=== PATIENT | male | born 1990 | race Caucasian/White ===

== ENCOUNTER 2016-08-15 14:09 | Emergency (ER) | payer OTHER, SELFPAY ==
[~2016-08-15] VITALS: Ht 185.4 cm; Wt 81.6 kg
[~2016-08-15 14:09] MED LIST: /ESCI10TA OR; ABIL10TA PO; ABIL5TAB OR; ACET-654 PO; ACET500C PO; ADVI200T PO; AKWASOL OU; AMBI5TAB OR; ATIV2TAB PO; BUSP10TA2 PO; CITA20TA4 PO; CLINDAMYCIN PO; DEPA250T3 OR; DEPA500T OR; DIPH25CA PO; DIVA50TAEC PO; EFFE75CA75 OR; FOLI1TAB2 PO; IMIT50TA PO; LORA-376 PO; MAALSUS PO; METH4TAB6 PO; MILKSUS PO; MYLASUS2 PO; NICO14DI3 TD; NICODIS TD; No Historical Meds; PAXI10TA2 PO; POLYOPD OU; PRIL20CA PO; PROZ20CA OR; SERO200T PO; THERTAB30 PO; TRAZ50TA OR; TRAZ50TA4 PO; TYLE325T5 PO; VITA100T60 PO; antivert PO; buspar PO; no historical meds
[2016-08-15 14:10] VITALS: BP 117/76
[2016-08-15] MEDS ORDERED: TRAZ100T4 PO (14:24)
[2016-08-15] MEDS ORDERED: PAXI40TA2 PO (14:24)
[2016-08-15] MEDS ORDERED: CLON1TAB PO (14:24)
== END 2016-08-15 16:53 | disposition left against medical advice (07) ==
LOC: M ED 15:40
DX: G47.00 Insomnia, unspecified (principal)

== ENCOUNTER 2017-07-10 20:28 | Emergency (ER) | payer MEDICARE, MEDICAID | END 2017-07-10 21:36 | disposition left against medical advice (07) | LOC: M ED 20:28 | DX: S99.922A Unspecified injury of left foot, initial encounter (principal); X58.XXXA Exposure to other specified factors, initial encounter; Y92.9 Unspecified place or not applicable; Y93.9 Activity, unspecified; Z79.899 Other long term (current) drug therapy; Z88.0 Allergy status to penicillin; Z88.5 Allergy status to narcotic agent; Z53.21 Procedure and treatment not carried out due to patient leaving prior to being seen by health care provider | CPT/HCPCS: 73630 ==

== ENCOUNTER → 2017-08-08 | Outpatient (REF) | payer MEDICARE, MEDICAID ==
[2017-08-08 20:34] LABS: CHLAMYDIA DNA AMPLIFICATION NEGATIVE (NEGATIVE); GC DNA AMPLIFICATION NEGATIVE (NEGATIVE)
== END ==
LOC: M LAB REF 16:44
DX: R30.0 Dysuria (principal); Z11.3 Encounter for screening for infections with a predominantly sexual mode of transmission; Z72.51 High risk heterosexual behavior
CPT/HCPCS: 87086

== ENCOUNTER 2018-11-26 09:04 | Emergency (ER) | payer MEDICARE, MEDICAID ==
[~2018-11-26] VITALS: Ht 185.4 cm; Wt 94.9 kg
[~2018-11-26 09:04] MED LIST changes: -/ESCI10TA OR; -ACET-654 PO; +ACET1TAB55 PO; -CITA20TA4 PO; +CITA20TA6 PO; +CLON1TAB8 PO; +FOLI1TAB11 PO; -FOLI1TAB2 PO; +INDO50CA11 PO; +LEXA1TAB OR; -LORA-376 PO; +LORA0.5T11 PO; +METH4TAB28 PO; -METH4TAB6 PO; +MILK120011 PO; -MILKSUS PO; +MYLASUS16 PO; -MYLASUS2 PO; +NICO21DI34 TD; -NICODIS TD; +PAXI10TA12 PO; -PAXI10TA2 PO; +PAXI40TA10 PO; +PRAZ1CAP PO; +TRAZ-163 PO; +TRAZ-252 PO; -TRAZ50TA4 PO
[2018-11-26] MEDS ORDERED: HYDR-3363 PO (09:15)
[2018-11-26] MEDS ORDERED: LAMO25TA4 PO (09:15)
[2018-11-26] MEDS ORDERED: PARO20TA3 PO (09:15)
[2018-11-26 09:19] VITALS: BP 152/88
[2018-11-26] MEDS ORDERED: HYDR1CAP25 PO (09:55)
[2018-11-26] MEDS ORDERED: PARO20TA4 PO (09:55)
[2018-11-26] MEDS ORDERED: LAMI25TA PO (09:55)
[2018-11-26] MEDS ORDERED: lamoTRIgine 25 MG TAB PO ONE (10:00)
[2018-11-26] MEDS ORDERED: hydrOXYzine 25 MG TAB PO ONE (10:00)
[2018-11-26] MEDS ORDERED: PARoxetine 20 MG TAB PO ONE (10:00)
== END 2018-11-26 10:01 | disposition home or self-care (01) ==
LOC: M ED 09:04
DX: Z76.0 Encounter for issue of repeat prescription (principal); F41.9 Anxiety disorder, unspecified; G43.909 Migraine, unspecified, not intractable, without status migrainosus; F31.9 Bipolar disorder, unspecified; F43.10 Post-traumatic stress disorder, unspecified; Z79.899 Other long term (current) drug therapy; Z88.0 Allergy status to penicillin; Z88.5 Allergy status to narcotic agent

== ENCOUNTER 2018-11-26 13:49 | Emergency (ER) | payer MEDICARE, MEDICAID ==
[~2018-11-26] VITALS: Ht 185.4 cm; Wt 94.7 kg
[~2018-11-26 13:49] MED LIST changes: -DIPH25CA PO; +DIPH25CA32 PO; +HYDR-3363 PO; +HYDR1CAP25 PO; -INDO50CA11 PO; +INDO50CA91 PO; +LAMI25TA PO; +LAMO25TA4 PO; -LORA0.5T11 PO; +LORA0.5T5 PO; -METH4TAB28 PO; +METH4TAB8 PO; +PARO20TA3 PO; +PARO20TA4 PO; -TRAZ-163 PO; +TRAZ-257 PO
[2018-11-26 14:48] LABS: BASO # 0.1 10^3/uL (0.0-0.2); BASO % 0.9 % (0.0-1.0); EOS # 0.1 10^3/uL (0.0-0.50); EOS % 1.8 % (0.0-3.0); HEMATOCRIT 46.4 % (42.0-52.0); LYMPH % 36.6 % (24.0-44.0); MEAN CORPUSCULAR HEMOGLOBIN 30.1 pg (27.0-33.0); MEAN CORPUSCULAR HGB CONC 34.5 g/dl (32.0-36.5); MEAN CORPUSCULAR VOLUME 87.2 fl (80.0-96.0); MONO # 0.5 10^3/uL (0.0-0.8); MONO % 8.3 % (0.0-5.0); NEUTROPHILS # 2.9 10^3/uL (1.8-7.7); PLATELET COUNT, AUTOMATED 195 10^3/uL (150-450); RED BLOOD COUNT 5.32 10^6/uL (4.30-6.10); WHITE BLOOD COUNT 5.5 10^3/uL (4.0-10.0)
[2018-11-26 15:16] LABS: ALBUMIN 3.8 GM/DL (3.2-5.2); ALT/SGPT 31 U/L (12-78); BILIRUBIN,TOTAL 0.4 MG/DL (0.2-1.0); BLOOD UREA NITROGEN 13 MG/DL (7-18); CARBON DIOXIDE LEVEL 28 MEQ/L (21-32); CHLORIDE LEVEL 107 MEQ/L (98-107); CK-MB VALUE MASS < 1.0 NG/ML (<3.6); CPK CREATINE PHOSPHOKINASE 56 U/L (39-308); CREATININE FOR GFR 1.22 MG/DL (0.70-1.30); GLOMERULAR FILTRATION RATE > 60.0 (>60); GLUCOSE, FASTING 91 MG/DL (70-100); MB/CK RELATIVE INDEX 1.79 (< OR =4); POTASSIUM SERUM 4.1 MEQ/L (3.5-5.1); SODIUM LEVEL 141 MEQ/L (136-145); TOTAL PROTEIN 6.6 GM/DL (6.4-8.2)
[2018-11-26 15:17] LABS: TROPONIN I < 0.02 NG/ML (< 0.10)
[2018-11-26] MEDS ORDERED: KETOROLAC 30 MG/ML VIAL (J1885) IV ONE (15:30)
--- NOTE | 2018-11-26 15:52 | REP ---
REASON: Right sided chest pain. COMPARISON: Multiple, latest 04/13/2015. FINDINGS: The superior mediastinal structures are midline. The cardiac silhouette is unremarkable in size, shape, and position. The diaphragmatic surfaces of the lungs are regular, and the costophrenic angles are clear. The pulmonary velez are clear. The imaged osseous structures are intact. IMPRESSION: There is no acute cardiopulmonary disease. No change from the prior exam. Electronically Signed by Tod Cortez DO 11/26/2018 04:22 P
[2018-11-26 18:30] VITALS: BP 111/62
[2018-11-26 19:13] LABS: CK-MB VALUE MASS < 1.0 NG/ML (<3.6); CPK CREATINE PHOSPHOKINASE 52 U/L (39-308); MB/CK RELATIVE INDEX 1.92 (< OR =4); TROPONIN I < 0.02 NG/ML (< 0.10)
--- NOTE | 2018-11-26 22:14 | ECGEPIP ---
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
[2019-04-01] MEDS ORDERED: CLON0.5T2 PO (16:04)
[2019-04-09] MEDS ORDERED: CLON0.5T2 PO ×2 (21:48→21:51)
== END 2018-11-26 19:45 | disposition home or self-care (01) ==
LOC: M ED 13:49
DX: R07.89 Other chest pain (principal); G43.909 Migraine, unspecified, not intractable, without status migrainosus; F33.9 Major depressive disorder, recurrent, unspecified; F41.9 Anxiety disorder, unspecified; F43.10 Post-traumatic stress disorder, unspecified; Z79.899 Other long term (current) drug therapy; Z88.0 Allergy status to penicillin; Z88.5 Allergy status to narcotic agent; F17.210 Nicotine dependence, cigarettes, uncomplicated
CPT/HCPCS: 71046; 80053; 82550; 82553; 84484; 85025; 85379; 93005; 93041; 96374; 99283; 99284; J1885

== ENCOUNTER 2018-12-22 14:02 | Emergency (ER) | payer MEDICARE, MEDICAID ==
[~2018-12-22] VITALS: Ht 185.4 cm; Wt 90.9 kg
[~2018-12-22 14:02] MED LIST changes: +LORA0.5T11 PO; -LORA0.5T5 PO; +METH4TAB28 PO; -METH4TAB8 PO; +TRAZ-163 PO; -TRAZ-257 PO
[2018-12-22] MEDS ORDERED: NS 1,000 ML IV ONE (15:15)
[2018-12-22] MEDS ORDERED: CLINDAMYCIN 600 MG in APPROPRIATE DILUENT 1 EA IV ONE (15:15)
[2018-12-22] MEDS ORDERED: MORPHINE 4 MG/ML 1ML VIAL/SYRINGE (J2270) IV ONE (15:30)
[2018-12-22 16:03] LABS: BASO % 0.3 % (0.0-1.0); EOS % 0.5 % (0.0-3.0); HEMATOCRIT 48.6 % (42.0-52.0); HEMOGLOBIN 16.9 g/dl (13.5-17.5); LYMPH # 0.9 10^3/uL (1.5-6.5); LYMPH % 11.8 % (24.0-44.0); MEAN CORPUSCULAR HEMOGLOBIN 30.1 pg (27.0-33.0); MEAN CORPUSCULAR HGB CONC 34.8 g/dl (32.0-36.5); MEAN CORPUSCULAR VOLUME 86.5 fl (80.0-96.0); MONO # 0.7 10^3/uL (0.0-0.8); MONO % 9.3 % (0.0-5.0); NEUTROPHILS # 5.9 10^3/uL (1.8-7.7); NEUTROPHILS % 77.8 % (36.0-66.0); PLATELET COUNT, AUTOMATED 177 10^3/uL (150-450); RED BLOOD COUNT 5.62 10^6/uL (4.30-6.10); WHITE BLOOD COUNT 7.6 10^3/uL (4.0-10.0)
[2018-12-22 16:18] LABS: BLOOD UREA NITROGEN 9 MG/DL (7-18); C REACTIVE PROTEIN QUANTITATIV 2.02 MG/DL (0.00-0.30); CALCIUM LEVEL 9.2 MG/DL (8.5-10.1); CARBON DIOXIDE LEVEL 28 MEQ/L (21-32); CHLORIDE LEVEL 106 MEQ/L (98-107); CREATININE FOR GFR 1.06 MG/DL (0.70-1.30); GLOMERULAR FILTRATION RATE > 60.0 (>60); GLUCOSE, FASTING 94 MG/DL (70-100); POTASSIUM SERUM 4.1 MEQ/L (3.5-5.1); SODIUM LEVEL 139 MEQ/L (136-145)
[2018-12-22 16:21] LABS: ERYTHROCYTE SEDIMENTATION RATE 5 mm/hr (0-15)
[2018-12-22] MEDS ORDERED: ISOVUE-370 76% 100ML VIAL (Q9967) As Ordered ONE (16:24)
[2018-12-22] MEDS ORDERED: LIDOCAINE W/EPINEPHRINE 1% 20ML VIAL SC ONE (17:15)
[2018-12-22] MEDS ORDERED: BENZOCAINE 20% GEL 9GM TUBE (ANBESOL MAX STRENGTH) TOP ONE (17:30)
[2018-12-22] MEDS ORDERED: CLEO300C2 PO (18:09)
[2018-12-22 18:23] VITALS: BP 118/80
--- NOTE | 2018-12-25 12:24 | REP ---
Maxillofacial CT with IV contrast: There is focal soft tissue edema of the upper lip. There is no focal fluid collection to suggest abscess or hematoma. This could be post-traumatic or cellulitis. No maxilla or mandibular fractures are identified. There is no nasal bone fracture. The ocular lenses and globes are unremarkable. Retrobulbar orbits are unremarkable. There is no orbit fracture. No zygoma fracture. There is a mucosal cyst/polyp anteriorly inferiorly in the right maxillary sinus. The sinuses are otherwise clear. Mastoid air cells are clear. Impression: Focal soft tissue edema of the upper lip without focal fluid collection to suggest abscess or hematoma. This could be post-traumatic or infectious/inflammatory. Right maxillary sinus mucosal cyst /polyp. Electronically Signed by Levi Padilla MD 12/23/2018 07:00 A
== END 2018-12-22 18:18 | disposition home or self-care (01) ==
LOC: M ED 14:02
DX: K04.7 Periapical abscess without sinus (principal); K02.9 Dental caries, unspecified; G43.909 Migraine, unspecified, not intractable, without status migrainosus; H91.92 Unspecified hearing loss, left ear; M32.9 Systemic lupus erythematosus, unspecified; F41.9 Anxiety disorder, unspecified; F31.9 Bipolar disorder, unspecified; F43.10 Post-traumatic stress disorder, unspecified; Z72.0 Tobacco use; Z79.899 Other long term (current) drug therapy; Z88.0 Allergy status to penicillin; Z88.5 Allergy status to narcotic agent
CPT/HCPCS: 70487; 80048; 85025; 85652; 86140; 96374; 96375; 99284; J2270; Q9967

== ENCOUNTER 2019-02-17 10:22 | Emergency (ER) | payer MEDICAID, MEDICARE ==
[~2019-02-17] VITALS: Ht 182.9 cm; Wt 97.4 kg
[~2019-02-17 10:22] MED LIST changes: +CLEO300C2 PO
[2019-02-17 11:08] LABS: HEMATOCRIT 47.2 % (42.0-52.0); HEMOGLOBIN 16.4 g/dl (13.5-17.5); MEAN CORPUSCULAR HEMOGLOBIN 29.9 pg (27.0-33.0); MEAN CORPUSCULAR HGB CONC 34.7 g/dl (32.0-36.5); MEAN CORPUSCULAR VOLUME 86.1 fl (80.0-96.0); PLATELET COUNT, AUTOMATED 205 10^3/uL (150-450); RED BLOOD COUNT 5.48 10^6/uL (4.30-6.10); WHITE BLOOD COUNT 4.5 10^3/uL (4.0-10.0)
[2019-02-17 11:37] LABS: ACETAMINOPHEN LEVEL < 2.0 UG/ML (10.0-30.0); ALBUMIN 4.2 GM/DL (3.2-5.2); ALT/SGPT 38 U/L (12-78); BILIRUBIN,DIRECT 0.1 MG/DL (0.0-0.2); BILIRUBIN,TOTAL 0.5 MG/DL (0.2-1.0); BLOOD UREA NITROGEN 9 MG/DL (7-18); CARBON DIOXIDE LEVEL 28 MEQ/L (21-32); CHLORIDE LEVEL 109 MEQ/L (98-107); CREATININE FOR GFR 1.11 MG/DL (0.70-1.30); ETHYL ALCOHOL (ETHANOL) < 0.003 % (0.000-0.010); GLOMERULAR FILTRATION RATE > 60.0 (>60); GLUCOSE, FASTING 93 MG/DL (70-100); POTASSIUM SERUM 4.2 MEQ/L (3.5-5.1); SODIUM LEVEL 143 MEQ/L (136-145); THYROID STIMULATING HORMONE 0.932 uIU/ML (0.358-3.740); TOTAL PROTEIN 7.1 GM/DL (6.4-8.2)
[2019-02-17 11:43] LABS: AMPHETAMINES LEVEL URINE NEGATIVE (NEGATIVE); BARBITURATES URINE NEGATIVE (NEGATIVE); BENZODIAZEPINES URINE NEGATIVE (NEGATIVE); CANNABINOIDS URINE POSITIVE (NEGATIVE); COCAINE METABOLITE URINE NEGATIVE (NEGATIVE); METHADONE URINE NEGATIVE (NEGATIVE); OPIATES URINE NEGATIVE (NEGATIVE); PHENCYCLIDINE URINE NEGATIVE (NEGATIVE)
[2019-02-17] MEDS: LORazepam 0.5 MG TAB PO ONE (13:35)
[2019-02-17] MEDS: NICOTINE 21MG/24HR 1 EA TRANSDERMAL TD ONE (15:47)
[2019-02-17 18:35] VITALS: BP 141/82
[2019-02-17] MEDS ORDERED: PRAZ1CAP PO (18:59)
[2019-02-17] MEDS ORDERED: LAMI25CH PO (19:00)
== END 2019-02-17 19:13 | disposition home or self-care (01) ==
LOC: M ED 10:22
DX: F31.9 Bipolar disorder, unspecified (principal); F41.9 Anxiety disorder, unspecified; Z88.0 Allergy status to penicillin; Z88.5 Allergy status to narcotic agent; Z79.899 Other long term (current) drug therapy

== ENCOUNTER 2019-03-07 14:15 | Emergency (ER) | payer MEDICARE, OTHER ==
[~2019-03-07] VITALS: Ht 182.9 cm; Wt 81.8 kg
[~2019-03-07 14:15] MED LIST changes: +LAMI25CH PO
[2019-03-07] MEDS ORDERED: LAMI1TAB7 PO (14:27)
[2019-03-07] MEDS ORDERED: PRAZ1CAP PO (14:28)
[2019-03-07] MEDS ORDERED: PAXI40TA10 PO (14:29)
[2019-03-07] MEDS ORDERED: HYDR-3363 PO (14:30)
[2019-03-07 14:39] VITALS: BP 127/79
== END 2019-03-07 14:58 | disposition home or self-care (01) ==
LOC: M ED 14:15
DX: Z76.0 Encounter for issue of repeat prescription (principal); G43.909 Migraine, unspecified, not intractable, without status migrainosus; Z88.0 Allergy status to penicillin; Z88.5 Allergy status to narcotic agent

== ENCOUNTER 2019-04-01 15:10 | Emergency (ER) | payer MEDICARE, MEDICAID ==
[~2019-04-01] VITALS: Ht 182.9 cm; Wt 84.1 kg
[~2019-04-01 15:10] MED LIST changes: +LAMI1TAB7 PO
[2019-04-01 15:59] LABS: BASO # 0.1 10^3/uL (0.0-0.2); BASO % 0.9 % (0.0-1.0); EOS # 0.1 10^3/uL (0.0-0.5); EOS % 1.6 % (0.0-3.0); HEMATOCRIT 46.2 % (42.0-52.0); LYMPH # 1.9 10^3/uL (1.5-5.0); LYMPH % 33.2 % (24.0-44.0); MEAN CORPUSCULAR HEMOGLOBIN 29.6 pg (27.0-33.0); MEAN CORPUSCULAR HGB CONC 34.6 g/dl (32.0-36.5); MEAN CORPUSCULAR VOLUME 85.6 fl (80.0-96.0); MONO # 0.3 10^3/uL (0.0-0.8); MONO % 5.9 % (0.0-5.0); NEUTROPHILS # 3.4 10^3/uL (1.5-8.5); NEUTROPHILS % 58.2 % (36.0-66.0); PLATELET COUNT, AUTOMATED 229 10^3/uL (150-450); WHITE BLOOD COUNT 5.8 10^3/uL (4.0-10.0)
[2019-04-01] MEDS ORDERED: NS 1,000 ML IV ONE (16:00)
[2019-04-01] MEDS ORDERED: CLON0.5T8 (16:04)
[2019-04-01] MEDS ORDERED: PAXI20TA29 PO (16:04)
[2019-04-01] MEDS ORDERED: LAMI25TA PO (16:04)
--- NOTE | 2019-04-01 16:11 | REP ---
CT brain: 04/01/2019. Indication: Syncope. Comparison: 10/04/2014. Technique: Unenhanced axial CT images of the brain were obtained from skull base to vertex. Findings: There is no acute intracranial hemorrhage, acute cortical infarction, mass effect, hydrocephalus or acute calvarial fracture. No significant fluid is present within the visualized paranasal sinuses/mastoid air cells. Impression: No acute intracranial process. Electronically Signed by Seymour Rene DO 04/01/2019 04:03 P
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
[2019-04-01] MEDS ORDERED: LORazepam 2 MG/ML VIAL (J2060) IV STA (16:32)
[2019-04-01] MEDS ORDERED: LORazepam 2 MG/ML VIAL (J2060) As Ordered ONE (16:33)
[2019-04-01 16:38] LABS: ALBUMIN 4.1 GM/DL (3.2-5.2); ALT/SGPT 22 U/L (12-78); BILIRUBIN,DIRECT 0.2 MG/DL (0.0-0.2); BILIRUBIN,TOTAL 0.6 MG/DL (0.2-1.0); BLOOD UREA NITROGEN 10 MG/DL (7-18); CALCIUM LEVEL 8.9 MG/DL (8.5-10.1); CARBON DIOXIDE LEVEL 28 MEQ/L (21-32); CHLORIDE LEVEL 107 MEQ/L (98-107); CREATININE FOR GFR 1.08 MG/DL (0.70-1.30); GLOMERULAR FILTRATION RATE > 60.0 (>60); GLUCOSE, FASTING 100 MG/DL (70-100); SODIUM LEVEL 143 MEQ/L (136-145); TOTAL PROTEIN 6.8 GM/DL (6.4-8.2)
[2019-04-01] MEDS ORDERED: ISOVUE-370 76% 100ML VIAL (Q9967) As Ordered ONE (17:00)
--- NOTE | 2019-04-01 17:56 | REPVR ---
PROCEDURE INFORMATION: Exam: CT Abdomen And Pelvis With Contrast Exam date and time: 04/01/2019 5:07 PM Clinical history: 29 years old, male; Abdominal pain; Additional info: Rlq pain TECHNIQUE: Imaging protocol: Computed tomography of the abdomen and pelvis with intravenous contrast. Radiation optimization: All CT scans at this facility use at least one of these dose optimization techniques: automated exposure control; mA and/or kV adjustment per patient size (includes targeted exams where dose is matched to clinical indication); or iterative reconstruction. Contrast material: ISOVUE 370; Contrast volume: 100 ml; Contrast route: IV; COMPARISON: CT ABD PELVIS WITH CONTRAST 03/23/2016 10:42 PM FINDINGS: Lungs: The visualized lung bases are essentially clear. Liver: The liver is mildly fatty in density. It contains a fairly stable hypodense, indeterminate lesion in the left lobe measuring 1.5 x 1.1 cm. Gallbladder and bile ducts: No gallstones are evident, but ultrasound would be more sensitive. No gross biliary ductal dilatation. Pancreas: Normal. No ductal dilation. Spleen: A splenule is again present. The spleen itself appears unremarkable. Adrenals: Normal. No mass. Kidneys and ureters: The right kidney appears unremarkable. The left kidney contains a similar 1.4 x 1.2 cm cyst in its upper pole. It appears otherwise unremarkable. Stomach and bowel: The unopacified small bowel is not significantly distended to suggest obstruction. The large bowel is grossly unremarkable in appearance. Appendix: The appendix appears normal. Intraperitoneal space: No free air or significant free fluid. Vasculature: Unremarkable. No abdominal aortic aneurysm. Lymph nodes: Unremarkable. No enlarged lymph nodes. Bladder: Grossly unremarkable. Reproductive: The prostate is again large, measuring 4.3 x 4.2 cm. Bones/joints: There is again a butterfly deformity of the L4 vertebral body. Soft tissues: Unremarkable. IMPRESSION: 1. No acute abnormality identified. The appendix appears normal. 2. Mild fatty liver containing a hypodense, indeterminate 1.5 cm lesion which is fairly stable as compared with 03/23/16. May further evaluate with nonemergent MRI if clinically indicated. 3. Persistent prostatomegaly. Electronically signed by: Erick Gipson On 04/01/2019 17:56:43 PM
[2019-04-01 19:12] VITALS: BP 102/61
--- NOTE | 2019-04-02 05:43 | ECGEPIP ---
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
--- NOTE | 2019-04-02 10:34 | ED PDOC ---
Post-Departure Follow-Up radiology report faxed to [facility] Moni Nazario MD Apr 02, 2019 10:34
== END 2019-04-01 19:17 | disposition home or self-care (01) ==
LOC: M ED 15:10
DX: R55 Syncope and collapse (principal); F17.200 Nicotine dependence, unspecified, uncomplicated; N40.1 Benign prostatic hyperplasia with lower urinary tract symptoms; Z79.899 Other long term (current) drug therapy; Z88.0 Allergy status to penicillin; Z88.5 Allergy status to narcotic agent
CPT/HCPCS: 70450; 72125; 74177; 80047; 80048; 80076; 80175; 84443; 85025; 93005; 93041; 94760; 96361; 96374; 99285; J2060; Q9967

== ENCOUNTER 2019-04-09 16:53 | Inpatient (IN) | payer MEDICARE, MEDICAID ==
[~2019-04-09] VITALS: Ht 185.4 cm; Wt 88.7 kg
[~2019-04-09 16:53] MED LIST changes: +CLON0.5T8 PO; +PAXI20TA29 PO
[2019-04-09] MEDS ORDERED: CLON1TAB8 PO (17:16)
[2019-04-09] MEDS ORDERED: DEPA250T32 PO (17:21)
[2019-04-09] MEDS ORDERED: ABIL20TA5 PO (17:24)
[2019-04-09] MEDS ORDERED: PRAZ2CAP PO ×2 (17:24→21:51)
[2019-04-09 18:34] LABS: HEMATOCRIT 49.9 % (42.0-52.0); MEAN CORPUSCULAR HEMOGLOBIN 29.8 pg (27.0-33.0); MEAN CORPUSCULAR HGB CONC 34.1 g/dl (32.0-36.5); MEAN CORPUSCULAR VOLUME 87.5 fl (80.0-96.0); PLATELET COUNT, AUTOMATED 232 10^3/uL (150-450); WHITE BLOOD COUNT 5.5 10^3/uL (4.0-10.0)
[2019-04-09 18:46] LABS: AMPHETAMINES LEVEL URINE NEGATIVE (NEGATIVE); BARBITURATES URINE NEGATIVE (NEGATIVE); BENZODIAZEPINES URINE NEGATIVE (NEGATIVE); CANNABINOIDS URINE POSITIVE (NEGATIVE); COCAINE METABOLITE URINE NEGATIVE (NEGATIVE); METHADONE URINE NEGATIVE (NEGATIVE); OPIATES URINE NEGATIVE (NEGATIVE); PHENCYCLIDINE URINE NEGATIVE (NEGATIVE)
[2019-04-09 19:04] LABS: ACETAMINOPHEN LEVEL < 2.0 UG/ML (10.0-30.0); ALBUMIN 4.3 GM/DL (3.2-5.2); ALT/SGPT 26 U/L (12-78); BILIRUBIN,DIRECT 0.2 MG/DL (0.0-0.2); BILIRUBIN,TOTAL 0.6 MG/DL (0.2-1.0); BLOOD UREA NITROGEN 14 MG/DL (7-18); CALCIUM LEVEL 8.9 MG/DL (8.5-10.1); CARBON DIOXIDE LEVEL 31 MEQ/L (21-32); CHLORIDE LEVEL 105 MEQ/L (98-107); CREATININE FOR GFR 1.18 MG/DL (0.70-1.30); ETHYL ALCOHOL (ETHANOL) < 0.003 % (0.000-0.010); GLOMERULAR FILTRATION RATE > 60.0 (>60); GLUCOSE, FASTING 92 MG/DL (70-100); POTASSIUM SERUM 4.5 MEQ/L (3.5-5.1); SALICYLATE LEVEL 3.1 MG/DL (5.0-30.0); SODIUM LEVEL 140 MEQ/L (136-145); THYROID STIMULATING HORMONE 0.827 uIU/ML (0.358-3.740); TOTAL PROTEIN 6.9 GM/DL (6.4-8.2)
[2019-04-09] MEDS ORDERED: NICOTINE 21MG/24HR 1 EA TRANSDERMAL TD ONE (19:45)
[2019-04-09] MEDS ORDERED: MAALOX 30 ML SUSP *UDC PO PRN (21:30)
[2019-04-09] MEDS ORDERED: MOM 30ML SUSPENSION UDC PO PRN (21:30)
[2019-04-09] MEDS ORDERED: traZODone 50 MG TAB PO PRN (21:30)
[2019-04-09] MEDS ORDERED: ACETAMINOPHEN TAB 650MG DOSE (2X325MG) PO PRN (21:30)
[2019-04-09] MEDS ORDERED: CLON0.5T8 PO ×2 (21:48→21:51)
[2019-04-09] MEDS ORDERED: PARO40TA2 PO (21:51)
[2019-04-09] MEDS ORDERED: VALP1CAP2 PO (21:51)
[2019-04-09] MEDS ORDERED: IBUP-1730 PO (21:51)
[2019-04-09] MEDS ORDERED: ABIL10TA9 PO (21:51)
[2019-04-09 23:40] VITALS: BP 125/71
[2019-04-10 06:19] VITALS: BP 103/64
--- NOTE | 2019-04-10 07:26 | ECGEPIP ---
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
[2019-04-10] MEDS ORDERED: FLUoxetine 20 MG CAP PO ONE (12:00)
[2019-04-10] MEDS ORDERED: LURASIDONE 20 MG TAB (LATUDA) PO ONE (12:00)
--- NOTE | 2019-04-10 14:44 | HPE ---
DATE OF ADMISSION: 04/09/2019 HISTORY OF PRESENT ILLNESS: Please refer to the psychiatric history and evaluation for further details on this admission. This examination and history is intended for medical issues, which may need treatment, followup or consultation on this 30-year-old male. ALLERGIES: PENICILLIN and CODEINE which cause anaphylaxis. PRIMARY CARE PROVIDER: He says he recently started going there and goes to someone he cannot remember the name but they are in [facility]. SOCIAL HISTORY: Resides in [place]. He is single. He smokes at least one-half cigarettes a day. He drinks alcohol about once every 3-4 months. He uses marijuana regularly. FAMILY HISTORY: Mother unknown. Father with multiple sclerosis. PAST MEDICAL HISTORY: 1. Lupus. 2. Depression. 3. Bipolar disorder. 4. Anxiety. 5. 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 PAST SURGICAL HISTORY: 1. Pressure equalizer (PE) tubes. 2. Bilateral myringotomy. 3. Adenoidectomy. LABORATORY STUDIES: CBC was normal. White count 5.5, hemoglobin 17, hematocrit 49.9, platelets 232. Sodium 140, potassium 4.5, chloride 105, CO2 31, BUN 14, creatinine 1.18, TSH 0.827. Urine toxicology was negative. 11-systems review was done, was unremarkable other than the decreased hearing loss. The patient was feeling well, had no medical issues. MEDICATION LIST: - Abilify 20 mg by mouth nightly - clonazepam 0.5 mg by mouth twice a day - clonazepam 1 mg by mouth nightly - ibuprofen 800 mg by mouth three times a day as needed for headache or pain - paroxetine HCl 40 mg by mouth daily - prazosin 2 mg by mouth nightly - valproic acid 250 mg by mouth three times a day PHYSICAL EXAMINATION: 29-year-old male, in no acute distress. Height 73 inches. Weight 88.7 kg. Body mass index (BMI) 25.8. Blood pressure 126/68, pulse 80, respirations 16, oxygen saturation 98% on room air, temperature 97.9. Patient is alert and oriented times three. Pupils equal and reactive to light. Extraocular muscles (EOM) intact. Cornea and sclera clear. Conjunctiva normal. No facial asymmetry. Pharynx, tongue, and gums pink and moist. Tongue is midline. Neck is supple, without lymphadenopathy. No thyromegaly. No goiter. Carotids 2+ without bruit. Chest clear to auscultation, without wheeze or retraction. Heart is regular. Abdomen benign. Bowel sounds positive. Genitourinary ()/rectal not done. Extremities show equal strength. Full range of motion. No cyanosis, clubbing or edema. Peripheral pulses equal and palpable bilaterally. Skin is warm and dry. IMPRESSION AND PLAN: 1. Psychiatric: Plan per psychiatry. 2. Smoking cessation: Nicotine patch offered. 3. Deep venous thrombosis (DVT) prophylaxis: Early ambulation. 4. No acute medical issues.
[2019-04-10 15:34] VITALS: BP 90/54
[2019-04-10] MEDS: PROPRANOLOL 10 MG TAB PO SCH ×2 (15:44→20:32)
[2019-04-10 20:32] VITALS: BP 106/72
[2019-04-10] MEDS ORDERED: MIRTAZAPINE 15 MG TAB PO SCH (21:00)
[2019-04-10] MEDS ORDERED: LURASIDONE 20 MG TAB (LATUDA) PO SCH (21:00)
[2019-04-10] MEDS ORDERED: clonazePAM 1 MG TAB PO ONE (21:30)
[2019-04-10 21:53] VITALS: BP 136/87
[2019-04-11] MEDS ORDERED: FLUoxetine 20 MG CAP PO SCH (09:00)
--- NOTE | 2019-04-11 11:23 | MHDSPDOC ---
[facility] Discharge Summary Discharge Summary DATE OF ADMISSION: Apr 09, 2019 at 21:27 DATE OF DISCHARGE: Apr 10, 2019 at 22:29 DISCHARGE DIAGNOSES: 1. . 2. . REASON FOR ADMISSION: Patient is a 29 -year-old , male, with a history of bipolar d/o, PTSD who self presented to the ED (had to bring sister to ED b/c she was physically sick) and endorsed depression and thoughts of SI for the past week after several medication changes over the past 2mo. Pt stated he took 4mg of Klonopin prior to coming to the ED and would have taken more but he had to bring his sister to the ED. He stated in the ED that over the past 2 wks he been having insomnia and "manic moments." Endorsed current psychosocial stressors of he and his partner having moved in together 1 month ago after location for 5 months, being granted custody of his 14y/o sister with his partner, and several deaths due to drug OD (works at [employer]) and one friend . Per ED, he was tearful when there. Pt seen and states he's been going thru a lot of medications changes with Dr. Hooks at [facility] and was taken off his lamictal 150mg daily b/c it wasn't worker as well as it had been for the pervious years pt had been on it and doing really well and rather increased was weaned off and put on depakote that he doesn't really like as it makes him feel tired and unmotivated. States he doesn't like paxil b/c of the same reason and tells his doctor but he doesn't seem to listen. States due to his current new psychosocial stressors he's been more anxious which is causing him to feel depressed. He has also been requiring increased amounts of Klonopin prescribed most likely due to tolerance for treatment of his anxiety which puts him a risk of addiction. States he's having insomnia but his doctor will not put him on something to help pt sleep even though the past requests help. Spoke to pt about a medication plan as he describes himself as a bipolar depressive pt. It will take a very long time to get pt back on a therapeutic dose of lamictal so instead will start latuda 20mg bid for bipolar depression, d/c depakote, d/c paxil and start prozac pt found beneficial for mood in the past, ween off klonopin and start inderal 10mg tid for anxiety, continue prazosin, and start remeron for insomnia, all med risks and benefits discussed. Pt states he likes that medication plan and hopes it will be beneficial. He denies SI/HI, hallucination, delusions. Feels safe here. CONSULTANTS INVOLVED: medicine transferred pt to ICU for low bp after pt passed out on unit after receiving inderal. TREATMENT AND PROGRESS ON THE UNIT : Pt was admitted to [facility], seen for psychiatric assessment and his outpatient paxil, abilify, depakote where discontinued due to pt not finding them beneficial and he was started on latuda 20mg bid for bipolar depression, prozac 20mg daily for depression, inderal 10mg tid, and remeron 15mg qhs for insomnia. Pt took inderal 10mg in the late even of 04/10/19 and apparently passed out due to low bp after taking and was transferred to the ICU by medical team and d/c from [facility]. I was not able to see pt prior to d/c from [facility]. DISCHARGE ASSESSMENT: Pt transferred to ICU during the late evening 03/10/19 so unable to see prior d/c MENTAL STATUS EXAMINATION ON DISCHARGE: pt transferred to ICU during the late evening 03/10/19 so unable to see prior d/c MEDICATIONS ON DISCHARGE: prozac 20mg daily latuda 20mg bid remeron 15mg qhs klonopin 0.5 bid PLAN/FOLLOWUP ARRANGEMENTS:D/c home with follow-up at [facility]. The amount of time spent in the coordination of care for this patient was approximately 30 minutes. Vital Signs/I&Os Vital Signs Date Time Temp Pulse Resp B/P (MAP) Pulse Ox O2 Delivery O2 Flow Rate FiO2 04/10/19 21:53 88 16 136/87 (103) 04/10/19 15:34 99.5 04/09/19 23:40 98 Room Air Laboratory Data Labs 24H Laboratory Tests 2 04/10/19 22:25: Bedside Glucose ([facility] Panel) 91 Medications Scheduled Aripiprazole (Abilify) 10 Mg Tablet, 20 MG PO QHS, (Reported) Clonazepam (Clonazepam) 0.5 Mg Tablet, 0.5 MG PO BID, (Reported) MORNING AND AFTERNOON Clonazepam (Clonazepam) 0.5 Mg Tablet, 1 MG PO QHS, (Reported) Paroxetine HCl (Paroxetine HCl) 40 Mg Tablet, 20 MG PO DAILY, (Reported) Prazosin Hcl (Prazosin HCl) 2 Mg Capsule, 2 MG PO QHS, (Reported) Valproic Acid (Valproic Acid) 250 Mg Capsule, 250 MG PO TID, (Reported) Scheduled PRN Ibuprofen (Ibuprofen) 200 Mg Tablet, 800 MG PO TID PRN for HEADACHE OR PAIN, (Reported) Allergies Coded Allergies: Penicillins (Verified Allergy, Severe, throat swelling, 11/26/18) codeine (Verified Allergy, Severe, anaphylaxis, 11/26/18) MARY ELLEN CHAMBERLAIN DO Apr 11, 2019 11:23
[2019-04-11] MEDS ORDERED: PROZ20CA11 PO (11:48)
[2019-04-11] MEDS ORDERED: LATU20TA PO (11:48)
[2019-04-11] MEDS ORDERED: VIST50CA PO (11:48)
[2019-04-11] MEDS ORDERED: REME15TA2 PO (11:48)
== END 2019-04-10 22:29 | disposition short-term general hospital (02) | DRG 881 ==
LOC: EEVIPCON 16:53 → M ED 16:53 → M ED INP 21:27 → M PSY 22:57
PROVIDERS: ADMIT Psychiatry & Neurology Addiction Medicine; ATTEND Psychiatry & Neurology Psychiatry
DX: F32.9 Major depressive disorder, single episode, unspecified (principal); F43.10 Post-traumatic stress disorder, unspecified; G47.00 Insomnia, unspecified; Z63.0 Problems in relationship with spouse or partner; F43.21 Adjustment disorder with depressed mood; M32.9 Systemic lupus erythematosus, unspecified; G43.909 Migraine, unspecified, not intractable, without status migrainosus; H91.92 Unspecified hearing loss, left ear; Z81.8 Family history of other mental and behavioral disorders; Z62.810 Personal history of physical and sexual abuse in childhood; F12.20 Cannabis dependence, uncomplicated; F41.1 Generalized anxiety disorder; Z79.899 Other long term (current) drug therapy; Z88.0 Allergy status to penicillin; Z88.6 Allergy status to analgesic agent; F17.210 Nicotine dependence, cigarettes, uncomplicated

== ENCOUNTER 2019-04-10 22:26 | Inpatient (IN) | payer MEDICARE, MEDICAID ==
[~2019-04-10] VITALS: Ht 182.9 cm; Wt 92.0 kg
[~2019-04-10 22:26] MED LIST changes: +ABIL10TA9 PO; +ABIL20TA5 PO; +DEPA250T32 PO; +IBUP-1730 PO; +PARO40TA2 PO; +PRAZ2CAP PO; +VALP1CAP2 PO
[2019-04-10] MEDS ORDERED: ACETAMINOPHEN TAB 650MG DOSE (2X325MG) PO PRN (22:30)
[2019-04-10] MEDS ORDERED: ONDANSETRON 4MG/2ML VIAL (J2405) IV PRN (22:30)
[2019-04-10 22:40] VITALS: BP 120/56
--- NOTE | 2019-04-10 23:11 | REPVR ---
PROCEDURE INFORMATION: Exam: CT Head Without Contrast Exam date and time: 04/10/2019 10:35 PM Clinical history: 29 years old, male; Injury or trauma; Fall; Initial encounter; Blunt trauma (contusions or hematomas); Additional info: Vomiting head trauma TECHNIQUE: Imaging protocol: Computed tomography of the head without contrast. Radiation optimization: All CT scans at this facility use at least one of these dose optimization techniques: automated exposure control; mA and/or kV adjustment per patient size (includes targeted exams where dose is matched to clinical indication); or iterative reconstruction. COMPARISON: CT Head without contrast 04/01/2019 3:23 PM FINDINGS: Brain: No CT evidence of acute intracranial hemorrhage or acute territorial infarction. No significant mass effect or midline shift. Basal cisterns patent. Ventricles: Normal in size and configuration. Bones/joints: No acute osseous abnormality. Sinuses: Grossly unremarkable. Mastoid air cells: Minimal opacification of the left inferior mastoid air cells. Soft tissues: Grossly unremarkable. IMPRESSION: 1. No CT evidence of acute intracranial pathology. 2. Additional findings, as above. Electronically signed by: Erick Ragland On 04/10/2019 23:11:13 PM
[2019-04-10] MEDS ORDERED: SODIUM CHLORIDE 0.9% 1000ML IV ONE (23:30)
[2019-04-10 23:47] LABS: HEMATOCRIT 44.5 % (42.0-52.0); HEMOGLOBIN 15.1 g/dl (13.5-17.5); MEAN CORPUSCULAR HEMOGLOBIN 29.3 pg (27.0-33.0); MEAN CORPUSCULAR HGB CONC 33.9 g/dl (32.0-36.5); MEAN CORPUSCULAR VOLUME 86.2 fl (80.0-96.0); PLATELET COUNT, AUTOMATED 205 10^3/uL (150-450); RED BLOOD COUNT 5.16 10^6/uL (4.30-6.10); WHITE BLOOD COUNT 5.9 10^3/uL (4.0-10.0)
[2019-04-10 23:52] LABS: ALBUMIN 3.7 GM/DL (3.2-5.2); ALT/SGPT 23 U/L (12-78); BILIRUBIN,TOTAL 0.4 MG/DL (0.2-1.0); BLOOD UREA NITROGEN 13 MG/DL (7-18); CALCIUM LEVEL 8.8 MG/DL (8.5-10.1); CARBON DIOXIDE LEVEL 28 MEQ/L (21-32); CHLORIDE LEVEL 109 MEQ/L (98-107); CREATININE FOR GFR 1.02 MG/DL (0.70-1.30); GLOMERULAR FILTRATION RATE > 60.0 (>60); GLUCOSE, FASTING 95 MG/DL (70-100); POTASSIUM SERUM 3.8 MEQ/L (3.5-5.1); SODIUM LEVEL 141 MEQ/L (136-145); TOTAL PROTEIN 6.4 GM/DL (6.4-8.2)
[2019-04-10] MEDS: ACETAMINOPHEN TAB 650MG DOSE (2X325MG) PO PRN (23:55)
[2019-04-11] VITALS: BP_SYST 106; BP_DIAS 59; BP_DIAS 68
--- NOTE | 2019-04-11 00:15 | HPEPDOC ---
[facility] Medical History & Physical Date of Admission Apr 10, 2019 Date of Service: Apr 10, 2019 Attending Physician: ROBERTO TORO MD History and Physical CHIEF COMPLAINT: admitted from [facility] for nausea/fall HISTORY OF PRESENT ILLNESS: Jeffrey Bettencourt is a 29-year-old male with history of bi polar disorder, PTSD who was admitted to [facility] on 04/09/2019 for feelings of suicidal ideation and depression. Per the patient, he has been in and out of the mental health unit. Over the past several years and has been on Lamictal and Klonopin recently. On admission, he endorsed depression and thoughts of SI for the past week. After several medication changes over the past 2 months. He has also been having insomnia and "manic moments." This evening, a rapid response was called as the patient fell in his room, hit his head and was nauseous and vomiting small amounts of blood. The patient reports that he started to feel dizzy, sweaty, hot and tried splashing water on his face, but this did not help. He was on his way to go to the nurse's station to let them know that he was not feeling well when he fell in his room and woke up on the floor. He immediately felt nauseous and vomited, dry heaved small amounts of blood. Of note, he had just received 10 mg Propanolol and 20 mg Lurasidone an hour prior to the fall. During the rapid response, his blood sugar was checked and found to be 91, an EKG was performed, which was within normal limits, and the patient complained of severe frontal headache. REVIEW OF SYSTEMS: CONSTITUTIONAL: No fever or chills HEENT: denies vision changes, no sinus problems, denies any trouble swallowing CARDIOVASCULAR: no palpitations RESPIRATORY: Denies any shortness of breath GENITOURINARY: No dysuria MUSCULOSKELETAL: Denies any joint/muscle pain GASTROINTESTINAL: Denies abdominal pain, no nausea/vomiting/diarrhea SKIN: No new rashes or lesions NEUROLOGICAL: Reports severe frontal headache PSYCHIATRIC: Reports normal mood, no delusions or hallucinations ENDOCRINE: No hot/cold intolerance HEMATOLOGIC/LYMPHATIC: No easy bruising, no lumps/bumps ALLERGIC/IMMUNOLOGIC: No sinus symptoms]. PAST MEDICAL HISTORY: 1. Bipolar depression 2. Chronic migraines 3. History of lupus? 4. OLEG 5. PTSD 6. Cannabis use disorder PAST SURGICAL HISTORY: 1. Adenoidectomy 2. 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 HOME MEDICATIONS: Please see below. PHYSICAL EXAMINATION: VITAL SIGNS: Please see below. GENERAL APPEARANCE: Sitting up in bed, staring into the distance, neck is somewhat rigid (unknown if this was due to pain), conversive, calm HEENT: EOMI, PERRLA, neck is supple with no thyromegaly or lymphadenopathy RESPIRATORY: Lungs are clear to auscultation bilaterally with no adventitious breath sounds appreciated CARDIOVASCULAR: no JVD, RRR, no murmurs/rubs/gallops ABDOMEN: Soft, nontender to palpation in all four quadrants, no masses/organomegaly EXTREMITIES: no clubbing, cyanosis or edema noted NEUROLOGICAL: No obvious focal deficits / has Horizontal nystagmus PSYCHIATRIC: normal mood/affect Skin: No rashes or ulcers. LN: No significant cervical or inguinal lymphadenopathy LABORATORY DATA: See below. IMAGING: CT HEAD " IMPRESSION: 1. No CT evidence of acute intracranial pathology. 2. Additional findings, as above. " ASSESSMENT: This is a 29-year-old male with bipolar depression, recently admitted to [facility] with symptoms of suicidal ideation who this evening fell in his room and was nauseous, vomiting blood. A rapid response was called and the patient was admitted to the PCU for further workup. PLAN: 1. Syncope: -Likely secondary to medication side effect. The patient had just received propanolol 10 mg and Lurasidone 20mg prior to this event. He had also received fluoxetine, trazodone, other dose of Lurasidone earlier in the day. Vitals are stable at this point in time, so less likely neuroleptic malignant syndrome or tardive dyskinesia. -Will start IV fluids normal saline 150 mL/h -Will stop all psychiatric medications at this time and monitor vitals closely -CT head negative for any bleed, intracranial process -CBC, BMP within normal limits -frequent neurochecks -Acetaminophen for headache -Seizure precautions, bedrest, sitter in room -Pending toxicology screen 2. Bipolar depression: -Patient had been on Lamictal for several years and was reportedly stable. Me dications changed on this admission. -As he was admitted to [facility] will place consult for psychiatry for AM. Appreciate recommendations 3.Hematemesis -f/u Hg -Zofran PRN DVT ppx: not needed, as patient is mobile DISPO: likely back to in-patient psych pending clinical improvement Laboratory Data Labs 24H Laboratory Tests 2 04/10/19 23:19: CBC/BMP Home Medications Scheduled Clonazepam (Clonazepam) 0.5 Mg Tablet, 0.5 MG PO BID MORNING AND AFTERNOON Clonazepam (Clonazepam) 0.5 Mg Tablet, 1 MG PO QHS Fluoxetine HCl (Prozac) 20 Mg Capsule, 20 MG PO DAILY for mood Lurasidone Hydrochloride (Latuda) 20 Mg Tablet, 20 MG PO BID for bipolar depression Mirtazapine (Remeron) 15 Mg Tab.rapdis, 15 MG PO QPM Prazosin Hcl (Prazosin HCl) 2 Mg Capsule, 2 MG PO QHS Scheduled PRN Hydroxyzine Pamoate (Vistaril) 50 Mg Capsule, 50 MG PO TID PRN for ANXIETY/AGITATION Allergies Coded Allergies: Penicillins (Verified Allergy, Severe, throat swelling, 11/26/18) codeine (Verified Allergy, Severe, anaphylaxis, 11/26/18) GME ATTESTATION GME ATTESTATION My faculty preceptor for this patient encounter was physically present during the encounter and was fully available. All aspects of the patient interview, examination, medical decision making process, and medical care plan development were reviewed and approved by the faculty preceptor. The faculty preceptor is aware and concurs with the plan as stated in the body of this note and will attest to such by his/her cosignature. EVAN DUNN MD Apr 10, 2019 23:32 ROBERTO TORO MD Apr 11, 2019 04:23
[2019-04-11] MEDS: NS 1,000 ML IV SCH ×2 (00:24→06:33)
[2019-04-11 04:00] VITALS: BP 102/59
[2019-04-11] MEDS: ACETAMINOPHEN TAB 650MG DOSE (2X325MG) PO PRN (05:07)
[2019-04-11 05:19] LABS: HEMATOCRIT 41.7 % (42.0-52.0); HEMOGLOBIN 14.3 g/dl (13.5-17.5); MEAN CORPUSCULAR HEMOGLOBIN 29.7 pg (27.0-33.0); MEAN CORPUSCULAR HGB CONC 34.3 g/dl (32.0-36.5); MEAN CORPUSCULAR VOLUME 86.7 fl (80.0-96.0); PLATELET COUNT, AUTOMATED 180 10^3/uL (150-450); RED BLOOD COUNT 4.81 10^6/uL (4.30-6.10); WHITE BLOOD COUNT 5.4 10^3/uL (4.0-10.0)
[2019-04-11 05:50] LABS: BLOOD UREA NITROGEN 11 MG/DL (7-18); CALCIUM LEVEL 8.3 MG/DL (8.5-10.1); CARBON DIOXIDE LEVEL 29 MEQ/L (21-32); CHLORIDE LEVEL 112 MEQ/L (98-107); CREATININE FOR GFR 1.03 MG/DL (0.70-1.30); GLOMERULAR FILTRATION RATE > 60.0 (>60); GLUCOSE, FASTING 98 MG/DL (70-100); POTASSIUM SERUM 3.6 MEQ/L (3.5-5.1); SODIUM LEVEL 144 MEQ/L (136-145)
[2019-04-11 06:34] VITALS: BP 103/68
[2019-04-11 08:00] VITALS: BP 112/71
[2019-04-11] MEDS ORDERED: POTASSIUM CHLORIDE 10 MEQ SR TABLET PO ONE (08:15)
[2019-04-11] MEDS ORDERED: REME15TA2 PO (11:48)
[2019-04-11] MEDS ORDERED: VIST50CA PO (11:48)
[2019-04-11] MEDS ORDERED: PROZ20CA11 PO (11:48)
[2019-04-11] MEDS ORDERED: LATU20TA PO (11:48)
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
--- NOTE | 2019-04-11 11:52 | DS.PDOC ---
Discharge Summary General Date of Admission Apr 10, 2019 at 22:27 Date of Discharge 04/11/2019 Discharge Summary PROCEDURES PERFORMED DURING STAY: None. ADMITTING DIAGNOSES: 1. Syncope. DISCHARGE DIAGNOSES: 1. Syncope. COMPLICATIONS/CHIEF COMPLAINT: Headache. HISTORY OF PRESENT ILLNESS: 29-year-old male with past mental history of bipolar depression, was admitted to inpatient mental health unit for suicidal ideation. He was transferred to inpatient mental health unit to the medical floor due to having a syncopal episode. He was recently started on propranolol and passed out 45 minutes after taking it, he did injure his head upon falling. CT head was negative for acute pathology, patient monitored in the ICU setting, telemetry monitoring showing mild sinus bradycardia while patient was sleeping, otherwise hemodynamically stable and without complaints. Patient seen this morning. No further episodes of syncope, without any complaints, denies suicidal or homicidal ideation at this time, wishes to go home. Case was discussed with patient's primary psychiatrist, Dr. Kelley, who also evaluated the patient and agrees to. Patient is no longer a danger to himself or others, can be safely discharged home with outpatient follow-up with psychiatry. Dr. Kelley will manage his psychiatric medications at the time of discharge. Patient is medically clear, hemodynamically and clinically stable for discharge from medicine perspective. HOSPITAL COURSE: As above. DISCHARGE MEDICATIONS: Please see below. ALLERGIES: Please see below. PHYSICAL EXAMINATION: VITAL SIGNS: Please see below. GENERAL: No distress HEENT: Normocephalic, atraumatic, moist mucous membranes NECK: Supple CARDIOVASCULAR EXAMINATION: S1, S2, no murmurs RESPIRATORY EXAMINATION: Clear to auscultation, no wheezing ABDOMINAL EXAMINATION: Soft, nontender, nondistended, positive bowel sounds EXTREMITIES: Range of motion intact SKIN: No rash NEUROLOGICAL EXAMINATION: Alert and oriented 3, no focal deficits PSYCHIATRIC EXAMINATION: Calm and cooperative LABORATORY DATA: Please see below. IMAGING: CT head negative for acute pathology PROGNOSIS: Fair ACTIVITY: As tolerated. DIET: Regular DISCHARGE PLAN: Patient will follow up with psychiatry and PCP in 1-2 weeks DISPOSITION: Home. DISCHARGE INSTRUCTIONS: 1. As above. DISCHARGE CONDITION: Stable. TIME SPENT ON DISCHARGE: Greater than 35 minutes. Vital Signs/I&Os Vital Signs Date Time Temp Pulse Resp B/P (MAP) Pulse Ox O2 Delivery O2 Flow Rate FiO2 04/11/19 08:00 97.6 63 16 112/71 (85) 97 Room Air I&O- Last 24 Hours up to 6 AM 04/11/19 05:59 Intake Total 300 ml Output Total 550 ml Balance -250 ml Laboratory Data Labs 24H Laboratory Tests 2 04/10/19 23:19: Nucleated Red Blood Cells % (auto) 0.0, Anion Gap 4L, Glomerular Filtration Rate > 60.0, Calcium Level 8.8, Total Bilirubin 0.4, Aspartate Amino Transf (AST/SGOT) 14, Alanine Aminotransferase (ALT/SGPT) 23, Alkaline Phosphatase 56, Total Protein 6.4, Albumin 3.7, Albumin/Globulin Ratio 1.37 04/10/19 23:57: 04/11/19 04:51: Nucleated Red Blood Cells % (auto) 0.0, Anion Gap 3L, Glomerular Filtration Rate > 60.0, Calcium Level 8.3L, Magnesium Level 2.0 CBC/BMP Laboratory Tests 04/10/19 23:19 04/11/19 04:51 Discharge Medications Scheduled Clonazepam (Clonazepam) 0.5 Mg Tablet, 0.5 MG PO BID, (Reported) MORNING AND AFTERNOON Clonazepam (Clonazepam) 0.5 Mg Tablet, 1 MG PO QHS, (Reported) Fluoxetine HCl (Prozac) 20 Mg Capsule, 20 MG PO DAILY for mood Lurasidone Hydrochloride (Latuda) 20 Mg Tablet, 20 MG PO BID for bipolar depression Mirtazapine (Remeron) 15 Mg Tab.rapdis, 15 MG PO QPM Prazosin Hcl (Prazosin HCl) 2 Mg Capsule, 2 MG PO QHS, (Reported) Scheduled PRN Hydroxyzine Pamoate (Vistaril) 50 Mg Capsule, 50 MG PO TID PRN for ANXIETY/AGITATION Allergies Coded Allergies: Penicillins (Verified Allergy, Severe, throat swelling, 11/26/18) codeine (Verified Allergy, Severe, anaphylaxis, 11/26/18) VIY KWOK MD Apr 11, 2019 11:52
== END 2019-04-11 12:45 | disposition home or self-care (01) | DRG 312 ==
LOC: M ED INP 22:27 → M ICU 22:40
PROVIDERS: ADMIT Internal Medicine; ATTEND Internal Medicine
DX: R55 Syncope and collapse (principal); K92.0 Hematemesis; F31.9 Bipolar disorder, unspecified; G43.909 Migraine, unspecified, not intractable, without status migrainosus; F41.1 Generalized anxiety disorder; F12.90 Cannabis use, unspecified, uncomplicated; Z79.899 Other long term (current) drug therapy; Z88.0 Allergy status to penicillin; Z88.5 Allergy status to narcotic agent

== ENCOUNTER → 2019-08-16 | Outpatient (CLI) | payer MEDICARE, MEDICAID ==
[~2019-08-16] MED LIST changes: +CLON0.5T2 PO; -CLON0.5T8 PO; +LATU20TA PO; -LORA0.5T11 PO; +LORA0.5T5 PO; -METH4TAB28 PO; +METH4TAB8 PO; +PROZ20CA11 PO; +REME15TA2 PO; -TRAZ-163 PO; +TRAZ-257 PO; +VIST50CA PO
== END ==
LOC: M LABSMTC 11:02
PROVIDERS: ATTEND Family Medicine
DX: Z11.59 Encounter for screening for other viral diseases (principal); Z20.828 Contact with and (suspected) exposure to other viral communicable diseases

== ENCOUNTER 2020-04-29 21:40 | Emergency (ER) | payer MEDICARE, MEDICAID ==
[~2020-04-29] VITALS: Ht 182.9 cm; Wt 88.2 kg
[2020-04-29] MEDS ORDERED: PRIS1TAB PO (21:46)
[2020-04-29] MEDS ORDERED: LORazepam 2 MG TAB PO ONE (22:30)
[2020-04-29 22:59] VITALS: BP 125/82
== END 2020-04-29 22:56 | disposition home or self-care (01) ==
LOC: M ED 21:40
DX: F31.2 Bipolar disorder, current episode manic severe with psychotic features (principal); F17.200 Nicotine dependence, unspecified, uncomplicated; F12.10 Cannabis abuse, uncomplicated; Z79.899 Other long term (current) drug therapy; Z88.0 Allergy status to penicillin; Z88.5 Allergy status to narcotic agent

== ENCOUNTER 2020-06-09 08:59 | Emergency (ER) | payer MEDICARE, MEDICAID ==
[~2020-06-09] VITALS: Ht 185.4 cm; Wt 83.9 kg
[~2020-06-09 08:59] MED LIST changes: +PRIS1TAB PO
--- OUTSIDE RECORDS SUMMARY | 2020-06-09 09:05 | CCD ---
Author Author [facility] Address Unknown Phone Unavailable Support Name Relationship Address Phone CON RESTAURANT Next Of Kin [address] [place] [address] Christine Ng Next Of Kin Unknown Unavailable JOEL BIRCH Next Of Kin [address] [place] [address] Shara Vigil Next Of Kin [address] [place] [address] NRNINA Next Of Kin [address] [facility] [address] [place] [address] Christine Schafer Next Of Kin [address] [place] [address] DISABLED Next Of Kin Unknown Unavailable Darleen Mcginnis Next Of Kin [address] [place], [place] [id number] Ada Sánchez Next Of Kin [address] [place] [address] 315 VALDO NG Next Of Kin [address] [place] [address] LIFE S[employer]Y [employer]U Next Of Kin [address] [place] [address] UNK VIPIN Next Of Kin [address] [place] [address] UE Next Of Kin Unknown Unavailable ST Next Of Kin Unknown Unavailable CHRISTINE NG Next Of Kin [address] [place] [address] UNEMPLOYED Next Of Kin TOMASZ [facility] [place] [address] CHRISTINE SOUZA Next Of Kin [address] [place] [address] JP LAWRENCE Next Of Kin [address] [place] [address] HERNANDEZ NIEVES Next Of Kin [address] [place], [place] [id number] Care Team Providers Care Software Developer Manager Name Role Phone Shara Neff TAXICAB DRIVER TAXICAB DRIVER Unavailable Unavailable Neff, F Shara TAXICAB DRIVER-BC Unavailable Unavailable Neff, F Shara TAXICAB DRIVER-BC Unavailable Unavailable Neff, F Shara TAXICAB DRIVER-BC Unavailable Unavailable Neff, F Shara TAXICAB DRIVER-BC Unavailable Unavailable Neff, F Shara TAXICAB DRIVER-BC Unavailable Unavailable Neff, F Shara TAXICAB DRIVER-BC Unavailable Unavailable Neff, F Shara TAXICAB DRIVER-BC Unavailable Unavailable Neff, F Shara TAXICAB DRIVER-BC Unavailable Unavailable Neff, F Shara TAXICAB DRIVER-BC Unavailable Unavailable Neff, F Shara TAXICAB DRIVER-BC Unavailable Unavailable Neff, F Shara TAXICAB DRIVER-BC Unavailable Unavailable Neff, F Shara TAXICAB DRIVER-BC Unavailable Unavailable Neff, F Shara TAXICAB DRIVER-BC Unavailable Unavailable Neff, F Shara TAXICAB DRIVER-BC Unavailable Unavailable Neff, F Shara TAXICAB DRIVER-BC Unavailable Unavailable Neff, F Shara TAXICAB DRIVER-BC Unavailable Unavailable Neff, F Shara TAXICAB DRIVER-BC Unavailable Unavailable Neff, F Shara TAXICAB DRIVER-BC Unavailable Unavailable Neff, F Shara TAXICAB DRIVER-BC Unavailable Unavailable Neff, F Sahra TAXICAB DRIVER-BC Unavailable Unavailable Neff, F Shara TAXICAB DRIVER-BC Unavailable Unavailable Re-disclosure Warning The records that you are about to access may contain information from federally-assisted alcohol or drug abuse programs. If such information is present, then the following federally mandated warning applies: This information has been disclosed to you from records protected by federal confidentiality rules (42 CFR part 2). The federal rules prohibit you from making any further disclosure of this information unless further disclosure is expressly permitted by the written consent of the person to whom it pertains or as otherwise permitted by 42 CFR part 2. A general authorization for the release of medical or other information is NOT sufficient for this purpose. The Federal rules restrict any use of the information to criminally investigate or prosecute any alcohol or drug abuse patient.The records that you are about to access may contain highly sensitive health information, the redisclosure of which is protected by Article 27-F of the [place] Public Health law. If you continue you may have access to information: Regarding HIV / AIDS; Provided by facilities licensed or operated by the [facility] Office of Mental Health; or Provided by the [facility] Office for People With Developmental Disabilities. If such information is present, then the following [facility] mandated warning applies: This information has been disclosed to you from confidential records which are protected by state law. State law prohibits you from making any further disclosure of this information without the specific written consent of the person to whom it pertains, or as otherwise permitted by law. Any unauthorized further disclosure in violation of state law may result in a fine or intermediate sentence or both. A general authorization for the release of medical or other information is NOT sufficient authorization for further disc losure. Family History Family Member Name Family Member Gender Family Member Status Date o f Status Description Data Source(s) Unknown Unknown Problem [facility] ([facility]) Encounters Encounter Providers Location Date Indications Data Source(s ) Outpatient Attender: CHRISTIAN GONZALES 11/06/2019 12:02:18 AM EDT [facility] Outpatient Attender: Shara FAIRBANKS 07/02/2019 09: 07:00 AM [facility] Outpatient Attender: CHRISTIAN DOWNEY 06/13/2019 08:00:01 AM [facility] Outpatient Attender: CHRISTIAN DOWNEY 06/11/2019 08:42:00 AM [facility] Outpatient Attender: CHRISTIAN GONZALES 05/16/2019 08:02:14 PM [facility] Outpatient 04/28/2019 06:13:00 AM [facility] 04/14/2019 02:08:00 PM [facility] 04/14/2019 02:07:00 PM [facility] Outpatient Attender: CHRISTIAN GONZALES 04/14/2019 09:48:01 AM [facility] Insurance Providers Payer name Policy type / Coverage type Policy ID Covered republican ID Covered republican's relationship to gomes Policy Gomes Plan Information EMEDNY [id number] SP [id number] MEDICARE [id number] SP [id number] Medicaid S [id number] S [id number] Medicare P [id number] S [id number] MEDICAID [id number] SP [id number] Medicare P [id number] S [id number] NORIDIAN JE PART B C [id number] S [id number] MEDICARE C [id number] S [id number] MEDICAID M [id number] S [id number] NOVITAS JL PART B C [id number] S [id number] Medicaid S [id number] S [id number] UNHC COMMUNITY PLAN MCDHMO [id number] SP [id number] SELF PAY ONLY [id number] SP [id number] SELF PAY UNAVAILABLE SP UNAVAILA BLE MEDICARE [id number] SP [id number] UNHC COMMUNITY PLAN MCDHMO [id number] SP [id number] Medicaid S [id number] S [id number] [facility] Organization (HMO) [id number] Self [id number] MEDICARE C [id number] S [id number] Managed Care - [facility] P [id number] S [id number] Medicaid S [id number] S [id number] [facility](MCAID) O [id number] S [id number] [facility] (HMO) Self [facility] (HMO) Self MEDICAID W [id number] S [id number] [place] 3 [id number] H SELF PAY 2 UNAVAILABLE 1 UNAVAILA BLE [id number] Results ID Date Data Source [id number] 04/09/2020 02:00:00 PM EST [facility] Name Value Range Interpretation Code Description Data Elissa rce(s) Supporting Document(s) SARS-COV-2 RNA RESP QL CHRISTA+PROBE [facility] This lab was ordered by [facility] and reported by [facility] [place]. Procedure
[2020-06-09] MEDS ORDERED: LATU40TA (09:09)
[2020-06-09] MEDS ORDERED: CLON1TAB8 (09:09)
[2020-06-09 10:02] LABS: HEMATOCRIT 58.3 % (42.0-52.0); HEMOGLOBIN 19.5 g/dl (13.5-17.5); MEAN CORPUSCULAR HEMOGLOBIN 30.2 pg (27.0-33.0); MEAN CORPUSCULAR HGB CONC 33.4 g/dl (32.0-36.5); MEAN CORPUSCULAR VOLUME 90.2 fl (80.0-96.0); PLATELET COUNT, AUTOMATED 230 10^3/uL (150-450); RED BLOOD COUNT 6.46 10^6/uL (4.30-6.10); WHITE BLOOD COUNT 6.4 10^3/uL (4.0-10.0)
--- OUTSIDE RECORDS SUMMARY | 2020-06-09 10:08 | CCD ---
Author Author [facility] Organization [facility] Address Unknown Phone Unavailable Support Name Relationship Address Phone LOCUST RESTAURANT Next Of Kin [address] [place] [address] CON RESTAURANT Next Of Kin [address] [place] [address] Christine Ng Next Of Kin Unknown Unavailable JOEL BIRCH Next Of Kin [address] [place] [address] Shara Vigil Next Of Kin [address] [place] [address] NRCIL Next Of Kin [address] [place] [address] Christine Schafer Next Of Kin [address] [place] [address] DISABLED Next Of Kin Unknown Unavailable Darleen Mcginnis Next Of Kin [address] [place], [place] [id number] Ada Sánchez Next Of Kin [address] [place] [address] VALDO NG Next Of Kin [address] [place] [address] LIFE SAF[employer]Y FI[employer] SOLU Next Of Kin [address] [place] [address] UNK VIPIN Next Of Kin [address] [place] [address] UE Next Of Kin Unknown Unavailable ST Next Of Kin Unknown Unavailable CHRISTINE NG Next Of Kin [address] [place] [address] UNEMPLOYED Next Of Kin [place] [address] CHRISTINE SOUZA Next Of Kin [address] [place] [address] JP LAWRENCE Next Of Kin [address] [place] [address] HERNANDEZ NIEVES Next Of Kin [address] [place], [place] [id number] Care Team Providers Care Wound Treatment Rn Name Role Phone Neff, Shara CAMPAIGN ASSOCIATE CAMPAIGN ASSOCIATE Unavailable Unavailable Neff, F Shara CAMPAIGN ASSOCIATE-BC Unavailable Unavailable Neff, F Shara CAMPAIGN ASSOCIATE-BC Unavailable Unavailable Neff, F Shara CAMPAIGN ASSOCIATE-BC Unavailable Unavailable Neff, F Shara CAMPAIGN ASSOCIATE-BC Unavailable Unavailable Neff, F Shara CAMPAIGN ASSOCIATE-BC Unavailable Unavailable Neff, F Shara CAMPAIGN ASSOCIATE-BC Unavailable Unavailable Neff, F Shara CAMPAIGN ASSOCIATE-BC Unavailable Unavailable Neff, F Shara CAMPAIGN ASSOCIATE-BC Unavailable Unavailable Neff, F Shara CAMPAIGN ASSOCIATE-BC Unavailable Unavailable Neff, F Shara CAMPAIGN ASSOCIATE-BC Unavailable Unavailable Neff, F Shara CAMPAIGN ASSOCIATE-BC Unavailable Unavailable Neff, F Shara CAMPAIGN ASSOCIATE-BC Unavailable Unavailable Neff, F Shara CAMPAIGN ASSOCIATE-BC Unavailable Unavailable Neff, F Shara CAMPAIGN ASSOCIATE-BC Unavailable Unavailable Neff, F Shara CAMPAIGN ASSOCIATE-BC Unavailable Unavailable Neff, F Shara CAMPAIGN ASSOCIATE-BC Unavailable Unavailable Neff, F Shara CAMPAIGN ASSOCIATE-BC Unavailable Unavailable Neff, F Shara CAMPAIGN ASSOCIATE-BC Unavailable Unavailable Neff, F Shara CAMPAIGN ASSOCIATE-BC Unavailable Unavailable Neff, F Shara CAMPAIGN ASSOCIATE-BC Unavailable Unavailable Neff, F Shara CAMPAIGN ASSOCIATE-BC Unavailable Unavailable Re-disclosure Warning The records that [...] is protected by Article 27-F of the [facility] Public Health law. If you continue you may have access to information: Regarding HIV / AIDS; Provided by facilities licensed or operated by the [facility] Office of Mental Health; or Provided by the [facility] Office for People With Developmental Disabilities. If such information is present, then the following [facility] mandated warning applies: This information [...] law may result in a fine or usp sentence or both. A general authorization for [...] Attender: CHRISTIAN GONZALES 11/06/2019 12:02:18 AM EDT [facility] Outpatient Attender: Shara MELGARBC FP 07/02/2019 09: 07:00 AM [facility] Outpatient Attender: CHRISTIAN DOWNEY 06/13/2019 08:00:01 AM [facility] Outpatient Attender: CHRISTIAN DOWNEY 06/11/2019 08:42:00 AM [facility] Outpatient Attender: CHRISTIAN DOWNEY 05/16/2019 08:02:14 PM [facility] Outpatient 04/28/2019 06:13:00 AM [facility] Outpatient 04/14/2019 02:08:00 PM EST [facility] Outpatient 04/14/2019 02:07:00 PM [facility] Outpatient Attender: CHRISTIAN GONZALES 04/14/2019 09:48:01 AM [facility] Insurance Providers Payer name Policy type / Coverage type Policy ID Covered democrat ID Covered democrat's relationship to gomes Policy Gomes Plan Information EMEDNY [id number] SP [id number] MEDICARE [id number] SP [id number] Medicaid S [id number] S [id number] Medicare P [id number] S [id number] MEDICAID [id number] SP [id number] Medicare P [id number] S [id number] NORIDIAN JE PART B C [id number] S [id number] MEDICARE C [id number] S [id number] K65 MEDICAID M [id number] S [id number] NOVITAS JL PART B C [id number] S [id number] Medicaid S [id number] S [id number] UNHC COMMUNITY PLAN MCDHMO [id number] SP [id number] SELF PAY ONLY [id number] SP [id number] SELF PAY UNAVAILABLE SP UNAVAILA BLE MEDICARE [id number] SP [id number] UNHC COMMUNITY PLAN MCDHMO [id number] SP [id number] Medicaid S [id number] S [id number] [facility] (HMO) [id number] Self [id number] MEDICARE C [id number] S [id number] Managed Care - [facility] P [id number] S [id number] Medicaid S [id number] S [id number] [facility](MCAID) O [id number] S [id number] [facility] (HMO) Self [facility] (HMO) Self MEDICAID W [id number] S [id number] [place] 3 [id number] H SELF PAY 2 UNAVAILABLE 1 UNAVAILA BLE [id number] Results ID Date Data Source [id number] 04/09/2020 02:00:00 PM EST [facility] Name Value Range Interpretation Code Description Data Elissa rce(s) Supporting Document(s) SARS-COV-2 RNA RESP QL CHRISTA+PROBE [facility] This lab was ordered by [facility] and reported by [employer] [facility]. Procedure
[2020-06-09 10:27] LABS: AMPHETAMINES LEVEL URINE NEGATIVE (NEGATIVE); BARBITURATES URINE NEGATIVE (NEGATIVE); BENZODIAZEPINES URINE POSITIVE (NEGATIVE); CANNABINOIDS URINE POSITIVE (NEGATIVE); COCAINE METABOLITE URINE NEGATIVE (NEGATIVE); METHADONE URINE NEGATIVE (NEGATIVE); OPIATES URINE NEGATIVE (NEGATIVE); PHENCYCLIDINE URINE NEGATIVE (NEGATIVE)
[2020-06-09 10:35] LABS: BLOOD UREA NITROGEN 10 MG/DL (7-18); CALCIUM LEVEL 9.9 MG/DL (8.5-10.1); CARBON DIOXIDE LEVEL 30 MEQ/L (21-32); CHLORIDE LEVEL 105 MEQ/L (98-107); CREATININE FOR GFR 1.18 MG/DL (0.70-1.30); GLOMERULAR FILTRATION RATE > 60.0 (>60); GLUCOSE, FASTING 97 MG/DL (70-100); POTASSIUM SERUM 4.1 MEQ/L (3.5-5.1); SODIUM LEVEL 140 MEQ/L (136-145)
[2020-06-09 10:36] LABS: ACETAMINOPHEN LEVEL < 2.0 UG/ML (10.0-30.0); ALBUMIN 4.9 GM/DL (3.2-5.2); ALT/SGPT 25 U/L (12-78); BILIRUBIN,DIRECT 0.3 MG/DL (0.0-0.2); BILIRUBIN,TOTAL 1.2 MG/DL (0.2-1.0); ETHYL ALCOHOL (ETHANOL) < 0.003 % (0.000-0.010); SALICYLATE LEVEL 3.5 MG/DL (5.0-30.0); TOTAL PROTEIN 7.8 GM/DL (6.4-8.2)
[2020-06-09 12:11] VITALS: BP 128/75
== END 2020-06-09 12:13 | disposition home or self-care (01) ==
LOC: M ED 08:59
DX: F31.9 Bipolar disorder, unspecified (principal); F17.200 Nicotine dependence, unspecified, uncomplicated; F12.10 Cannabis abuse, uncomplicated; Z79.899 Other long term (current) drug therapy; Z88.0 Allergy status to penicillin; Z88.5 Allergy status to narcotic agent
CPT/HCPCS: 80048; 80076; 80307; 84443; 85027; 99284; G0480

== ENCOUNTER 2020-07-12 09:51 | Observation (INO) | payer MEDICARE, MEDICAID ==
[~2020-07-12] VITALS: Ht 185.4 cm; Wt 83.3 kg
[~2020-07-12 09:51] MED LIST changes: +CLON1TAB8; +LATU40TA
[2020-07-12] MEDS ORDERED: CHARCOAL ACTIVATED LIQUID 25 GM/120 ML BTL PO ONE (10:00)
[2020-07-12] MEDS ORDERED: NS 1,000 ML IV ONE ×2 (10:00→12:00)
[2020-07-12] MEDS ORDERED: RISP-9 PO (10:07)
[2020-07-12] MEDS ORDERED: CHLO100T30 PO (10:07)
[2020-07-12 10:27] LABS: EOS # 0.1 10^3/uL (0.0-0.5); EOS % 1.8 % (0.0-3.0); HEMATOCRIT 49.8 % (42.0-52.0); HEMOGLOBIN 17.2 g/dl (13.5-17.5); LYMPH # 1.6 10^3/uL (1.5-5.0); LYMPH % 41.4 % (24.0-44.0); MEAN CORPUSCULAR HEMOGLOBIN 30.6 pg (27.0-33.0); MEAN CORPUSCULAR HGB CONC 34.5 g/dl (32.0-36.5); MEAN CORPUSCULAR VOLUME 88.6 fl (80.0-96.0); MONO # 0.3 10^3/uL (0.0-0.8); MONO % 7.6 % (2.0-8.0); NEUTROPHILS # 1.9 10^3/uL (1.5-8.5); NEUTROPHILS % 47.9 % (36.0-66.0); PLATELET COUNT, AUTOMATED 192 10^3/uL (150-450); RED BLOOD COUNT 5.62 10^6/uL (4.30-6.10)
--- OUTSIDE RECORDS SUMMARY | 2020-07-12 10:45 | CCD ---
Author Author [facility] Organization [facility] Address Unknown Phone Unavailable Support Name Relationship Address Phone LOCUST RESTAURANT Next Of Kin [address] [place] [address] CON RESTAURANT Next Of Kin [address] [place] [address] Christine Ng Next Of Kin Unknown Unavailable JOEL BIRCH Next Of Kin [address] [place] [address] Shara Vigil Next Of Kin [address] [place] [address] NRCIL Next Of Kin [address] [place] [address] Christine Schafer Next Of Kin [address] [place] [address] DISABLED Next Of Kin Unknown Unavailable Darleen Mcginnis Next Of Kin [address] [place], [place] [id number] Ada Sánchez Next Of Kin [address] [place] [address] 315 VALDO NG Next Of Kin [address] [place] [address] LIFE SAFETY FIRE [employer]ITY SOLU Next Of Kin [address] [place] [address] UNK VIPIN Next Of Kin [address] [place] [address] UE Next Of Kin Unknown Unavailable ST Next Of Kin Unknown Unavailable CHRISTINE NG Next Of Kin [address] [place] [address] UNEMPLOYED Next Of Kin [place] [address] CHRISTINE SOUZA Next Of Kin [address] [place] [address] JP LAWRENCE Next Of Kin [address] [place] [address] HERNANDEZ NIEVES Next Of Kin [address] [place], [place] [id number] Care Team Providers Care Personal Caregiver Name Role Phone Neff, Shara PRESS SECRETARY PRESS SECRETARY Unavailable Unavailable Neff, F Shara PRESS SECRETARY-BC Unavailable Unavailable Neff, F Shara PRESS SECRETARY-BC Unavailable Unavailable Neff, F Shara PRESS SECRETARY-BC Unavailable Unavailable Neff, F Shara PRESS SECRETARY-BC Unavailable Unavailable Neff, F Shara PRESS SECRETARY-BC Unavailable Unavailable Neff, F Shara PRESS SECRETARY-BC Unavailable Unavailable Neff, F Shara PRESS SECRETARY-BC Unavailable Unavailable Neff, F Shara PRESS SECRETARY-BC Unavailable Unavailable Neff, F Shara PRESS SECRETARY-BC Unavailable Unavailable Neff, F Shara PRESS SECRETARY-BC Unavailable Unavailable Neff, F Shara PRESS SECRETARY-BC Unavailable Unavailable Neff, F Shara PRESS SECRETARY-BC Unavailable Unavailable Neff, F Shara PRESS SECRETARY-BC Unavailable Unavailable Neff, F Shara PRESS SECRETARY-BC Unavailable Unavailable Neff, F Shara PRESS SECRETARY-BC Unavailable Unavailable Neff, F Shara PRESS SECRETARY-BC Unavailable Unavailable Neff, F Shara PRESS SECRETARY-BC Unavailable Unavailable Neff, F Shara PRESS SECRETARY-BC Unavailable Unavailable Neff, F Shara PRESS SECRETARY-BC Unavailable Unavailable Neff, F Shara PRESS SECRETARY-BC Unavailable Unavailable Neff, F Shara PRESS SECRETARY-BC Unavailable Unavailable Neff, F Shara PRESS SECRETARY-BC Unavailable Unavailable Re-disclosure Warning The records that [...] is protected by Article 27-F of the [facility] Public Health law. If you continue you may have access to information: Regarding HIV / AIDS; Provided by facilities licensed or operated by the [facility] Office of Mental Health; or Provided by the [facility] Office for People With Developmental Disabilities. If such information is present, then the following [facility] mandated warning applies: This information has been [...] law may result in a fine or fci sentence or both. A general authorization for [...] Attender: CHRISTIAN GONZALES 11/06/2019 12:02:18 AM EDT [facility] Outpatient Attender: Shara FAIRBANKS 07/02/2019 09: 07:00 AM [facility] Outpatient Attender: CHRISTIAN GONZALES 06/13/2019 08:00:01 AM [facility] Outpatient Attender: CHRISTIAN GONZALES 06/11/2019 08:42:00 AM [facility] Outpatient Attender: CHRISTIAN GONZALES 05/16/2019 08:02:14 PM [facility] Medications Medication Brand Name Start Date Product Form Dose Route Admi nistrative Instructions Pharmacy Instructions Status Indications Reaction Description Data Source(s) 100 mg 06/10/2020 12:00:00 AM EST tablet 10 TAKE ONE TABLET BY MOUTH AT BEDTIME TAKE ONE TABLET BY MOUTH AT BEDTIME SOLD: 06/11/2020 [facility] Insurance Providers Payer name Policy type / Coverage type Policy ID Covered alliance party ID Covered alliance party's relationship to gomes Policy Gomes Plan Information EMEDNY [id number] SP [id number] MEDICARE [id number] SP [id number] Medicaid S [id number] S [id number] Medicare P [id number] S [id number] MEDICAID [id number] SP [id number] Medicare P [id number] S [id number] NORIDIAN JE PART B C [id number] S [id number] MEDICARE C [id number] S [id number] MEDICAID M [id number] S [id number] NOVITAS JL PART B C [id number] S [id number] Medicaid S [id number] S [id number] UNHC COMMUNITY PLAN MCDHMO [id number] SP [id number] SELF PAY ONLY [id number] SP [id number] SELF PAY UNAVAILABLE SP UNAVAILA BLE MEDICARE [id number] SP [id number] UNHC COMMUNITY PLAN MCDHMO [id number] SP [id number] Medicaid S [id number] S [id number] [facility] Maintenance Organization (HMO) [id number] Self [id number] MEDICARE C [id number] S [id number] Managed Care - [facility] P [id number] S [id number] Medicaid S [id number] S [id number] [facility](MCAID) O [id number] S [id number] [facility] (HMO) Self [facility] Organization (HMO) Self MEDICAID W [id number] S [id number] [place] 3 [id number] H SELF PAY 2 UNAVAILABLE 1 UNAVAILA BLE [id number] Results ID Date Data Source [id number] 04/09/2020 02:00:00 PM EST [facility] Name Value Range Interpretation Code Description Data Elissa rce(s) Supporting Document(s) SARS-COV-2 RNA RESP QL CHRISTA+PROBE [facility] This lab was ordered by [facility] and reported by [employer] [facility]. Procedure
[2020-07-12 10:59] LABS: ACETAMINOPHEN LEVEL < 2.0 UG/ML (10.0-30.0); ALBUMIN 4.1 GM/DL (3.2-5.2); ALT/SGPT 20 U/L (12-78); BILIRUBIN,DIRECT 0.2 MG/DL (0.0-0.2); BILIRUBIN,TOTAL 0.7 MG/DL (0.2-1.0); BLOOD UREA NITROGEN 9 MG/DL (7-18); CALCIUM LEVEL 8.6 MG/DL (8.5-10.1); CARBON DIOXIDE LEVEL 25 MEQ/L (21-32); CHLORIDE LEVEL 108 MEQ/L (98-107); CPK CREATINE PHOSPHOKINASE 94 U/L (39-308); CREATININE FOR GFR 0.78 MG/DL (0.70-1.30); ETHYL ALCOHOL (ETHANOL) 0.034 % (0.000-0.010); GLOMERULAR FILTRATION RATE > 60.0 (>60); GLUCOSE, FASTING 106 MG/DL (70-100); POTASSIUM SERUM 3.3 MEQ/L (3.5-5.1); SALICYLATE LEVEL 2.9 MG/DL (5.0-30.0); SODIUM LEVEL 143 MEQ/L (136-145); TOTAL PROTEIN 6.6 GM/DL (6.4-8.2)
[2020-07-12] MEDS ORDERED: POTASSIUM CHLORIDE 10 MEQ SR TABLET PO ONE (11:45)
[2020-07-12 13:18] LABS: ACETAMINOPHEN LEVEL < 2.0 UG/ML (10.0-30.0); SALICYLATE LEVEL 2.7 MG/DL (5.0-30.0)
[2020-07-12 16:09] LABS: AMPHETAMINES LEVEL URINE NEGATIVE (NEGATIVE); BARBITURATES URINE NEGATIVE (NEGATIVE); BENZODIAZEPINES URINE NEGATIVE (NEGATIVE); CANNABINOIDS URINE POSITIVE (NEGATIVE); COCAINE METABOLITE URINE NEGATIVE (NEGATIVE); METHADONE URINE NEGATIVE (NEGATIVE); OPIATES URINE NEGATIVE (NEGATIVE); PHENCYCLIDINE URINE NEGATIVE (NEGATIVE)
--- OUTSIDE RECORDS SUMMARY | 2020-07-12 17:02 | CCD ---
Author Author [facility] Organization [facility] Address Unknown Phone Unavailable Support Name Relationship Address Phone LOCUST RESTAURANT Next Of Kin [address] [place] [address] CON RESTAURANT Next Of Kin [address] [place] [address] Christine Ng Next Of Kin Unknown Unavailable JOEL BIRCH Next Of Kin [address] [place] [address] Shara Vigil Next Of Kin [address] [place] [address] NRCIL Next Of Kin [address] [place] [address] Christine Schafer Next Of Kin [address] [place] [address] DISABLED Next Of Kin Unknown Unavailable Darleen Mcginnis Next Of Kin [address] [place], [place] [id number] Ada Sánchez Next Of Kin [address] [place] [address] 315 VALDO NG Next Of Kin [address] [place] [address] [employer] Next Of Kin [address] [place] [address] UNK VIPIN Next Of Kin [address] [place] [address] UE Next Of Kin Unknown Unavailable ST Next Of Kin Unknown Unavailable CHRISTINE NG Next Of Kin [address] [place] [address] UNEMPLOYED Next Of Kin [place] [address] CHRISTINE SOUZA Next Of Kin [address] [place] [address] JP LAWRENCE Next Of Kin [address] [place] [address] HERNANDEZ NIEVES Next Of Kin [address] [place], [place] [id number] Care Team Providers Care Die Maintenance Name Role Phone Neff, Shara RAILWAY PATROL OFFICER RAILWAY PATROL OFFICER Unavailable Unavailable Neff, F Shara RAILWAY PATROL OFFICER-BC Unavailable Unavailable Neff, F Shara RAILWAY PATROL OFFICER-BC Unavailable Unavailable Neff, F Shara RAILWAY PATROL OFFICER-BC Unavailable Unavailable Neff, F Shara RAILWAY PATROL OFFICER-BC Unavailable Unavailable Neff, F Shara RAILWAY PATROL OFFICER-BC Unavailable Unavailable Neff, F Shara RAILWAY PATROL OFFICER-BC Unavailable Unavailable Neff, F Shara RAILWAY PATROL OFFICER-BC Unavailable Unavailable Neff, F Shara RAILWAY PATROL OFFICER-BC Unavailable Unavailable Neff, F Shara RAILWAY PATROL OFFICER-BC Unavailable Unavailable Neff, F Shara RAILWAY PATROL OFFICER-BC Unavailable Unavailable Neff, F Shara RAILWAY PATROL OFFICER-BC Unavailable Unavailable Neff, F Shara RAILWAY PATROL OFFICER-BC Unavailable Unavailable Neff, F Shara RAILWAY PATROL OFFICER-BC Unavailable Unavailable Neff, F Shara RAILWAY PATROL OFFICER-BC Unavailable Unavailable Neff, F Shara RAILWAY PATROL OFFICER-BC Unavailable Unavailable Neff, F Shara RAILWAY PATROL OFFICER-BC Unavailable Unavailable Neff, F Shara RAILWAY PATROL OFFICER-BC Unavailable Unavailable Neff, F Shara RAILWAY PATROL OFFICER-BC Unavailable Unavailable Neff, F Shara RAILWAY PATROL OFFICER-BC Unavailable Unavailable Neff, F Shara RAILWAY PATROL OFFICER-BC Unavailable Unavailable Neff, F Shara RAILWAY PATROL OFFICER-BC Unavailable Unavailable Neff, F Shara RAILWAY PATROL OFFICER-BC Unavailable Unavailable Re-disclosure Warning The records that [...] is protected by Article 27-F of the [facility] Public Health law. If you continue you may have access to information: Regarding HIV / AIDS; Provided by facilities licensed or operated by the [facility] Office of Mental Health; or Provided by the [facility] Office for People With Developmental Disabilities. If such information is present, then the following [facility] mandated warning applies: This information has been [...] law may result in a fine or longterm sentence or both. A general authorization for [...] Attender: CHRISTIAN GONZALES 11/06/2019 12:02:18 AM EDT [facility] Outpatient Attender: Shara FAIRBANKS 07/02/2019 09: 07:00 AM [facility] Outpatient Attender: CHRISTIAN GONZALES 06/13/2019 08:00:01 AM [facility] Outpatient Attender: CHRISTIAN GONZALES 06/11/2019 08:42:00 AM [facility] Outpatient Attender: CHRISTIAN GONZALES 05/16/2019 08:02:14 PM [facility] Medications Medication Brand Name Start Date Product Form Dose Route Admi nistrative Instructions Pharmacy Instructions Status Indications Reaction Description Data Source(s) 100 mg 06/10/2020 12:00:00 AM EST tablet 10 TAKE ONE TABLET BY MOUTH AT BEDTIME TAKE ONE TABLET BY MOUTH AT BEDTIME SOLD: 06/11/2020 [facility] Insurance Providers Payer name Policy type / Coverage type Policy ID Covered libertarian ID Covered libertarian's relationship to gomes Policy Gomes Plan Information EMEDNY [id number] SP [id number] MEDICARE [id number] SP [id number] Medicaid S [id number] S [id number] Medicare P [id number] S [id number] MEDICAID [id number] SP [id number] Medicare P [id number] S [id number] NORIDIAN JE PART B C [id number] S [id number] MEDICARE C [id number] S [id number] MEDICAID M [id number] S [id number] [place] JL PART B C [id number] S [id number] Medicaid S [id number] S [id number] UNHC COMMUNITY PLAN MCDHMO [id number] SP [id number] SELF PAY ONLY [id number] SP [id number] SELF PAY UNAVAILABLE SP UNAVAILA BLE MEDICARE [id number] SP [id number] UNHC COMMUNITY PLAN MCDHMO [id number] SP [id number] Medicaid S [id number] S [id number] [facility] Health Maintenance Organization (HMO) [id number] Self [id number] MEDICARE C [id number] S [id number] Managed Care - [facility] P [id number] S [id number] Medicaid S [id number] S [id number] [facility]) O [id number] S [id number] [facility] Maintenance Organization (HMO) Self [facility] Health Maintenance Organization (HMO) Self MEDICAID W [id number] S [id number] [place] 3 [id number] SELF PAY 2 UNAVAILABLE 1 UNAVAILA BLE [id number] Results ID Date Data Source [id number] 04/09/2020 02:00:00 PM EST [facility] Name Value Range Interpretation Code Description Data Elissa rce(s) Supporting Document(s) SARS-COV-2 RNA RESP QL CHRISTA+PROBE [facility] This lab was ordered by [facility] and reported by [facility] [place]. Procedure
[2020-07-12 17:21] LABS: RSV AMPLIFICATION NEGATIVE (NEGATIVE)
--- NOTE | 2020-07-12 17:30 | HPEPDOC ---
General Date of Admission Jul 12, 2020 at 09:52 Date of Service: Jul 12, 2020 Chief Complaint The patient is a 30-year-old male admitted with a reason for visit of Bipolar Disorder,Overdose. History of Present Illness 30 year old male with PMH of OLEG, Major depressive disorder, bipolar disorder, migraine deaf in left ear, loss of vision from Lupus, Cannabis use presented to the ED after an intentional drug overdose with Chlorpromazine, prazosin, exedrin and also alcohol. On initial presentation he was tachycardic to 160s and hypotensive to 90s to 100s. This improved with IVF. however after 8 hours of ED stay he continues to be very somnolent so could not be cleared for direct psych admission. Poison control was called and they had requested a 4 hour acetaminophen level which came back negative. Poison control has now signed off. Hospitalist was called for admission. On my exam patient was very somnolent and could answer only 1 or 2 questions with one word. He did say hospital when i asked where he was but immediately fell asleep. No further history could be taken. All history from chart review and from ED physician. Home Medications Scheduled Chlorpromazine HCl (Chlorpromazine HCl) 100 Mg Tablet, 100 MG PO QHS, (Reported) Prazosin Hcl (Prazosin HCl) 2 Mg Capsule, 2 MG PO QHS, (Reported) Risperidone (Risperidone) 2 Mg Tablet, 2 MG PO BID, (Reported) Scheduled PRN Clonazepam (Clonazepam) 0.5 Mg Tablet, 0.5 MG PO TID PRN for ANXIETY, (Reported) Miscellaneous Medications [Pt Comment] , (Reported) According to [facility], pt should be out of Chlorpromazine, prazosin, and risperidone. Pt states taking these meds. Allergies Coded Allergies: Penicillins (Verified Allergy, Severe, throat swelling, 11/26/18) codeine (Verified Allergy, Severe, anaphylaxis, 11/26/18) Past Medical History Medical History Major depressive disorder, bipolar disorder, migraines, deaf in left ear, loss of vision from Lupus, PTSD, OLEG, Cannabis use disorder. Surgical History left ear multiple surgeries, hernia repair, adnoidectomy Family History Cannot be taken as lethargic A-FIB/CHADSVASC A-FIB History Current/History of A-Fib/PAF?: No Review of Systems Constitutional: Reports: Lethargy, Other; Denies: Fever Skin: Denies: Rash, Breakdown Pulmonary: Denies: Dyspnea, Cough Gastrointestinal: Denies: Vomiting, Diarrhea Other systems Very somnolent Physical Examination General Exam: Positive: Other (lethargic) Eye Exam: Positive: Conjunctiva & lids normal, EOMI; Negative: Sclera icteric Neck Exam: Positive: Supple; Negative: JVD, thyromegaly Chest Exam: Positive: Clear to auscultation, Normal air movement Heart Exam: Positive: Rate Normal, Regular Rhythm, Normal S1, Normal S2; Negative: Murmurs, Rubs Abdomen Exam: Positive: Normal bowel sounds, Soft; Negative: Hepatospenomegaly Extremity Exam: Negative: Clubbing, Cyanosis, Edema Vital Signs Vital Signs Date Time Temp Pulse Resp B/P (MAP) Pulse Ox O2 Delivery O2 Flow Rate FiO2 07/12/20 16:30 122/62 (82) 07/12/20 16:21 89 18 96 Room Air 07/12/20 10:29 96.1 Laboratory Data Labs 24H Laboratory Tests 2 07/12/20 10:06: Immature Granulocyte % (Auto) 0.3, Neutrophils (%) (Auto) 47.9, Lymphocytes (%) (Auto) 41.4, Monocytes (%) (Auto) 7.6H, Eosinophils (%) (Auto) 1.8, Basophils (%) (Auto) 1.0, Neutrophils # (Auto) 1.9, Lymphocytes # (Auto) 1.6, Monocytes # (Auto) 0.3, Eosinophils # (Auto) 0.1, Basophils # (Auto) 0.0, Nucleated Red Blood Cells % (auto) 0.0, Anion Gap 10, Glomerular Filtration Rate > 60.0, Calcium Level 8.6, Total Bilirubin 0.7, Direct Bilirubin 0.2, Aspartate Amino Transf (AST/SGOT) 14, Alanine Aminotransferase (ALT/SGPT) 20, Alkaline Phosphatase 57, Total Creatine Kinase 94, Total Protein 6.6, Albumin 4.1, Albumin/Globulin Ratio 1.6, Thyroid Stimulating Hormone (TSH) 0.950, Salicylates Level 2.9L, Acetaminophen Level < 2.0L, Ethyl Alcohol Level 0.034H 07/12/20 10:34: Bedside Glucose (Misc Panel) 102 07/12/20 12:46: Salicylates Level 2.7L, Acetaminophen Level < 2.0L 07/12/20 15:25: Urine Opiates Screen NEGATIVE, Urine Methadone Screen NEGATIVE, Urine Barbiturates Screen NEGATIVE, Urine Phencyclidine Screen NEGATIVE, Urine Ampheta mines Screen NEGATIVE, Urine Benzodiazepines Screen NEGATIVE, Urine Cocaine Metabolite Screen NEGATIVE, Urine Cannabinoids Screen POSITIVEH 07/12/20 16:25: CBC/BMP Laboratory Tests 07/12/20 10:06 Assessment/Plan 30 year old male with PMH of Major depressive disorder, bipolar disorder, migraine deaf in left ear, loss of vision from Lupus presented to the ED after an intentional drug overdose with Chlorpromazine, prazosin, exedrin. Acute metabolic encephalopathy due to multiple drug overdose will monitor overnight maintaining airway. Arousable but falls asleep immediately. will continue with IVF. Intentional drug overdose with suicidal intent on prescription meds one on one obs Cleared by poison control. When awake and alert psych will be consulted. Substance abuse utox positive for marihuana, alcohol also positive. Depression/ Bipolar will hold all meds. Plan / VTE VTE Prophylaxis Ordered?: Yes OMI KEBEDE MD Jul 12, 2020 17:26
[2020-07-12] MEDS: NS 1,000 ML IV SCH ×2 (17:54→21:45)
[2020-07-12] MEDS ORDERED: CLON0.5T2 PO (18:04)
[2020-07-12] MEDS ORDERED: PT COMMENT (18:04)
[2020-07-12 20:10] VITALS: BP 124/77
[2020-07-13] MEDS: NS 1,000 ML IV SCH ×3 (05:36→10:36)
[2020-07-13 06:00] VITALS: BP 109/71
--- NOTE | 2020-07-13 07:23 | ECGEPIP ---
[facility] - ED Test Date: 2020-07-12 Pat Name: BRIAN LAWRENCE Department: Room: - Gender: Male Personnel Director: : 1990 Requested By: ROSITA Nunez Order Number: [id number] Reading MD: Slade Nicole Measurements Intervals [place] Rate: 127 P: 68 NM: 167 QRS: 81 QRSD: 94 T: 64 QT: 315 QTc: 458 Interpretive Statements SINUS TACHYCARDIA POSSIBLE INCOMPLETE RIGHT BUNDLE BRANCH BLOCK NONSPECIFIC T-WAVE ABNORMALITY RATE CHANGE COMPARED TO 04/09/19 Electronically Signed on 07-13-2020 7:23:16 EST by Slade Nicole
[2020-07-13 07:52] LABS: BLOOD UREA NITROGEN 8 MG/DL (7-18); CARBON DIOXIDE LEVEL 26 MEQ/L (21-32); CHLORIDE LEVEL 113 MEQ/L (98-107); CREATININE FOR GFR 0.82 MG/DL (0.70-1.30); GLOMERULAR FILTRATION RATE > 60.0 (>60); GLUCOSE, FASTING 86 MG/DL (70-100); POTASSIUM SERUM 3.6 MEQ/L (3.5-5.1); SODIUM LEVEL 144 MEQ/L (136-145)
[2020-07-13 08:09] LABS: HEMOGLOBIN 15.4 g/dl (13.5-17.5); MEAN CORPUSCULAR HEMOGLOBIN 31.2 pg (27.0-33.0); MEAN CORPUSCULAR HGB CONC 34.2 g/dl (32.0-36.5); MEAN CORPUSCULAR VOLUME 91.1 fl (80.0-96.0); PLATELET COUNT, AUTOMATED 166 10^3/uL (150-450); RED BLOOD COUNT 4.94 10^6/uL (4.30-6.10); WHITE BLOOD COUNT 5.7 10^3/uL (4.0-10.0)
[2020-07-13 09:00] VITALS: BP 109/71
[2020-07-13] MEDS ORDERED: zolPIDEM TARTRATE 5 MG TAB PO PRN (13:45)
[2020-07-13 14:00] VITALS: BP 142/97
--- NOTE | 2020-07-13 14:23 | IPNPDOC ---
Date Seen The patient was seen on 07/13/20. Progress Note SUBJECTIVE: Patient seen in the morning, comfortable, without any complaints and at its baseline. Patient reports making a mistake last night by taking extra medications along with alcohol to help him fall asleep. He reports that he had no intentions of harming himself or taking his life, just wanted to get some sleep. He denies any complaints overnight. He appears to be at his baseline in the morning. Denies any shortness of breath, chest pain, nausea, vomiting, diarrhea or constipation. PHYSICAL EXAMINATION: VITAL SIGNS: Please see below. GENERAL: No distress HEENT: Normocephalic, atraumatic, moist mucous membranes NECK: Supple CARDIOVASCULAR EXAMINATION: S1, S2, no murmurs RESPIRATORY EXAMINATION: Clear to auscultation, no wheezing ABDOMINAL EXAMINATION: Soft, nontender, nondistended, positive bowel sounds EXTREMITIES: Range of motion intact SKIN: No rash NEUROLOGICAL EXAMINATION: Alert and oriented 3, no focal deficits PSYCHIATRIC EXAMINATION: Calm and cooperative LABORATORY DATA, IMAGING STUDIES, MICROBIOLOGY: Please see below. ASSESSMENT AND PLAN: 30-year-old male with past medical history of depression and bipolar disorder, was admitted for drug overdose and lethargy. PROBLEMS: 1. Drug overdose: Overdosed on psychiatric medications in addition to alcohol, lethargic on presentation, now resolved. Patient medically at baseline, not showing any signs of drug withdrawal/overdose. Patient is medically stable for transfer to inpatient mental health unit. Patient arrived by psychiatry and will require inpatient mental health unit admission, no beds available at this time. Psychiatric medications being restarted per psychiatry. DVT prophylaxis: Not needed GI prophylaxis: Not needed VS, I&O, 24H, Heather Vital Signs/I&O Vital Signs Date Time Temp Pulse Resp B/P (MAP) Pulse Ox O2 Delivery O2 Flow Rate FiO2 07/13/20 09:00 97.3 70 16 109/71 97 Room Air I&O- Last 24 Hours up to 6 AM 07/13/20 06:00 Intake Total 2760 ml Output Total 700 ml Balance 2060 ml Laboratory Data 24H LABS Laboratory Tests 2 07/12/20 15:25: Urine Opiates Screen NEGATIVE, Urine Methadone Screen NEGATIVE, Urine Bar biturates Screen NEGATIVE, Urine Phencyclidine Screen NEGATIVE, Urine Amphetamines Screen NEGATIVE, Urine Benzodiazepines Screen NEGATIVE, Urine Cocaine Metabolite Screen NEGATIVE, Urine Cannabinoids Screen POSITIVEH 07/12/20 16:25: Coronavirus (COVID-19)(PCR) NEGATIVE, Influenza Type A (RT-PCR) NEGATIVE, Influenza Type B (RT-PCR) NEGATIVE, Respiratory Syncytial Virus (PCR) NEGATIVE 07/13/20 07:17: Nucleated Red Blood Cells % (auto) 0.0, Anion Gap 5L, Glomerular Filtration Rate > 60.0, Calcium Level 8.0L CBC/BMP Laboratory Tests 07/13/20 07:17 IVY KWOK MD Jul 13, 2020 14:15
[2020-07-13] MEDS: DESVENLAFAXINE ER 50 MG TABLET (PRISTIQ) PO SCH (14:43)
[2020-07-13] MEDS: clonazePAM 0.5 MG TAB PO SCH ×2 (16:39→20:09)
[2020-07-13] MEDS: risperiDONE 2 MG TAB PO SCH (20:09)
[2020-07-13 20:10] VITALS: BP 103/63
[2020-07-13] MEDS ORDERED: PRAZOSIN 1 MG CAP PO SCH (21:00)
[2020-07-13 22:00] VITALS: BP 103/63
[2020-07-14 06:00] VITALS: BP 118/75
[2020-07-14 07:09] LABS: BLOOD UREA NITROGEN 7 MG/DL (7-18); CALCIUM LEVEL 9.1 MG/DL (8.5-10.1); CARBON DIOXIDE LEVEL 27 MEQ/L (21-32); CHLORIDE LEVEL 107 MEQ/L (98-107); CREATININE FOR GFR 0.83 MG/DL (0.70-1.30); GLOMERULAR FILTRATION RATE > 60.0 (>60); GLUCOSE, FASTING 79 MG/DL (70-100); POTASSIUM SERUM 3.4 MEQ/L (3.5-5.1); SODIUM LEVEL 141 MEQ/L (136-145)
[2020-07-14] MEDS: DESVENLAFAXINE ER 50 MG TABLET (PRISTIQ) PO SCH (08:08)
[2020-07-14] MEDS: clonazePAM 0.5 MG TAB PO SCH ×2 (08:08→16:08)
[2020-07-14] MEDS: risperiDONE 2 MG TAB PO SCH (08:08)
[2020-07-14] MEDS ORDERED: POTASSIUM CHLORIDE 10 MEQ SR TABLET PO ONE (09:00)
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
[2020-07-14 14:00] VITALS: BP 116/70
--- NOTE | 2020-07-14 14:59 | DS.PDOC ---
Discharge Summary General Date of Admission Jul 12, 2020 at 09:52 Date of Discharge 07/14/20 Attending Physician: IVY KWOK MD Discharge Summary PROCEDURES PERFORMED DURING STAY: None. ADMITTING DIAGNOSES: 1. Suicidal ideation, medication overdose. DISCHARGE DIAGNOSES: 1. Suicidal ideation, medication overdose. COMPLICATIONS/CHIEF COMPLAINT: Bipolar Disorder,Overdose. HISTORY OF PRESENT ILLNESS: 30-year-old male with past medical history of bipolar disorder, was admitted for drug overdose and suicidal ideation. Patient was admitted to the medical service due to significant lethargy and somnolence. Patient was treated conservatively and lethargy resolved once he cleared the medications/alcohol out of his system. He hasn't back to his baseline and doing well over the past 24 hours, was a value by psychiatry yesterday who advised admission to inpatient mental health unit. Patient is agreeable to be admitted to inpatient mental health unit at this time. Patient did not have a bed available yesterday, but there is availability today. Patient will be discharged to inpatient mental health unit for further care and management. Patient is medically stable for discharge at this time. Patient is advised to follow with PCP. Post discharge from inpatient mental health unit. Patient is agreeable with this plan. HOSPITAL COURSE: As above. DISCHARGE MEDICATIONS: Please see below. ALLERGIES: Please see below. PHYSICAL EXAMINATION: VITAL SIGNS: Please see below. GENERAL: No distress HEENT: Normocephalic, atraumatic, moist mucous membranes NECK: Supple CARDIOVASCULAR EXAMINATION: S1, S2, no murmurs RESPIRATORY EXAMINATION: Clear to auscultation, no wheezing ABDOMINAL EXAMINATION: Soft, nontender, nondistended, positive bowel sounds EXTREMITIES: Range of motion intact SKIN: No rash NEUROLOGICAL EXAMINATION: Alert and oriented 3, no focal deficits PSYCHIATRIC EXAMINATION: Calm and cooperative LABORATORY DATA: Please see below. PROGNOSIS: Fair ACTIVITY: As tolerated. DIET: Regular DISCHARGE PLAN: Follow with PCP after discharge from inpatient mental health unit DISPOSITION: Inpatient mental health unit. DISCHARGE INSTRUCTIONS: 1. As above. DISCHARGE CONDITION: Stable. TIME SPENT ON DISCHARGE: Greater than 20 minutes. Vital Signs/I&Os Vital Signs Date Time Temp Pulse Resp B/P (MAP) Pulse Ox O2 Delivery O2 Flow Rate FiO2 07/14/20 09:00 7 07/14/20 06:00 97.6 16 118/75 (89) 98 Room Air I&O- Last 24 Hours up to 6 AM 07/14/20 05:59 Intake Total 3240 ml Output Total 1925 ml Balance 1315 ml Laboratory Data Labs 24H Laboratory Tests 2 07/14/20 05:35: Anion Gap 7L, Glomerular Filtration Rate > 60.0, Calcium Level 9.1 CBC/BMP Laboratory Tests 07/14/20 05:35 Discharge Medications Scheduled Chlorpromazine HCl (Chlorpromazine HCl) 100 Mg Tablet, 100 MG PO QHS, (Reported) Prazosin Hcl (Prazosin HCl) 2 Mg Capsule, 2 MG PO QHS, (Reported) Risperidone (Risperidone) 2 Mg Tablet, 2 MG PO BID, (Reported) Scheduled PRN Clonazepam (Clonazepam) 0.5 Mg Tablet, 0.5 MG PO TID PRN for ANXIETY, (Reported) Allergies Coded Allergies: Penicillins (Verified Allergy, Severe, throat swelling, 11/26/18) codeine (Verified Allergy, Severe, anaphylaxis, 11/26/18) IVY KWOK MD Jul 14, 2020 14:06
== END 2020-07-14 16:15 ==
LOC: M ED 09:51 → EDBD 09:51 → M ED INP 09:52 → M MSPAV 19:58
PROVIDERS: ADMIT Internal Medicine Nephrology; ATTEND Internal Medicine
DX: F31.9 Bipolar disorder, unspecified (principal); T14.91XA Suicide attempt, initial encounter; T43.3X2A Poisoning by phenothiazine antipsychotics and neuroleptics, intentional self-harm, initial encounter; T50.992A Poisoning by other drugs, medicaments and biological substances, intentional self-harm, initial encounter; F10.120 Alcohol abuse with intoxication, uncomplicated; F12.10 Cannabis abuse, uncomplicated; F43.10 Post-traumatic stress disorder, unspecified; F41.1 Generalized anxiety disorder; F17.218 Nicotine dependence, cigarettes, with other nicotine-induced disorders; H91.8X2 Other specified hearing loss, left ear; M32.9 Systemic lupus erythematosus, unspecified; Z88.0 Allergy status to penicillin; Z88.5 Allergy status to narcotic agent; Z79.899 Other long term (current) drug therapy; Y92.89 Other specified places as the place of occurrence of the external cause
CPT/HCPCS: 36415; 51701; 80048; 80076; 80143; 80307; 82077; 82550; 84443; 85025; 85027; 87631; 93005; 93041; 94760; 96361; 96374; 96376; 99285; G0378

== ENCOUNTER 2020-07-14 14:54 | Inpatient (IN) | payer MEDICARE, MEDICAID ==
[~2020-07-14] VITALS: Ht 185.4 cm; Wt 82.1 kg
[~2020-07-14 14:54] MED LIST changes: +CHLO100T30 PO; +PT COMMENT; +RISP-9 PO
[2020-07-14] MEDS ORDERED: ACETAMINOPHEN TAB 650MG DOSE (2X325MG) PO PRN (15:15)
[2020-07-14] MEDS ORDERED: MAALOX 30 ML SUSP *UDC PO PRN (15:15)
[2020-07-14] MEDS ORDERED: MOM 30ML SUSPENSION UDC PO PRN (15:15)
--- OUTSIDE RECORDS SUMMARY | 2020-07-14 16:23 | CCD ---
Author Author [facility] Organization [facility] Address Unknown Phone Unavailable Support Name Relationship Address Phone LOCUST RESTAURANT Next Of Kin [address] [place] [address] CON RESTAURANT Next Of Kin [address] [place] [address] Christine Ng Next Of Kin Unknown Unavailable JOEL BIRCH Next Of Kin [address] [place] [address] Shara Vigil Next Of Kin [address] [place] [address] NRCIL Next Of Kin [address] [place] [id number] Christine Schafer Next Of Kin [address] [place] [address] DISABLED Next Of Kin Unknown Unavailable Darleen Mcginnis Next Of Kin [address] [place], [place] [id number] Ada Sánchez Next Of Kin [address] [place] [address] 315 VALDO NG Next Of Kin [address] [place] [address] [employer] SAF[employer] SEC[employer]ITY SOLU Next Of Kin [address] [place] [address] UNK VIPIN Next Of Kin [address] [place] [address] UE Next Of Kin Unknown Unavailable ST Next Of Kin Unknown Unavailable CHRISTINE NG Next Of Kin [address] [place] [address] UNEMPLOYED Next Of [place] [address] CHRISTINE SOUZA Next Of Kin [address] [place] [address] JP LAWRENCE Next Of Kin [address] [place] [address] HERNANDEZ NIEVES Next Of Kin [address] [place], [place] [id number] Care Team Providers Care Mechanical Process Engineer Name Role Phone Neff, Shara HOSPITAL SCIENTIST HOSPITAL SCIENTIST Unavailable Unavailable Neff, F Shara HOSPITAL SCIENTIST-BC Unavailable Unavailable Neff, F Shara HOSPITAL SCIENTIST-BC Unavailable Unavailable Neff, F Shara HOSPITAL SCIENTIST-BC Unavailable Unavailable Neff, F Shara HOSPITAL SCIENTIST-BC Unavailable Unavailable Neff, F Shara HOSPITAL SCIENTIST-BC Unavailable Unavailable Neff, F Shara HOSPITAL SCIENTIST-BC Unavailable Unavailable Neff, F Shara HOSPITAL SCIENTIST-BC Unavailable Unavailable Neff, F Shara HOSPITAL SCIENTIST-BC Unavailable Unavailable Neff, F Shara HOSPITAL SCIENTIST-BC Unavailable Unavailable Neff, F Shara HOSPITAL SCIENTIST-BC Unavailable Unavailable Neff, F Shara HOSPITAL SCIENTIST-BC Unavailable Unavailable Neff, F Shara HOSPITAL SCIENTIST-BC Unavailable Unavailable Neff, F Shara HOSPITAL SCIENTIST-BC Unavailable Unavailable Neff, F Shara HOSPITAL SCIENTIST-BC Unavailable Unavailable Neff, F Shara HOSPITAL SCIENTIST-BC Unavailable Unavailable Neff, F Shara HOSPITAL SCIENTIST-BC Unavailable Unavailable Neff, F Hsara HOSPITAL SCIENTIST-BC Unavailable Unavailable Neff, F Shara HOSPITAL SCIENTIST-BC Unavailable Unavailable Neff, F Shara HOSPITAL SCIENTIST-BC Unavailable Unavailable Neff, F Shara HOSPITAL SCIENTIST-BC Unavailable Unavailable Neff, F Shara HOSPITAL SCIENTIST-BC Unavailable Unavailable Neff, F Shara HOSPITAL SCIENTIST-BC Unavailable Unavailable Re-disclosure Warning The records that [...] is protected by Article 27-F of the [facility] Public Health law. If you continue you may have access to information: Regarding HIV / AIDS; Provided by facilities licensed or operated by the [facility] Office of Mental Health; or Provided by the [facility] Office for People With Developmental Disabilities. If such information is present, then the following [facility] mandated warning applies: This information has [...] law may result in a fine or residential sentence or both. A general authorization for [...] Attender: CHRISTIAN GONZALES 11/06/2019 12:02:[address] [facility] Outpatient Attender: Shara FAIRBANKS 07/02/2019 09: [...] to gomes Policy Gomes Plan Information EMEDNY [id number] SP [id number] MEDICARE [id number] SP [id number] Medicaid S [id number] S [id number] Medicare P [id number] S [id number] MEDICAID [id number] SP [id number] Medicare P [id number] S [id number] NORIDIAN JE PART B C [id number] S [id number] MEDICARE C [id number] S [id number] MEDICAID M [id number] [place] JL PART B C [id number] S [id number] Medicaid S [id number] S [id number] UNHC COMMUNITY PLAN MCDHMO [id number] SP [id number] SELF PAY ONLY [id number] SP [id number] SELF PAY UNAVAILABLE SP UNAVAILA BLE MEDICARE [id number] SP [id number] UN COMMUNITY PLAN MCDHMO [id number] SP [id number] Medicaid S [id number] S [id number] [facility] (HMO) [id number] Self [id number] MEDICARE C [id number] S [id number] Managed Care - [facility] P [id number] S [id number] Medicaid S [id number] S [id number] [facility](MCAID) O [id number] S [id number] [facility] (HMO) Self [facility] (HMO) Self MEDICAID W [id number] S [id number] [place] 3 [id number] SELF PAY 2 UNAVAILABLE 1 UNAVAILA BLE [id number] Results ID Date Data Source [id number] 07/12/2020 04:25:00 PM EST [facility] Name Value Range Interpretation Code Description Data Elissa rce(s) Supporting Document(s) SARS coronavirus 2 RNA [Presence] in Res piratory specimen by CHRISTA with probe detection NEGATIVE [facility] This lab was ordered by [facility] a nd reported by [facility]. ID Date Data Source [id number] 04/09/2020 02:00:00 PM EST [facility] Name Value Range Interpretation Code Description Data Elissa rce(s) Supporting Document(s) SARS-COV-2 RNA RESP QL [facility]STA[facility] This lab was ordered by [facility] and reported by [facility]. Procedure
[2020-07-14 17:25] VITALS: BP 127/78
[2020-07-14] MEDS ORDERED: PRAZOSIN 1 MG CAP PO SCH (21:00)
[2020-07-14] MEDS ORDERED: zolPIDEM TARTRATE 5 MG TAB PO PRN (21:00)
[2020-07-14 21:11] VITALS: BP 126/90
[2020-07-14] MEDS: clonazePAM 0.5 MG TAB PO SCH (21:11)
[2020-07-14] MEDS: risperiDONE 2 MG TAB PO SCH (21:11)
[2020-07-15 06:39] VITALS: BP 111/67
[2020-07-15] MEDS: clonazePAM 0.5 MG TAB PO SCH (08:05)
[2020-07-15] MEDS: risperiDONE 2 MG TAB PO SCH (08:05)
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
--- NOTE | 2020-07-15 18:45 | HPEPDOC ---
[facility] Medical History & Physical Date of Admission Jul 14, 2020 Date of Service: Jul 15, 2020 History and Physical CHIEF COMPLAINT: Admitted to inpatient mental health unit HISTORY OF PRESENT ILLNESS: 30-year-old male with past medical history of bipolar disorder, depression, was initially admitted to medical service for suicidal ideation and overdosing on prescribed medications while intoxicated with ethanol. Patient was monitored on the medical floor for 24-48 hours, return to baseline without any intervention and he was transferred to inpatient mental health unit when medically cleared. Patient has remained on inpatient mental health unit for the past 24 hours, a rounded by psychiatrist and has been cleared for discharge today. Patient appears comfortable, at his baseline, without any complaints at this time and ready to go home. He denies any shortness of breath, chest pain, nausea, vomiting, diarrhea or constipation. 10 point review of system is negative so for above PAST MEDICAL HISTORY: 1. Bipolar depression. HOME MEDICATIONS: Please see below. PHYSICAL EXAMINATION: VITAL SIGNS: Please see below. GENERAL: No distress HEENT: Normocephalic, atraumatic, moist mucous membranes NECK: Supple CARDIOVASCULAR EXAMINATION: S1, S2, no murmurs RESPIRATORY EXAMINATION: Clear to auscultation, no wheezing ABDOMINAL EXAMINATION: Soft, nontender, nondistended, positive bowel sounds EXTREMITIES: Range of motion intact SKIN: No rash NEUROLOGICAL EXAMINATION: Alert and oriented 3, no focal deficits PSYCHIATRIC EXAMINATION: Calm and cooperative LABORATORY DATA: See below. MICROBIOLOGY: Please see below. ASSESSMENT: [30-year-old male with past medical history of bipolar depression is admitted to inpatient mental health unit after overdosing on prescribed medication while intoxicated with ethanol. . PLAN: 1. Suicidal ideation. Management as per primary team The effects of medication that he overdosed on have elapsed and he is back to his baseline, hemodynamically stable. Patient has no active medical issues at this time, please reconsult as needed Vital Signs Vital Signs Date Time Temp Pulse Resp B/P (MAP) Pulse Ox O2 Delivery O2 Flow Rate FiO2 07/15/20 06:39 97.0 92 16 111/67 (82) 97 Room Air Home Medications Scheduled Prazosin Hcl (Prazosin HCl) 2 Mg Capsule, 2 MG PO QHS Risperidone (Risperidone) 2 Mg Tablet, 2 MG PO BID Scheduled PRN Clonazepam (Clonazepam) 0.5 Mg Tablet, 0.5 MG PO TID PRN for ANXIETY Allergies Coded Allergies: Penicillins (Verified Allergy, Severe, throat swelling, 11/26/18) codeine (Verified Allergy, Severe, anaphylaxis, 11/26/18) A-FIB/CHADSVASC A-FIB History Current/History of A-Fib/PAF?: No IVY KWOK MD Jul 15, 2020 18:45
[2020-07-16] MEDS ORDERED: INFLUENZA QUADRIVALENT PF VACCINE 0.5ML SYRINGE IM ONE (09:00)
--- NOTE | 2020-07-16 13:28 | MHDSPDOC ---
[facility] Discharge Summary Discharge Summary DATE OF ADMISSION: Jul 14, 2020 at 16:20 DATE OF DISCHARGE: Jul 15, 2020 at 15:00 DISCHARGE DIAGNOSES: Major Depressive Disorder, Recurrent, Severe Generalize Anxiety Disorder Per old Chart history of Bipolar Disorder Tobacco Use Disorder Alcohol Use Disorder REASON FOR ADMISSION: "I took an overdose because I needed to get sleep but I was drunk and apparently took too many pills. History of Present Illness HISTORY OF THE PRESENT ILLNESS: Patient is a 30 -year-old Single, Employed. Domiciled , male, who was admitted to psychiatry after being medically stabilized for a reported intentional vs his report of unintentional overdose. According to the patient he was alone on after a recent breakup of 4 months and had been drinking and took an overdose of Thorazine. He stated in the interview today that he was not intentionally trying to overdose but that he was severely inebriated and that he was not aware of how many pills he had taken. Patient reports that he has taken himself to the ED for depression and suicidal ideation and has no suicidal ideation at this time. He also reports that a patient on the unit is his client from [facility] and he wants to be discharged because this is a conflict to him. patient has had multiple admissions to this facility has a diagnosis of OLEG, Major depressive disorder, bipolar disorder. CONSULTANTS INVOLVED: [facility] TREATMENT AND PROGRESS ON THE UNIT: Patient was admitted to the [facility] on a 9.39 legal status he was afforded the following treatment modalities: 1) Individual Therapy 2) Group Therapy 3) Medication Management 4) Milieu Therapy 5) Safe Environment HOSPITAL COURSE: Patient is a 30-year-old single employed domiciled male who reports to psychiatry on a 939. legal status . He was medically utilized on medicine after an overdose of Thorazine and alcohol. His report. Per the hospitalist. Patient had overdosed on Thorazine, Excedrin, prazosin, and alcohol. It appeared to be an intentional overdose but on interview, the patient reports that this was not an intentional overdose that he had been drinking extensively on 's Day as he states he is no longer with this partner. They split up 4 months ago and he was feeling sad and lonely. He reports that his drinking "has gotten away from him." Reports "I drink a lot." Patient vehemently denies that this was a suicide attempt. 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 Because this is a conflict, including that he has been hospitalized a total of four days on both medicine and behavioral health with no reports of continued suicidality, gestures, attempts, planning or intent I feel that patient can be discharged today. He reports that he lives in the same apartment building with his mother and Aunt as well as his cousins are in the next building. He states that he has an extensive network of family and friends and will follow up with Bryson Simpson at [facility] for outpatient mental health and outpatient Rehab. Spoke with Treatment Team who feel that patient is appropriate for discharge today. Patient agreed to call the unit and speak with this provider on Sunday for a follow up consultation. DISCHARGE ASSESSMENT: In today's interview, patient is alert and oriented, pts dress is appropriate. Hygiene and grooming is well-kempt. Smiles on approach and is pleasant and engaged in the interview. Denies depression and anxiety. Denies suicidal and homicidal ideation, planning or intent. Denies and is not observed with opal, psychotic symptoms of delusions, bizarre thinking, obsessions, paranoia, ruminations illogical thoughts, flight of ideas or having poor insight and judgement. Patient has normal mentation, declines further hospitalization on a voluntary status and meets criteria for discharge today. Patient encouraged to return to hospital if his symptoms worsen or change and encouraged to call unit if he/she/they needs to speak to provider for questions regarding medications or care. MENTAL STATUS EXAMINATION ON DISCHARGE: Patient is a 30 -year-old Single, Employed. Domiciled , male, who was admitted to psychiatry after being medically stabilized for a reported unintentional overdose. Speech: Is fluid, conversant, normal rate, tone and volume Language skills are intact Thought processes including: linear and goal oriented Thought content: denies depression and anxiety. Denies suicidal/homicidal id eation, planning or intent. Abstract reasoning, and computation: fair Description of associations: denies, none observed Description of abnormal or psychotic thoughts: denies, none observed. Judgment: fair Insight: fair Orientation: alert and oriented to person, place, time and situation Recent and remote memory: intact Attention span and concentration: good Language: expansive Fund of knowledge: average Mood: Bright Mood Affect: Bright MEDICATIONS ON DISCHARGE: continued on home medications. He was discontinued off Thorazine on medical unit. Ambien was not continued due to its addictive properties PLAN/FOLLOWUP ARRANGEMENTS: Patient will follow up at [facility] The amount of time spent in the coordination of care for this patient was appr oximately 25 minutes. Vital Signs/I&Os Vital Signs Date Time Temp Pulse Resp B/P (MAP) Pulse Ox O2 Delivery O2 Flow Rate FiO2 07/15/20 06:39 97.0 92 16 111/67 (82) 97 Room Air Medications Scheduled Prazosin Hcl (Prazosin HCl) 2 Mg Capsule, 2 MG PO QHS, (Reported) Risperidone (Risperidone) 2 Mg Tablet, 2 MG PO BID, (Reported) Scheduled PRN Clonazepam (Clonazepam) 0.5 Mg Tablet, 0.5 MG PO TID PRN for ANXIETY, (Reported) Allergies Coded Allergies: Penicillins (Verified Allergy, Severe, throat swelling, 11/26/18) codeine (Verified Allergy, Severe, anaphylaxis, 11/26/18) MAURO GARG NP Jul 15, 2020 16:25
== END 2020-07-15 15:00 | disposition home or self-care (01) | DRG 885 ==
LOC: M PSY 16:20
PROVIDERS: ADMIT Psychiatry & Neurology Psychiatry; ATTEND Psychiatry & Neurology Psychiatry
DX: F33.2 Major depressive disorder, recurrent severe without psychotic features (principal); F41.1 Generalized anxiety disorder; F17.200 Nicotine dependence, unspecified, uncomplicated; F10.10 Alcohol abuse, uncomplicated; Z91.5 Personal history of self-harm; Z79.899 Other long term (current) drug therapy; Z88.0 Allergy status to penicillin; Z88.5 Allergy status to narcotic agent

== ENCOUNTER 2020-11-14 04:48 | Emergency (ER) | payer MEDICARE, MEDICAID ==
[~2020-11-14] VITALS: Ht 185.4 cm; Wt 78.2 kg
[2020-11-14 05:19] LABS: BASO # 0.1 10^3/uL (0.0-0.2); BASO % 0.9 % (0.0-1.0); EOS # 0.1 10^3/uL (0.0-0.5); EOS % 2.1 % (0.0-3.0); HEMATOCRIT 50.3 % (42.0-52.0); HEMOGLOBIN 17.4 g/dl (13.5-17.5); LYMPH # 2.1 10^3/uL (1.5-5.0); LYMPH % 31.7 % (24.0-44.0); MEAN CORPUSCULAR HEMOGLOBIN 30.5 pg (27.0-33.0); MEAN CORPUSCULAR HGB CONC 34.6 g/dl (32.0-36.5); MEAN CORPUSCULAR VOLUME 88.2 fl (80.0-96.0); MONO # 0.6 10^3/uL (0.0-0.8); MONO % 9.1 % (2.0-8.0); NEUTROPHILS # 3.7 10^3/uL (1.5-8.5); NEUTROPHILS % 55.9 % (36.0-66.0); PLATELET COUNT, AUTOMATED 232 10^3/uL (150-450); WHITE BLOOD COUNT 6.6 10^3/uL (4.0-10.0)
[2020-11-14 05:40] LABS: AMPHETAMINES LEVEL URINE NEGATIVE (NEGATIVE); BARBITURATES URINE NEGATIVE (NEGATIVE); BENZODIAZEPINES URINE NEGATIVE (NEGATIVE); CANNABINOIDS URINE POSITIVE (NEGATIVE); COCAINE METABOLITE URINE NEGATIVE (NEGATIVE); METHADONE URINE NEGATIVE (NEGATIVE); OPIATES URINE NEGATIVE (NEGATIVE); PHENCYCLIDINE URINE NEGATIVE (NEGATIVE)
[2020-11-14 05:51] LABS: ACETAMINOPHEN LEVEL < 2.0 UG/ML (10.0-30.0); ALBUMIN 4.3 GM/DL (3.2-5.2); ALT/SGPT 19 U/L (12-78); BILIRUBIN,DIRECT 0.1 MG/DL (0.0-0.2); BILIRUBIN,TOTAL 0.4 MG/DL (0.2-1.0); BLOOD UREA NITROGEN 10 MG/DL (7-18); CALCIUM LEVEL 8.6 MG/DL (8.5-10.1); CARBON DIOXIDE LEVEL 28 MEQ/L (21-32); CHLORIDE LEVEL 108 MEQ/L (98-107); CPK CREATINE PHOSPHOKINASE 58 U/L (39-308); CREATININE FOR GFR 0.92 MG/DL (0.70-1.30); ETHYL ALCOHOL (ETHANOL) 0.054 % (0.000-0.010); GLOMERULAR FILTRATION RATE > 60.0 (>60); GLUCOSE, FASTING 87 MG/DL (70-100); POTASSIUM SERUM 3.6 MEQ/L (3.5-5.1); SALICYLATE LEVEL 4.1 MG/DL (5.0-30.0); SODIUM LEVEL 140 MEQ/L (136-145); TOTAL PROTEIN 7.4 GM/DL (6.4-8.2)
[2020-11-14 08:58] VITALS: BP 146/88
--- NOTE | 2020-11-14 14:32 | ECGEPIP ---
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
== END 2020-11-14 09:00 | disposition home or self-care (01) ==
LOC: M ED 04:48
DX: F10.120 Alcohol abuse with intoxication, uncomplicated (principal); F43.10 Post-traumatic stress disorder, unspecified; F41.1 Generalized anxiety disorder; F32.9 Major depressive disorder, single episode, unspecified; Z88.0 Allergy status to penicillin; Z88.6 Allergy status to analgesic agent

== ENCOUNTER 2020-11-24 14:59 | Emergency (ER) | payer MEDICARE, MEDICAID ==
[~2020-11-24] VITALS: Ht 185.4 cm; Wt 76.9 kg
[2020-11-24] MEDS ORDERED: SALINE ENEMA PR (15:24)
[2020-11-24] MEDS ORDERED: KETOROLAC 30 MG/ML 1ML VIAL IV ONE (18:20)
[2020-11-24] MEDS ORDERED: NS 1,000 ML IV ONE ×2 (18:20→19:35)
[2020-11-24 19:00] LABS: BASO % 0.3 % (0.0-1.0); EOS # 0.1 10^3/uL (0.0-0.5); EOS % 0.6 % (0.0-3.0); HEMATOCRIT 48.7 % (42.0-52.0); HEMOGLOBIN 16.8 g/dl (13.5-17.5); LYMPH # 1.4 10^3/uL (1.5-5.0); MEAN CORPUSCULAR HEMOGLOBIN 30.5 pg (27.0-33.0); MEAN CORPUSCULAR HGB CONC 34.5 g/dl (32.0-36.5); MEAN CORPUSCULAR VOLUME 88.4 fl (80.0-96.0); MONO # 0.6 10^3/uL (0.0-0.8); MONO % 6.1 % (2.0-8.0); NEUTROPHILS # 7.7 10^3/uL (1.5-8.5); NEUTROPHILS % 78.5 % (36.0-66.0); PLATELET COUNT, AUTOMATED 298 10^3/uL (150-450); RED BLOOD COUNT 5.51 10^6/uL (4.30-6.10); WHITE BLOOD COUNT 9.8 10^3/uL (4.0-10.0)
[2020-11-24 19:28] LABS: ALBUMIN 3.9 GM/DL (3.2-5.2); BILIRUBIN,DIRECT 0.2 MG/DL (0.0-0.2); BILIRUBIN,TOTAL 0.6 MG/DL (0.2-1.0); TOTAL PROTEIN 7.4 GM/DL (6.4-8.2)
[2020-11-24] MEDS ORDERED: ISOVUE-370 76% 100ML VIAL As Ordered ONE (19:49)
[2020-11-24 20:41] VITALS: BP 106/52
--- NOTE | 2020-11-24 21:32 | REPVR ---
PROCEDURE INFORMATION: Exam: CT Abdomen And Pelvis With Contrast Exam date and time: 11/24/2020 8:20 PM Age: 30 years old Clinical indication: Other: Abdominal pain/not passing gas TECHNIQUE: Imaging protocol: Computed tomography of the abdomen and pelvis with contrast. Radiation optimization: All CT scans at this facility use at least one of these dose optimization techniques: automated exposure control; mA and/or kV adjustment per patient size (includes targeted exams where dose is matched to clinical indication); or iterative reconstruction. Contrast material: ISOVUE 370; Contrast volume: 100 ml; Contrast route: INTRAVENOUS (IV); COMPARISON: 1. CT ABD/PEL W/IV CONTRAST ONLY 2019-04-01 17:[address] ABD PELVIS WITH CONTRAST 2016-03-23 22:42 FINDINGS: Liver: Normal. No mass. Gallbladder and bile ducts: Normal. No calcified stones. No ductal dilation. Pancreas: Normal. No ductal dilation. Spleen: Normal. No splenomegaly. Adrenal glands: Normal. No mass. Kidneys and ureters: Normal. No hydronephrosis. Stomach and bowel: Unremarkable. No obstruction. No mucosal thickening. Appendix: No evidence of appendicitis. Intraperitoneal space: Unremarkable. No free air. No significant fluid collection. Vasculature: Unremarkable. No abdominal aortic aneurysm. Lymph nodes: Unremarkable. No enlarged lymph nodes. Urinary bladder: Unremarkable as visualized. Reproductive: Unremarkable as visualized. Bones/joints: Congenital L4 butterfly vertebrae. Otherwise unremarkable spine. Minimal L3-S1 disc bulge/protrusions. Soft tissues: Unremarkable. IMPRESSION: No acute findings. Electronically signed by: Venancio Clarke On 11/24/2020 21:32:25 PM
[2020-11-24] MEDS ORDERED: MUCI60TA7 PO (21:54)
== END 2020-11-24 22:05 | disposition home or self-care (01) ==
LOC: M ED 14:59
DX: R31.9 Hematuria, unspecified (principal); K59.00 Constipation, unspecified; R10.9 Unspecified abdominal pain; E86.0 Dehydration; F41.9 Anxiety disorder, unspecified; F31.89 Other bipolar disorder; N40.0 Benign prostatic hyperplasia without lower urinary tract symptoms; M32.9 Systemic lupus erythematosus, unspecified; G43.909 Migraine, unspecified, not intractable, without status migrainosus; F17.200 Nicotine dependence, unspecified, uncomplicated
CPT/HCPCS: 74177; 80047; 80076; 81001; 83690; 85025; 96361; 96374; 99284; J1885; Q9967

== ENCOUNTER → 2020-11-30 | Outpatient (CLI) | payer MEDICARE, MEDICAID ==
[~2020-11-30] MED LIST changes: +MUCI60TA7 PO; +SALINE ENEMA PR
== END ==
LOC: M OUTALCOH 07:35
PROVIDERS: ATTEND Psychiatry & Neurology Psychiatry
DX: F12.20 Cannabis dependence, uncomplicated (principal)

== ENCOUNTER 2020-12-27 15:28 | Emergency (ER) | payer MEDICARE, MEDICAID ==
[~2020-12-27] VITALS: Ht 185.4 cm; Wt 79.8 kg
[2020-12-27 15:29] VITALS: BP 122/85
[2020-12-27] MEDS ORDERED: CLON0.5T17 PO (16:22)
[2020-12-27] MEDS ORDERED: ZOLP10TA2 PO (16:22)
[2020-12-27] MEDS ORDERED: BUPR-69 PO (16:22)
[2020-12-27] MEDS ORDERED: RISP-9 PO (16:22)
== END 2020-12-27 19:45 | disposition home or self-care (01) ==
LOC: M ED 15:28
DX: Z76.0 Encounter for issue of repeat prescription (principal); F31.9 Bipolar disorder, unspecified; F41.9 Anxiety disorder, unspecified

== ENCOUNTER 2021-04-10 20:31 | Emergency (ER) | payer MEDICARE, MEDICAID ==
[~2021-04-10] VITALS: Ht 185.4 cm; Wt 80.7 kg
[~2021-04-10 20:31] MED LIST changes: +BUPR-69 PO; +CLON0.5T17 PO; +ZOLP10TA2 PO
[2021-04-10 20:32] VITALS: BP 157/93
--- OUTSIDE RECORDS SUMMARY | 2021-04-10 20:37 | CCD | Summary of Care ---
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 including clonazepam and zol pidem. Plans to wean the patient off clonazepam at this time and then focus on zolpidem . PSYCHIATRIC DIAGNOSIS: Mood Disorder- r/o bipolar vs borderline personality PTSD Anxiety and depression MEDICAL DIAGNOSIS: Lupus Deaf in left ear TREATMENT PLAN: Reasons for admission and treatment goals: Psychiatric admission for safety, stabilization, and medication managemen t Treatment includes individual, group, milieu, family, occupational, recre ational, art, and other therapies utilizing an adaptation of DBT Legal status: 9.37 -extended today- Safety/Level of observation: Patient is appropriate for 15 min checks based on m y clinical assessment, their C-SSRS risk score, and their risk/protective factor s. Scheduled medications: Zolpidem 10 mg nightlynewer medication/most recent change Prazosin 2 mg nightly Risperidone 2 mg nightly - stopped - replaced with lurasidone 20 mg WC Bupropion 100 mg daily- thinks he is taking buspirone - stopped PRN Medications/Agitation medications (for emergency use): In case of emergency when the patient is in imminent danger to self and/or other s the following medication(s) are recommended or should be considered: Clonazepam 0.5 mg 2 times daily as needed for severe anxiety; lowered from TID Chlorpromazine for agitation/moderate off label anxiety Hydroxyzine for mild anxiety Discharge planning: Not attached to outpatient mental health clinic- needs medi cation management- very ill and high risk Other: Metabolic labs documented in this encounter Procedure Notes * Jesus Storey MD - 01/12/2021 9:51 PM EDT Associated Order(s): EEG ROUTINE STUDY EEG REPORT NUMBER [id number] DATE OF PROCEDURE: 01/12/2021 HISTORY: Jeffrey Lawrence is a 30 y.o. male with Patient Active Problem List Diagnosis Mood disorder PTSD (post-traumatic stress disorder) Anxiety Depression Syncope and collapse EEG is to evaluate for seizures and/or epilepsy. No current facility-administered medications on file prior to encounter. Current Outpatient Medications on File Prior to Encounter Medication Sig Dispense Refill buPROPion HCl 100 MG Oral Tablet (WELLBUTRIN) Take 100 mg by mouth daily clonazePAM 0.5 MG Oral Tablet (KLONOPIN) Take 0.5 mg by mouth Three times daily as needed for Anxiety Prazosin HCl 2 MG Oral Capsule (MINIPRESS) Take 2 mg by mouth nightly risperiDONE 0.5 MG Oral Tablet (RisperDAL) Take 2 mg by mouth nightly Zolpidem Tartrate 5 MG Oral Tablet (AMBIEN) Take 10 mg by mouth nightly ibuprofen (ADVIL,MOTRIN) 400 MG tablet Take 400 mg by mouth every 6 (six) hours as needed. Scheduled Meds: benzocaine Mouth/Throat Give Now lurasidone HCl 20 mg Oral Daily with breakfast zolpidem 10 mg Oral Nightly Continuous Infusions: PRN Meds:.[] acetaminophen (TYLENOL) tablet FOLLOWED BY acetaminophen (TYLENOL) tablet, benzocaine AND benzocaine, benztropine, chlorproMAZINE, d iazePAM, hydrOXYzine, magnesium hydroxide, nicotine, perflutren lipid microspher es TECHNICAL DESCRIPTION: This digital EEG was recorded using 2 EKG and 21 scalp a nd/or ear electrodes. It was reviewed in referential and bipolar montages follo wing reformatting in the 10-20 International electrode placement system. In his best awake and alert state, the background consists of a symmetric, waxin g and waning, 40-70 microvolt, 10-11 Hz posterior dominant rhythm that attenuate s with eye opening. During drowsiness, there is drop out of alpha, slow rolling eye movements and in creased theta and delta slowing and as successive stages of sleep develop, vert ex sharp transient, sleep spindles and K-complexes are evident. Hyperventilation is omitted due to COVID 19. Photic stimulation with flash frequencies of 2-21 Hz is associated with photic d riving, maximal at 9 Hz to 15 Hz. EKG review reveals no significant arrhthymia. CLINICAL IMPRESSION: This routine EEG done in the awake and asleep states is wi thin the range of normal variation . documented in this encounter Consult Notes * Mo, Moni Gerardo, EGG PROCESSING SUPERVISOR - 01/12/2021 4:12 PM EDT Associated Order(s): IP CONSULT TO SOCIAL WORK Social Work Psychosocial Assessment - Initial Patient Name: Jeffrey Patrick he/him/his Date of : 1990 County of Residence: [place] Admitting Dx: Mood disorder [F39] Admitting Provider: Evaristo Sarabia MD Referral Type: Inpatient Referral Source: 4B Admission Reason for Referral: Mental Health Issues Discharge Planning Date: January 12, 2021 Emergency Contacts Name: christine Cunningham Relationship: Mother Address: [address] [place] [address] Home: Work: Mobile: Primary Caregiver: self Informant(s): Patient Authorized to Consent: self Patient's Description of the Problem "I did something stupid." Precipitating Events Prior to admission Pt posted a goodbye video on [employer], and contemplated suici de. He was apprehended by police while driving with a knife and medications. H e reports he engaged in a pursuit with the police for a short time. Family Constellation and Support System Jeffrey is Single. He describes his family as stable Jeffrey's support system consists of immediate family Living Situation Living Situation: Apartment Lives With: Alone Can you return after discharge? Yes Socioeconomic History Financial Resource Strain: Medium Risk Difficulty of Paying Living Expenses: Somewhat hard Food Insecurity: No Food Insecurity Worried About Running Out of Food in the Last Year: Never true Ran Out of Food in the Last Year: Never true Transportation Needs: No Transportation Needs Lack of Transportation (Medical): No Lack of Transportation (Non-Medical): No Education Not currently in school/taking classes Educational Assistance Special Services None Unknown Barriers to Learning Learns Best By None, Unknown Unknown Highest Level of Education Completed Communication Master's degree (e.g., MA, MS, [employer], MEd, [employer], SHIVA) Writes, Reads, Talks, Compr ehends information Employment Unemployed States he was offered a job at [employer]. Financial Health Insurance: Payor: MEDICARE / Plan: MEDICARE PARTS A AND B / Product Type: *No Product type* / Information not obtained /Service Experience Patient denies Sexual Orientation and Gender Identity Gender Identity Preferred Pronoun Male he/him/his Sexual Orientation [place] Current and Past Significant Relationships Pertinent Development Events Patient denies Health History Including Hospitalizations and Surgeries Jeffrey has a past medical history of Deafness in left ear and Migraine. He has a past surgical history that includes Adenoidectomy w/ myringotomy and tubes; Her jef repair; and Adenoidectomy. Developmental Disabilities Patient denies Hobbies and Leisure None Spiritual, Cultural, Jewish Patient denies Multidisciplinary Cultural Assessment 1. Where were you born?: [place] 2. What languages are spoken in your home?: [place] 3. What other languages do you speak?: [place] 4. Are you able to read and write in [place]?: Yes 5. Can you tell me your experiences with health care providers?: n/a 6. Who do you rely on when you're ill?: Self 7. Would you like us to contact someone from your place of anabaptist or marito?: N o 8. Describe your usual diet: normal 9. Are there times during the year when you change your diet in celebration of r or other ethnic holidays?: No 10. Are there certain healthcare prodecures or tests which your culture prohibit s?: No 11. Are there other considerations we should know about to serve your health nee ds?: none 12. What barriers exist for you in obtaining your medications, keeping doctor ap pointments, etc.? Explain: none Childhood/Peer Relationships None Abuse and Neglect Childhood? Yes Adulthood? Patient denies adulthood abuse/neglect Perpetrator? Patient denies perpetrating abuse/neglect Trauma History Yes Sex Offenses Patient denies Legal Issues Patient denies Substance Use Disorder or Dependency Yes Substances Substance Amount/Frequency Route Details/Duration/Last Used Alcohol Marijuana Current Mental Health Symptoms (last two weeks) Mental Health History Yes, patient reports mental health history Psych treatment compliant? No Psych Diagnoses Diagnosis Age/Date of Dx Diagnosed By Treatment Setting Treatment History/Comme nts Bipolar PTSD BPD Safety Pt in need of safety planning. Community Services Jeffrey is not currently receiving any community services. Agency/Resource Bridal Gown Fitter Phone Patient/agent was informed of the choice and offered a written list for facility , home care agency, durable medical equipment, provider or hospice for the hospital for special care area in which the patient resides or as requested by the patient/agent; th e patient/agent accepted list. Individual Strengths Individual Opportunities Resilience Resourcefullness Coping strategies Alcohol Use Clinical Impression/Assessment/Summary (addressing DSM-5 and CPT codes) PSYCHIATRIC DIAGNOSIS: Mood Disorder- r/o bipolar vs borderline personality PTSD Anxiety and depression Pt denies current outpatient treatment. He is interested in a referral to the [facility]. Treatment Plan Return depression to baseline. Goals and Objectives Safety planning. Connection to outpatient resources. Interventions Completed psychosocial assessment. Assessed for SW needs. Signature: Moni Hassan Date: January 12, 2021 * Nasrin Clark MD - 01/11/2021 8:52 PM EDT Associated Order(s): IP CONSULT TO NEUROLOGY [facility] [place] [address] PATIENT NAME: Jeffrey Lawrence, DATE OF : 1990 . Primary Care Physician: No primary care provider on file. General Neurology Consult note Chief complaint/Reason for admission: Seizure-like activity HPI: Jeffrey Lawrence is a 30 y.o. male with history of Bipolar, PTSD, OLEG, ?lupus, who is admitted for SI. At 1858, the patient had an unwitnessed fall, was found having shaking on floor, unclear how long the shaking was. Most likely the patient landed on his face, given broken tooth. After the shaking stopped, the patient had 2-3 minutes of g rimacing, not following commands, but gesturing with his hands indicating pain i n his head and neck. When PAPER PRODUCTS PRINTER team arrived, patient was asked about illicit marcial g use including heroin. At this point, the patient started responding to the qu estions. Per the patient, he recalls having prodromal symptoms of dizziness/lightheadedne ss/vertigo, nausea, tachycardia, having a hot body and hot/cold fingers and feet , dark spots in his vision, and photophobia. The last thing he recalls is talki ng to a nurse, and the next thing he recalls is being on the floor and hearing p eople ask him questions about heroin. CT head negative. C-spine negative. CMP shows very mild hyponatremia, CBC within normal limits, EKG stable. The patient recalls at least 5 other times he has had similar passing out episod es, at age 15, age 21, and 3 episodes within the last few months. Occasionally he has loss of consciousness, but sometimes he is able to stop himself from losi ng consciousness if he goes into a dark room and lays down. He has been evaluat ed by cardiology in the past, but does not recall if he has ever had a heart mon itor or ultrasound of the heart. The patient has had multiple concussions due to playing football, when severe co ncussion at age 17 with loss of consciousness. Otherwise no personal or family history of seizures, no personal history of febrile seizures, no history of ence phalitis/meningitis. No waking up with tongue bite, urinary incontinence, stool incontinence. Over the last 3 months, he endorses 45 pound weight loss. Over the last 1 month he endorses nonbloody diarrhea which he is being evaluated by GI. Over the las t month, he also recalls lightheadedness, spotty vision, and feeling like he is going to pass out when he stands up too fast. He endorses marijuana use, but has not used for the last 2 weeks, and endorses E Barbara use 2x/month. REVIEW OF SYSTEMS: Full review of systems completed and negative other than those mentioned in HPI above PAST MEDICAL HISTORY: Past Medical History: Diagnosis Date Deafness in left ear chronic Migraine severe PAST SURGICAL HISTORY: Past Surgical History: Procedure Laterality Date ADENOIDECTOMY Around 10 years old at the time ADENOIDECTOMY W/ MYRINGOTOMY AND TUBES HERNIA REPAIR 4/5 Years old - Groin area SOCIAL HISTORY: Social History Socioeconomic History Marital status: Single Spouse name: Not on file Number of children: Not on file Years of education: Not on file Highest education level: Not on file Occupational History Not on file Tobacco Use Smoking status: Current Every Day Smoker Packs/day: 1.00 Years: 7.00 Pack years: 7.00 Smokeless tobacco: Never Used Substance and Sexual Activity Alcohol use: Yes Alcohol/week: 2.0 standard drinks Types: 2 Cans of beer per week Drug use: Yes Comment: daily marijuana Sexual activity: Not on file Other Topics Concern Not on file Social History Narrative Not on file Social Determinants of Health Financial Resource Strain: Medium Risk Difficulty of Paying Living Expenses: Somewhat hard Food Insecurity: No Food Insecurity Worried About Running Out of Food in the Last Year: Never true Ran Out of Food in the Last Year: Never true Transportation Needs: No Transportation Needs Lack of Transportation (Medical): No Lack of Transportation (Non-Medical): No Physical Activity: Inactive Days of Exercise per Week: 0 days Minutes of Exercise per Session: 0 min Stress: Stress Concern Present Feeling of Stress : To some extent Social Connections: Unknown Frequency of Communication with Friends and Family: More than three times a week Frequency of Social Gatherings with Friends and Family: More than three t imes a week Attends Jewish Services: Never Active Member of Clubs or Organizations: No Attends Club or Organization Meetings: Never Marital Status: Not on file Intimate Partner Violence: Not At Risk Fear of Current or Ex-Partner: No Emotionally Abused: No Physically Abused: No Sexually Abused: No FAMILY HISTORY: Family History Problem Relation Age of Onset Cancer Mother Mult sclerosis Father Cancer Maternal Grandmother Heart disease Maternal Grandfather ALLERGIES: Allergies Allergen Reactions Codeine Anaphylaxis Penicillins Anaphylaxis MEDICATIONS: Current Facility-Administered Medications Medication Dose Route Frequency Provider Last Rate Last Admin benztropine (COGENTIN) tablet 0.5 mg 0.5 mg Oral Q1H PRN Autumn Epperson NP chlorproMAZINE (THORAZINE) tablet 25 mg 25 mg Oral TID PRN Autumn Rubio p, NEUROLOGY NURSE clonazePAM (KLONOPIN) tablet 0.5 mg 0.5 mg Oral BID PRN Autumn Epperson NEUROLOGY NURSE 0.5 mg at 01/11/21 1502 diazePAM (VALIUM) tablet 10 mg 10 mg Oral Q1H PRN Norma Arora DO hydrOXYzine (ATARAX) tablet 50 mg 50 mg Oral 4x Daily PRN Autumn Epperson NP nicotine (NICORETTE) lozenge 2 mg 2 mg Mouth/Throat Q2H PRN Autumn Osei mp, NEUROLOGY NURSE prazosin (MINIPRESS) capsule 2 mg 2 mg Oral Nightly Autumn Epperson NP zolpidem (AMBIEN) tablet 10 mg 10 mg Oral Nightly Autumn Epperson NP PHYSICAL EXAM: Visit Vitals BP 110/71 (BP Location: Right arm, Patient Position: Lying) Pulse 90 Temp 36.5 C (97.7 F) (Oral) Resp 16 SpO2 95% General appearence -young gentleman, laying in bed with c-collar on Skin -normal HEENT-head: Normocephalic, no lesions, without obvious abnormality. Cardiovascular -regular rate on radial palpation Respiratory -breathing comfortably on room air Gastrointestinal -bowel sounds present and Abdomen soft, non-tender Extremities -extremities normal, atraumatic, no cyanosis or edema Neuro Exam: Mental status -alert, oriented to self, place, year, month Attention: Able to focus and sustain attention. Regards examiner. Memory: Intact to conversation and personal medical history Language: Speech output: Fluent and grammatically correct. No paraphasic errors (incorrect words or syllables) or neologisms Auditory comprehension: Intact Cranial nerves - I: smell Not tested II: visual velez YARELIS, no APD, visual velez full to confrontation II: pupils Equal, round, reactive to light III,IV,: extraocular muscles EOMI, no nystagmus V: facial sensation Normal VII: strength Facial movements symmetrical. No facial assymetry VIII: hearing Finger rubs heard equally both sides IX: soft palate elevation Normal XI: Shoulder shrug strength normal bilaterally. XII: tongue movements and strength Tongue protrusion was midline, no fasciculati ons, atrophy with good tongue movements. Motor Examination: Bulk: no atrophy Tone: Normal Fasciculations: no fasciculations Abnormal movement: No tremor noted at rest or with activities. Strength: Upper extremity Deltoid Biceps Triceps WE WF FE FF IO APB Other Right 5 5 5 5 5 5 5 5 5 Left 5 5 5 5 5 5 5 5 5 Strength: Lower extremity Hip flexion Quads TA Gastroc Hamstrings Hip extension Other Right 5 5 5 5 5 5 Left 5 5 5 5 5 5 Reflexes: Right Left Brachioradialis 2 2 Biceps 2 2 Triceps 2 2 Patellar 2 2 Achilles 2 2 Babinski's down down Clonus absent absent Sensation - Intact to light touch in all 4 extremities. Cerebellar - Normal FNF, HKS Gait = deferred Neglect = absent LABORATORY: Lab Results Component Value Date WBC 6.2 01/11/2021 RBC 5.51 01/11/2021 HGB 16.9 01/11/2021 HCT 48.9 01/11/2021 MCV 88.9 01/11/2021 MCH 30.7 01/11/2021 MCHC 34.5 01/11/2021 RDW 14.9 (H) 01/11/2021 PLT 189 01/11/2021 LYMPHOPCT 23 01/11/2021 MONOPCT 7 01/11/2021 EOSPCT 2 01/11/2021 NEUTROABS 4.18 01/11/2021 EOSABS 0.13 01/11/2021 BASOSABS 0.05 01/11/2021 Lab Results Component Value Date NA 134 (L) 01/11/2021 K 3.6 01/11/2021 CL 97 (L) 01/11/2021 BICARBONATE 23 01/11/2021 ANIONGAP 14 01/11/2021 GLUCOSE 114 01/11/2021 BUN 10 01/11/2021 CREATININE 0.91 01/11/2021 CALCIUM 9.7 01/11/2021 TBILI 1.1 01/11/2021 ALKPHOS 54 01/11/2021 ALT 9 01/11/2021 AST 15 01/11/2021 ALBUMIN 4.5 01/11/2021 PROT 6.8 01/11/2021 Imaging: CT Head without Contrast Result Date: 01/11/2021 IMPRESSION: No acute intracranial hemorrhage or calvarial fracture. CT Cervical Spine without Contrast Result Date: 01/11/2021 IMPRESSION: No acute fracture or traumatic listhesis is identified. ASSESSMENT/PLAN Jeffrey Lawrence is a 30 y.o. male with history of Bipolar, PTSD, OLEG, ?lupus, who i s admitted for SI. On 01/11/21, around 1858, the patient had an unwitnessed fall associated with prodromal symptoms, resulting in loss of consciousness and head trauma. CT head and CT C-spine stable. The patient has had passing out episodes in the past, and have become more frequ ent over the last few months in the setting of possible orthostatic hypotension, diarrhea, and 45 pound weight loss. Denies EtOH use and has not stopped taking his clonazepam recently. Given his description of the events, less likely to be a seizure event, and more likely to be in the setting of syncope 2/2 orthostatic hypotension and dehydrat ion. However, the patient does have some risk factors of seizures including pas t concussions. Recommendations: Please obtain orthostatic vitals, if positive please give IV fluids or enc ourage p.o. intake Consider placing patient on telemetry for arrhythmias as cause of syncope Can consider obtaining TTE Recommend routine EEG in the morning Recommend MRI brain with and without contrast with seizure protocol No need for starting AED tonight The care of this patient was discussed with my attending Dr. Ballard and the plan was formulated together. Parts of this document dictated using [employer] software in [employer], a reason able attempt has been made to minimize errors at proofreading. Please call or guillermo schroeder for any additional clarification or questions. Associated attestation - Ban Ballard DO - 01/13/2021 5:46 AM EDT I saw and evaluated the patient. Discussed with the resident and agree with the residents findings and plans as written, along with any supplemental dictated a nd/or attending documentation in the patient record by myself. Will add MRA h/n documented in this encounter Miscellaneous Notes * Plan of Care - Sal Martin RN - 01/14/2021 7:31 AM EDT Problem: Psych Acuity Scoring Goal: Acuity Scoring Description: Acuity Scoring for Psych Outcome: Progressing Problem: Suicide Goal: Reduce or eliminate suicidal ideation Outcome: Progressing Goal: Patient will comply with medication regimen Description: Patient will work with staff to learn medication education for new /unfamiliar medications. Outcome: Progressing Goal: Patient will complete a contract for safety Description: Patient will refrain from self-harm and approach staff if feeling u nsafe Outcome: Progressing * Plan of Care - Aysha Rogers RN - 01/13/2021 7:09 PM EDT Problem: Suicide Goal: Reduce or eliminate suicidal ideation 01/13/20211908 by Aysha Rogers RN Outcome: Progressing 01/13/2021 1317 by Aysha Rogers RN Outcome: Progressing Goal: Patient will comply with medication regimen Description: Patient will work with staff to learn medication education for new /unfamiliar medications. 01/13/20211908 by Aysha Rogers RN Outcome: Progressing 01/13/2021 1317 by Aysha Rogers RN Outcome: Progressing * Plan of Moni Gaudarrama LMSW - 01/13/2021 2:11 PM EDT Problem: Discharge Planing Goal: Inpatient or Outpatient Follow-up Outcome: Adequate for Discharge Goal: Patient will identify current and/or prospective inpatient/outpatient pro viders Outcome: Adequate for Discharge Note: Jeffrey identified [facility] as prospective inpatient/[place] [address] | APPOINTMENT: January 17 at 9:00 AM in person * Plan of Aysha Dodge RN - 01/13/2021 1:18 PM EDT Problem: Suicide Goal: Reduce or eliminate suicidal ideation Outcome: Progressing Goal: Patient will comply with medication regimen Description: Patient will work with staff to learn medication education for new /unfamiliar medications. Outcome: Progressing * Plan of Citlalli Rojas RN - 01/12/2021 6:20 PM EDT Problem: Psych Acuity Scoring Goal: Acuity Scoring Description: Acuity Scoring for Psych 01/12/20210 by Citlalli Licona RN Outcome: Progressing 01/12/2021 1722 by Citlalli Licona RN Outcome: Progressing Problem: Suicide Goal: Reduce or eliminate suicidal ideation 01/12/2021 1820 by Citlalli Licona RN Outcome: Progressing 01/12/2021 1722 by Citlalli Licona RN Outcome: Progressing Problem: Suicide Goal: Reduce or eliminate suicidal ideation 01/12/2021 1722 by Citlalli Licona RN Outcome: Progressing Problem: Suicide Goal: Patient will comply with medication regimen Description: Patient will work with staff to learn medication education for new /unfamiliar medications. 01/12/2021 1820 by Citlalli Licona RN Outcome: Progressing 01/12/2021 1722 by Citlalli Licona RN Outcome: Progressing Problem: Suicide Goal: Patient will verbalize 2 positive coping skills to help deal with negative thoughts and feelings Description: As evidenced by coping strategies, distraction techniques, relaxati on techniques, socialization, and skill acquisition 01/12/20211819 by Citlalli Licona RN Outcome: Progressing 01/12/2021 172 by Citlalli Licona RN Outcome: Progressing Problem: Suicide Goal: Patient will complete a contract for safety Description: Patient will refrain from self-harm and approach staff if feeling u nsafe 01/12/20211819 by Citlalli Licona RN Outcome: Progressing 01/12/20211721 by Citlalli Licona RN Outcome: Progressing * Plan of Care - Citlalli Licona RN - 01/12/2021 5:23 PM EDT Problem: Psych Acuity Scoring Goal: Acuity Scoring Description: Acuity Scoring for Psych Outcome: Progressing Problem: Suicide Goal: Reduce or eliminate suicidal ideation Outcome: Progressing Problem: Suicide Goal: Patient will comply with medication regimen Description: Patient will work with staff to learn medication education for new /unfamiliar medications. Outcome: Progressing Problem: Suicide Goal: Patient will verbalize 2 positive coping skills to help deal with negative thoughts and feelings Description: As evidenced by coping strategies, distraction techniques, relaxati on techniques, socialization, and skill acquisition Outcome: Progressing Problem: Suicide Goal: Patient will verbalize 2 positive coping skills to help deal with negative thoughts and feelings Description: As evidenced by coping strategies, distraction techniques, relaxati on techniques, socialization, and skill acquisition Outcome: Progressing Problem: Suicide Goal: Patient will complete a contract for safety Description: Patient will refrain from self-harm and approach staff if feeling u nsafe Outcome: Progressing * Safety Plan - Moni Hassan LMSW - 01/12/2021 4:20 PM EDT Images from the original note were not included. PATIENT SAFETY PLAN Preferred Name: Jeffrey Lawrence Legal Name: Jeffrey Lawrence ( ) Level of Risk: Step 1. Warning Signs (thoughts, images, mood, situation, behavior) that a crisi s may be developin. Staring into space for a long time. 2. Shaking/sweating. 3. Not smiling/blank face 4. Irritable 5. Not talking Step 2. Internal Coping Strategies - Things that I can do to take my mind off my problems without contacting another person (relaxation technique, physical acti vity): 1. Jogging/excercise 2. Deep breathing 3. Meditation 4. Oh (video games) Step 3. People and social settings that provide distraction: 1. Name: Christine Padilla (mother) Phone #: [phone] 2. Name: Ever Randle (partner) Phone #: [phone] 3. Name: Neha Lawrence (megan) Phone #: [phone] Place: [facility] Place: [facility] Place: [facility] Place Step 4. People whom I can ask for help: 1. Name: Christine Rojas (mom) Phone #: [phone] 2. Name: Ever Jer (partner) Phone #: . Name: Martina Phone #: [phone] 4. Name: Megan Phone #: [phone] 5. Name: Kody Phone #: [phone] Step 5. Professionals or agencies I can contact during a crisis: 1. Clinician Name: Crisis Line- [facility] Phone #: 2. Clinician Name: Dr. Crockett (PCP) 4. Suicide Prevention Lifeline Phone: 5-439-816-TALK (3706) - Available 24 hours everyday 5. Contact Hotline 18/[address] [facility]: - Available 24 hours everyday 6. Crisis Text Line: Provides free, 24/7 support by text. Text Fli1 sc 388211 7. Mobile Crisis Line, [facility], Step 6. Make the environment safe: 1. Keep medicine in a safe place (at moms if needed) 2. Keep music on (mellow music) 3. Aroma Therapy (IE candles) 4. Keep knives/weapons locked 5. Go to parents house The one thing that is most important to me and worth living for is: My family and animals PLANNING FOR SPECIFIC CHANGES OR EVENTS (FORSEEABLE CHANGES) As I take the next steps toward feeling better, what are two events or changes t hat could make me feel overwhelmed, suicidal, or put me into crisis? 1. Loss of income (job) What can you or someone else do if this happens? Stay close, talk calmly, help look for new options. 2. Drama (Rumors) What can you or someone else do if this happens? Talk with family, distract myself with games. Patient/Parent Signature: Print Name: Date: (parent signature only under 18) Safety Plan developed, reviewed, and copy given to the patient. Provider Signature: Print Name/Title: Date/Time: * Plan of Care - Lucero Servin GN - 01/12/2021 2:15 PM EDT Problem: Psych Acuity Scoring Goal: Acuity Scoring Description: Acuity Scoring for Psych Outcome: Progressing Problem: Suicide Goal: Reduce or eliminate suicidal ideation Outcome: Progressing Goal: Patient will comply with medication regimen Description: Patient will work with staff to learn medication education for new /unfamiliar medications. Outcome: Progressing Goal: Patient will verbalize 2 positive coping skills to help deal with negative thoughts and feelings Description: As evidenced by coping strategies, distraction techniques, relaxati on techniques, socialization, and skill acquisition Outcome: Progressing Goal: Patient will complete a contract for safety Description: Patient will refrain from self-harm and approach staff if feeling u nsafe Outcome: Progressing * Rapid Response Documentation - Ana Cristina Paz RN - 01/11/2021 8:30 PM EDT Patient was brought down to CT scan then transported back to maintaining Dianne roberts. Log rolled patient to bed. EKG was completed showed sinus rhythm HR in 70' s. 2208 C-spine cleared discussed with Abel Cowan RN collar can be removed per PGY 3 Bob Barfield MD see order. If any questions or concerns please call SWAT. * Rapid Response Documentation - Reyna Parnell RN - 01/11/2021 7:34 PM EDT SWAT: [employer] called for unwitnessed fall and a period of unresponsiveness. Background: Patient admitted to the inpatient psychiatric unit today for suicid al ideation with a recent suicide attempt. No chief complaint on file. 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 He looked like he was bearing down. His oxyg enation remained over 96% for the entire event. His HR was in the 100s-110s and BP WNL throughout the entire event. Patient responded to some questions with giorgio miranda by pointing to areas of his body, but was otherwise initially non-comm unicative. When a RN had asked him about his belongings and if he had any marcial gs when he came in, he finally opened his eyes and answered his questions. He th en said the last thing that he remembered was feeling hot and cold at the same t mary and having blurry vision. He endorses right sided face, neck and shoulder pa in as well as left knee pain. He states that he thinks he may be missing an extr a tooth (right upper incisor area) and says that it is not in his mouth. There i s no obvious blood or injury in his mouth. His right cheek appears slightly nisha ened and possibly swollen, although the symmetry may have been distorted by the c-collar. His head appears normal with no obvious deformities or injuries presen t. Visit Vitals BP 137/81 (BP Location: Right arm, Patient Position: Lying) Pulse (!) 106 Temp 36.5 C (97.7 F) (Oral) Resp 18 SpO2 98% Plan: Patient assessed by SWAT as well as PGY-3 code blue/[employer] steam pan sponger. Elizabet ent's c-spine was immobilized and patient lifted from the floor to a stretcher w ith a backboard and 6 staff members. Patient brought for CT head, face, and spin e accompanied by security, SWAT and pgy-3. Patient to have vital signs every 30 minutes x 3 per [employer] policy. Discussed with bedside staff. Please call SWAT for a ny further questions or concerns. * Significant Event - Moni Rose RN - 01/11/2021 7:28 PM EDT 1858 Multiple staff members hear loud thud in hallway. Staff enters hallway to s ee this patient lying face down on the floor shaking. Patient is unresponsive to verbal and physical stimuli, [employer] is initiated. Vitals WNL. Patient was rolled o n side. Tooth appears to be missing, no tooth found in surrounding area. Patient 's hands cold and clammy. 190 Patient begins to respond to verbal stimuli. [employer] staff on the unit at this time assessing patient. Patient placed on green head board, and C-collar is plac ed on patient's neck. Patient is able to have conversation with staff at this po int, and is asking to sit up. Hospital protocol is explained to patient, patient is agreeable. Patient escorted to CT with security and staff. Report given to mason bolton nurse. * Significant Event - Gasper Awan MD - 01/11/2021 7:01 PM EDT NPOD notified and aware that pt had unwitnessed fall, with "seizure-like" activi ty. Rapid response was called. Gasper Awan MD PGY-1 Psychiatry * Rapid Response Documentation - Bob Barfield MD - 01/11/2021 7:00 PM EDT Medicine Resident [employer]/Code Blue Note Type: [employer] Code Status: Full Code Patient Name: Jeffrey Lawrence Patient Age: 30 y.o. Reason for Admission: Mood disorder [F39] Arrival Information and Description of Encouter: Code team arrived to find Mr. Jeffrey Lawrence laying on the floor unresponsive. Saundra foley sustained a witnessed fall possible seizure-like activity. On arrival, saundra foley was with his neck and unresponsive. Patient was not following commands but he had a pulse and was visibly grimacing. Unresponsive episode lasted for 2 to 3 minutes. Vitals were significant for tachycardia in the 110s but otherwise s table. Of note patient was admitted for several ideation. He has a history of migraine s, PTSD, anxiety, bipolar depression. He was just started on lurasidone today. During [employer], c-collar was placed to stabilize his C-spine. He was noted to have a missing tooth. Upon further questioning about any drug ingestion by one of the staff, patient responded no and began talking. Reports that he felt hot sensa tion and some palpitations before his fall. States he has had similar episodes in the past. He said passed out once on Lyrica. Denies any history of seizures , there is no bladder or bladder incontinence. Pt states he hasn't slept in 30 h ours and attributed his syncope to that. Patient was taken down for stat CT head C-spine Focused Physical Exam: Vitals: 01/11/21 1140 01/11/21 1800 01/11/21 1912 01/11/211999 BP: 119/74 117/74 137/81 110/71 Pulse: 68 (!) 111 (!) 106 90 Resp: 18 16 Temp: 36.5 C (97.7 F) SpO2: 98% 99% 98% 95% Physical Exam Constitutional: General: He is in acute distress. Appearance: He is ill-appearing. HENT: Head: Normocephalic and atraumatic. Eyes: Extraocular Movements: Extraocular movements intact. Pupils: Pupils are equal, round, and reactive to light. Cardiovascular: Rate and Rhythm: Regular rhythm. Tachycardia present. Heart sounds: No murmur heard. No friction rub. Pulmonary: Effort: No respiratory distress. Breath sounds: No stridor. Abdominal: General: Abdomen is flat. Palpations: Abdomen is soft. Musculoskeletal: Right lower leg: No edema. Left lower leg: No edema. Neurological: Mental Status: He is disoriented. Plan: Medications Administered: See code sheet for details. Lab Orders Placed: CBC and BMP Imaging Ordered: head CT, CT of cervical spine and maxillofacial CT EKG Ordered: yes Disposition and Plan: Syncope, possible differentials include seizures, medication induced syncope. Guillermo wolf had postictal state following a fall concerning for seizures. Neurology c onsulted for further evaluation. Follow-up labs CBC, CMP U tox. Spoke to radiolo gy and C spine negative for fracture. Please have neurology clear patient from C - Collar. Follow up CT max face and call ortho if there is any evidence of fract ure. Case discussed with: Patient, Residents and Primary Team Bob Barfield MD * Plan of Care - Kai De La Cruz RN - 01/11/2021 2:07 PM EDT Problem: Psych Acuity Scoring Goal: Acuity Scoring Description: Acuity Scoring for Psych Flowsheets (Taken 01/11/2021 7375) Medications: 1-5 Educational Needs: New medications New Admission Psychosocial Behavior and Safety Precautions: SI/HI without plan or intent History of aggression, suicidality or self harm SI/HI with plan and intent outside of hospital Frequent (15 min) checks EASILY redirected Complicated Meds and IV's: 1-2 PRN's/shift Problem: Suicide Goal: Reduce or eliminate suicidal ideation Outcome: Progressing Goal: Patient will comply with medication regimen Description: Patient will work with staff to learn medication education for new /unfamiliar medications. Outcome: Progressing Goal: Patient will verbalize 2 positive coping skills to help deal with negative thoughts and feelings Description: As evidenced by coping strategies and distraction techniques Outcome: Progressing Goal: Patient will complete a contract for safety Description: Patient will refrain from self-harm and approach staff if feeling u nsafe Outcome: Progressing documented in this encounter Plan of Treatment Date/Time Name Type Priority Associated Diag noses 01/11/2021 7:17 PM EDT EKG 12 Lead ECG Routine Order Schedule Name Type Priority Associated Diag noses Continuous for 30 Days for 30 Days start ing 01/11/2021 until 01/11/2021 Consult to Assisted PET Rehab Routine Therapy-Rehab/Psych Once for 1 Occurrences starting 01/12/20 21 until 01/11/2021 Community-Acquired Microbiology Routine Diarrhea Panel Once for 1 Occurrences starting 01/12/20 21 until 01/11/2021 Fecal occult blood, Lower Microbiology Routine GI (Hemoccult-ICT), FIT Testing Health Maintenance Due Date Last Done Comments Varicella Vaccines (1 of 03/06/1996 2 - 2-dose childhood series) Pneumococcal Vaccine: 65+ 1997 Years (1 of 2 - PPSV23) Pneumococcal Vaccine: 1997 Pediatrics (0 to 5 Years) and At-Risk Patients (6 to 64 Years) (1 of 2 - PPSV23) DTaP,Tdap,and Td Vaccines 2002 02/07/1996, (6 - Tdap) 06/21/1993, 1991, Additional history exists Influenza Vaccine 02/25/2021 06/26/2018 HIB Vaccines Completed 08/05/1992, 1991, 1991, Additional history exists Hepatitis B Vaccines Completed 02/07/1996, 08/30/1993, 06/21/1993 IPV Vaccines Completed 02/07/1996, 06/21/1993, 1991, Additional history exists MMR Vaccines Completed 02/07/1996, 08/05/1992 HIV Screening Completed 12/06/2012 COVID-19 Vaccine Completed 09/28/2020, 09/03/2020 Hepatitis A Vaccines Aged Out No longer eligibl e based on patient's age to complete this topic documented as of this encounter Procedures Comments Procedure Name Priority Date/Time Associated Diag nosis MR ANGIOGRAPHY NECK Routine 01/13/2021 WITHOUT CONTRAST 78382 4:55 PM EDT MR ANGIOGRAPHY HEAD Routine 01/13/2021 WITHOUT CONTRAST 53266 4:55 PM EDT MR BRAIN WITH AND WITHOUT Routine 01/13/2021 CONTRAST [id number] 4:53 PM EDT EEG ROUTINE STUDY Routine 01/12/2021 9:51 PM EDT ECHOCARDIOGRAM 2D Routine 01/12/2021 COMPLETE 2:33 PM EDT DRUGS OF ABUSE, URINE Routine 01/11/2021 8:07 PM EDT CBC AND DIFFERENTIAL Routine 01/11/2021 8:07 PM EDT HEMOGLOBIN A1C Routine 01/11/2021 8:07 PM EDT LIPID PANEL Routine 01/11/2021 8:07 PM EDT COMPREHENSIVE METABOLIC Routine 01/11/2021 PANEL 8:[address] CERVICAL SPINE WITHOUT CODE 01/11/2021 CONTRAST [id number] 8:[address] HEAD WITHOUT CONTRAST CODE 01/11/2021 62401 8:[address] MAXILLOFACIAL WITHOUT Routine 01/11/2021 CONTRAST [id number] 8:02 PM EDT EKG 12-LEAD - CMAXX 01/11/2021 REPORT 7:17 PM EDT EKG 12-LEAD - CMAXX 01/11/2021 REPORT 7:17 PM EDT EKG 12-LEAD Routine 01/11/2021 7:17 PM EDT Procedure Note - Interface, Received Via [employer] - 01/11/2021 8:28 PM EDT Ventricula r Rate: 72 BPM Atrial Rate: 72 BPM P-R Interval: 188 ms QRS Duration: 98 ms Q-T Interval: 398 ms QTC Calculatio n(Bazett): 435 ms P [place]: 56 degrees R [place]: 72 degrees T [place]: 53 degrees : SINUS RHYTHM : NORMAL ECG : WHEN COMPARED WITH ECG OF 06:13, : NO SIGNIFICAN T CHANGE WAS FOUND : THIS IS A PRELIMINAR Y RESULT. EKG 12-LEAD Routine 01/11/2021 7:17 PM EDT documented in this encounter Results * MR Angiography Neck without Contrast (01/13/2021 4:55 PM EDT) Specimen Impressions Performed At FINDINGS/IMPRESSION: [facility] MRA Neck: Motion artifact degrades imag es at the origins of the carotid and vertebral arteries. Flow signal consist ent with patency is shown within the common carotid, cervical segments of th e internal carotid, external carotid, and vertebral arteries. The left and right vertebral arteries are codominant. No dissection or hemodynamically significa nt flow stenosis is shown. MRA Head: flow signal consistent with p atency is shown within the intracranial segments of the internal carotid arteri es, the anterior, middle and posterior cerebral arteries, the anterior communi cating artery, the intracranial segments of the vertebral arteries, and the basi lar artery. No aneurysm, arteriovenous malformatio n, dissection, nor hemodynamically significant flow stenosis is shown. Fet al origin of left DIVING COACH seen. There is loss of the normal flow void within the supe rior/anterior aspect of the superior sagittal sinus on the axial time of fli ght images, however on comparison with the other sequences and recent prior st udies this is felt to be artifactual. IMPRESSION: Normal MRA of the head and neck. Assessment of stenosis of the internal carotid arteries is based on NASCET criteria Narrative Performed At INDICATION: 30-year-old male with possible syncope. [facility] TECHNIQUE: 3D time of flight MRA of the head and neck was performed without intravenous contrast administration. COMPARISON: CT head dated 01/11/2021 and MR brain dated 12/05/2012 and MRA of the head dated 12/06/2012. Procedure Note Interface, Received Via [employer] - 01/14/2021 9:28 AM EDT INDICATION: 30-year-old male with possible syncope. TECHNIQUE: 3D time of flight MRA of the head and neck was performed without intravenous contrast administration. COMPARISON: CT head dated 01/11/2021 and MR brain dated 12/05/2012 and MRA of the head dated 12/06/2012. FINDINGS/IMPRESSION: MRA Neck: Motion artifact degrades images at the origins of the carotid and vertebral arteries. Flow signal consistent with patency is shown within the common carotid, cervical segments of the internal carotid, external carotid, and vertebral arteries. The left and right vertebral arteries are codominant. No dissection or hemodynamically significant flow stenosis is shown. MRA Head: flow signal consistent with patency is shown within the intracranial segments of the internal carotid arteries, the anterior, middle and posterior cerebral arteries, the anterior communicating artery, the intracranial segments of the vertebral arteries, and the basilar artery. No aneurysm, arteriovenous malformation, dissection, nor hemodynamically significant flow stenosis is shown. origin of left DIVING COACH seen. There is loss of the normal flow void within the superior/anterior aspect of the superior sagittal sinus on the axial time of flight images, however on comparison with the other sequences and recent prior studies this is felt to be artifactual. IMPRESSION: Normal MRA of the head and neck. Assessment of stenosis of the internal carotid arteries is based on NASCET criteria Performing Organization Address City/State/ZIP Code P delio Number [facility] [address] [place] [address] * MR Angiography Head without Contrast (01/13/2021 4:55 PM EDT) Specimen Impressions Performed At FINDINGS/IMPRESSION: [facility] MRA Neck: Motion artifact degrades imag es at the origins of the carotid and vertebral arteries. Flow signal consist ent with patency is shown within the common carotid, cervical segments of th e internal carotid, external carotid, and vertebral arteries. The left and right vertebral arteries are codominant. No dissection or hemodynamically significa nt flow stenosis is shown. MRA Head: flow signal consistent with p atency is shown within the intracranial segments of the internal carotid arteri es, the anterior, middle and posterior cerebral arteries, the anterior communi cating artery, the intracranial segments of the vertebral arteries, and the basi lar artery. No aneurysm, arteriovenous malformatio n, dissection, nor hemodynamically significant flow stenosis is shown. Fet al origin of left DIVING COACH seen. There is loss of the normal flow void within the supe rior/anterior aspect of the superior sagittal sinus on the axial time of fli ght images, however on comparison with the other sequences and recent prior st udies this is felt to be artifactual. IMPRESSION: Normal MRA of the head and neck. Assessment of stenosis of the internal carotid arteries is based on NASCET criteria Narrative Performed At INDICATION: 30-year-old male with possible syncope. [facility] TECHNIQUE: 3D time of flight MRA of the head and neck was performed without intravenous contrast administration. COMPARISON: CT head dated 01/11/2021 and MR brain dated 12/05/2012 and MRA of the head dated 12/06/2012. Procedure Note Interface, Received Via [employer] - 01/14/2021 9:28 AM EDT INDICATION: 30-year-old male with possible syncope. TECHNIQUE: 3D time of flight MRA of the head and neck was performed without intravenous contrast administration. COMPARISON: CT head dated 01/11/2021 and MR brain dated 12/05/2012 and MRA of the head dated 12/06/2012. FINDINGS/IMPRESSION: MRA Neck: Motion artifact degrades images at the origins of the carotid and vertebral arteries. Flow signal consistent with patency is shown within the common carotid, cervical segments of the internal carotid, external carotid, and vertebral arteries. The left and right vertebral arteries are codominant. No dissection or hemodynamically significant flow stenosis is shown. MRA Head: flow signal consistent with patency is shown within the intracranial segments of the internal carotid arteries, the anterior, middle and posterior cerebral arteries, the anterior communicating artery, the intracranial segments of the vertebral arteries, and the basilar artery. No aneurysm, arteriovenous malformation, dissection, nor hemodynamically significant flow stenosis is shown. origin of left DIVING COACH seen. There is loss of the normal flow void within the superior/anterior aspect of the superior sagittal sinus on the axial time of flight images, however on comparison with the other sequences and recent prior studies this is felt to be artifactual. IMPRESSION: Normal MRA of the head and neck. Assessment of stenosis of the internal carotid arteries is based on NASCET criteria Performing Organization Address City/State/ZIP Code P delio Number [facility] [address] [place] [address] * MR Brain with and without Contrast (01/13/2021 4:53 PM EDT) Specimen Impressions Performed At IMPRESSION: [facility] 1. Normal MR brain. No evidence of cortic al dysplasia or almanza-white matter heterotopia. 2. Bilateral maxillary sinus mucus retent ion cysts. 3. Left mastoid effusion. Narrative Performed At [facility] INDICATION: 30-year-old male with seizu re. TECHNIQUE: Multiplanar and multisequenc e MR images of the brain were obtained without intravenous contrast administra tion. Axial, sagittal, and coronal T1-weighted images were then acquired f ollowing intravenous administration of 7.5 mL of Gadavist contrast. COMPARISON: CT head dated 01/11/2021 and MR brain dated 12/05/2012 and MRA of the head dated 12/06/2012. FINDINGS: No abnormal signal is present in the br ain parenchyma. No acute intracranial hemorrhage or joelle dence of acute infarction. No extraaxial collections. Ventricles are normal in size and confi guration. Basal cisterns are patent. No midline shift or mass effect. White matter myelination is normal. The almanza-white matter differentiation is preserved throughout the brain. No natali ical dysplasia or almanza matter heterotopia is shown. The hippocampi are symmetrica l and normal in size and signal intensity. The corpus callosum is diane l. The septum pellucidum is present. The pituitary gland is not enlarged. The T1 posterior pituitary bright spot is identified. Flow voids of the major intracranial ar teries are normal. Mucus retention cysts are present withi n the bilateral maxillary sinuses. Paranasal sinuses are clear elsewhere. Left mastoid effusion. Right mastoid air cells are clear. Orbits are grossly unr emarkable. No abnormal enhancement following contr ast administration. Procedure Note Interface, Received Via [employer] - 01/14/2021 9:09 AM EDT INDICATION: 30-year-old male with seizure. TECHNIQUE: Multiplanar and multisequence MR images of the brain were obtained without intravenous contrast administration. Axial, sagittal, and coronal T1- weighted images were then acquired following intravenous administration of 7.5 mL of Gadavist contrast. COMPARISON: CT head dated 01/11/2021 and MR brain dated 12/05/2012 and MRA of the head dated 12/06/2012. FINDINGS: No abnormal signal is present in the brain parenchyma. No acute intracranial hemorrhage or evidence of acute infarction. No extraaxial collections. Ventricles are normal in size and configuration. Basal cisterns are patent. No midline shift or mass effect. White matter myelination is normal. The almanza-white matter differentiation is preserved throughout the brain. No cortical dysplasia or almanza matter heterotopia is shown. The hippocampi are symmetrical and normal in size and signal intensity. The corpus callosum is normal. The septum pellucidum is present. The pituitary gland is not enlarged. The T1 posterior pituitary bright spot is identified. Flow voids of the major intracranial arteries are normal. Mucus retention cysts are present within the bilateral maxillary sinuses. Paranasal sinuses are clear elsewhere. Left mastoid effusion. Right mastoid air cells are clear. Orbits are grossly unremarkable. No abnormal enhancement following contrast administration. IMPRESSION: 1. Normal MR brain. No evidence of natali ical dysplasia or almanza-white matter heterotopia. 2. Bilateral maxillary sinus mucus rete ntion cysts. 3. Left mastoid effusion. Performing Organization Address City/State/ZIP Code P delio Number [facility] RADI[facility] [address] [place] [address] * EEG Routine Study (01/12/2021 9:51 PM EDT) Narrative Performed At Jesus Storey MD EXTERNAL NON-INTERFACED LAB 01/12/2021 9:54 PM EEG REPORT NUMBER [id number] DATE OF PROCEDURE: 01/12/2021 HISTORY: Jeffrey Lawrence is a 30 y.o. male with Patient Active Problem List Diagnosis Mood disorder PTSD (post-traumatic stress disorder) Anxiety Depression Syncope and collapse EEG is to evaluate for seizures and/or epilepsy. No current facility-administered medica tions on file prior to encounter. Current Outpatient Medications on File Prior to Encounter Medication Sig Dispense Refill buPROPion HCl 100 MG Oral Tablet (WEL LBUTRIN) Take 100 mg by mouth daily clonazePAM 0.5 MG Oral Tablet (KLONOP IN) Take 0.5 mg by mouth Three times daily as needed for Anxiety Prazosin HCl 2 MG Oral Capsule (MINIP RESS) Take 2 mg by mouth nightly risperiDONE 0.5 MG Oral Tablet (Rispe rDAL) Take 2 mg by mouth nightly Zolpidem Tartrate 5 MG Oral Tablet (A MBIEN) Take 10 mg by mouth nightly ibuprofen (ADVIL,MOTRIN) 400 MG table t Take 400 mg by mouth every 6 (six) hours as needed. Scheduled Meds: benzocaine Mouth/Throat Give Now lurasidone HCl 20 mg Oral Daily with breakfast zolpidem 10 mg Oral Nightly Continuous Infusions: PRN Meds:.[] acetaminophen (TYLE NOL) tablet FOLLOWED BY acetaminophen (TYLENOL) tablet, be nzocaine AND benzocaine, benztropine, chlorproMAZINE , diazePAM, hydrOXYzine, magnesium hydroxide, nicotine, perflutr en lipid microspheres TECHNICAL DESCRIPTION: This digital EEG was recorded using 2 EKG and 21 scalp and/or ear electrodes. It was reviewed in referential and bipolar montages follow ing reformatting in the 10-20 International electrode placement system. In his best awake and alert state, the background consists of a symmetric, waxing and waning, 40-70 jessenia rovolt, 10-11 Hz posterior dominant rhythm that attenuates with ey e opening. During drowsiness, there is drop out of alpha, slow rolling eye movements and increased theta and delta slowing and as successive stages of sleep develop, ryan dankia sharp transient, sleep spindles and K-complexes are evident. Hyperventilation is omitted due to COVI D 19. Photic stimulation with flash frequenci es of 2-21 Hz is associated with photic driving, maximal at 9 Hz to 15 Hz. EKG review reveals no significant arrht hymia. CLINICAL IMPRESSION: This routine EEG d one in the awake and asleep states is within the range of normal variation . Performing Organization Address City/State/ZIP Code P delio Number EXTERNAL NON-INTERFACED LAB * Echocardiogram 2D complete (01/12/2021 2:33 PM EDT) Specimen Narrative Performed At . [facility] Echo/Stress Lab [address] [place] [address] Echocardiography Examination Transthoracic Name: JEFFREY LAWRENCE MR#: [id number] Admission Number: [id number] Study Date: 01/12/2021 Study Time: 02:33 PM Date Of : 1990 Age: 30 years Height: 72 in. (182.9 cm) Weight: 167 lbs. (75.75 kg) BSA: 1.97 m2 Gender: Male Blood Pressure: 103 mmHg / 64 mmHg Heart Rate: 54 bpm Rhythm: Sinus bradycardia Procedure Staff Dehydrator Operator: Ki Souza RDCS Reading Physician: SOFIE MORAES Ordering Physician: NORMA ARORA Admitting Physician: EVARISTO BLEVINS Referring Physician: PROVIDER NOT IN SYSTEM Fellow: SOFIE JOE Indications Reason for Order->Dizziness/Presyncope/ Syncope Exam Details Procedure Ordered: ECHOCARDIOGRAM 2D COMPLETE Image Quality: Adequate Conclusions Left Ventricle: Left ventricle is normal in size. Mildly reduced systolic left ventricula r function. There is mild diffuse hypokinesis. Left Ventricular Measurements LVEF, BP: 50 %. Mitral Valve: Mitral valve leaflets are thickened and myxomatous. Aortic Valve: Right coronary cusp has 8.5 x 5 mm sess ile echo bright density which is likely focal calcification. This is only visible in the short axis view.. Patient: JEFFREY LAWRENCE Study Date: 01/12/2021 02:33 PM No aortic regurgitation. There is no aortic stenosis. Previous Study Comparison Overview: No previous studies available for comp arison Findings Left Ventricle: Left ventricle is normal in size. Left ventricular wall thickness is normal. Mildly reduced systolic left ventricula r function. EF evaluated by EF (biplane method of luke rowland). There is mild diffuse hypokinesis. Left ventricular diastolic function parameters are normal. Left Ventricular Measurements LVEF, BP: 50 %. Right Ventricle: Right ventricle is normal in size . Rig ht ventricular systolic function is normal. Left Atrium: The left atrium size by volume measurem ent is normal (16-34 ml/m2) . Left Atrium Measurements LAESV index, BP: 26.9 ml/m. Right Atrium: The right atrium size by volume measure ment is normal. Right Atrium Measurements RA Index: 13.2 ml/m. Mitral Valve: Posterior mitral leaflet is normal.. Mi tral valve leaflets are thickened and myxomatous. There is normal leaflet mob ility. No mitral regurgitation. No mitral valve s tenosis. Aortic Valve: Right coronary cusp has 8.5 x 5 mm sess ile echo bright density which is likely focal calcification. This is only visible in the short axis view.. The aortic valve is trileaflet. The aortic valve leaflets demonstrate normal mobility. No aortic regurgitation. There is no aortic steno sis. Tricuspid Valve: The tricuspid valve appears structurall y normal. Trivial tricuspid regurgitation. Pulmonary artery pressur e normal. Tricuspid Valve Measurements Right Ventricular systolic pressure: 25 mmHg. Pulmonic Valve: The pulmonic valve appears grossly norm al. No pulmonic regurgitation. There is no pulmonic valve stenosis. Aorta: Aortic arch and proximal descending aor ta not well visualized.. The aortic root is normal in size. The aortic root chetna ures 3.6 cm. The aortic root is normal in si ze. Aorta Measurements Ao Sinus Valsalva: 3.6 cm. Great Vessels: IVC: The inferior vena cava is poorly visual ized. The inferior vena cava is normal in size but with reduced inspiratory colla pse. Pericardium: The pericardium is normal in appearance . No pericardial effusion. Measurements Anatomy Label Value Normal Value Aorta Ao Sinus Valsalva 3.6 cm Aortic Valve AV PGmean 1.74 mmHg (0mmHg - 9.99mmHg) Patient: JEFFREY LAWRENCE Study Date: 01/12/2021 02:33 PM Aortic Valve ADILSON D (continuity eq. Vmax ) 4.2 cm Aortic Valve AV Vmax 0.87 m/s (1m/s - 1.7m/s) Interventricular septum IVSd, 2D 1 cm (0.6cm - 1cm) Left Atrium LADs, 2D 3.3 cm (3cm - 4cm) Left Atrium LAESV index, BP 26.9 ml/m (0ml/m - 34ml/m) Left Ventricle LVOTd 2.5 cm (1.9cm - 2.1cm) Left Ventricle LVDd, 2D 4.6 cm (4.2cm - 5.84cm) Left Ventricle LVDs, 2D 3.34 cm (2.5cm - 3.98cm) Left Ventricle LVPWd, 2D 1 cm (0.6cm - 1cm) Left Ventricle LVEF, BP 50 % (52% - 72%) Left Ventricle LV Mass Index, 2D ASE 80.6 g/m (50g/m - 102.4g/m) Left Ventricle LVRWT, 2D 0.41 (0.24 - 0.42) Left Ventricle LVESV, 2D 45 ml Left Ventricle Diastolic MV E/A 1.83 Function Left Ventricle Diastolic MV E/E' lateral 5.94 (0 - 13) Function Left Ventricle Diastolic MV E/E' septal 7.38 (0 - 15) Function Left Ventricle Diastolic MV E' septal 0.09 m/s (0.07m/s - 0m/s) Function Left Ventricle Diastolic MV E' lateral 0.11 m/s Function Left Ventricle Diastolic MV E/E' mean 6.6 (0 - 14) Function Left Ventricle Diastolic MV E' mean 0.1 m/s Function Pulmonic Valve PV PGmax 2 mmHg Pulmonic Valve PV Vmax, Caliper 0.64 m/s (0.6m/s - 0.9m/s) Right Atrium RA Index 13.2 ml/m (1ml/m - 39ml/m) Right Ventricle TAPSE 1.9 cm Right Ventricle RVD Base 2.9 cm (2.5cm - 4.1cm) Tricuspid Valve RVSP 25 mmHg (1mmHg - 35mmHg) Tricuspid Valve TR Vmax 2.09 m/s (0.1m/s - 2.8m/s) _ Patient: JEFFREY LAWRENCE Study Date: 01/12/2021 02:33 PM Procedure Note Interface, Received Via [id number] - 01/12/2021 6:09 PM EDT . [facility] Echo/Stress Lab [address] [place] [address] Echocardiography Examination Transthoracic Name: JEFFREY LAWRENCE MR#: [id number] Admission Number: [id number] Study Date: 01/12/2021 Study Time: 02:33 PM Date Of : 1990 Age: 30 years Height: 72 in. (182.9 cm) Weight: 167 lbs. (75.75 kg) BSA: 1.97 m2 Gender: Male Blood Pressure: 103 mmHg / 64 mmHg Heart Rate: 54 bpm Rhythm: Sinus bradycardia Procedure Staff Dehydrator Operator: Ki Souza RDCS Reading Physician: SOFIE MORAES Ordering Physician: NORMA ARORA Admitting Physician: EVARISTO BLEVINS Referring Physician: PROVIDER NOT IN SYSTEM Fellow: SOFIE JOE Indications Reason for Order->Dizziness/Presyncope/Syncope Exam Details Procedure Ordered: ECHOCARDIOGRAM 2D COMPLETE Image Quality: Adequate Conclusions Left Ventricle: Left ventricle is normal in size. Mildly reduced systolic left ventricular function. There is mild diffuse hypokinesis. Left Ventricular Measurements LVEF, BP: 50 %. Mitral Valve: Mitral valve leaflets are thickened and myxomatous. Aortic Valve: Right coronary cusp has 8.5 x 5 mm sessile echo bright density which is likely focal calcification. This is only visible in the short axis view.. Patient: JEFFREY LAWRENCE Study Date: 01/12/2021 02:33 PM No aortic regurgitation. There is no aortic stenosis. Previous Study Comparison Overview: No previous studies available for comparison Findings Left Ventricle: Left ventricle is normal in size. Left ventricular wall thickness is normal. Mildly reduced systolic left ventricular function. EF evaluated by EF (biplane method of disks). There is mild diffuse hypokinesis. Left ventricular diastolic function parameters are normal. Left Ventricular Measurements LVEF, BP: 50 %. Right Ventricle: Right ventricle is normal in size . Right ventricular systolic function is normal. Left Atrium: The left atrium size by volume measurement is normal (16-34 ml/m2) . Left Atrium Measurements LAESV index, BP: 26.9 ml/m. Right Atrium: The right atrium size by volume measurement is normal. Right Atrium Measurements RA Index: 13.2 ml/m. Mitral Valve: Posterior mitral leaflet is normal.. Mitral valve leaflets are thickened and myxomatous. There is normal leaflet mobility. No mitral regurgitation. No mitral valve stenosis. Aortic Valve: Right coronary cusp has 8.5 x 5 mm sessile echo bright density which is likely focal calcification. This is only visible in the short axis view.. The aortic valve is trileaflet. The aortic valve leaflets demonstrate normal mobility. No aortic regurgitation. There is no aortic stenosis. Tricuspid Valve: The tricuspid valve appears structurally normal. Trivial tricuspid regurgitation. Pulmonary artery pressure normal. Tricuspid Valve Measurements Right Ventricular systolic pressure: 25 mmHg. Pulmonic Valve: The pulmonic valve appears grossly normal. No pulmonic regurgitation. There is no pulmonic valve stenosis. Aorta: Aortic arch and proximal descending aorta not well visualized.. The aortic root is normal in size. The aortic root measures 3.6 cm. The aortic root is normal in siz e. Aorta Measurements Ao Sinus Valsalva: 3.6 cm. Great Vessels: IVC: The inferior vena cava is poorly visualized. The inferior vena cava is normal in size but with reduced inspiratory collapse. Pericardium: The pericardium is normal in appearance. No pericardial effusion. Measurements Anatomy Label Value Normal Value Aorta Ao Sinus Valsalva 3.6 cm Aortic Valve AV PGmean 1.74 mmHg (0mmHg - 9.99mmHg) Patient: JEFFREY LAWRENCE Study Date: 01/12/2021 02:33 PM Aortic Valve ADILSON D (continuity eq. Vmax) 4.2 cm Aortic Valve AV Vmax 0.87 m/s (1m/s - 1.7m/s) Interventricular septum IVSd, 2D 1 cm (0.6cm - 1cm) Left Atrium LADs, 2D 3.3 cm (3cm - 4cm) Left Atrium LAESV index, BP 26.9 ml/m (0ml/m - 34ml/m) Left Ventricle LVOTd 2.5 cm (1.9cm - 2.1cm) Left Ventricle LVDd, 2D 4.6 cm (4.2cm - 5.84cm) Left Ventricle LVDs, 2D 3.34 cm (2.5cm - 3.98cm) Left Ventricle LVPWd, 2D 1 cm (0.6cm - 1cm) Left Ventricle LVEF, BP 50 % (52% - 72%) Left Ventricle LV Mass Index, 2D ASE 80.6 g/m (50g/m - 102.4g/m) Left Ventricle LVRWT, 2D 0.41 (0.24 - 0.42) Left Ventricle LVESV, 2D 45 ml Left Ventricle Diastolic MV E/A 1.83 Function Left Ventricle Diastolic MV E/E' lateral 5.94 (0 - 13) Function Left Ventricle Diastolic MV E/E' septal 7.38 (0 - 15) Function Left Ventricle Diastolic MV E' septal 0.09 m/s (0.07m/s - 0m/s) Function Left Ventricle Diastolic MV E' lateral 0.11 m/s Function Left Ventricle Diastolic MV E/E' mean 6.6 (0 - 14) Function Left Ventricle Diastolic MV E' mean 0.1 m/s Function Pulmonic Valve PV PGmax 2 mmHg Pulmonic Valve PV Vmax, Caliper 0.64 m/s (0.6m/s - 0.9m/s) Right Atrium RA Index 13.2 ml/m (1ml/m - 39ml/m) Right Ventricle TAPSE 1.9 cm Right Ventricle RVD Base 2.9 cm (2.5cm - 4.1cm) Tricuspid Valve RVSP 25 mmHg (1mmHg - 35mmHg) Tricuspid Valve TR Vmax 2.09 m/s (0.1m/s - 2.8m/s) Patient: JEFFREY LAWRENCE Study Date: 01/12/2021 02:33 PM Performing Organization Address City/[facility]/ZIP Code P delio Number [facility] ECHO * Lipid panel (01/11/2021 8:07 PM EDT) Cholesterol 156 <200 mg/dL [facility] Pathology Triglyceride 70 <150 mg/dL [facility] Pathology HDL Cholesterol 59 >40 mg/dL [facility] Pathology LDL Cholesterol 83 <100 mg/dL [facility] Pathology VLDL 14 (L) 16 - 42 mg/dl [facility] Clin Pathology Non HDL 97 <130 mg/dL [facility] Pathology Specimen Plasma Performing Organization Address City/[facility] P delio Number [facility] [address] [place], [place] [address] PATHOLOGY [facility] [address] [place], [place] [address] Clin Pathology * Hemoglobin A1c (01/11/2021 8:07 PM EDT) Hemoglobin A1C 5.1 4.0 - 6.0 % [facility] Comment: Med [facility] Clin (NOTE) Pathology <5.7% Average risk of diabetes(ADA) 5.7-6.4% Increased risk of diabetes(ADA) >/= 6.5% Diagnostic for diabetes(ADA) Estimated Avg 101 <126 mg/dL [facility] Glucose [facility] Pathology Specimen Whole Blood Performing Organization Address City/[facility]/ZIP Code P delio Number [facility] [address] [place], [place] [address] PATHOLOGY [facility] [address] [place], [place] [address] Clin Pathology * CBC and Differential (01/11/2021 8:07 PM EDT) White Blood 6.2 4.00 - 10.00 10*3/uL [facility] Red Blood Cell 5.51 4.60 - 6.10 10*6/uL [facility] Pathology Hemoglobin 16.9 13.5 - 18.0 g/dL [facility] Pathology Hematocrit 48.9 41.0 - 53.0 % [facility] Pathology Mean Cell 88.9 80.0 - 96.0 fL [facility] Volume [facility] Clin Pathology Mean Cell 30.7 27.0 - 33.0 pg [facility] Hemoglobin [facility] Clin Pathology Mean Cell Hgb 34.5 32 - 36 g/dL [facility] Clin Pathology Red Cell Dist 14.9 (H) 11.5 - 14.5 % [facility] Width [facility] Clin Pathology Platelet Count 189 150 - 400 10*3/uL [facility] Pathology Differential Automated Diff [facility] Type [facility] Clin Pathology Neutrophil 67 % [facility] Pathology Lymphocyte 23 % [facility] Pathology Monocyte 7 % [facility] Pathology Eosinophil 2 % [facility] Pathology Basophil 1 % [facility] Pathology Abs Neutrophil 4.18 1.80 - 7.00 10*3/uL [facility] Pathology Abs Lymphocyte 1.41 1.20 - 4.00 10*3/uL [facility] Clin Pathology Abs Monocyte 0.45 0.00 - 0.80 10*3/uL [facility] Clin Pathology Abs Eosinophil 0.13 0.00 - 0.50 10*3/uL [facility] Clin Pathology Abs Basophil 0.05 0.00 - 0.20 10*3/uL [facility] Clin Pathology Nucleated Red 0 0 - 0 /100{WBCs} [facility] Blood Cells [facility] Pathology Specimen EDTA Whole Blood Performing Organization Address City/State/ZIP [facility] P delio Number [facility] [address] [place], [place] [address] PATHOLOGY [facility] [address] [place], [place] [address] Clin Pathology * Comprehensive Metabolic Panel (01/11/2021 8:07 PM EDT) Albumin 4.5 3.5 - 5.2 g/dL [facility] Pathology Bilirubin, 1.1 <1.2 mg/dL [facility] Total [facility] Pathology Calcium 9.7 8.6 - 10.0 mg/dL [facility] Pathology Chloride 97 (L) 98 - 107 mmol/L [facility] Pathology Creatinine 0.91 0.70 - 1.20 mg/dL [facility] Pathology Glucose 114 70 - 140 mg/dL [facility] Pathology Alkaline 54 40 - 129 U/L [facility] Pathology Potassium 3.6 3.4 - 5.1 mmol/L [facility] Pathology Total Protein 6.8 6.4 - 8.3 g/dL [facility] Pathology Sodium 134 (L) 136 - 145 mmol/L [facility] Pathology AST/SGO 15 <40 U/L [facility] Pathology Blood Urea 10 6 - 20 mg/dL [facility] Clin Pathology Osmolality, Win 277 275.0 - 300.0 [facility] mosm/kg [facility] Pathology BUN/Cre Ratio 11 [facility] Pathology Bicarbonate 23 22 - 29 mmol/L [facility] Pathology ALT/SGP 9 <41 U/L [facility] Pathology Anion Gap 14 8 - 15 mmol/L [facility] Pathology GFR Non >90 >60 mL/min/1.73m2 [facility] [employer] [place] 2008 Med [facility] CDK-EPI Pathology GFR >90 >60 mL/min/1.73m2 [facility] [place] 2008 [facility] CKD-EPI Pathology Specimen Plasma Performing Organization Address City/[facility]/ZIP Code P delio Number [facility] [address] [place], [place] [address] PATHOLOGY [facility] [address] [place], [place] [address] Clin Pathology * Drugs Of Abuse, Urine (01/11/2021 8:07 PM EDT) Amphetamine Negative Negative Cutoff [address] [facility] Pathology Benzodiazepine Negative Negative Cutoff [address] [facility] Pathology Cannabinoids Positive (A) Negative Cutoff 50 [facility] Urine Comment: [facility] (NOTE) Pathology Positive results are presumptive and unconfirmed;confirmatory testing can be ordered at the [facility] at [phone] or [facility] at [phone] within 5 days of collection. Cocaine Negative Negative Cutoff [address] Pathology Methadone Negative Negative Cutoff 300 [address] [facility] (Dolophine) [facility] Pathology Opiates Negative Negative Cutoff [address] [facility] Pathology Oxycodone Negative Negative Cutoff 100 [facility] Pathology Fentanyl Negative Negative Cutoff 1 [facility] Pathology Drug (NOTE) [facility] Interpretation Comment: Med [facility] Results below the indicated Pathology cutoff (ng/mL), are reported as "Negative." Note: for medical purposes only; not valid for legal or employment testing. Specimen Urine Performing Organization Address City/State/ZIP Code P delio Number [facility] [address] [place], [place] [address] PATHOLOGY [facility] [address] [place], [place] [address] Clin Pathology * CT Cervical Spine without Contrast (01/11/2021 8:02 PM EDT) Specimen Impressions Performed At IMPRESSION: [facility] RAD[facility] No acute fracture or traumatic listhesi s is identified. Narrative Performed At EXAMINATION: CT CERVICAL SPINE WITHOUT CONTRAST [id number] [facility] CLINICAL INDICATION: Evaluation of fall and neck pain TECHNIQUE: Axial CT images of the cervi win spine were obtained without intravenous contrast administration. Reformatted images in coronal and sagi ttal planes were then acquired using the axial source data. Automated dose lowering techniques and /or adjustment according to patient size were utilized for this exam. COMPARISON: CTA head and neck 12/06/2012 . FINDINGS: No acute fracture or traumati c listhesis is identified. The vertebral body preserve date height and normal in density. Mild degenerative disc disease is seen at C5-C6 level. Otherwise the d isc spaces are within normal limits.. Procedure Note Interface, Received Via [employer] - 01/11/2021 8:36 PM EDT EXAMINATION: CT CERVICAL SPINE WITHOUT CONTRAST [id number] CLINICAL INDICATION: Evaluation of fall and neck pain TECHNIQUE: Axial CT images of the cervical spine were obtained without intravenous contrast administration. Reformatted images in coronal and sagittal planes were then acquired using the axial source data. Automated dose lowering techniques and/or adjustment according to patient size were utilized for this exam. COMPARISON: CTA head and neck 12/06/2012. FINDINGS: No acute fracture or traumatic listhesis is identified. The vertebral body preserve date height and normal in density. Mild degenerative disc disease is seen at C5-C6 level. Otherwise the disc spaces are within normal limits.. IMPRESSION: No acute fracture or traumatic listhesis is identified. Performing Organization Address City/State/ZIP Code P delio Number [facility] [address] [place] [address] * CT Head without Contrast (01/11/2021 8:02 PM EDT) Specimen Impressions Performed At IMPRESSION: [facility] RAD[facility] No acute intracranial hemorrhage or win varial fracture. Narrative Performed At CLINICAL INDICATION: Evaluation of fall. [facility] TECHNIQUE: Contiguous axial CT images o f the head were acquired from the base of the skull to the vertex without intrave nous contrast administration. Images were viewed in brain, subdural and bone wind ows. Automated dose lowering techniques and/or adjustment according to patient size were utilized for this exam. COMPARISON: CTA head and neck 12/06/2012 . FINDINGS: There is no evidence of acute intracran ial hemorrhage or calvarial fracture. The ventricles are normal in size and c onfiguration. The basal cisterns and foramen magnum are patent. There are no abnormal extra-axial fluid collections. There is no evidence of mass effect or midline shift. Mucous retention cysts are identified i n the bilateral maxillary sinus. There is mild mucosal thickening of the right ma xillary sinus. The left mastoid air cells are partially opacified. The scalp is unremarkable. Procedure Note Interface, Received Via [employer] - 01/11/2021 8:33 PM EDT CLINICAL INDICATION: Evaluation of fall. TECHNIQUE: Contiguous axial CT images of the head were acquired from the base of the skull to the vertex without intravenous contrast administration. Images were viewed in brain, subdural and bone windows. Automated dose lowering techniques and/or adjustment according to patient size were utilized for this exam. COMPARISON: CTA head and neck 12/06/2012. FINDINGS: There is no evidence of acute intracranial hemorrhage or calvarial fracture. The ventricles are normal in size and configuration. The basal cisterns and foramen magnum are patent. There are no abnormal extra-axial fluid collections. There is no evidence of mass effect or midline shift. Mucous retention cysts are identified in the bilateral maxillary sinus. There is mild mucosal thickening of the right maxillary sinus. The left mastoid air cells are partially opacified. The scalp is unremarkable. IMPRESSION: No acute intracranial hemorrhage or calvarial fracture. Performing Organization Address City/State/ZIP Code P delio Number [facility] [address] [place] [address] * CT Maxillofacial without Contrast (01/11/2021 8:02 PM EDT) Specimen Impressions Performed At IMPRESSION: [facility] 1. No displaced fracture identified on is study. 2. Mucous retention cysts in the bilatera l maxillary sinuses along with mild mucosal thickening. Hypoplastic right m axillary sinus with mild sclerosis of the sinus art, compatible with a history of chronic sinusitis. 3. Patient is partially edentulous. Multi ple bilateral dental caries. Narrative Performed At 01/11/2021 7:36 PM [facility] CT MAXILLOFACIAL WITHOUT CONTRAST [id number] ORDERING CLINICAL INFORMATION: 30-year-old male presenting for initia l evaluation of trauma following a fall. TECHNIQUE: 2.5mm and 0.625mm Multidetec tor axial slices of the maxillofacial region were obtained without intravenou s contrast. Coronal and sagittal reconstructed images were obtained from the axial data. Automated dose lowering techniques and/or adjustment according to patient's size were utilized for this exam. Comparison: CTA head and neck dated 11/25. FINDINGS: Streak artifact secondary to dental amalgam compromises optimal evaluation of the adjacent structures. The mandible and temporomandibular join ts are intact. The hard palate, pterygoid plates and maxillary art are intact. The patient is partially edentulous with multiple dental caries. Left nasal piec ing. Mucous retention cysts in the bilateral maxillary sinuses along with mild mucosal thickening. There is a slightly hypoplastic right maxillary si nus with mild sclerosis of the osseous margins, compatible with a history of c hronic sinusitis. The remainder of the visualized nasal sinuses and mastoid ai r cells are well aerated. Left riley bullosa. Partial opacification of the left infer ior mastoid cells. The globes are normal and symmetric, wi thout proptosis, obvious disruption or lens dislocation. There is no orbital r adiopaque foreign body. The orbital art are intact. Retrobulbar fat is normal, without hematoma. Extraocular muscles are normal and symmetric. Optic nerve sheat h complexes are normal in course and caliber. Procedure Note Interface, Received Via [employer] - 01/12/2021 9:28 AM EDT 01/11/2021 7:[address] MAXILLOFACIAL WITHOUT CONTRAST [id number] ORDERING CLINICAL INFORMATION: 30-year-old male presenting for initial evaluation of trauma following a fall. TECHNIQUE: 2.5mm and 0.625mm Multidetector axial slices of the maxillofacial region were obtained without intravenous contrast. Coronal and sagittal reconstructed images were obtained from the axial data. Automated dose lowering techniques and/or adjustment according to patient's size were utilized for this exam. Comparison: CTA head and neck dated 12/06/2012. FINDINGS: Streak artifact secondary to dental amalgam compromises optimal evaluation of the adjacent structures. The mandible and temporomandibular joints are intact. The hard palate, pterygoid plates and maxillary art are intact. The patient is partially edentulous with multiple dental caries. Left nasal piecing. Mucous retention cysts in the bilateral maxillary sinuses along with mild mucosal thickening. There is a slightly hypoplastic right maxillary sinus with mild sclerosis of the osseous margins, compatible with a history of chronic sinusitis. The remainder of the visualized nasal sinuses and mastoid air cells are well aerated. Left riley bullosa. Partial opacification of the left inferior mastoid cells. The globes are normal and symmetric, without proptosis, obvious disruption or lens dislocation. There is no orbital radiopaque foreign body. The orbital art are intact. Retrobulbar fat is normal, without hematoma. Extraocular muscles are normal and symmetric. Optic nerve sheath complexes are normal in course and caliber. IMPRESSION: 1. No displaced fracture identified on this study. 2. Mucous retention cysts in the bilate ral maxillary sinuses along with mild mucosal thickening. Hypoplastic right maxillary sinus with mild sclerosis of the sinus art, compatible with a history of chronic sinusitis. 3. Patient is partially edentulous. Mul tiple bilateral dental caries. Performing Organization Address City/State/ZIP Code P delio Number [facility] [address] [place] [address] * EKG 12-LEAD - CMAXX REPORT (01/11/2021 7:17 PM EDT) Narrative Performed At This result has an attachment that is n ot available. * EKG 12-LEAD - CMAXX REPORT (01/11/2021 7:17 PM EDT) Narrative Performed At This result has an attachment that is n ot available. * EKG 12 Lead (01/11/2021 7:17 PM EDT) Specimen Narrative Performed At Ventricular Rate: [facility] EKG 72 BPM Atrial Rate: 72 BPM P-R Interval: 188 ms QRS Duration: 98 ms Q-T Interval: 398 ms QTC Calculation(Bazett): 435 ms P [place]: 56 degrees R [place]: 72 degrees T [place]: 53 degrees : SINUS RHYTHM : NORMAL ECG : WHEN COMPARED WITH ECG OF 16-DEC-2012 06:13, : NO SIGNIFICANT CHANGE WAS FOUND : Confirmed by Levi Desai ([id number]) on 01/12/2021 8:02:55 AM Procedure Note Interface, Received Via [employer] - 01/12/2021 8:03 AM EDT Ventricular Rate: 72 BPM Atrial Rate: 72 BPM P-R Interval: 188 ms QRS Duration: 98 ms Q-T Interval: 398 ms QTC Calculation(Bazett): 435 ms P [place]: 56 degrees R [place]: 72 degrees T [place]: 53 degrees : SINUS RHYTHM : NORMAL ECG : WHEN COMPARED WITH ECG OF 16-DEC-2012 06:13, : NO SIGNIFICANT CHANGE WAS FOUND : Confirmed by Levi Desai ([id number]) on 01/12/2021 8:02:55 AM Performing Organization Address City/State/ZIP Code P delio Number [facility] EKG documented in this encounter Visit Diagnoses Diagnosis Mood disorder - Primary Unspecified episodic mood disorder PTSD (post-traumatic stress disorder) Posttraumatic stress disorder Anxiety Anxiety state, unspecified Depression Depressive disorder, not elsewhere clas sified Syncope and collapse documented in this encounter Administered Medications Action Date Dose Rate Site Medication Order MAR Action 01/14/2021 5:13 AM EDT 650 mg acetaminophen (TYLENOL) tablet 650 mg Given 650 mg, Oral, Every 6 hours PRN, All Levels of Pain (Pain Scale Score 1-10), Starting on Sun01/14/21 at 0504, For 30 days, Maximum daily dose of acetaminophen is 3,000 mg from all sources in 24 hours. benzocaine (ORAJEL) 20 % mucosal gel Mouth/Throat, Give Now, Starting on Sun01/11/21 at 2130, For 1 dose, Apply to area of broken tooth benzocaine (ORAJEL) 20 % mucosal gel Mouth/Throat, Four Times Daily-PRN, Pain, Starting on Sun01/12/21 at 0000, For 7 days, Apply to area of broken tooth chlorproMAZINE (THORAZINE) tablet 25 mg 25 mg, Oral, Three Times Daily-PRN, Nausea, agitation and off label moderat e anxiety, Starting on Sun01/11/21 at 1312, For 719 hours diazePAM (VALIUM) tablet 10 mg 10 mg, Oral, Every 1 hour PRN, Anxiety , CIWA, Starting on Sun01/11/21 at 2009, For 4 days, Maximum of 40 mg in 4 hour period. If patient is sleeping, do not wake them to administer Diazepam or to assess the CIWA score. Assess once patient awakens. CIWA greater than 13. hydrOXYzine (ATARAX) tablet 50 mg 50 mg, Oral, Four Times Daily-PRN, Itching, Anxiety, mild anxiety, Startin g on Sun01/11/21 at 1314, For 719 hours 01/14/2021 7:47 AM EDT 40 mg lurasidone HCl (LATUDA) tablet 40 mg Given 40 mg, Oral, Daily with Breakfast, Firs t dose (after last modification) on Sun01/14/21 at 0800, For 28 doses, Give wit h 350 calories Administer with food magnesium hydroxide (MILK OF MAGNESIA) 400 MG/5ML oral suspension 15 mL 15 mL, Oral, Daily PRN, Constipation, Starting on Sun01/12/21 at 1415, For 30 days, If serum creatinine > 2 notify provider before administering. perflutren lipid microspheres (DEFINITY ) injectable suspension 9.78 mg 9.78 mg (1.5 mL), Intravenous, Once PRN, Other, Echo imaging enhancement, Starting on Sun01/12/21 at 0412, For 72 hours 01/13/2021 9:19 PM EDT 10 mg zolpidem (AMBIEN) tablet 10 mg Given 10 mg, Oral, Nightly, First dose on Sun01/11/21 at 2200, For 5 doses 10 mg Given 01/12/2021 8:58 PM EDT 10 mg Given 01/11/2021 11:34 PM EDT Action Date Dose Rate Site Medication Order MAR Action 01/12/2021 8:03 AM EDT 650 mg acetaminophen (TYLENOL) tablet 650 mg Given 650 mg, Oral, Four Times Daily Standard, First dose on Sun01/11/21 at 2130, For 1 day, Maximum daily dose of acetaminophen is 3,000 mg from all sources in 24 hours. 650 mg Given 01/11/2021 11:38 PM EDT 01/11/2021 3:02 PM EDT 0.5 mg clonazePAM (KLONOPIN) tablet 0.5 mg Given 0.5 mg, Oral, 2 Times Daily PRN, severe anxiety, Starting on Sun01/11/21 at 1314, For 71 hours 01/13/2021 4:50 PM EDT 7.5 mLs Left Arm gadobutrol (GADAVIST) contrast injection Given by IV 7.5 mL push 7.5 mL (rounded from 7.6 mL = 0.1 mL/kg 76 kg), Intravenous, 1 TIME IMAGING, On Sun01/13/21 at 1700, For 1 dose, Do not mix or administer in the same IV line with other medications. 01/13/2021 9:05 AM EDT 20 mg lurasidone HCl (LATUDA) tablet 20 mg Given 20 mg, Oral, Daily with Breakfast, Firs t dose on Sun01/12/21 at 1645, For 30 days, Give with 350 calories Administer with food 20 mg Given 01/12/2021 6:18 PM EDT 01/13/2021 2:04 PM EDT 20 mg lurasidone HCl (LATUDA) tablet 20 mg Given 20 mg, Oral, Daily with Lunch, First dose (after last modification) on Sun01/13/21 at 1300, For 1 dose, Administer with food 01/11/2021 2:05 PM EDT 20 mg lurasidone HCl (LATUDA) tablet 20 mg Given 20 mg, Oral, Daily with Breakfast, Firs t dose on Sun01/11/21 at 1300, For 30 days, Take with 350 calories Administer with food documented in this encounter Active and Recently Administered Medications Times are shown in EDT. 01/13/2021 01/14/2021 Medication Order 01/12/2021 acetaminophen (TYLENOL) tablet 650 mg 0803 (Given - () Provider: Ellie 650 mg, Oral, Four Times Daily Virginie Mccoy, First dose on Sun01/11/21 at RN)1348 (Hold - 2129, For 1 day, Maximum daily dose of Provider: Mario Urias acetaminophen is 3,000 mg from all Servin, GN - Reaso n: sources in 24 hours. Contraindicated)1600 (Not Given - Provider: Elisabeth Florian LPN - Reason: Patient/family refused) benzocaine (ORAJEL) 20 % mucosal gel(Linked Group 1) Mouth/Throat, Give Now, Starting on Sun01/11/21 at 2130, For 1 dose, Apply to area of broken tooth 1650 (Given by IV push - Provider: Hunter Rankin, RT) gadobutrol (GADAVIST) contrast injectio n 7.5 mL (COMPLETED) 7.5 mL (rounded from 7.6 mL = 0.1 mL/kg 76 kg), Intravenous, 1 TIME IMAGING, On Sun01/13/21 at 1700, For 1 dose, Do not mix or administer in the same IV line with other medications. 0905 (Given - Provider: Aysha Rogers, NIRMALA) lurasidone HCl (LATUDA) tablet 20 mg 1818 (Given - (CANCELED) Provider: Citlalli Fierro 20 mg, Oral, Daily with Breakfast, First Monae RN) dose on Sun01/12/21 at 1645, For 30 days, Give with 350 calories Administer with food 1404 (Given - Provider: Aysha Rogers RN) lurasidone HCl (LATUDA) tablet 20 mg (COMPLETED) 20 mg, Oral, Daily with Lunch, First dose (after last modification) on Sun01/13/21 at 1300, For 1 dose, Administer with food 0747 (Given - Provider: Darleen Zacarias LPN) lurasidone HCl (LATUDA) tablet 40 mg 40 mg, Oral, Daily with Breakfast, Firs t dose (after last modification) on Sun01/14/21 at 0800, For 28 doses, Give wit h 350 calories Administer with food 2118 (Given - Provider: Tonny Eden RN) 2199 (Due) zolpidem (AMBIEN) tablet 10 mg 2057 (Given - 10 mg, Oral, Nightly, First dose on Sun Provider: Am y M 01/11/21 at 2200, For 5 doses ARTHUR Florian) 01/13/2021 01/14/2021 Medication Order 01/12/2021 0513 (Given - Provider: Tonny Eden RN - Comment: tooth ache) acetaminophen (TYLENOL) tablet 650 mg 650 mg, Oral, Every 6 hours PRN, All Levels of Pain (Pain Scale Score 1-10), Starting on Sun01/14/21 at 0504, For 30 days, Maximum daily dose of acetaminophen is 3,000 mg from all sources in 24 hours. benzocaine (ORAJEL) 20 % mucosal gel(Linked Group 1) Mouth/Throat, Four Times Daily-PRN, Pain, Starting on Sun01/12/21 at 0000, For 7 days, Apply to area of broken tooth benztropine (COGENTIN) tablet 0.5 mg 0.5 mg, Oral, Every 1 hour PRN, Tremor , Extrapyramidal symptoms, Starting on 01/11/21 at 1248, For 30 days, MDD 3 chlorproMAZINE (THORAZINE) tablet 25 mg 25 mg, Oral, Three Times Daily-PRN, Nausea, agitation and off label moderat e anxiety, Starting on Sun01/11/21 at 1312, For 719 hours diazePAM (VALIUM) tablet 10 mg 10 mg, Oral, Every 1 hour PRN, Anxiety , CIWA, Starting on Sun01/11/21 at 2009, For 4 days, Maximum of 40 mg in 4 hour period. If patient is sleeping, do not wake them to administer Diazepam or to assess the CIWA score. Assess once patient awakens. CIWA greater than 13. hydrOXYzine (ATARAX) tablet 50 mg 50 mg, Oral, Four Times Daily-PRN, Itching, Anxiety, mild anxiety, Startin g on Sun01/11/21 at 1314, For 719 hours magnesium hydroxide (MILK OF MAGNESIA) 400 MG/5ML oral suspension 15 mL 15 mL, Oral, Daily PRN, Constipation, Starting on Sun01/12/21 at 1415, For 30 days, If serum creatinine > 2 notify provider before administering. nicotine (NICORETTE) lozenge 2 mg 2 mg, Mouth/Throat, Every 2 hours PRN , Smoking cessation, Starting on Sun01/11/21 at 1248, For 30 days, Should no t be chewed or swallowed; allow to dissolve slowly (~20-30 minutes) perflutren lipid microspheres (DEFINITY ) injectable suspension 9.78 mg 9.78 mg (1.5 mL), Intravenous, Once PRN, Other, Echo imaging enhancement, Starting on Sun01/12/21 at 0412, For 72 hours Order Group 1: benzocaine (ORAJEL) 20 % mucosal gelJum p to med Mouth/Throat, Give Now, Starting on Sun01/11/21 at 2130, For 1 dose
Apply to area of broken tooth
And benzocaine (ORAJEL) 20 % mucosal gelJum p to med Mouth/Throat, Four Times Daily-PRN, Pa in, Starting on Sun01/12/21 at 0000, For 7 days
Apply to area of broken tooth
documented in this encounter
--- OUTSIDE RECORDS SUMMARY | 2021-04-10 20:38 | CCD ---
Author Author [facility] Organization [facility] Address Unknown Phone Unavailable Support Name Relationship Address Phone UE Next Of Kin Unknown Unavailable [place] [address] S Next Of Kin Unknown Unavailable LUPE LAWRENCE Next Of Kin [address] [place] [address] LOCUST RESTAURANT Next Of Kin [address] [place] [address] CON RESTAURANT Next Of Kin [address] [place] [address] Christine Ng Next Of Kin Unknown Unavailable Beckie BIRCH Next Of Kin [address] [place] [address] Shara Vigil Next Of Kin [address] [place] [address] NRNINA Next Of Kin [address] [place] [id number] Christine Schafer Next Of Kin [address] [place] [address] DISABLED Next Of Kin Unknown Unavailable Darleen Mcginnis Next Of Kin [address] [place], [place] [id number] Ada Sánchez Next Of Kin [address] [place] [address] 315 VALDO NG Next Of Kin [address] [place] [address] [employer] Next Of Kin [address] [place] [address] Unavailable VIPIN Next Of Kin [address] [place] [address] ST Next Of Kin Unknown Unavailable CHRISTINE NG Next Of Kin [address] [place] [address] [facility] Next Of Kin [place] [address] JP LAWRENCE Next Of Kin [address] [place] [address] HERNANDEZ NIEVES Next Of Kin [address] [place], [place] [id number] CH[place] [address] Unavailable Care Team Providers Care Bobcat Operator Name Role Phone NO, PCP Unavailable Unavailable Cecilia TAFOYA MD Unavailable Unavailable Cecilia TAFOYA MD Unavailable Unavailable Cecilia TAFOYA MD Unavailable Unavailable Cecilia TAFOYA MD Unavailable Unavailable Cecilia TAFOYA MD Unavailable Unavailable Cecilia TAFOYA MD Unavailable Unavailable Cecilia TAFOYA MD Unavailable Unavailable Cecilia TAFOYA MD Unavailable Unavailable Cecilia TAFOYA MD Unavailable Unavailable Ceiclia TAFOYA MD Unavailable Unavailable Cecilia TAFOYA MD Unavailable Unavailable Cecilia TAFOYA MD Unavailable Unavailable Cecilia TAFOYA MD Unavailable Unavailable Cecilia TAFOYA MD Unavailable Unavailable Cecilia TAFOYA MD Unavailable Unavailable Cecilia TAFOYA MD Unavailable Unavailable Cecilia TAFOYA MD Unavailable Unavailable Cecilia TAFOYA MD Unavailable Unavailable Cecilia TAFOYA MD Unavailable Unavailable Cecilia TAFOYA MD Unavailable Unavailable Cecilia TAFOYA MD Unavailable Unavailable Cecilia TAFOYA MD Unavailable Unavailable Cecilia TAFOYA MD Unavailable Unavailable Cecilia TAFOYA MD Unavailable Unavailable Thabet, Nagib RPA-C Unavailable Unavailable Thabet, Nagib RPA-C Unavailable Unavailable Thabet, Nagib RPA-C Unavailable Unavailable Thabet, Nagib RPA-C Unavailable Unavailable Thabet, Nagib RPA-C Unavailable Unavailable Thabet, Nagib RPA-C Unavailable Unavailable Thabet, Nagib RPA-C Unavailable Unavailable Thabet, Nagib RPA-C Unavailable Unavailable Thabet, Nagib RPA-C Unavailable Unavailable Thabet, Nagib RPA-C Unavailable Unavailable Thabet, Nagib RPA-C Unavailable Unavailable Thabet, Nagib RPA-C Unavailable Unavailable Thabet, Nagib RPA-C Unavailable Unavailable Thabet, Nagib RPA-C Unavailable Unavailable Thabet, Nagib RPA-C Unavailable Unavailable Thabet, Nagib RPA-C Unavailable Unavailable Thabet, Nagib RPA-C Unavailable Unavailable Thabet, Nagib RPA-C Unavailable Unavailable Thabet, Nagib RPA-C Unavailable Unavailable Thabet, Nagib RPA-C Unavailable Unavailable Thabet, Nagib RPA-C Unavailable Unavailable Thabet, Nagib RPA-C Unavailable Unavailable Thabet, Nagib RPA-C Unavailable Unavailable Thabet, Nagib RPA-C Unavailable Unavailable Thabet, Nagib RPA-C Unavailable Unavailable Thabet, Nagib RPA-C Unavailable Unavailable Thabet, Nagib RPA-C Unavailable Unavailable Ling Blevins MD Unavailable Unavailable Ling Blevins MD Unavailable Unavailable Ling Blevins MD Unavailable Unavailable Leontieremberto, Ling CARLSON Unavailable Unavailable LeontieLing sr MD Unavailable Unavailable LeontievaLing MD Unavailable Unavailable Chudasama-Bon, A Patricia MANAGER BRIDGE Unavailable Unavailab le Chudasama-Bon, A Patricia MANAGER BRIDGE Unavailable Unavailab le Chudasama-Bon, A Patricia MANAGER BRIDGE Unavailable Unavailab le Chudasama-Bon, A Patricia MANAGER BRIDGE Unavailable Unavailab le Chudasama-Bon, A Patricia MANAGER BRIDGE Unavailable Unavailab le Chudasama-Bon, A Patricia MANAGER BRIDGE Unavailable Unavailab le Chudasama-Bon, A Patricia MANAGER BRIDGE Unavailable Unavailab le Chudasama-Bon, A Patricia MANAGER BRIDGE Unavailable Unavailab le Chudasama-Bon, A Patricia MANAGER BRIDGE Unavailable Unavailab le Chudasama-Bon, A Patricia MANAGER BRIDGE Unavailable Unavailab le Chudasama-Bon, A Patricia MANAGER BRIDGE Unavailable Unavailab le Chudasama-Bon, A Patricia MANAGER BRIDGE Unavailable Unavailab le Chudasama-Bon, A Patricia MANAGER BRIDGE Unavailable Unavailab le Chudasama-Bon, A Patricia MANAGER BRIDGE Unavailable Unavailab le Chudasama-Bon, A Patricia MANAGER BRIDGE Unavailable Unavailab le Chudasama-Bon, A Patricia MANAGER BRIDGE Unavailable Unavailab le Chudasama-Bon, A Patricia MANAGER BRIDGE Unavailable Unavailab le Chudasama-Bon, A Patricia MANAGER BRIDGE Unavailable Unavailab le Chudasama-Bon, A Patricia MANAGER BRIDGE Unavailable Unavailab le Chudasama-Bon, A Patricia MANAGER BRIDGE Unavailable Unavailab le Chudasama-Bon, A Patricia MANAGER BRIDGE Unavailable Unavailab le Chudasama-Bon, A Patricia MANAGER BRIDGE Unavailable Unavailab le Chudasama-Bon, A Patricia MANAGER BRIDGE Unavailable Unavailab le Chudasama-Bon, A Patricia MANAGER BRIDGE Unavailable Unavailab le Chudasama-Bon, A Patricia MANAGER BRIDGE Unavailable Unavailab le Chudasama-Bon, A Patricia MANAGER BRIDGE Unavailable Unavailab le Chudasama-Bon, A Patricia MANAGER BRIDGE Unavailable Unavailab le Chudasama-Bon, A Patricia MANAGER BRIDGE Unavailable Unavailab le Chudasama-Bon, A Patricia MANAGER BRIDGE Unavailable Unavailab le TURRIN, ADALBERTO Unavailable Unavailable TURRIN, ADALBERTO Unavailable Unavailable TURRIN, ADALBERTO Unavailable Unavailable TURRIN, ADALBERTO Unavailable Unavailable NOT, SPECIFIED Unavailable Unavailable Grant, M Christopher PA-C Unavailable Unavailable Grant, M Christopher PA-C Unavailable Unavailable Grant, M Christopher PA-C Unavailable Unavailable Grant, M Christopher PA-C Unavailable Unavailable Grant, M Christopher PA-C Unavailable Unavailable Grant, M Christopher PA-C Unavailable Unavailable Grant, M Christopher PA-C Unavailable Unavailable Grant, M Christopher PA-C Unavailable Unavailable Grant, M Christopher PA-C Unavailable Unavailable Grant, M Christopher PA-C Unavailable Unavailable Grant, M Christopher PA-C Unavailable Unavailable Grant, M Christopher PA-C Unavailable Unavailable Grant, M Christopher PA-C Unavailable Unavailable Grant, M Christopher PA-C Unavailable Unavailable Grant, M Christopher PA-C Unavailable Unavailable Grant, M Christopher PA-C Unavailable Unavailable Gratn, M Christopher PA-C Unavailable Unavailable Grant, M Christopher PA-C Unavailable Unavailable Grant, M Christopher PA-C Unavailable Unavailable Grant, M Christopher PA-C Unavailable Unavailable Grant, M Stantoner PA-C Unavailable Unavailable Grant, M Stantoner PA-C Unavailable Unavailable Grant, M Stantoner PA-C Unavailable Unavailable Grant, M Stantoner PA-C Unavailable Unavailable Grant, M Stantoner PA-C Unavailable Unavailable Grant, M Demarioopher PA-C Unavailable Unavailable Radha Barfield MD Unavailable [email or web address] Radha Barfield MD Unavailable [email or web address] Radha [email or web address] MD Unavailable [email or web address] O TOLREED CARLSON Unavailable Unavailable AJAGBE, O TOLANI MD Unavailable Unavailable AJAGBE, O TOLANI MD Unavailable Unavailable AJAGBE, O TOLANI MD Unavailable Unavailable AJAGBE, O TOLANI MD Unavailable Unavailable AJAGBE, O TOLANI MD Unavailable Unavailable AJAGBE, O TOLANI MD Unavailable Unavailable AJAGBE, O TOLANI MD Unavailable Unavailable AJAGBE, O TOLANI MD Unavailable Unavailable AJAGBE, O TOLANI MD Unavailable Unavailable AJAGBE, O TOLANI MD Unavailable Unavailable AJAGBE, O TOLANI MD Unavailable Unavailable AJAGBE, O TOLANI MD Unavailable Unavailable AJAGBE, O TOLANI MD Unavailable Unavailable Re-disclosure Warning The records that [...] is protected by Article 27-F of the [facility] Public Health law. If you continue you may have access to information: Regarding HIV / AIDS; Provided by facilities licensed or operated by the [facility] Office of Mental Health; or Provided by the [facility] Office for People With Developmental Disabilities. If such information is present, then the following [facility] mandated warning applies: This information has been [...] Date Indications Data Source(s ) Outpatient Attender: ARPIT TAFOYA MD 02/04 05:43:48 PM EDT - 02/04/2021 06:44:41 PM EDT [facility] ([facility] ) Outpatient Attender: Norberto JENNINGS 06/2020 12:26:47 PM EDT - 01/27/2021 12:52:18 PM EDT [facility] ([facility]) Outpatient Attender: Jt Grant PA-C 01/17/2021 12:55:36 PM EDT - 01/17/2021 12:56:23 PM EDT [facility] ([facility]) Inpatient Attender: Ling Blevins MDA ttender: EBONY LEW MDAdmitter: Ling Blevins MDReferrer: Bob Barfield MD [id number] 01/11/2021 10:52:0 0 AM EDT - 01/14/2021 10:58:00 AM EDT [facility] Patient discharged. Outpatient Attender: Jt Grant PA-C 11/18/2020 08:19:23 AM EDT - 11/18/2020 09:09:02 AM EDT [facility] ([facility]) Outpatient Attender: Patricia GONZALES 02:40:00 PM EDT [facility] Emergency Attender: ADALBERTO Kingsultant: PCP NOConsultant: SPECIFIED NOT 10/18/2020 08:22:00 PM EDT - 10/18/2020 10:05:00 PM EDT [facility] Patient discharged. Immunizations Vaccine Date Status Description Data Source(s) COVID-19 VACCINE Moderna 09/28/2020 12:00:00 AM EDT completed AtterocorSIIS Vaccine Series Complete: YESThis Data wa s Submitted to [facility] Via [facility]. COVID-19 VACCINE Moderna 09/03/2020 12:00:00 AM EDT completed UTSIIS Vaccine Series Complete: NOThis Data was Submitted to [facility] Via [employer]. Medications Medication Brand Name Start Date Product Form Dose Route Admi nistrative Instructions Pharmacy Instructions Status Indications Reaction Description Data Source(s) Lurasidone Hydrochloride 20 MG Oral Tablet lurasidone HCl (LATUDA) tablet 40 mg lurasidone HCl (LATUDA) tablet 40 mg 01/14/2021 08:00:00 AM EDT 40 mg Oral active 40 mg, Oral, Silvia ly with Breakfast, First dose (after last modification) on Sun01/14/21 at 0800, For 28 doses
Give with 350 calories Administer with food
[facility] Medication administered onsite Acetaminophen 325 MG Oral Tablet acetaminophen (TYLENO L) tablet 650 mg acetaminophen (TYLENOL) tablet 650 mg 01/14/2021 05:04:07 AM EDT 65 0 mg Oral active 650 mg, Oral, E very 6 hours PRN, All Levels of Pain (Pain Scale Score 1-10), Starting on Sun01/14/21 at 0504, For 30 days
Maximum daily dose of acetaminophen is 3,000 mg from all sources in 24 hours.
[facility] Medication administered onsite Lurasidone Hydrochloride 40 MG Oral Tabl et Lurasidone HCl 40 MG Oral Tablet (LATUDA) Lurasidone HCl 40 MG Oral Tablet (LATUDA) 01/14/2021 12:00:00 AM EDT 40 mg Oral aborted Take 1 tablet by mouth d aily with breakfast [facility] Lurasidone Hydrochloride 40 MG Oral Tabl et Lurasidone HCl 40 MG Oral Tablet (LATUDA) Lurasidone HCl 40 MG Oral Tablet (LATUDA) 01/14/2021 12:00:00 AM EDT 40 mg Oral active Take 1 tablet by mouth d aily with breakfast [facility] gadobutrol (GADAVIST) contrast injection 7.5 mL [id number] 01/13/2021 05:00:00 PM EDT 0.1 mL/kg Intravenous completed 7.5 mL (rounded from 7.6 mL = 0.1 mL/kg 76 kg), Intravenous, 1 TIME IMAGING, On Mal 01/13/21 at 1700, For 1 dose
Do not mix or administer in the same IV line with other medications.
[facility] Medication administered onsite Lurasidone Hydrochloride 20 MG Oral Tablet lurasidone HCl (LATUDA) tablet 20 mg lurasidone HCl (LATUDA) tablet 20 mg 01/13/2021 01:00:00 PM EDT 20 mg Oral completed 20 mg, Oral, Silvia ly with Lunch, First dose (after last modification) on [facility] 01/13/21 at 1300, For 1 dose
Administer with food
[facility] Medication administered onsite Lurasidone Hydrochloride 20 MG Oral Tablet lurasidone HCl (LATUDA) tablet 20 mg lurasidone HCl (LATUDA) tablet 20 mg 01/12/2021 04:45:00 PM EDT 20 mg Oral aborted 20 mg, Oral, Silvia ly with Breakfast, First dose on Sun01/12/21 at 1645, For 30 days
Give with 350 calories Administer with food
[facility] Medication administered onsite Magnesium Hydroxide 80 MG/ML Oral Suspen flavia magnesium hydroxide (MILK OF MAGNESIA) 400 MG/5ML oral suspension 15 mL magnesium hydroxide (MILK OF MAGNESIA) 400 MG/5ML oral suspension 15 mL 01/12/2021 02:15:15 PM EDT 15 mL Oral active 15 mL, Oral, D aily PRN, Constipation, Starting on Sun01/12/21 at 1415, For 30 days
If serum creatinine > 2 notify provider before administering.
[facility] Medication administered onsite perflutren lipid microspheres (DEFINITY) injectable suspensi on 9.78 mg [id number] 01/12/2021 04:12:56 AM EDT 1.5 mL Intravenous active 9.78 mg (1.5 mL), Intravenous, Once PRN, Other, Echo imaging enhancement, Starting on Sun01/12/21 at 0412, For 72 hours [facility] Medication administered onsite Zolpidem tartrate 5 MG Oral Tablet zolpidem (AMBIEN) t ablet 10 mg zolpidem (AMBIEN) tablet 10 mg 01/11/2021 10:00:00 PM EDT 10 mg Oral active 10 mg, Oral, Nightly, First dose on Sun01/11/21 at 2200, For 5 doses [facility] Medication administered onsite benzocaine (ORAJEL) 20 % mucosal gel 01/11/2021 09:30:00 P M EDT Mouth/Throat active [Order 1 Sta rt] Name: benzocaine (ORAJEL) 20 % mucosal gel Signed Summary: Mouth/Throat, Give Now, Starting on Sun01/11/21 at 2130, For 1 dose
Apply to area of broken tooth
[Order 1 End] [Order 2 Start] Name: benzocaine (ORAJEL) 20 % mucosal gel Signed Summary: Mouth/Throat, Four Times Daily-PRN, Pain, Starting on Sun01/12/21 at 0000, For 7 days
Apply to area of broken tooth
[Order 2 End] [facility] Medication administered onsite Diazepam 5 MG Oral Tablet diazePAM (VALIUM) tablet 10 mg diazePAM (VALIUM) tablet 10 mg 01/11/2021 08:09:07 PM EDT 10 mg Oral activ e 10 mg, Oral, Every 1 hour PRN, Anxiety, CIWA, Starting on Sun01/11/21 at 2009, For 4 days
Maximum of 40 mg in 4 hour period. If patient is sleeping, do not wake them to administer Diazepam or to assess the CIWA score. Assess once patient awakens. CIWA greater than 13.
[facility] Medication administered onsite Clonazepam 0.5 MG Oral Tablet clonazePAM (KLONOPIN) ta blet 0.5 mg clonazePAM (KLONOPIN) tablet 0.5 mg 01/11/2021 01:14:34 PM EDT 0.5 mg Oral aborted 0.5 mg, Oral, 2 Times Daily PRN, severe anxiety, Starting on Sun01/11/21 at 1314, For 71 hours [facility] Medication administered onsite Hydroxyzine Hydrochloride 50 MG Oral Tablet hydrOXYzin e (ATARAX) tablet 50 mg hydrOXYzine (ATARAX) tablet 50 mg 01/11/2021 01:14:20 PM EDT 50 mg Oral active 50 mg, Oral, Four T imes Daily-PRN, Itching, Anxiety, mild anxiety, Starting on Sun01/11/21 at 1314, For 719 hours [facility] Medication administered onsite Chlorpromazine hydrochloride 25 MG Oral Tablet chlorproMAZINE (THORAZINE) tablet 25 mg chlorproMAZINE (THORAZINE) tablet 25 mg 01/11/2021 01:12:43 PM E DT 25 mg Oral active 25 mg, Ora l, Three Times Daily-PRN, Nausea, agitation and off label moderate anxiety, Starting on Sun01/11/21 at 1312, For 719 hours [facility] Medication administered onsite Lurasidone Hydrochloride 20 MG Oral Tablet lurasidone HCl (LATUDA) tablet 20 mg lurasidone HCl (LATUDA) tablet 20 mg 01/11/2021 01:00:00 PM EDT 20 mg Oral aborted 20 mg, Oral, Silvia ly with Breakfast, First dose on Sun01/11/21 at 1300, For 30 days
Take with 350 calories Administer with food
[facility] Medication administered onsite Nicotine 2 MG Oral Lozenge nicotine (NICORETTE) lozeng e 2 mg nicotine (NICORETTE) lozenge 2 mg 01/11/2021 12:48:42 PM EDT 2 mg Mouth/Th roat active 2 mg, Mouth/Throat, Every 2 hours PRN, Smoking cessation, Starting on Sun01/11/21 at 1248, For 30 days
Should not be chewed or swallowed; allow to dissolve slowly (~20-30 minutes)
[facility] Medication administered onsite benztropine mesylate 0.5 MG Oral Tablet benztropine (C OGENTIN) tablet 0.5 mg benztropine (COGENTIN) tablet 0.5 mg 01/11/2021 12:48:38 PM EDT 0.5 m g Oral active 0.5 mg, Oral, Ev genia 1 hour PRN, Tremor, Extrapyramidal symptoms, Starting on Sun01/11/21 at 1248, For 30 days
MDD 3
[facility] Medication administered onsite 100 mg 06/10/2020 12:00:00 AM EST tablet 10 TAKE ONE TABLET BY MOUTH AT BEDTIME TAKE ONE TABLET BY MOUTH AT BEDTIME SOLD: 06/11/2020 [facility] Ibuprofen 400 MG Oral Tablet ibuprofen (ADVIL,MOTRIN) 400 MG tablet ibuprofen (ADVIL,MOTRIN) 400 MG tablet 400 mg Oral aborted Take 400 mg by mouth every 6 (six) hours as needed. [facility] Clonazepam 0.5 MG Oral Tablet clonazePAM 0.5 MG Oral T ablet (KLONOPIN) clonazePAM 0.5 MG Oral Tablet (KLONOPIN) 0.5 mg Oral aborted Take 0.5 mg by mouth Three times daily as needed for Anxiety [facility] Prazosin 2 MG Oral Capsule Prazosin HCl 2 MG Oral Caps ule (MINIPRESS) Prazosin HCl 2 MG Oral Capsule (MINIPRESS) 2 mg Oral abor juan Take 2 mg by mouth [facility] Risperidone 0.5 MG Oral Tablet risperiDONE 0.5 MG Oral Tablet (RisperDAL) risperiDONE 0.5 MG Oral Tablet (RisperDAL) 2 mg Oral aborted Take 2 mg by mouth [facility] Bupropion Hydrochloride 100 MG Oral Tabl et buPROPion HCl 100 MG Oral Tablet (WELLBUTRIN) buPROPion HCl 100 MG Oral Tablet (WELLBUTRIN) 100 m g Oral aborted Take 100 mg by mouth daily [facility] Insurance Providers Payer name Policy type / Coverage type Policy ID Covered republican ID Covered republican's relationship to gomes Policy Gomes Plan Information MEDICAID M [id number] Self [id number] [facility] [id number] SP [id number] Medicaid S [id number] S [id number] [facility] Care [facility] P [id number] S [id number] MEDICARE A [id number] Self [id number] Medicare P [id number] S [id number] Medicaid S [id number] S [id number] Medicaid S [id number] [facility] Medicare Medicare Part B [id number] Self [id number] Medicaid Medicaid [id number] Self [id number] Medicare P [id number] S [id number] MEDICAID [id number] NORIDIAN JE PART B C [id number] S [id number] MEDICARE C [id number] S [id number] MEDICAID M [id number] S [id number] NOVJOCYS JL PART B C [id number] S [id number] Medicaid S [id number] S [id number] [facility] [id number] SP [id number] SELF PAY ONLY [id number] SP [id number] SELF PAY UNAVAILABLE SP UNAVAILA BLE MEDICARE [id number] SP [id number] [facility] Health Maintenance Organization ([facility]) [id number] Self [id number] MEDICARE C [id number] S [id number] [facility] O [id number] S [id number] [facility] Health Maintenance Organization ([facility]) [id number] Self [facility] Health Maintenance Organization ([facility]) [id number] Self MEDICAID W [id number] S [id number] [place] 3 [id number] SELF PAY 2 UNAVAILABLE 1 [place]LE [place] [id number] SP [id number] H [id number] MEDICARE [id number] SP [id number] MCRB [id number] S [id number] MEDICARE [id number] S [id number] MEDICAID [id number] S [id number] MEDICAID -O/P EMERGENCY ROOM [id number] MEDICARE PART A -O/P [id number] 18 [id number] EMEDNY [id number] SP [id number] Problems, Conditions, and Diagnoses Code Display Name Description Problem Type Effective Dates Data Source(s) K21.9 Gastro-esophageal reflux disease without esophagitis GASTRO-ESOPHAGEAL REFLUX DISEASE WITHOUT ESOPHAGIT Diagnosis 10/20/2020 02:40:00 PM [facility] R63.4 Abnormal weight loss ABNORMAL WEIGHT LOSS Diagnosis 10/20/2020 02:40:00 PM [facility] R19.7 Diarrhea, unspecified DIARRHEA, UNSPECIFIED Diagnosis 10/20/2020 02:40:00 PM [facility] R10.31 Right lower quadrant pain RIGHT LOWER QUADRANT PAIN Di agnosis 10/20/2020 02:40:00 PM [facility] Z8719 Personal history of other diseases of th e digestive system Personal history of other diseases of the digestive system Diagnosis 09/26 08:22:00 PM [facility] L26359 Nicotine dependence, cigarettes, uncompl icated Nicotine dependence, cigarettes, uncomplicated Diagnosis 10/18/2020 08:22:00 PM [facility] R634 Abnormal weight loss Abnormal weight loss Diagnosis 10/18/2020 08:22:00 PM [facility] R197 Diarrhea, unspecified Diarrhea, unspecified Diagnosis 10/18/2020 08:22:00 PM [facility] R1031 Right lower quadrant pain Right lower quadrant pain Di agnosis 10/18/2020 08:22:00 PM [facility] Surgeries/Procedures Procedure Description Date Indications Data Source(s) MRA NECK W/O CONTRST MATERIAL <td>MR ANGIOGRAPHY NECK WITHOUT CONTRAST [id number]</td><td>Routine</td><td>01/13/2021 4:55 PM EDT</td><td></td><td> </td> 01/13/2021 04:55:23 PM [facility] MRA HEAD W/O CONTRST MATERIAL <td>MR ANGIOGRAPHY HEAD WITHOUT CONTRAST [id number]</td><td>Routine</td><td>01/13/2021 4:55 PM EDT</td><td></td><td> </td> 01/13/2021 04:55:09 PM [facility] MRI BRAIN BRAIN STEM W/O &W/CONTRAST MATERIAL <td>MR B RAIN WITH AND WITHOUT CONTRAST [id number]</td><td>Routine</td><td>01/13/2021 4:53 PM EDT</td><td></td><td> </td> 01/13/2021 04:53:36 PM [facility] EEG ROUTINE STUDY <td>EEG ROUTINE STUDY</td><t d>Routine</td><td>01/12/2021 9:51 PM EDT</td><td></td><td> </td> 01/12/2021 09:51:07 PM [facility] ECHO TTHRC R-T 2D W/WOM-MODE COMPL SPEC&COLR DOP <td>E CHOCARDIOGRAM 2D COMPLETE</td><td>Routine</td><td>01/12/2021 2:33 PM EDT</td><td></td><td> </td> 01/12/2021 02:33:34 PM [facility] DRUGS OF ABUSE, URINE <td>DRUGS OF ABUSE, URINE</td><td>Routine</td><td>01/11/2021 8:07 PM EDT</td><td></td><td> </td> 01/11/2021 08:07:00 PM [facility] BLOOD COUNT COMPLETE AUTO&AUTO DIFRNTL WBC COUNT <td>C BC AND DIFFERENTIAL</td><td>Routine</td><td>01/11/2021 8:07 PM EDT</td><td></td><td> </td> 01/11/2021 08:07:00 PM [facility] HEMOGLOBIN GLYCOSYLATED A1C <td>HEMOGLOBIN A1C</td><td>Routine</td><td>01/11/2021 8:07 PM EDT</td><td></td><td> </td> 01/11/2021 08:07:00 PM [facility] LIPID PANEL <td>LIPID PANEL</td><td>Rout ine</td><td>01/11/2021 8:07 PM EDT</td><td></td><td> </td> 01/11/2021 08:07:00 PM [facility] COMPREHENSIVE METABOLIC PANEL <td>COMPREHENSIVE METABO LIC PANEL</td><td>Routine</td><td>01/11/2021 8:07 PM EDT</td><td></td><td> </td> 01/11/2021 08:07:[address] [facility] [address] CERVICAL SPINE W/O CONTRAST MATERIAL <td>CT CERVICA L SPINE WITHOUT CONTRAST [id number]</td><td>CODE</td><td>01/11/2021 8:02 PM EDT</td><td></td><td> </td> 01/11/2021 08:02:[address] [facility] [address] HEAD/BRAIN W/O CONTRAST MATERIAL <td>CT HEAD WITHOU T CONTRAST [id number]</td><td>CODE</td><td>01/11/2021 8:02 PM EDT</td><td></td><td> </td> 01/11/2021 08:02:40 PM [facility] [address] MAXILLOFACIAL W/O CONTRAST MATERIAL <td>CT MAXILLOF ACIAL WITHOUT CONTRAST [id number]</td><td>Routine</td><td>01/11/2021 8:02 PM EDT</td><td></td><td> </td> 01/11/2021 08:02:15 PM [facility] EKG 12-LEAD - CMAXX REPORT <td>EKG 12-LEAD - CMAXX REPORT</td><td></td><td>01/11/2021 7:17 PM EDT</td><td></td><td></td> 01/11/2021 07:17:58 PM EDT [facility] EKG 12-LEAD - CMAXX REPORT <td>EKG 12-LEAD - CMAXX REPORT</td><td></td><td>01/11/2021 7:17 PM EDT</td><td></td><td></td> 01/11/2021 07:17:58 PM EDT [facility] EKG 12-LEAD <td>EKG 12-LEAD</td><td>Rout ine</td><td>01/11/2021 7:17 PM EDT</td><td></td><td></td> 01/11/2021 07:17:58 PM EDT [facility] EKG 12-LEAD <td>EKG 12-LEAD</td><td>Rout ine</td><td>01/11/2021 7:17 PM EDT</td><td></td><td> </td> 01/11/2021 07:17:58 PM EDT [facility] Results ID Date Data Source [id number] 02/04/2021 06:15:00 PM EDT [facility] Name Value Range Interpretation Code Description Data Elissa rce(s) Supporting Document(s) SARS-CoV-2 RNA Resp Ql CHRISTA+probe NOT DETECTED [facility] This lab was ordered by PAULINA knox and reported by PAULINA Pritchett. ID Date Data Source [id number] 01/14/2021 05:33:44 PM EDT [facility] Name Value Range Interpretation Code Description Data Elissa rce(s) Supporting Document(s) Discharge Summary [facility] ANIUBb0bTaRTNdJn12/NTAbkTZWik9WzMMvsXNj2DDsrIOTwZ5EzTQT3dH3lRCJ5YJlNBwEpUrDrMKKi lbm [file] mKTKci/2YT/oijeqlmsC51CpAIS3JqcRI+A/4EGq7O+sno9lDEA13N95YKZs/TiID+CD+BA+Meredith+IR6nq fgS/TpXpY/gN/CY+hjcnFB0Yh9Ej4kvv5/wZVd8J8UA5Ka/sebastián/C7+Bw+qvrEoUK2Xi+gOvZF/G1C4TH0 [file] ICAgICAgICAgICAgICAgICAgICAgICAgICAgICAgIC AgICAgICAgICAgICAgICAgICAgICAgICAgICAgICAgICAgICAgICAgICAgICAgICAgICAgICAgICAgDQ ogICAgICAgICAgICAgICAgICAgICAgICAgICAgICAgICAgICAgICAgICAgICAgICAgICAgICAgICAgIC AgICAgICAgICAgICAgICAgICAgICAgICAgICAgICAg ICAgICAgICAgDQogICAgICAgICAgICAgICAgICAgICAgICAgICAgICAgICAgICAgICAgICAgICAgICAg ICAgICAgICAgICAgICAgICAgICAgICAgICAgICAgICAgICAgICAgICAgICAgICAgICAgDQogICAgICAg ICAgICAgICAgICAgICAgICAgICAgICAgICAgICAgIC AgICAgICAgICAgICAgICAgICAgICAgICAgICAgICAgICAgICAgICAgICAgICAgICAgICAgICAgICAgIC AgDQogICAgICAgICAgICAgICAgICAgICAgICAgICAgICAgICAgICAgICAgICAgICAgICAgICAgICAgIC AgICAgICAgICAgICAgICAgICAgICAgICAgICAgICAg ICAgICAgICAgICAgDQogICAgICAgICAgICAgICAgICAgICAgICAgICAgICAgICAgICAgICAgICAgICAg ICAgICAgICAgICAgICAgICAgICAgICAgICAgICAgICAgICAgICAgICAgICAgICAgICAgICAgDQogICAg ICAgICAgICAgICAgICAgICAgICAgICAgICAgICAgIC AgICAgICAgICAgICAgICAgICAgICAgICAgICAgICAgICAgICAgICAgICAgICAgICAgICAgICAgICAgIC AgICAgDQogICAgICAgICAgICAgICAgICAgICAgICAgICAgICAgICAgICAgICAgICAgICAgICAgICAgIC AgICAgICAgICAgICAgICAgICAgICAgICAgICAgICAg ICAgICAgICAgICAgICAgDQogICAgICAgICAgICAgICAgICAgICAgICAgICAgICAgICAgICAgICAgICAg ICAgICAgICAgICAgICAgICAgICAgICAgICAgICAgICAgICAgICAgICAgICAgICAgICAgICAgICAgDQog ICAgICAgICAgICAgICAgICAgICAgICAgICAgICAgIC AgICAgICAgICAgICAgICAgICAgICAgICAgICAgICAgICAgICAgICAgICAgICAgICAgICAgICAgICAgIC QrTITlCPZqXRf9V7dvOYUwYMExLH7zXFu5Au2+JWmVRnIkTGQ1yrDnuC9DBV2ek6EqHQqcLLKzq5GhOH r3MT2UUIZoNTecHO0FAPwhvm4DOURyKFIbeTDOu1aa YeIiTLC8HDHvMujbLI8OCHRbA2dlroKgFBNdKONLKZjdOAMXQVxxQQGYKVAwMMOaOnJrZpLlNWDsDPIb JTMDVUJ4MVPhQxDuRLCeLZPyXqZoCRTGUQ3EMgPlB2ApqP31XIoLGu0+JJzcpfOmIgpLTwZ6YLWjq0Am EAi8TW7AQYKiUldfe8VaFYnbGALISVcwIV9IYWH6BW H3ETSsBi6BVCQyR888haPyCE0CCz5DUgOwKV6whd7ZZIstQMAgSuzKMst9FHiuLB6AyALnIXpKzWMhoU YwZ8VgF6UpeHZviKNdvJTHeLq1b68vHNyiY9PwqVvfEvGtPGInAZ2jBA9vBTGtLZByZuT7XINHXH0ONB KlBKOijOUgXCWtWUJJUX6WPWptDAN7ZKGyfuXpfSXk ETkrGV1SNIZeqrCvOWnnZHJGHXl+Cb1DSC9gg2MxJNh6DKOtSM4mhl4KPXpHHgGiJ0O6eIKpG6Y0NMad Bz9YAUPsYOYmYJMsFSFKGRqzSX1PFR2koiZ5OV4RcEYmBEHcSOCmrQZkLPg3D20cjGPoDFzrBJ1ZMTR+ Dequan+Eu0DDVLjVBTtWZPyFdInISXIQoQwR8ApX1IDo8 IoV5AtLN37oFcjqqTcVQduOS3MQQ2dFJLtBJLEWI8RcFSwfG2twvF5KdUjMWIUHnLsW02waBKdLKYoFR V2LVGfAp2UQNQxI6ZgirWwhHrptfNaDOWgBQAAGC2QCXsamsXpyMRajMgzWY74kDnzEP5OKo9CKzRoQV 0vle0KoZLqBb5SWGF8DM7RZDSlHDTmITWcAQQ9XYYh TeKvYVjvIWDtUANoVWD1HYAoDXDrQE3JCvJjBHVpLzU7MrRkKVPcZGAdzb3LRCSkHMU4NaL3OiVzXNHv ZKWqIDavRJOtZRBnNLU2TBMpDRWdJT6QLzQkEJWsBHMfGLGwUJAxXONibs5JBGSvLFZyFDA9OWDrNWDg BBPjPUwnYHItJEU9UvO2TRKvPHLyHP7TCiGmTCPjCM d4NfLnMSIdGERpxh6FBEPuVRUdFeT4ORTeTRCxFORpGFtvHGMgUOLsUnv1LGEhAHXmWP3SUrEyOLEwGO A9WIQcMDPrRYMaxu8RBANcWXKpAaC5XAYeCPUiYGEkBXitWRCwDLFlZNFtWLKiZHKkVY7FKgKwVGOqFw VsAIgpWNAhVAEalx8WHROeNCNgCdH2QNYoQRShASNu KEbjEWOvZNRvNgf1LLBkHZGlLH8JXlOhPZFdLcm6ULGjFDMnCJTtky0ZPWYwKNWvAGQzIhCrPCOlOSAt SIauWBRxBCUzYuE2BZSsEOPnWE2CEbAxXGOdLvH7AxJmMWHuJKUpbo0JDHRqYRFsKcUeIuRoDWPiVRGo IDglTGVkSRKzNXC8ZXZoNTQdEJ7WTvEyULRgAeO4IJ goHPVePHTkmy7SXSQsPIGxQKx9FXExFERcTKAfHFzuUPZuPKU3UJD3MXYfJQApPL7MEiPeNCLcKoOkYm feLTXvWMKktw2RAFGdSLLtJfVfRCGuBVYqJCOyDOrzEQRiIMU8OWR9LBUrXYPlDZ1FFaBiSKPaLdm2Aq hjAUHjDLOzch2RCYRjTKGfVcF1QYIdCQDyHRErHRye YXFzWDD9GJY3XKEiZMXjXR2QNhSgGIBhSAdoKxJjRJOdZFWedj7LVWAhNBZ0NJKjHKRzWHJdLOCxFKyt HROsIFP7VyR3IGAxAKCnXH1NWpNiPJPzKNk0EMVuZCEjAHRkaw6AOPKwYBO9UESfHjWdDGDpZRDqVPaa CDTgOZDkIUL8WCBsLVMdZG4GKmYcYKVuSeF2RkVlKU LyKLQanu4RMFHmYFH9CfL6UUPxGTTrLNEmMNmdWWQqYINuZitrABHhKLKkEO9GGcStCLQcGcM9DpixVA EhDIXutv7SEVLkXKJ0QyY2ZjVvBNTrVKXhYGxqMZJhVNInRMXdIRVaLGJkSW3EIbKhSATnKxW2FhmwMX SzVAXile8RVHXhAUB0ZSW1VXGtDYRrVDQnLTtaGHXj WVD4UJF7XESzBHBhLC0ADgNoOROdOosrQlCcIINySITkma9AKNYkMQA3BYD0CSMmSCDnXVPuJTtrMIRu DYS7FKWhBGXfYDKdMY1UCnGdZNZrAxc5PBAdBWHpJIBjkw1UYHVgEFR0GDr0XmAgGSUeGJBkMJbsPXNx TPxcEOKgZHGxONVsRS7WDkEwNDUkRqNlSfMtUKGxUK Ykwu0WOJHbTGZ3ZBO6CwGsKPUrLZJjXEcsZLIgBBstPRL7LEGnQAIiAV1DFkQmLODlRkB6ROTqJHXkXB Hpiw3RIRGyORH5ZxUbOHVvHOQzSFYaWTyfFCDjGQrqABE1BOCvDACdZE7GTiNfKHKpZwH3GdOwAMNpBW Wzlc4RvDWhdKscyh8IVQjKYi5RpFbwQQCaUJsaMt5i lGB3HUZeZGBCGj4VnkNmGCKaOJIGTGmhKBRoOMuvH5KaWbOpRmM2LnoaAQG5KDHnWSNkMNP3BUM8FrUj UjG0FCV2ErW2YXH4IeypI7O8CaDrOPTeEdCfEZe3DSQ4EAR+WM3tEIf+Fm6Nb5KvilN0rdPnWRg2Onsk UU1LGCUST3XFUc== ID Date Data Source [id number] 01/14/2021 09:28:48 AM EDT [facility] MR ANGIOGRAPHY HEAD WITHOUT CONTRAST 705 44FINAL RESULTInterpreted by:Kwaku Gant MDINDICATION: 30-year-old male with possible syncope.TECHNIQUE: 3D time of flight MRA of the head and neck was performed without intravenous contrast administration. COMPARISON: CT head dated 01/11/2021 and MR brain dated 12/05/2012 and MRA of the head dated 12/06/2012.FINDINGS/IMPRESSION: MRA Neck: Motion artifact degrades images at [...] flow stenosis is shown. origin of left [employer] LEAD seen. There is loss of the normal flow void within the superior/anterior aspect of the superior sagittal sinus on the axial time of flight images, however on comparison with the other sequences and recent prior studies this is felt to be artifactual.IMPRESSION:Normal MRA of the head and neck.Assessment of stenosis of the internal carotid arteries is based on NASCET criteriaThis document has been electronically signed by Pamela Landeros MD on 01/14/2021 9:26 AM Name Value Range Interpretation Code Description Data Elissa rce(s) Supporting Document(s) ID Date Data Source [id number] 01/14/2021 09:28:43 AM [facility] MR ANGIOGRAPHY NECK WITHOUT CONTRAST 705 47FINAL RESULTInterpreted by:Kwaku Gant MDINDICATION: 30-year-old male with possible syncope.TECHNIQUE: 3D time of flight MRA of the head and neck was performed without intravenous contrast administration. COMPARISON: CT head dated 01/11/2021 and MR brain dated 12/05/2012 and MRA of the head dated 12/06/2012.FINDINGS/IMPRESSION: MRA Neck: Motion artifact degrades images at [...] flow stenosis is shown. origin of left [employer] LEAD seen. There is loss of the normal flow void within the superior/anterior aspect of the superior sagittal sinus on the axial time of flight images, however on comparison with the other sequences and recent prior studies this is felt to be artifactual.IMPRESSION:Normal MRA of the head and neck.Assessment of stenosis of the internal carotid arteries is based on NASCET criteriaThis document has been electronically signed by Pamela Landeros MD on 01/14/2021 9:26 AM Name Value Range Interpretation Code Description Data Elissa rce(s) Supporting Document(s) ID Date Data Source [id number] 01/14/2021 09:09:16 AM [facility] MR BRAIN WITH AND WITHOUT CONTRAST [id number] FINAL RESULTInterpreted by:Kwaku Gant MDINDICATION: 30-year-old male with seizure.TECHNIQUE: Multiplanar and multisequence MR images of the brain were obtained without intravenous contrast administration. Axial, sagittal, and coronal T1-weighted images were then acquired following intravenous administration of 7.5 mL of Gadavist contrast.COMPARISON: CT head dated 01/11/2021 and MR brain dated 12/05/2012 and MRA of the head dated 12/06/2012.FINDINGS: No abnormal signal is present in the brain parenchyma. No acute intracranial hemorrhage or evidence of acute infarction. No extraaxial collections.Ventricles are normal in size and configuration. Basal cisterns are patent. No midline shift or mass effect.White matter myelination is normal. The almanza-white matter [...] voids of the major intracranial arteries are normal.Mucus retention cysts are present within the bilateral maxillary sinuses. Paranasal sinuses are clear elsewhere. Left mastoid effusion. Right mastoid air cells are clear. Orbits are grossly unremarkable.No abnormal enhancement following contrast administration.IMPRESSION:1. Normal MR brain. No evidence of cortical dysplasia or almanza-white matter heterotopia.2. Bilateral maxillary sinus mucus retention cysts.3. Left mastoid effusion.This document has been electronically signed by Pamela Landeros MD on 01/14/2021 9:07 AM Name Value Range Interpretation Code Description Data Elissa rce(s) Supporting Document(s) ID Date Data Source [id number] 01/13/2021 05:46:40 AM EDT [facility] Name Value Range Interpretation Code Description Data Elissa rce(s) Supporting Document(s) [facility] LTXMGi0tQyWDRcFn28/KWYgkJENco0SfIEkpOXe4GDubUPHwZ4FoSPX9zC5yJEQ6DItZWiLbZbFrCKJ9 lbm [file] [employer] LEAD+Wz9DAEWhGPt8A7I6YWFtZSj4Q4WXV3BXGWByZT deJBocSLAdYPz4T7V2HHEjN9ILW9Fqcxctbo3+KO3LV54HPBFlGIj3W9I6eHJlE6H9qOdNaQR5MJ5QQY 1EjUr3lXZhxI6+GN4AL1LHJoFzQDw0K5F2lYViA5E7hOnQgVR9ZD7BFQ2SnLIvTNBsgrWsTh1jE6KZLR qQAsMRSLG3RE5QzMFpDM4BeCEAO8LntOTeZl8yAGju xUHbrE4qRk8fEWqbVI2VGxRRKMwAUCP6YC1RuNSsXU7SfTMJS5SmjNTaDi6oSYcdbFCtzr9+UP9YYXQu If8BEc6+FGtjokHuDurZOvP3YAMoi8OgZZx2BU4VFF3icLzrDMI6Lm6VyAS6oTOxV1qHGC3VwPTeM56e aVKiNTLzJp1QCyF4yxEjtV8RZN34hDKgt5E2CHUgD7 daYGisf06rCYurOThZYT9gLYJBLRtjEJuyJVX0UpAvcgloORUaXt2YLcFmJYy3bS6ltYO6RKH0YyrlqR NcZArsUhJpJqOpQmT2fPvgdyl8QKjeYR4dUCdkldstXOXrLuy+ISvjGJJyJOFiYfaSWLFgqN2hjoY4tr MpQFsgcUHwDf3ot9w1TdmxNg1nXo1zXBf1GhYbZqGy NEClNl5asX78TNmyfaPdBi2YHbDyANI3J1UaTzeQNJA+MPtqVAjbiPv3fQOsUODaVm6BCJOhWZCqHWNd ICAgICAgICAgICAgICAgICAgICAgICAgICAgICAgICAgICAgICAgICAgICAgICAgICAgICAgICAgICAg ICAgICAgICAgICAgICAgICAgICAgICAgICAgICAgIA 0KICAgICAgICAgICAgICAgICAgICAgICAgICAgICAgICAgICAgICAgICAgICAgICAgICAgICAgICAgIC KoBZDcISGsFITnZFHxPANyYRMiJBVrWFPmMFOqSHJeVBXmOWArXAZpKJ0WEXLoXLTxGPCtOMThVMWoSZ AgICAgICAgICAgICAgICAgICAgICAgICAgICAgICAg XEStGDYuJXCgGGRyDYIoRSEyQRNyVLEqZWNjLHLfFEOaVFWcPAKsFNJjJYLsQWMxPWQzCT2IHAPqYVBm ICAgICAgICAgICAgICAgICAgICAgICAgICAgICAgICAgICAgICAgICAgICAgICAgICAgICAgICAgICAg ICAgICAgICAgICAgICAgICAgICAgICAgICAgICAgIC GzUK8CTUHfLHReXKZbCJPcXJOdPSEqPXDdWNEcUDWzSBUiWSYtEHHbQLWdIDPwYSWfAKBkMKHkCCEeCK NcSRJwKDVkACDhRPUbQBAmZALjTDOdRMTvINAcLNOaKRGlVCJaIQEtVLOfNU7GIAEzXAAuDXBzSNFyTE AgICAgICAgICAgICAgICAgICAgICAgICAgICAgICAg EMUjZGTqHLQlYQFzXGUvNTJqAUMdPQGcNKBuPDLtZWAkVGFfRRKlSHZwVKCdUZSmBKWiXFDdNR6LBGSv ICAgICAgICAgICAgICAgICAgICAgICAgICAgICAgICAgICAgICAgICAgICAgICAgICAgICAgICAgICAg ICAgICAgICAgICAgICAgICAgICAgICAgICAgICAgIC JoDUIrAL0VEVYlCMNeWTLjUHXkPDEyTSAzJBVyWNJmRMNkTLMsVEWzMVGfQEKqWJHwMLOxYKNhMDFbOP JpQZKxCYVcIMXuFAStPSGcEHPiGBBmZHDlQXOjOHGnUCPqYEWrBTGxMITnHJUqJQ9YHANgSHOlHWFmPG AgICAgICAgICAgICAgICAgICAgICAgICAgICAgICAg OFMyEYUsHLRtJWByGAVkIFCvPDQrQNOqPBHtLDMhRJAfABPlFURzQYZtJCFnQHZnASQjPCNpKESwMN5H ICAgICAgICAgICAgICAgICAgICAgICAgICAgICAgICAgICAgICAgICAgICAgICAgICAgICAgICAgICAg ICAgICAgICAgICAgICAgICAgICAgICAgICAgICAgIC ZuAWOwAQDlUZ8NEH65vGJaf8H5UOCyCU5bito/Vn4IOParvbUroTUsUV1OEwZxHO5ktf5SXvDrNL1cfe 9GIRmPByRxH8I4lYVaPSDeTXFDQmOmX13rPThlAi79NZgtQSHoGuFcHDp5Az3EGoUnX8qhUTOaGwR9SV XyEpP5HPWoYtJ7MJMuMpRlTLKhLXLgKNOfOQRREFS1 WAQvHuBoBpTfSYUtJM5WCZLuD441atGmMb5NRv9UGeLbGX0aen9NIdueOLAdZadZDyk9OMsrKM5AkXEb aAUtYVNyVJKIEnTqL3jon2ItUqmbXXIFCSdhUM2Nc5CzbZWhKZd+Jm9IUF0sw1HqPTlsGIBpWI3rsd8L PAxKFaHcE8TtpCmbSFHbypB7nPAuQFR2BICcqmeytJ vwZOPGoVXbWD9VMEG9MRnmSStjCwTcLSMhDXz9QkQTHTxLDcPnB0Aby3BmCvV6GAVhHuKmQZgaUXUeMi S8GT33nWmqPZ9GHYPaWLAiJU16NQG3EZHxRp8LGb3JWyCuWF0unh1PEbysUQBgFjnDHew8ZLklQX5NkH JrA8SvzRKao5jGKtIxH6ADXMS1JWJaUs8JLMQeIzHo IAPqXOxhGX2yWYPjTYHDjMmghuR2GM1EKB4lsjTrZO1OUbSoVf6qEj1PCwTrK2NtJ8FpMVItTGEOAUoj RP3MFYvjYI9bJJ7Ec0SXkEZioE6wpn8QEFHuGYTeXmjofa9IZkgrH4F3pVciMXOiAnwuJEPBNUmbMR3J JSQvBYS3COYrFyQmVKCVTxTdQ28rWF9RI8Aqv83aCo X9NOBrZmEmBPlvSY34qEjzgtMmuNJllDsrXO0JCi5+DQplbmRvYmoNCnhyZWYNCjAgNDANCjAwMDAwMD TwNQJyIiW0VcWbOo5TMTLtCCKyRWMeEzJhUVEkLHUoYPbsVORqVNY2VRM1NYWxWYWlLR7PKkRjNNPpMY F8HaBuIUVwLUCloo5HMHUpPECfLDI8NgEdXQKxMKEi KZevTUBlKEY7ERAvAQWtMMVhIG2LEoLkGJGnPMFiENobJDTeWBDcxg8TKUWmYNEoTbj2TePxIUSkPBNz ZTxhXCAgHFC7BKuaPIDhVRGoMX8XCuLnLHUdDSc2WJQjKBLcLUEybf9QSUCvEIJtGVb1DoYcKKNwOXGk WAecOPBkDOArOUA5VCKwJWTqRK5GSxKdKITkTPTjYt JlYQKmTKHxdi9MHVTsNFQrCSX0XaUgQFIjMSImYVgyOERjKVC7WfBgSPVqUHRcNO7FOzPvXJYjQbK0MA xjIXNoJVZdky7RGEEtJSXxXZz2GGToCTNcPKOnEUmuXCUrSEOhGWJ2XXJxGBLySE9NBsPrMYMhOfQ4Ix EbSDRfGRTznu6VORKhCEExGPKvDTYyKXCnOOCsDJub YUJqGOR9NFLxEGCtMCOnYH2OJlApATBvJtVuIURmLGNcMASqdx3KCICbCFIgTAv6RuEvMOAuEXYfIFkf ZFOlHQQ7CBE8QMDhNQUlHM4LFrXdCVAoJpJcHGEpUQNuESAwln1OMMWeWPEzYsPjIdLhHJCqRKAuVAjj FEZgZYP7JMZcKVRnIEVoMA9PQlCvTOEkVjs5JTDoOQ NwLOWvru2LHYPdSBS9NoHzOSJuKQTmZIYrYIbvGTZgLVTmGIQ8ATFyJZCnIM0ODfGqQODkWUAqZEDqSG XiSDJrak4IMMPvADZ9DoLnPcLnCYObWEDzHAzlOWKyUWNyIszcFFNzDKSyBE0FLzCtEYDoQGL4ZvEvNO LxXHAspa6SAOEbMIE3SMjkXGJqNKNfCWKhGBjiLEFn KGO7NOnhJAWjCLInXZ2CIlMhOJKlJPU1FrTxIJTwROOpsg3XUFKiPFU5NbYaRdQaWRLcFSKbRZecUAPs RQY3WXl4CAUiOTAqCE3JMgQaTGQdPNogNANqSRUiBAKfks1YxSTgsRkeil5FTHfFAp3IcRaqAAKhEJho Cw7hmPSnNNTwADEXBn9WbsZcWGGeXHONCDrdWGBjKA b8LyDeGMZ7RaIxLGQcXUJjG9P0GKO7YDDdPDL8RSwbIaW7TKG4DbYoGcgiSKF6QUYtBwXoLzdrMCX7Ne QmOvy3YEX+CH1zEOu+Xo0He8VzoxY9lzDvQDj3XtW0OB2TUCMSE6TKWv== ID Date Data Source [id number] 01/12/2021 04:20:12 PM EDT [facility] Name Value Range Interpretation Code Description Data Elissa rce(s) Supporting Document(s) Consultation 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/x98wCb0SxOtlI2wYRh+qSXIZfO5BmGVbOYDItq2JU+ItqqSQst4dk1EZxDO/UdiOfLWb3Qwqqh+I [file] ICAgICAgICAgICAgICAgICAgICAgICAgICAgICAgICAgICAgICAgICAgICAgICAgICAgICAgICAgICAg JCEgHUWhIP3AETYsYWIoOJAtNPSiLBEmOREjFBAcIE AgICAgICAgICAgICAgICAgICAgICAgICAgICAgICAgICAgICAgICAgICAgICAgICAgICAgICAgICAgIC HvTTPkESMtBZEjKZCdBJNuSA9QSAOeORZfXQCmRWAeIDGgTPUoQPYhTCHrGPGaFLBhQZQhJSMxPZDeET AgICAgICAgICAgICAgICAgICAgICAgICAgICAgICAg CVGdTKJtHQWdVVJkESMyNBBnOSPjOAOeQOBhHY3VLLHrLSRcWPNeOYRtEMPfPRBkZDSmTLAoPEAhLSGu ICAgICAgICAgICAgICAgICAgICAgICAgICAgICAgICAgICAgICAgICAgICAgICAgICAgICAgICAgICAg FSFxCSNjCFLeBL3HVRHgUAArWSAqRYHcGJLdLIHgYA AgICAgICAgICAgICAgICAgICAgICAgICAgICAgICAgICAgICAgICAgICAgICAgICAgICAgICAgICAgIC XdCXEpUPYjFLKoJPRqVNPvNSJjMA3BIFMlRBCvZWTiJROqHRZzCQDcGXPkVBOtCPKtBQRjCKBrQOPyWP AgICAgICAgICAgICAgICAgICAgICAgICAgICAgICAg OWIcSNCbHODdNQSmJCZjSFUsIUZoBGXeZDBsQHLqCE2EOPWuQMAhLMLmFQIcAJGdXUTjOATnUMFjRRYv ICAgICAgICAgICAgICAgICAgICAgICAgICAgICAgICAgICAgICAgICAgICAgICAgICAgICAgICAgICAg NNSvXVJxZSFgVJBfHD8FMLPkNLMeDQMvYEVcEESdRZ AgICAgICAgICAgICAgICAgICAgICAgICAgICAgICAgICAgICAgICAgICAgICAgICAgICAgICAgICAgIC BhFLKeILTyMHFiNUUcTBShRAYdSDKkHZ2HDYVzWCBfEVFrALIbTUFjRREpSBOcCLJnOZMjVVKxWBPbGL AgICAgICAgICAgICAgICAgICAgICAgICAgICAgICAg BTQcGWLzHYNnBHVlBDRbGSSaQTMvZBPhFNYsAKXxRPIjHA9YYKKpITYuQUDqJWMnZRGvCXFjDKIyVLLe ICAgICAgICAgICAgICAgICAgICAgICAgICAgICAgICAgICAgICAgICAgICAgICAgICAgICAgICAgICAg TWVbEEHtKQLqAJLfMEFlBG1URH55vONxw5B5ABJeFF 0ndyc/Wo3CUTmhgfYmvXAbRB9YHjMaTO2ctr8QMkDlES5oue4VYAnRBmAaK1I7wMAxYPWlRFJAMrHhS6 1kISxkZt92FKecSJVwCqIcLUd5Ue1VBeUqL3rfRKLfBbG5WVZgCpE9OVXdKqL8MQIpIdTdLGSmTTBhNS CgFPNKUP5SZhWkS0VviG71ZFXVRa7+DQplbmRvYmoN PlZ7BZUwo1NlNHn9XP1ZSZHaUtxvq9GkAemtCGNYPWmsFY9LLGO5VCA6HBSqSw3ONEEjX206izDhBI5U Fc0DUkTyBC2giz3OBjgmDVMzVajPRwd8SQvyLC6XlUBjOYaOl72euGl4dpIlbQSIJFNylYQISLJ8FBOn wXVaYRaBH3fyRELnTJ5gYH0yXXMzBXJ3MhSiTYQGPR 6XAXPfRNTumTMlBEHyVQFKTF8NOSecBNM2EWFrbyYfsMFuPYtxXY0YOVNmalHzCdunHZOUBWs+Pg0KZW 8qf5MbODicHBCmLO8aiz4BNKvGPrDgB1N8wFZbP4L4OWslYr0ZGFXyCIPqEuHiIKDXWSevVX0WYZ5puk N1BE0ZxFWaKUTqHWXgaGRoHRu6Z04mnEOaAAztHF3T ICA+Dequan+Ss7GITIzZIZdSKFlCzDeQSDHQsXxK8LpL4LGy7EmM5EqYJ54kGqwqmMlEXhfPW1QME1yOGPf RYOOAY6IvLHwiK4jlmVfGhZsDEEWIvWmB60gvQLjZQNpDOJ6BWYfNl6JUNJiW1SsbcUdmShponZtSUMh PRSPHH7MKKfreuLtwYAdxYpqKZ30tQgtHQ9IZb6LIr LjHT2dvh4YpLCyUs1YQRPyCS9TGTLvFGBmUKLnHGQ3DYNvTcTaLVzeQHKxHQYgERY4KFRoYFCoEQ6TEp OyUWKbTgDcDqCbWHTlTVXfrf2WKVNzOQZbPNj3XXVpRKIuSRZoEIlvODAyJMHjHLZ1UVNjKZYnJU9KCn JoCQGcAIQ4VWNoEVQeDAIotu7ENCZlKJSrNum4BPLe KKYfQNXkPSuyAZLwLRJ2SJL9GAQtBCXuKK4VTbDtWUHtOOxpKOZhFMNfVUQrss6MXBEbUDSnEQB3HGIy PYPbKQAzMSqhNLMzTCHyLAJ8XHXuTDOgYR1XRpBdSUCtNNQ7BHVtJDFaCWVafp1UZDHdJAYcLDXgMyGw IZEyARCeKNfnXUKfUXZ4WYBlRVPjLPFuMT0AUgOrIG IvIJEhPnvuBCEeEEYhno0GJYRxIXHrWaAbQDZnHHGkEOZqMVubYTTyXPQ4QMO2NCRsQVRnYM3XLcWtVE ApZAV7NUzeYEAnBXTfbg5VLCQsLBUqTsF9OeVkDPPeXBUeIBssVQBqWZR0YvT1LBKzUWGiAJ2NKiRiRQ GqIXg1VUwzGGJgWAHwsj4NWAKvBAKwRQU7ZwLuFUCl SHPoHPciHJIjBIW3FiUwQREnNGSyAO2ZPdSfNLZdAvw2XouhKXVySUIcyk6OMOQwZUJxEDSyVOHzOYZd YABjYZwpCECsRNQmKqT5MRQwNZTtEK8KDzVoRSKqWpT1XTDbQSPaAVWwab5NMNGfFOGnDoXlFZKfAFUb WUGoSRsgMZZqXZKmAGwdXZEmSRNiSZ8QRnGxHSAvMd AyTqNwANAyAFFxdy6DiTItwXhuye7UWRuHDk6TlBtjKDMiHWqzZl4pzKAtDTArASQSOo6WarUxXFIbDJ WZFNsvYHRqANLmOEYvHMTrQWy2YTR1SQL6FFeyYqi2Esl7REShZWJiIgV2NeIjRHO4VuHyKWBfIHq6JJ t5FQSwRPuaHPV7GyR0WNR+AC0rXXz+Qe6Ow3ZmunH7sdZgALjrMvF2PN6LMVEGI5KUFm== ID Date Data Source [id number] 01/12/2021 10:38:50 AM EDT [facility] Name Value Range Interpretation Code Description Data Elissa rce(s) Supporting Document(s) History and Physical [facility] DIUHCc8xCvSUQvQv20/KZVufJOKiz5UhOYslJYg9NKbsXRPhX6QbTQN5vL8pXQM7RUgUOvJnLzJpOQC4 lbm [file] 5sZ5aPHbM7ecINdviYCS3QW932JbL6ohYL97thATe2zw+vp emerging media+tDad87bWZszX3yGa/owgJFJVrs5ZsVxQ [file] A/4EGq7O+kuc2lLDL79W90ZRQz/TiID+CD+BA+Meredith+I P9dkhrY/TpXpY/gN/CY+ifgbLM3Ns2Ew1alg6/hIJg1A2UE4Vv/sebastián/C7+Bw+owpEzFB1Dp+gOvZF/B7V [file] CjWvIuZKegCGCyRZcaEMFvVtWpRI7CCr3PFjA2JRI1hXWxJg2AYscuMOSPSjOwHT5ZLYo= ID Date Data Source [id number] 01/12/2021 09:28:11 AM EDT [facility] CT MAXILLOFACIAL WITHOUT CONTRAST [id number] INAL RESULTInterpreted by:Erika Espinoza MD01/11/2021 7:[address] MAXILLOFACIAL WITHOUT CONTRAST [id number] CLINICAL INFORMATION: 30-year-old male presenting for initial evaluation of trauma following a fall. TECHNIQUE: 2.5mm and 0.625mm Multidetector axial slices of the maxillofacial region were obtained without intravenous contrast. Coronal and sagittal reconstructed images were obtained from the axial data. Automated dose lowering techniques and/or adjustment according to patient's size were utilized for this exam. Comparison: CTA head and neck dated 12/06/2012.FINDINGS: Streak artifact secondary to dental amalgam compromises optimal evaluation of the adjacent structures.The mandible and temporomandibular joints are intact. The [...] sinuses and mastoid air cells are well aerated.Left riley bullosa.Partial opacification of the left inferior mastoid cells.The globes are normal and symmetric, without proptosis, obvious disruption or lens dislocation. There is no orbital radiopaque foreign body. The orbital art are intact. Retrobulbar fat is normal, without hematoma. Extraocular muscles are normal and symmetric. Optic nerve sheath complexes are normal in course and caliber. IMPRESSION:1. No displaced fracture identified on this study.2. Mucous retention cysts in the bilateral maxillary sinuses along with mild mucosal thickening. Hypoplastic right maxillary sinus with mild sclerosis of the sinus art, compatible with a history of chronic sinusitis. 3. Patient is partially edentulous. Multiple bilateral dental caries.This document has been electronically signed by Jam Gifford MD on 01/12/2021 9:25 AM Name Value Range Interpretation Code Description Data Elissa rce(s) Supporting Document(s) ID Date Data Source [id number] 01/12/2021 08:03:00 AM [facility] Name Value Range Interpretation Code Description Data Elissa rce(s) Supporting Document(s) [facility] VOMHFp5oNuBNPaXfq6DqPoOsBSZsES7xdpq1O2I1bIMpS4QrtMZpt0ozG7ZhG1SpKLCvKGANOW7GuMYi jb2 [file] VPRg== ID Date Data Source [id number] 01/11/2021 08:36:39 PM EDT [facility] CT CERVICAL SPINE WITHOUT CONTRAST [id number] FINAL RESULTInterpreted by:Vielka Ma MDEXAMINATION: CT CERVICAL SPINE WITHOUT CONTRAST [id number] INDICATION: Evaluation of fall and neck painTECHNIQUE: Axial CT images of the cervical spine were obtained without intravenous contrast administration. Reformatted images in coronal and sagittal planes were then acquired using the axial source data. Automated dose lowering techniques and/or adjustment according to patient size were utilized for this exam.COMPARISON: CTA head and neck 12/06/2012.FINDINGS: No acute fracture or traumatic listhesis is identified. The vertebral body preserve date height and normal in density. Mild degenerative disc disease is seen at C5-C6 level. Otherwise the disc spaces are within normal limits.. IMPRESSION: No acute fracture or traumatic listhesis is identified.This document has been electronically signed by Jasmin Gold MD on 01/11/2021 8:34 PM Name Value Range Interpretation Code Description Data Elissa rce(s) Supporting Document(s) ID Date Data Source [id number] 01/11/2021 08:33:19 PM EDT [facility] CT HEAD WITHOUT CONTRAST [id number] RESU LTInterpreted by:Vielka Ma MDCLINICAL INDICATION: Evaluation of fall.TECHNIQUE: Contiguous axial CT images of the head were acquired from the base of the skull to the vertex without intravenous contrast administration. Images were viewed in brain, subdural and bone windows. Automated dose lowering techniques and/or adjustment according to patient size were utilized for this exam.COMPARISON: CTA head and neck 12/06/2012.FINDINGS: There is no evidence of acute intracranial hemorrhage or calvarial fracture.The ventricles are normal in size and configuration. The basal cisterns and foramen magnum are patent. There are no abnormal extra-axial fluid collections. There is no evidence of mass effect or midline shift. Mucous retention cysts are identified in the bilateral maxillary sinus. There is mild mucosal thickening of the right maxillary sinus. The left mastoid air cells are partially opacified. The scalp is unremarkable.IMPRESSION: No acute intracranial hemorrhage or calvarial fracture.This document has been electronically signed by Jasmin Gold MD on 01/11/2021 8:31 PM Name Value Range Interpretation Code Description Data Elissa rce(s) Supporting Document(s) ID Date Data Source [id number] 01/12/2021 12:59:42 AM [facility] Name Value Range Interpretation Code Description Data [facility] rce(s) Supporting Document(s) Amphetamine [Presence] in Urine by Screen method Negative [facility] Benzodiazepines [Presence] in Urine by Screen method Negat [facility] Cannabinoids [Presence] in Urine by Screen method Negative [facility] (NOTE)Positive results are presumptive a nd unconfirmed;confirmatorytesting can be ordered at the [facility] at [phone] [facility] at [phone] within 5 days of collection. Benzoylecgonine [Presence] in Urine by Screen method Negat [facility] Methadone [Presence] in Urine by Screen method Negative [facility] Opiates [Presence] in Urine by Screen method Negative [facility] Oxycodone [Presence] in Urine by Screen method Negative [facility] Fentanyl+Norfentanyl [Presence] in Urine by Screen method Negative [facility] Service comment [facility] Results below the indicated cutoff (ng/m L), are reported as"Negative." Note: for medical purposes only; not valid for legalor employment testing. ID Date Data Source [id number] 01/11/2021 09:04:29 PM EDT [facility] Name Value Range Interpretation Code Description Data Elissa rce(s) Supporting Document(s) Leukocytes [#/volume] in Blood by Automated count 6.2 10*3/uL 4-10 [facility] Erythrocytes [#/volume] in Blood by Automated count 5.51 10*6/uL 4.6- 6.1 [facility] Hemoglobin [Mass/volume] in Blood 16.9 g/dL 13.5-18 [facility] Hematocrit [Volume Fraction] of Blood by Automated count 48.9 % 4 1-53 [facility] Erythrocyte mean corpuscular volume [Entitic volume] by Auto mated count 88.9 fL 80-96 [facility] Erythrocyte mean corpuscular hemoglobin [Entitic mass] by Automated count 30.7 pg 27-33 [facility] Erythrocyte mean corpuscular hemoglobin concentration [Mass/volume] by Automated count 34.5 g/dL 32.0-36.0 [facility] distribution width [Ratio] by Automated count 14.9 % 11.5-14.5 H [facility] Platelets [#/volume] in Blood by Automated count 189 10*3/uL 150-400 [facility] Differential cell count method - Blood [facility] Neutrophils/100 leukocytes in Blood by Automated count 67 % [facility] Lymphocytes/100 leukocytes in Blood by Automated count 23 % [facility] Monocytes/100 leukocytes in Blood by Automated count 7 % [facility] Eosinophils/100 leukocytes in Blood by Automated count 2 % [facility] Basophils/100 leukocytes in Blood by Automated count 1 % [facility] Neutrophils [#/volume] in Blood by Automated count 4.18 10*3/uL 1.8-7 .0 [facility] Lymphocytes [#/volume] in Blood by Automated count 1.41 10*3/uL 1.2-4 .0 [facility] Monocytes [#/volume] in Blood by Automated count 0.45 10*3/uL 0-0.8 [facility] Eosinophils [#/volume] in Blood by Automated count 0.13 10*3/uL 0-0.5 [facility] Basophils [#/volume] in Blood by Automated count 0.05 10*3/uL 0-0.2 [facility] Nucleated erythrocytes/100 leukocytes [Ratio] in Blood by Automated count 0 /100{WBCs} 0-0 [facility] ID Date Data Source [id number] 01/11/2021 09:29:11 PM EDT [facility] Name Value Range Interpretation Code Description Data Elissa rce(s) Supporting Document(s) Albumin [Mass/volume] in Serum or Plasma by Bromocresol green (BCG) dye binding method 4.5 g/dL 3.5-5.2 [facility] Bilirubin.total [Mass/volume] in Serum or Plasma 1.1 mg/dL <1.2 [facility] Calcium [Mass/volume] in Serum or Plasma 9.7 mg/dL 8.6-10.0 [facility] Chloride [Moles/volume] in Serum or Plasma 97 mmol/L 98-107 L [facility] Creatinine [Mass/volume] in Serum or Plasma 0.91 mg/dL 0.70-1.20 [facility] Glucose [Mass/volume] in Serum or Plasma 114 mg/dL 70-140 [facility] Alkaline phosphatase [Enzymatic activity/volume] in Serum or Plasma 54 U/L 40-129 [facility] Potassium [Moles/volume] in Serum or Plasma 3.6 mmol/L 3.4-5.1 [facility] Protein [Mass/volume] in Serum or Plasma 6.8 g/dL 6.4-8.3 [facility] Sodium [Moles/volume] in Serum or Plasma 134 mmol/L 136-145 L [facility] Aspartate aminotransferase [Enzymatic activity/volume] in Serum or Plasma 15 U/L <40 [facility] Urea nitrogen [Mass/volume] in Serum or Plasma 10 mg/dL 6-20 [facility] Osmolality of Serum or Plasma by calculation 277 mosm/kg 275-300 [facility] Creatinine/Urea nitrogen [Mass Ratio] in Serum or Plasma 11 [facility] Bicarbonate [Moles/volume] in Serum 23 mmol/L 22-29 [facility] Alanine aminotransferase [Enzymatic activity/volume] in Seru m or Plasma 9 U/L <41 [facility] Anion gap 3 in Serum or Plasma 14 mmol/L 8-15 [facility] Glomerular filtration rate/1.73 sq M pre dicted among non-blacks [Volume Rate/Area] in Serum or Plasma by Creatinine-based formula (MDRD) >6 0 [facility] Glomerular filtration rate/1.73 sq M pre dicted among blacks [Volume Rate/Area] in Serum or Plasma by Creatinine-based formula (MDRD) >60 [facility] ID Date Data Source [id number] 01/11/2021 10:00:35 PM EDT [facility] Name Value Range Interpretation Code Description Data Elissa rce(s) Supporting Document(s) Cholesterol [Mass/volume] in Serum or Plasma 156 mg/dL <200 [facility] Triglyceride [Mass/volume] in Serum or Plasma 70 mg/dL <150 [facility] Cholesterol in HDL [Mass/volume] in Serum or Plasma 59 mg/dL >40 [facility] Cholesterol in LDL [Mass/volume] in Serum or Plasma by calcu lation 83 mg/dL <100 [facility] Cholesterol in VLDL [Mass/volume] in Serum or Plasma by calc ulation 14 mg/dl 16-42 L [facility] Cholesterol non HDL [Mass/volume] in Serum or Plasma 97 mg/dL <130 [facility] ID Date Data Source [id number] 01/11/2021 09:27:56 PM EDT [facility] Name Value Range Interpretation Code Description Data Elissa rce(s) Supporting Document(s) Hemoglobin A1c/Hemoglobin.total in Blood by HPLC 5.1 % 4.0-6.0 [facility] (NOTE)<5.7% Average risk of diabetes (ADA)5.7-6.4% Increased risk of diabetes(ADA)>/= 6.5% Diagnostic for diabetes(ADA) Glucose mean value [Mass/volume] in Blood Estimated fr om glycated hemoglobin 101 mg/dL <126 [facility] ID Date Data Source [id number] 01/11/2021 03:24:00 AM EDT [facility] Name Value Range Interpretation Code Description Data Elissa rce(s) Supporting Document(s) SARS coronavirus 2 RNA [Presence] in Res piratory specimen by CHRISTA with probe detection NEGATIVE [facility] This lab was ordered by [facility] a nd reported by [facility]. ID Date Data Source [id number] 11/18/2020 07:29:00 AM EDT [facility] Name Value Range Interpretation Code Description Data Elissa rce(s) Supporting Document(s) SARS-CoV-2 RNA Resp Ql CHRISTA+probe NOT DETECTED [facility] This lab was ordered by PAULINA knox and reported by [facility]UL[facility] Pritchett. ID Date Data Source [id number] 10/19/2020 10:26:00 AM EDT [facility] [address] [place] [address] PHONE: [phone] FAX: [phone] Name .................. : HOWARD TORRES Acct Number.................. : [id number] ROOM. ................. : VT- Number ................... : [id number] Stay type ............. : E/R Discharge Date......... ... : 10/18/20 Admit Date ......... : 10/18/20 Admit Phys .................... : SURENDRA MARTINES Date of ....... : 1990 Family Phys ................... : NO PCP Phone .................. : [phone] Age ................................ : 30 Film# .................. .:[id number] Sex ................................. : M Unsigned transcriptions are preliminary reports and do not represent a medical or legal document CT ABD & PELVIS W/ IV ONLY [id number] COMPLETE:10/18/20 22:18 RLB [id number] Reason(s): 7-8 R sided abd pain with nausea/diarrhea, [address] OF THE ABDOMEN AND PELVIS WITH CONTRAST: INDICATION: 7-8 right-sided abdominal pain with nausea, vomiting, diarrhea and 30 pound weight loss. FINDINGS: The chest base is clear. There is normal contrast-enhanced CT appearance of the liver, spleen, pancreas, adrenal glands and right kidney. The left kidney contains a 1 cm simple cyst. No gallbladder wall thickening or biliary duct dilatation. The visualized bowel is normal in caliber. The appendix is normal. No bowel wall thickening. The bladder and pelvic organs appear normal. No acute osseous abnormality. No lymphadenopathy. IMPRESSION: No acute intra-abdominal process. While performing the above CT examination, radiation dose reduction was accomplished utilizing automated exposure control, adjusting of the mA and kV based on the patient's body size and/or the use of imperative reconstructive techniques. CT dose: 636.0 mGycm Contrast agent in mL: 75 Isovue 370 Method of administration: Intravenous Page 1 of 2 [place] [address] PHONE: [phone] FAX: [phone] Name .................. : HOWARD TORRES Acct Number.................. : [id number] ROOM. ................. : VT-01 MR Number ................... : [id number] Stay type ............. : E/R Discharge Date......... ... : 10/18/20 Admit Date ......... : 10/18/20 Admit Phys .................... : SURENDRA MARTINES Date of ....... : 1990 Family Phys ................... : NO PCP Phone .................. : [phone] Age ................................ : 30 Film# .................. .:[id number] Sex ................................. : M Unsigned transcriptions are preliminary reports and do not represent a medical or legal document CT ABD & PELVIS W/ IV ONLY [id number] COMPLETE:10/18/20 22:18 RLB [id number] Reason(s): 7-8 R sided abd pain with nausea/diarrhea, 30 lb wt loss Electronically Reviewed and Signed By Liban De La Cruz M.D. , 10/19/20 10:26, [place] Transcribe Initials: REGINO , Transcribe Date: 10/19/20 00:59, Dictation Date: Copy for: JARROD Mandel via fax Copy for: EMERGENCY DEPT via modem Copy for: 710 MED REC DISCHARGED Page 2 of 2 Name Value Range Interpretation Code Description Data Elissa rce(s) Supporting Document(s) ID Date Data Source [id number] 10/18/2020 08:22:00 PM EDT [facility] 1 OrderSheet [facility] Emergency Department [address] [place] [address] Phone #: ext- [phone] 10/18/2020 20:17 Patient: BRIAN LAWRENCE Sex: M : 1990 Age: 30yWEIGHT:79.3 kg (S) HEIGHT:73 inches (S) BMI:23.1ALLERGIES: Codeine Sulfate, PenicillinsCHIEF COMPLAINT: abdominal pain, diarrhea, nauseaDIAGNOSIS: Abdominal painLAB ORDERSOrder Description Priority Entered Acknowledged InitialedCB w Diff STAT 21:00 09/26 21:15 Nilo Barakat; Pauline AponteCMP STAT 21:00 10/18/2020 21:15 Nilo Barakat; Pauline AponteGI 4 Panel 21:00 10/18/2020 21:59 Nilo Barakat; Pauline AponteLipase STAT 21:00 10/18/2020 21:15 Nilo Barakat; Pauline AponteUrinalysis (Clean STAT 21:00 10/18/2020 21:00 Yuval,Catch) Nilo GUZMAN; Pauline AponteTSH STAT 21:00 10/18/2020 21:15 Nilo Barakat; Pauline AponteChlamydia/GC STAT 21:00 10/18/2020 21:00 Nilo Barakat; Pauline AponteHerpes I STAT 21:16 10/18/2020 21:28 Nilo Barakat; Pauline AponteHIV Panel STAT 21:16 10/18/2020 21:28 Nilo Barakat; Pauline AponteSyphilis 21:16 10/18/2020 21:28 Nilo Barakat; Pauline AponteOccult Blood Stool 21:16 10/18/2020 21:28 Yuval,Diagnostic 1 slide Nilo GUZMAN; Pauline AponteDIAGNOSTIC STUDY ORDERSOrder Description Priority Entered Acknowledged InitialedCT Abd PEL W/ IV STAT 21:00 10/18/2020 21:15 Yuval,Contrast Only Nilo GUZMAN; Pauline Aponte(Oxygen?(No))(IV?(Yes)) Reason for Study: 7-8 R sided abd pain with nausea/diarrhea, 30 lb wt loss 2 OrderSheet [facility] Emergency Department [address] [place] [address] Phone #: ext- [phone] 10/18/2020 20:17 Patient: BRIAN LAWRENCE Sex: M : 1990 Age: 30yMEDICATION/IV/DRIP/FLUID ORDERSOrder Description Priority Entered Acknowledged InitialedNS IV : Bolus 1000 21:00 10/18/2020 21:29 Marjan Barakat, then 100 mL/hr Nilo GUZMAN; Pauline Aponte(NOW x1)GENERAL ORDERSOrder Description Priority Entered Acknowledged InitialedNPO 21:00 10/18/2020 21:00 Nilo Barakat; Pauline Aponte[Electronically signed by Nilo Thomason (22:02 10/18/2020)][Electronically signed by Pauline Barakat R.N. (:10/18/2020)][Electronically locked by Pauline Barakat R.N. (:10/18/2020)] Name Value Range Interpretation Code Description Data Elissa rce(s) Supporting Document(s) ID Date Data Source [id number] 10/18/2020 08:22:00 PM EDT [facility] 1 Medication Reconciliation Report [facility] Emergency Department [address] [place] [address] Phone #: ext- [phone] 10/18/2020 20:17 Patient: BRIAN LAWRENCE Sex: M : 1990 Age: 30yWeight: 79.3 kgHeight/Length: 73 in.BMI: 23.1ALLERGIES: Codeine Sulfate, PenicillinsThe patient's Home Medications are listed below:CONTINUE TAKING THE FOLLOWING MEDICATIONS: Ambien Oral 10 mg, daily, at bedtime KlonoPIN Oral 0.5 mg, 3x a day, prn Prazosin HCl Oral 2 mg, daily Pristiq Oral (50 mg) 1 tablet, daily RisperDAL Oral 2 mg, dailyThe source(s) of the original Home Medication information:patientThe following Medications were given to the patient in the Emergency Department:NS [IV] IV Fluids bolus 1000 mL over 1 hour(s), administered: 21:29 10/18/2020The following Medications were prescribed to the patient:None. Name Value Range Interpretation Code Description Data Elissa rce(s) Supporting Document(s) ID Date Data Source [id number] 10/18/2020 08:22:00 PM EDT [facility] 1 Medication Administration Record [facility] Emergency Department [address] [place] [address] Phone #: ext- [phone] 10/18/2020 20:17 Patient: BRIAN LAWRENCE Sex: M : 1990 Age: 30yWeight: 79.3 kgHeight/Length: 73 inBMI: 23.1ALLERGIES: Codeine Sulfate, Penicillins Date/Time Medication Administered Medication OrderedStart NS [IV] NS IV : Bolus 1000 mL, then 42991:29 10/18/2020 Dose: IV Fluids mL/hr (NOW x1)Pauline Barakat R.N. Bolus: 1000 mL over 1 hour(s)---- Dispensed: 1000 mL bagStop Site: #1 right AC22:04 10/18/2020Pauline Barakat R.N. Name Value Range Interpretation Code Description Data Elissa rce(s) Supporting Document(s) ID Date Data Source [id number] 10/18/2020 08:22:00 PM EDT [facility] 1 General Instructions [facility] Emergency Department [address] [place] [address] Phone #: ext- [phone] 10/18/2020 20:17 Patient: BRIAN LAWRENCE Sex: M : 1990 Age: 30yAcute right lower quadrant abdominal pain of unknown cause. (With diarrhea and weight loss).INSTRUCTIONSNo strenuous activity until better.Drink plenty of fluids for the next 48 hours as needed. Avoid alcohol and NSAIDS. NSAIDS includeaspirin, ibuprofen (Advil) and naproxen (Aleve). Avoid fatty, fried/greasy, lactose-containing (such as milk,cheese and ice cream), salty and spicy foods until better. No sexual contact (Until test results.). Noalcohol. Do not smoke.Warnings: Further evaluation is necessary in order to conduct further tests and assess the possibility ofserious illness. It is very important to follow up with a healthcare provider.GENERAL WARNINGS: Return or contact your physician immediately if your condition worsens orchanges unexpectedly, if not improving as expected, or if other problems arise. SPECIFICALLY, return ifyou develop fever, vomiting, the inability to keep fluids down, blood in vomitus, blood in diarrhea, fainting orlightheadedness; or for continued pain in the abdomen.Your Current Medications: Your current home medications have been reviewed.CONTINUE TAKING THE FOLLOWING MEDICATIONS:Ambien Oral : 10 mg daily, at bedtime.KlonoPIN Oral : 0.5 mg 3x a day, prn.Prazosin HCl Oral : 2 mg daily.Pristiq Oral : Tablet Extended Release 24 Hour 50 mg, 1 tablet daily.RisperDAL Oral : 2 mg daily.Follow-up:Follow up with your healthcare provider in three days even if well. Call for the next available appointment.Reason for referral: evaluation and Recommend GE referral for further evaluation, colonoscopy, upperendoscopy. Summary of care provided to patient via paper.Understanding of the discharge instructions verbalized by patient. Expected course of illness, dischargeinstructions, activity level, diet, follow-up appointment and risks and benefits of treatment reviewed withpatient and understanding verbalized. Agrees to plan of care. ADDITIONAL INFORMATIONUnknown Causes of Abdominal Pain (Male) 2 General Instructions [facility] Emergency Department [address] [place] [address] Phone #: ext- [phone] 10/18/2020 20:17 Patient: BRIAN LAWRENCE Sex: M : 1990 Age: 30yBased on your visit today, the exact cause of your abdominal pain is not clear. Your exam and testsdon't suggest a dangerous cause at this time. However, the signs of a serious problem may takemore time to appear. Although your evaluation was reassuring today, sometimes early in the courseof many conditions, exam and lab tests can appear normal. Therefore, it is important for you to watchfor any new symptoms or worsening of your condition.It may not be obvious what caused your symptoms. Pay attention to things that do seem to makeyour symptoms worse or better and discuss this with your doctor when you follow up.The evaluation of abdominal pain in the emergency department may only require an exam by thedoctor or it may include blood, urine or imaging studies, depending on many factors. Sometimesexams and tests can identify a cause but in many cases, a clear cause is not found. Further testing atfollow up visits may help to suggest a clear diagnosis.Home care Rest as much as you can until your next exam. Try to avoid any medicines (unless otherwise directed by your doctor), foods, activities, or other factors that may have contributed to your symptoms. Try to eat foods that you know that you have tolerated well in the past. Certain diets may be recommended for some conditions that cause abdominal pain. However, since the cause of your symptoms may not be clear, discuss your diet more with your healthcare provider or specialist for further recommendations. If you have diarrhea, it may help to avoid dairy (lactose) for the time being. A low fat, low fiber diet can also help. Eating several small meals per day as opposed to 2 or 3 larger meals may help. Avoid dehydration. Make sure to drink plenty of water. Other options include broth, soup, gelatin, sports drinks, or other clear liquids. Watch closely for anything that may make your symptoms worse or better. Pay close attention to symptoms below that may mean your condition is getting worse.Follow-up careFollow up with your healthcare provider if your symptoms are not improving, or as advised. In somecases, you may need more testing.When to seek medical advice 3 General Instructions [facility] Emergency Department [address] [place] [address] Phone #: ext- [phone] 10/18/2020 20:17 Patient: BRIAN LAWRENCE Sex: M : 1990 Age: 30yCall your healthcare provider right away if any of these occur: Pain is becoming worse You are unable to take your medicines or can't keep water down due to excessive vomiting Swelling of the abdomen Fever of 100.4F (38C) or higher, or as directed by your healthcare provider Blood in vomit or bowel movements (dark red or black color) Jaundice (yellow color of eyes and skin) New onset of weakness, dizziness or fainting New onset of chest, arm, back, neck or jaw pain [phone] [employer] [place] [address]. All rights reserved. This information is not intended as asubstitute for professional medical care. Always follow your healthcare professional's instructions.[place] DietYour healthcare provider may recommend a bland diet if you have an upset stomach. It consists offoods that are mild and easy to digest. It is better to eat small frequent meals rather than 3 largemeals a day.BeveragesOK: Fruit juices, non-caffeinated teas and coffee, non-carbonated carrillo 4 General Inst ructions [facility] Emergency Department [address] [place] [address] Phone #: ext- [phone] 10/18/2020 20:17 Patient: BRIAN LAWRENCE Sex: M : 1990 Age: 30yAvoid: Carbonated beverage, caffeinated tea and coffee, all alcoholic beveragesBreadOK: Refined white, wheat or rye bread, lavon or soda crackers, [place] toast, plain rolls, bagelsAvoid: Whole-grain breadCerealOK: Refined cereals: cooked or ready to eatAvoid: Whole-grain cereals and granola, or those containing bran, seeds or nutsDessertsOK: Peanut butter and all others except those to "avoid"Avoid: Chocolate, cocoa, coconut, popcorn, nuts, seeds, jam, marmaladeFruitsOK: Canned, cooked, frozen or fresh fruits without seeds or tough skinAvoid: Olives, skin and seeds of fruit, dried fruitMeatsOK: All fresh or preserved meat, fish and fowlAvoid: Any that are prepared with those spices to "avoid"Cheese and eggsOK: Eggs, cottage cheese, cream cheese, other cheesesAvoid: All cheeses made with those spices to "avoid"Potatoes and pastaOK: Potato, rice, macaroni, noodles, spaghettiAvoid: NoneSoupsOK: All soups without heavy seasoning 5 General Instructions [facility] Emergency Department [address] [place] [address] Phone #: ext- [phone] 10/18/2020 20:17 Patient: BRIAN LAWRENCE Sex: M : 1990 Age: 30yAvoid: Soups made with those spices to "avoid"VegetablesOK: Canned, cooked, fresh or frozen mildly flavored vegetables without seeds, skins or coarse fiberAvoid: Vegetables prepared with those spices to "avoid"; skin and seeds of vegetables and those withcoarse fiber, broccoli, cabbage, cauliflower, cucumber, green peppers, and cornSpicesOK: Salt, lemon and limejuice, vinegar, all extracts, moe, cinnamon, thyme, mace, allspice, paprikaAvoid: [place] powder, cloves, pepper, seed spices, garlic, gravy pickles, highly seasoned saladdressings [employer]. [address] [place] [address]. All rights reserved. This information is not intended as asubstitute for professional medical care. Always follow your healthcare professional's instructions.Clear Liquid DietClear liquids are any liquid that you can see through. They are also very easy to digest. You may beput on a clear liquid diet if you are recovering from irritation or infection of the stomach or digestivetract. This diet may also be used before surgery or special procedures such as a colonoscopy. Youshould not be on this diet for more than 3 days. Below are some clear liquids you can have on thisdiet.Adults and children over 2 years oldAdults should drink a total of 2 to 3 quarts of liquid per day. It may be easier to drink small frequentservings rather than a few large ones. Clear liquids can include: Clear fruit juices without pulp. Apple, white grape, and cranberry juice; clear fruit drinks. 6 General Instructions [facility] Emergency Department [address] [place] [address] Phone #: ext- [phone] 10/18/2020 20:17 Patient: BRIAN LAWRENCE Sex: M : 1990 Age: 30y Beverages. Sport drinks, sodas, mineral water (plain or flavored), tea, black coffee, liquid gelatin (add twice the recommended amount of water). Soups. Clear broth. Desserts. Plain gelatin, frozen fruit juice bars without pulp or fruit pieces.Children under 2 years oldOral rehydration fluids are available at drugstores and most grocery stores. You don't need aprescription. [employer]. [address] [place] [address]. All rights reserved. This information is not intended as asubstitute for professional medical care. Always follow your healthcare professional's instructions. You have been given the following additional information: Unknown Causes of Abdominal Pain (Male) Diet, [place] (Adult) Clear Liquid Diet No strenuous activity until better.(Electronically signed by MEGAN Barboza 10/18/2020 22:02) Name Value Range Interpretation Code Description Data Elissa rce(s) Supporting Document(s) ID Date Data Source [id number] 10/18/2020 08:22:00 PM EDT [facility] 1 Clinical Report - Nurses [facility] Emergency Department [address] [place] [address] Phone #: ext- [phone] 10/18/2020 20:17 Patient: BRIAN LAWRENCE Sex: M : 1990 Age: 30yTRIAGEArrived by private vehicle. Historian: patient.Triage time: 20:20 10/18/2020. Acuity: LEVEL 3.Chief Complaint: (Weight loss and rectal pressure).Alert. No acute distress.Onset. (3 weeks). ( The pt stated "I have lost 30 + pounds in the last 3 weeks. Every time he eats hefeels nauseous, then automatically has loose stools right after. He feels pressure in his rectum. Pt feelslike he is bruising easier than normal.).Treatment [employer] DES[employer]:Took Tylenol and ibuprofen. (Pepto, Ibuprofen last at 1600).SEPSIS SCREEN: SIRS SCREEN NEGATIVE. SEPSIS SCREEN NEGATIVE. No suspected or confirmedsigns of infection present. --20:29 10/18/20 Marsha Mackay, R.N.20:19 10/18/20. BP: 142/98. MAP: 112. HR: 91. RR: 16. O2 saturation: 100% on room air. Temp: 98.3 F(oral). Pain level now: 5/10. --20:29 10/18/20 Marsha Mackay, R.N.Weight: 79.3 kg stated. Height/Length: 73 inches Per Patient. BMI: 23.1. --20:19 10/18/20 Marsha Mackay R.N.MedicationsRisperDAL Oral 2 mg, daily. --20:30 10/18/20 Marsha Mackay R.N. KlonoPIN Oral 0.5 mg, 3x a day as needed. --20:30 10/18/20 Marsha Mackay R.N. Ambien Oral 10 mg, daily at bedtime. --20:30 10/18/20 Marsha Mackay R.N. Pristiq Oral (Tablet Extended Release 24 Hour 50 mg) 1 tablet, daily. --20:31 10/18/20 Marsha Mackay R.N. Prazosin HCl Oral 2 mg, daily. --20:31 10/18/20 Marsha Mackay R.N.AllergiesPenicillins. --20:32 10/18/20 Marsha Mackay R.N.Codeine Sulfate. --20:32 10/18/20 Marsha Mackay R.N.PROBLEMS:Bipolar Disorder.Depression.GI Disease. --20:32 10/18/20 Marsha Mackay R.N. 2 Clinical Report - Nurses [facility] Emergency Department [address] [place] [address] Phone #: ext- [phone] 10/18/2020 20:17 Patient: BRIAN LAWRENCE Sex: M : 1990 Age: 30y Medication/allergy information source: the patient. --20:29 10/18/20 Marsha Mackay R.N. ADDITIONAL SURGERIES: Adenoidectomy. Inguinal Hernia Repair. Tubes in ears. --20:32 10/18/20 Marsha Mackay R.N. History PAST MEDICAL HX: Immunizations: up-to-date. SOCIAL HX: Current every day heavy tobacco smoker (cigarette)- 1 pack per day. Occasional alcohol use. Weekly drug use: marijuana. He was offered HIV testing but declined. Patient education was provided. He was offered hepatitis C testing but declined. Patient education was provided. He has not traveled outside the [place] Infectious disease exposure: No infectious disease exposure. (COVID screen negative). Patient is not a known carrier of tuberculosis, hepatitis, HIV, MRSA or VRE. Patient is not a known carrier of CRE. SELF HARM ASSESSMENT: Self harm assessment was performed. The patient answered "no" to the question(s) "Do you have thoughts of harming or killing yourself?", "Do you have a plan for harming or killing yourself?" and "Have you recently had thoughts about harming or killing others?". ABUSE ASSESSMENT: Abuse assessment. The patient had positive responses to the question(s) "Do you feel safe in your home?" (yes). Abuse denied. No suspicion of abuse. No report of abuse. NUTRITIONAL RISK ASSESSMENT: The nutritional risk assessment revealed no deficiencies. FUNCTIONAL ASSESSMENT: Functional assessment: no impairments noted. LEARNING NEEDS ASSESSMENT: The learning needs assessment revealed no barriers. FALL RISK ASSESSMENT: Fall risk assessment completed. No risk factors identified. SKIN INTEGRITY ASSESSMENT: Skin integrity risk assessment completed. No skin integrity risk identified. --20:10/18/20 Marsha Mackay R.N. Interventions Identification band on patient. --20:10/18/20 Marsha Mackay R.N.PHYSICAL ASSESSMENTAmbulatory to room.GENERAL / NEURO / PSYCH: Alert. Oriented X 4. Appears in no acute distress.HEENT: Pupils equal, round and reactive to light. No facial asymmetry noted. Mucous membranes arepink.RESPIRATORY: Respirations not labored. Chest nontender. Breath sounds within normal limits.CVS: Capillary refill less than 2 seconds. Pulses within normal limits. 3 Clinical Report - Nurses [facility] Emergency Department [address] [place] [address] Phone #: ext- [phone] 10/18/2020 20:17 Patient: BRIAN LAWRENCE Sex: M : 1990 Age: 30y GI / : The patient has diarrhea. Abdominal tenderness in the lower abdomen. SKIN: Skin intact. Skin is warm and dry. Normal skin turgor. ( PT feels like he is bruising more than normal). --20:45 10/18/20 Pauline Barakat R.N.NURSING PROGRESS NOTESMonitoring of patient in place. Patient gowned. Reassurance given. Three patient identifiers checked.Call light placed in reach. Side rails up x 2. Bed placed in lowest position. Brakes of bed on. Patientready for evaluation- ED physician and PA notified. --20:33 10/18/20 Marsha Mackay R.N. Patient transported to CT by wheelchair with mask and tech. --21:15 10/18/20 Pauline Barakat R.N. 21:20 10/18/20. Patient returned from CT by wheelchair with mask and tech. --21:59 10/18/20 Pauline Barakat R.N. 21:10/18/2020 Site #1 started via IV in the right antecubital space with an 20g angiocath, with aseptic technique and good blood return; one attempt. Blood drawn: rainbow set and green tube(s). Saline lock flushed with 10 mL saline. --:10/18/20 Pauline Barakat R.N. 21:10/18/2020 Started bag #1 1000 mL IV Fluids NS; bolus of 1000 mL over 1 hour(s) then at via site #1 via IV pump. Allergies verified and confirmed 5 rights. IV patency established. IV site checked: no pain, redness, or swelling. IV flushed thoroughly pre- and post-medication administration. Information reviewed with patient including reason for taking this medication. Verbalizes understanding. --:10/18/20 Pauline Barakat R.N.DISPOSITION / DISCHARGE 22:10/18/2020 Site #1 removed upon discharge. Catheter intact. Manual pressure and bandage applied. --22:10/18/20 Pauline Barakat R.N. 22:10/18/2020 IV Fluids NS via IV site #1 Discontinued: bag #1 completed upon discharge. Total amount infused: 600 mL. IV patency established. IV site checked: no pain, redness, or swelling. IV flushed thoroughly. --22:04 10/18/20 Pauline Barakat R.N. Condition at departure: improved and stable. No learning barriers present. Discharge instructions provided and reviewed with the patient. Work note given. Patient verbalized understanding. Written instructions provided in Serbian. The patient was discharged by the physician pharmacy technician assistant. He was discharged home and accompanied by family. He left ambulatory and via private vehicle. Family member driving. --22:05 10/18/20 Pauline Barakat R.N. 22:03 10/18/20. BP: 113/67. MAP: 82. HR: 58. RR: 18. O2 saturation: 99%. Temp: 99.5 F. Pain level now: 08/04. --22:05 10/18/20 Pauline Barakat R.N. 4 Clinical Report - Nurses [facility] Emergency Department [address] [place] [address] Phone #: ext- [phone] 10/18/2020 20:17 [id number] Sex: [facility] : 1990 Age: 30yLock ed/Released at 10/18/2020 22:05 by Pauline Barakat R.N. Name Value Range Interpretation Code Description Data Elissa rce(s) Supporting Document(s) ID Date Data Source [id number] 10/18/2020 08:22:00 PM EDT [facility] 1 Clinical Report - Physicians/Mid Levels [facility] Emergency Department [address] [place] [address] Phone #: ext- [phone] 10/18/2020 20:17 Patient: BRIAN LAWRENCE Sex: M : 1990 Age: 30y Time Seen: 20:56 10/18/2020. Arrived- By private vehicle. Historian- patient. Disposition decision: 21:54 10/18/2020.HISTORY OF PRESENT ILLNESS Chief Complaint: ABDOMINAL PAIN and DIARRHEA and NAUSEA 30 lb wt loss. This started several weeks ago; Pt c/o a 30lb weight loss in 3 weeks and sharp, burning RLQ pain that radiates to the R flank. Pt reports diarrhea after meals and occasional nausea. Pt reports a "fullness and pressure" in his rectum. Pt reports no objects inserted into the rectum. Pt does report new sexual partner and is agreeable to STI testing. Pt reports hx of abdominal pain, but this feeling different than before. It is described as sharp, cramping and burning and it is described as located in the right abdomen and right lower quadrant and radiating to the right flank. The patient has had nausea and diarrhea. No loss of appetite or vomiting. Similar symptoms previously. None. Recent medical care: Not recently seen/assessed.REVIEW OF SYSTEMSNo constipation, black stools, hematemesis, difficulty with urination or pain with urination. No urinaryfrequency, bloody stools, fever, headache or sore throat. No blurred vision, chest pain, difficulty breathing,cough or joint pain. No skin rash, chills or back pain. The patient has had weight loss. Has not had poorappetite or nutritional intake.PAST HISTORYSee nurses notes. Problems: Abdominal Pain. Lupus. Bipolar Disorder. Depression. GI Disease. Colitis [RuleOut]. Additional Surgeries: Adenoidectomy. Inguinal Hernia Repair. Previous Abdominal Surgery. Tubes in ears. Medications: Prazosin HCl Oral 2 mg, daily. 2 Clinical Report - Physicians/Mid Levels [facility] Emergency Department [address] [place] [address] Phone #: ext- [phone] 10/18/2020 20:17 Patient: BRIAN LAWRENCE Sex: M : 1990 Age: 30y Pristiq Oral (Tablet Extended Release 24 Hour 50 mg) 1 tablet, daily. Ambien Oral 10 mg, daily at bedtime. KlonoPIN Oral 0.5 mg, 3x a day as needed. RisperDAL Oral 2 mg, daily. Allergies: Codeine Sulfate. Penicillins.SOCIAL HISTORYSmoker- current status unknown. Alcohol use. Drug use: marijuana. No recent travel.ADDITIONAL NOTESThe nursing notes have been reviewed with agreement regarding the chief complaint, HPI, ROS, PMH andpatient medications and allergies.PHYSICAL EXAMVital Signs: 10/18/2020 20:19 BP: 142/98. MAP: 112. HR: 91. RR: 16. O2 saturation: 100% on room air.Temp: 98.3 F. Pain level now: 5/10. Have been reviewed as abnormal and appear to be correct.Hypertensive. Mean arterial pressure- normal. Heart rate normal. Respiratory rate normal.Temperature normal. Oxygen saturation normal.Appearance: Alert. Oriented X3. No acute distress.Eyes: Pupils equal, round and reactive to light. Eyes normal inspection.ENT: Ears normal. Nose normal. Pharynx normal.Neck: Normal inspection. Neck supple.CVS: Normal heart rate and rhythm. Heart sounds normal. Pulses normal.Respiratory: No respiratory distress. Painless inspiration. Breath sounds normal. Chest nontender.Abdomen: Soft. Mild tenderness in the epigastric area, right side of the abdomen and right lowerquadrant with rebound tenderness present. No guarding or Garsia's, obturator or psoas sign present.Bowel sounds normal. No organomegaly. No mass.Back: Normal inspection. No CVA tenderness.Skin: Skin warm and dry. Normal skin color. No rash. Normal skin turgor.Extremities: Extremities exhibit normal ROM. No lower extremity edema.Neuro: Oriented X 3. No motor deficit. No sensory deficit. Reflexes normal.LABS, X-RAYS, AND EKGAbdominal CT: NAD. Study type: abdomen and pelvis. Abdominal CT performed with IV contrast. Thestudy was independently viewed by me and interpreted by the radiologist and contemporaneously by me.Interpretation time: 21:52 10/18/2020.Laboratory Tests: Laboratory tests have been ordered, with results reviewed and considered in themedical decision making process. Occult Blood Stool Diagnostic 1 slide: (JASON: 10/18/2020 21:15) ( MsgRcvd 10/18/2020 21:29) Final results Test Result Flag Units (Reference) OCCULT BLOOD NEGATIVE (NORMAL: NEGAT OCCULT BLOOD REENTER NEGATIVE (NORMAL: NEGAT 3 Clinical Report - Physicians/Mid Levels [facility] Emergency Department [address] [place] [address] Phone #: ext- [phone] 10/18/2020 20:17 Patient: BRIAN LAWRENCE Sex: M : 1990 Age: 30y { HEMOCCULT LOT # [id number] ){ LOT EXP [id number] ){ PROCEDURAL CONTROL POS/NEG VALID)CBC w Diff: (JASON: 10/18/2020 21:05) ( MsgRcvd 10/18/2020 21:32) Final results Test Result Flag Units (Reference) CBC W/AUTOMATED DIFF COMPLETE BLOOD COUNT WBC 6.6 10/uL (4.2 - 11.0) RBC 5.81 10/uL (4.50 - 6.30) HEMOGLOBIN 18.3 H g/dL (14.0 - 16.0) HEMATOCRIT 50.6 % (41.0 - 51.0) MCV 87.1 fL (80.0 - 94.0) MCH 31.5 pg (27.0 - 34.0) MCHC 36.2 H g/dL (31.0 - 36.0) RDW 13.2 % (11.5 - 14.8) PLATELETS 240 10/uL (150 - 450) MPV 9.2 fL (7.4 - 10.4) NEUT 55.4 % (37.0 - 80.0) LYMPH 34.8 % (25.0 - 40.0) MONO 6.8 % (3.0 - 8.0) EOS 1.8 % (0.0 - 7.0) BASO 0.9 % (0.0 - 2.0) %IG 0.3 H % (0.0 - 0.0) %NRBC 0.0 % (0.0 - 0.0) #NEUT 3.64 10/uL (2.00 - 6.90) #LYMPH 2.29 10/uL (0.60 - 3.40) #MONO 0.45 10/uL (0.00 - 0.90) #EOS 0.12 10/uL (0.00 - 0.70) #BASO 0.06 10/uL (0.00 - 0.20) #IG 0.02 10/uL (0.00 - 0.10) #NRBC 0.00 10/uL (0.00 - 0.00) MANUAL DIFF NOT INDICATED RBC MORPH NOT INDICATEDCMP: (JASON: 10/18/2020 21:05) ( MsgRcvd 10/18/2020 21:47) Final results Test Result Flag Units* * (Reference) COMPREHENSIVE METABOLIC PANEL COMPREHENSIVE METABOLIC PANEL SODIUM 139 mEq/L (134 - 153) POTASSIUM 3.8 mEq/L (3.6 - 5.0) CHLORIDE 102 mEq/L (98 - 107) CO2 26 MEQ/L (22 - 30) GLUCOSE 106 H MG/DL (70 - 99) BUN 10 MG/DL (7 - 21) CREATININE 1.0 MG/DL (0.7 - 1.5) BUN/CREAT 10 (8 - 27) TOTAL PROTEIN 7.5 G/DL (6.3 - 8.2) ALBUMIN 4.9 G/DL (3.9 - 5.0) GLOBULIN 2.6 GM/DL (2.4 - 3.2) A/G RATIO 1.9 (0.8 - 2.0) CALCIUM 10.1 MG/DL (8.4 - 10.2) TOTAL BILI 1.0 MG/DL (0.2 - 1.3) ALKALINE PHOS 53 U/L (38 - 126) SGOT/AST 17 U/L (5 - 40) SGPT/ALT 9 U/L (7 - 56) ANION GAP 11.0 mmol/L (8.0 - 16.0) 4 Clinical Report - Physicians/Mid Levels [facility] Emergency Department [address] [place] [address] Phone #: ext- [phone] 10/18/2020 20:17 Patient: BRIAN LAWRENCE Sex: M : 1990 Age: 30y AGE 30 yrs NON-AA GFR >60 mL/min AFR AMER GFR >60 mL/min Male GFR Interprentation 20-49 yrs >60 mL/min Normal 50-59 yrs >56 mL/min Normal 60-69 yrs >49 mL/min Normal 70-79yrs >42 mL/min Normal 80 and above >35 mL/min Normal Female GFR Interpretation 20-39 yrs >60 mL/min Normal 40-49 yrs >58 mL/min Normal 50-59 yrs >51 mL/min Normal 60-69 yrs >45 mL/min Normal 70-79 yrs >39 mL/min Normal 80 and above >32 mL/min Normal Lipase: (JASON: 10/18/2020 21:05) ( MsgRcvd 10/18/2020 21:47) Final results Test Result Flag Units (Reference) LIPASE 24 U/L (13 - 60) Urinalysis: (JASON: 10/18/2020 20:50) ( MsgRcvd 10/18/2020 21:30) Final results Test Result Flag Units (Reference) URINALYSIS URINALYSIS SOURCE Clean Catch COLOR yellow (NORMAL: Yello CLARITY clear (NORMAL: Clear SPEC GRAVITY 1.015 (1.001 - 1.030 pH 7 (5 - 9) GLUCOSE NORM (NORMAL: Negat BILIRUBIN 1 (NORMAL: Negat KETONE 15 A (NORMAL: Negat PROTEIN 30 (NORMAL: Negat NITRITE NEG (NORMAL: Negat BLOOD 50 A (NORMAL: Negat LEUK EST 25 (NORMAL: Negat UROBILINOGEN 4 (less than 1.0 MICROSCOPIC See Below WBC 1 - 3 (NORMAL: NONE RBC 1 - 3 (NORMAL: NONE EPITHELIAL FEW (NORMAL: NONE MUCOUS Trace (NORMAL: NONE.PROGRESS AND PROCEDURESCourse of Care: 21:51 10/18/20. W/u complete. CTAB unremarkable. Labs grossly normal. STD resultspending. Will d/c to home, recommend PCM f/u 3 days. Recommend referral to [facility] for further evaluation,upper endoscopy, colonoscopy, further eval. Advise return precautions. Disposition: Discharged home in good and improved condition. Condition: good and stable. Discharge decision based on the following: patient's condition is stable; patient is ambulatory; patient is active; patient's exam is stable; minimally abnormal test results; stable condition on repeat evaluation; social support is adequate; transportation is available; follow-up is available; clinical impression is consistent with outpatient treatment.CLINICAL IMPRESSION Acute right lower quadrant abdominal pain of unknown cause. (With diarrhea and weight loss). 5 Clinical Report - Physicians/Mid Levels [facility] Emergency Department [address] [place] [address] Phone #: ext- [phone] 10/18/2020 20:17 Patient: BRIAN LAWRENCE Sex: M : 1990 Age: 30yINSTRUCTIONS No strenuous activity until better. Drink plenty of fluids for the next 48 hours as needed. Avoid alcohol and NSAIDS. NSAIDS include aspirin, ibuprofen (Advil) and naproxen (Aleve). Avoid fatty, fried/greasy, lactose- containing (such as milk, cheese and ice cream), salty and spicy foods until better. No sexual contact (Until test results.). No alcohol. Do not smoke. Warnings: Further evaluation is necessary in order to conduct further tests and assess the possibility of serious illness. It is very important to follow up with a healthcare provider. GENERAL WARNINGS: Return or contact your physician immediately if your condition worsens or changes unexpectedly, if not improving as expected, or if other problems arise. SPECIFICALLY, return if you develop fever, vomiting, the inability to keep fluids down, blood in vomitus, blood in diarrhea, fainting or lightheadedness; or for continued pain in the abdomen. Your Current Medications: Your current home medications have been reviewed. CONTINUE TAKING THE FOLLOWING MEDICATIONS: Ambien Oral : 10 mg daily, at bedtime. KlonoPIN Oral : 0.5 mg 3x a day, prn. Prazosin HCl Oral : 2 mg daily. Pristiq Oral : Tablet Extended Release 24 Hour 50 mg, 1 tablet daily. RisperDAL Oral : 2 mg daily. Follow-up: Follow up with your healthcare provider in three days even if well. Call for the next available appointment. Reason for referral: evaluation and Recommend [facility] referral for further evaluation, colonoscopy, upper endoscopy. Summary of care provided to patient via paper. Understanding of the discharge instructions verbalized by patient. Expected course of illness, discharge instructions, activity level, diet, follow-up appointment and risks and benefits of treatment reviewed with patient and understanding verbalized. Agrees to plan of care.(Electronically signed by MEGAN Barboza 10/18/2020 22:02) Name Value Range Interpretation Code Description Data [facility] rce(s) Supporting Document(s) ID Date Data Source [id number] 10/21/2020 06:45:00 AM EDT [facility] Name Value Range Interpretation Code Description Data [facility] rce(s) Supporting Document(s) Campylobacter coli+jejuni+upsaliensis DN A [Presence] in Stool by Target amplification with non-probe based detection Not Detected Not Detected [facility] Clostridium difficile toxin A+B (tcdA+tc dB) genes [Presence] in Stool by Target amplification with non-probe based detection Not Detected Not Detected [facility] Plesiomonas shigelloides DNA [Presence] in Stool by Target amplification with non-probe based detection Not Detected Not Detected [facility] Salmonella enterica+bongori DNA [Presenc e] in Stool by Target amplification with non-probe based detection Not Detected Not Detected [facility] Vibrio cholerae+parahaemolyticus+vulnifi cus DNA [Presence] in Stool by Target amplification with non-probe based detection Not Detected Not Detected [facility] Vibrio cholerae DNA [Presence] in Stool by Target amplification with non-probe based detection Not Detected Not Detected [facility] Yersinia enterocolitica DNA [Presence] i n Stool by Target amplification with non-probe based detection Not Detected Not Detected [facility] Escherichia coli enteroaggregative Gretchen p lasmid aggR+aatA genes [Presence] in Stool by Target amplification with non-probe based detection Not Detected Not Detected [facility] Escherichia coli enteropathogenic eae ge ne [Presence] in Stool by Target amplification with non-probe based detection Not Detected Not Detected [facility] Escherichia coli enterotoxigenic ltA+st1 a+st1b genes [Presence] in Stool by Target amplification with non-probe based detection Not Detected Not Detected [facility] Escherichia coli shiga-like toxin 1+2 (s tx1+stx2) genes [Presence] in Stool by Target amplification with non-probe based detection Not Detected Not Detected [facility] Escherichia coli O157 DNA [Presence] in Stool by Target amplification with non- probe based detection Not Detected Not Detected [facility] Shigella species+EIEC invasion plasmid a ntigen H (ipaH) gene [Presence] in Stool by Target amplification with non-probe based detection Not Detected Not Detected [facility] Cryptosporidium sp DNA [Presence] in Sto ol by Target amplification with non- probe based detection Not Detected Not Detected [facility] Cyclospora cayetanensis DNA [Presence] i n Stool by Target amplification with non-probe based detection Not Detected Not Detected [facility] Entamoeba histolytica DNA [Presence] in Stool by Target amplification with non- probe based detection Not Detected Not Detected [facility] Giardia lamblia DNA [Presence] in Stool by Target amplification with non-probe based detection Not Detected Not Detected [facility] sp[facility] Adenovirus F(40+41) DNA [Presence] in St ool by Target amplification with non- probe based detection Not Detected Not Detected [facility] Astrovirus subtypes 1-8 RNA [Presence] i n Stool by Target amplification with non-probe based detection Not Detected Not Detected [facility] Norovirus genogroup I+II RNA [Presence] in Stool by Target amplification with non-probe based detection Not Detected Not Detected [facility] Rotavirus A RNA [Presence] in Stool by T arget amplification with non-probe based detection Not Detected [facility] Sap[facility] genogroups I+II+IV+V RNA [Pres ence] in Stool by Target amplification with non-probe based detection Not Detected Not Detected [facility] ID Date Data Source [id number] 10/21/2020 06:44:00 AM EDT [facility] Value Range Interpretation Code Description Data Elissa rce(s) Supporting Document(s) Herpes simplex virus 1+2 IgM Ab [Units/volume] in Seru m by Immunoassay <0.91 Ratio 0.00-0.90 [facility] Negative <0.91 Equivocal 0.91 - 1.09 Positive >1.09 ID Date Data Source [id number] 10/20/2020 01:34:00 PM EDT [facility] Value Range Interpretation Code Description Data Elissa rce(s) Supporting Document(s) HIV 1+2 Ab+HIV1 p24 Ag [Presence] in Serum or Plasma b y Immunoassay Non Reactive Non Reactive [facility] ID Date Data Source [id number] 10/18/2020 10:45:00 PM EDT [facility] Value Range Interpretation Code Description Data Elissa rce(s) Supporting Document(s) Treponema pallidum Ab [Presence] in Serum NON-REACTIVE NORMAL:NON BECCA CTIVE [facility] ID Date Data Source [id number] 10/18/2020 09:29:00 PM EDT [facility] Value Range Interpretation Code Description Data Elissa rce(s) Supporting Document(s) OCCULT BLOOD NEGATIVE NORMAL: NEGATIVE [facility] OCCULT BLOOD REENTER NEGATIVE NORMAL: NEGATIVE [facility] { HEMOCCULT LOT # [id number] ){ LOT EXP DATE 10-25-20 ){ PROCEDURAL CONTROL POS/NEG VALID ) ID Date Data Source [id number] 10/19/2020 12:18:00 AM EDT [facility] Value Range Interpretation Code Description Data Elissa rce(s) Supporting Document(s) Thyrotropin [Units/volume] in Serum or Plasma by Detec tion limit <= 0.05 mIU/L 0.48 uIU/mL 0.47 - 5.01 [facility] ID Date Data Source [id number] 10/18/2020 09:47:00 PM EDT [facility] Name Value Range Interpretation Code Description Data Elissa rce(s) Supporting Document(s) Lipase [Enzymatic activity/volume] in Serum or Plasma 24 U/L 13 - 60 [facility] ID Date Data Source [id number] 10/18/2020 09:47:00 PM EDT [facility] Name Value Range Interpretation Code Description Data Elissa rce(s) Supporting Document(s) COMPREHENSIVE METABOLIC PANEL [facility] COMPREHENSIVE METABOLIC PANEL Sodium [Moles/volume] in Serum or Plasma 139 mEq/L 134 - 153 [facility] Potassium [Moles/volume] in Serum or Plasma 3.8 mEq/L 3.6 - 5.0 [facility] Chloride [Moles/volume] in Serum or Plasma 102 mEq/L 98 - 107 [facility] Carbon dioxide, total [Moles/volume] in Serum or Plasma 26 MEQ/L 22 - 30 [facility] Glucose [Mass/volume] in Serum or Plasma 106 MG/DL 70 - 99 H [facility] BUN 10 MG/DL 7 - 21 [facility] Creatinine [Mass/volume] in Serum or Plasma 1.0 MG/DL 0.7 - 1.5 [facility] BUN/CREAT 10 8 - 27 [facility] Protein [Mass/volume] in Serum or Plasma 7.5 G/DL 6.3 - 8.2 [facility] Albumin [Mass/volume] in Serum or Plasma 4.9 G/DL 3.9 - 5.0 [facility] Globulin [Mass/volume] in Serum by calculation 2.6 GM/DL 2.4 - 3.2 [facility] A/G RATIO 1.9 0.8 - 2.0 [facility] Calcium [Mass/volume] in Serum or Plasma 10.1 MG/DL 8.4 - 10.2 [facility] Bilirubin.total [Mass/volume] in Serum or Plasma 1.0 MG/DL 0.2 - 1.3 [facility] Alkaline phosphatase [Enzymatic activity/volume] in Serum or Plasma 53 U/L 38 - 126 [facility] Aspartate aminotransferase [Enzymatic activity/volume] in Serum or Plasma 17 U/L 5 - 40 [facility] Alanine aminotransferase [Enzymatic activity/volume] in Seru m or Plasma 9 U/L 7 - 56 [facility] Anion gap 3 in Serum or Plasma 11.0 mmol/L 8.0 - 16.0 [facility] AGE 30 yrs [facility] NON-AA GFR >60 mL/min [facility] ital AFR AMER GFR >60 mL/min [facility] Male GFR In terprentation 20-49 yrs >60 mL/min Normal 50-59 yrs >56 mL/min Normal 60-69 yrs >49 mL/min Normal 70-79yrs >42 mL/min Normal 80 and above >35 mL/min Normal Female GFR Interpretation 20-39 yrs >60 mL/min Normal 40-49 yrs >58 mL/min Normal 50-59 yrs >51 mL/min Normal 60-69 yrs >45 mL/min Normal 70-79 yrs >39 mL/min Normal 80 and above >32 mL/min Normal ID Date Data Source [id number] 10/18/2020 09:30:00 PM EDT [facility] Name Value Range Interpretation Code Description Data Elissa rce(s) Supporting Document(s) CBC W/AUTOMATED DIFF [facility] COMPLETE BLOOD COUNT Leukocytes [#/volume] in Blood by Automated count 6.6 10^3/uL 4.2 - 1 1.0 [facility] Erythrocytes [#/volume] in Blood by Automated count 5.81 10^6/uL 4. 50 - 6.30 [facility] Hemoglobin [Mass/volume] in Blood 18.3 g/dL 14.0 - 16.0 H [facility] Hematocrit [Volume Fraction] of Blood by Automated count 50.6 % 4 1.0 - 51.0 [facility] Erythrocyte mean corpuscular volume [Entitic volume] by Auto mated count 87.1 fL 80.0 - 94.0 [facility] Erythrocyte mean corpuscular hemoglobin [Entitic mass] by Automated count 31.5 pg 27.0 - 34.0 [facility] Erythrocyte mean corpuscular hemoglobin concentration [Mass/volume] by Automated count 36.2 g/dL 31.0 - 36.0 H [facility] Erythrocyte distribution width [Ratio] by Automated count 13.2 % 11.5 - 14.8 [facility] Platelets [#/volume] in Blood by Automated count 240 10^3/uL 150 - 45 0 [facility] Platelet mean volume [Entitic volume] in Blood by Automated count 9.2 fL 7.4 - 10.4 [facility] Neutrophils/100 leukocytes in Blood by Automated count 55.4 % 37. 0 - 80.0 [facility] Lymphocytes/100 leukocytes in Blood by Manual count 34.8 % 25.0 - 40.0 [facility] Monocytes/100 leukocytes in Blood by Automated count 6.8 % 3.0 - 8.0 [facility] Eosinophils/100 leukocytes in Blood by Automated count 1.8 % 0.0 - 7.0 [facility] Basophils/100 leukocytes in Blood by Automated count 0.9 % 0.0 - 2.0 [facility] %IG 0.3 % 0.0 - 0.0 [facility] 0.0 % 0.0 - 0.0 [facility] Neutrophils [#/volume] in Blood by Automated count 3.64 10^3/uL 2.00 - 6.90 [facility] Lymphocytes [#/volume] in Blood by Automated count 2.29 10^3/uL 0.60 - 3.40 [facility] Monocytes [#/volume] in Blood by Automated count 0.45 10^3/uL 0.00 - 0.90 [facility] Eosinophils [#/volume] in Blood by Automated count 0.12 10^3/uL 0.00 - 0.70 [facility] Basophils [#/volume] in Blood by Automated count 0.06 10^3/uL 0.00 - 0.20 [facility] #IG 0.02 10^3/uL 0.00 - 0.10 [facility] #NRBC 0.00 10^3/uL 0.00 - 0.00 [facility] MANUAL DIFF NOT INDICATED [facility] RBC MORPH NOT INDICATED [facility] ID Date Data Source [id number] 10/21/2020 08:29:00 AM EDT [facility] Name Value Range Interpretation Code Description Data Elissa rce(s) Supporting Document(s) Chlamydia trachomatis rRNA [Presence] in Unspecified specimen by Probe and target amplification method Negative Negative [facility] Neisseria gonorrhoeae rRNA [Presence] in Unspecified specimen by Probe and target amplification method Negative Negative [facility] ID Date Data Source [id number] 10/18/2020 09:29:00 PM EDT [facility] Name Value Range Interpretation Code Description Data Elissa rce(s) Supporting Document(s) URINALYSIS [facility] URINALYSIS SOURCE Clean Catch [facility] COLOR yellow NORMAL: Yellow [facility] CLARITY clear NORMAL: Clear [facility] Specific gravity of Urine by Test strip 1.015 1.001 - 1.030 [facility] pH 7 5 - 9 [facility] Glucose [Mass/volume] in Urine by Test strip NORM NORMAL: Negat [facility] Bilirubin.total [Presence] in Urine by Test strip 1 NORMAL: Negative [facility] Ketones [Presence] in Urine by Test strip 15 NORMAL: Negative [facility] Protein [Mass/volume] in Urine by Test strip 30 NORMAL: Negat [facility] Nitrite [Presence] in Urine by Test strip NEG NORMAL: Negative [facility] BLOOD 50 NORMAL: Negative [facility] Leukocyte esterase [Presence] in Urine by Test strip 25 FAY L: Negative [facility] Urobilinogen [Mass/volume] in Urine by Test strip 4 less lillian n 1.0 mg/dL [facility] MICROSCOPIC See Below [facility] ital WBC 1 - 3 NORMAL: NONE SEEN [facility] Erythrocytes [#/volume] in Urine by Test strip 1 - 3 NORMAL: NON E SEEN [facility] EPITHELIAL FEW NORMAL: NONE SEEN [facility] Mucus [Presence] in Urine sediment by Light microscopy Trace NORMAL: NONE SEEN [facility] ID Date Data Source [id number] 07/12/2020 04:25:00 PM EST [facility] Name Value Range Interpretation Code Description Data Elissa rce(s) Supporting Document(s) SARS coronavirus 2 RNA [Presence] in Res piratory specimen by CHRISTA with probe detection NEGATIVE [facility] This lab was ordered by [facility] a nd reported by [facility]. ID Date Data Source [id number] 04/09/2020 02:00:00 PM EST [facility] Name Value Range Interpretation Code Description Data Elissa rce(s) Supporting Document(s) SARS-COV-2 RNA RESP QL CHRISTA+PROBE [facility] This lab was ordered by [facility] and reported by [email or web address]. Procedure Social History Code Duration Value Status Description Data Source(s ) Alcohol intake 01/11/2021 12:00:00 AM EDT Current drinker of al cohol (finding) completed Current drinker of alcohol (finding) [facility] Tobacco use and exposure 01/11/2021 12:00:00 AM EDT Never used co mpleted Never used [facility] Cigarette pack-years 01/11/2021 12:00:00 AM [facility] Cigarettes smoked current (pack per day) - Reported 01/12/20 12:00:00 AM EDT [facility] Smoking 01/11/2021 12:00:00 AM EDT Current every day smoker co mpleted Current every day smoker [facility] Vital Signs ID Date Data Source [id number] 01/14/2021 05:33:44 PM EDT [facility] Name Value Range Interpretation Code Description Data Source(s) TRANSFER FROM [facility] Patient Treatment Plan of Care Planned Activity Planned Date Details Description Data Source (s) Lurasidone Hydrochloride 40 MG Oral Tablet 01/14/2021 12:00:00 AM E [facility] Lurasidone Hydrochloride 40 MG Oral Tablet 01/14/2021 12:00:00 AM E [facility] Magnesium Hydroxide 80 MG/ML Oral Suspension 01/12/2021 02:15:15 PM EDT [facility] perflutren lipid microspheres (DEFINITY) injectable martinez spension 9.78 mg 01/12/2021 04:12:56 AM EDT [facility] benzocaine (ORAJEL) 20 % mucosal gel 01/11/2021 09:30:00 PM [facility] Diazepam 5 MG Oral Tablet 01/11/2021 08:09:07 PM [facility] Hydroxyzine Hydrochloride 50 MG Oral Tablet 01/11/2021 01:14:20 PM [facility] Chlorpromazine hydrochloride 25 MG Oral Tablet 01/11/2021 01:12:43 PM [facility] Nicotine 2 MG Oral Lozenge 01/11/2021 12:48:42 PM [facility] benztropine mesylate 0.5 MG Oral Tablet 01/11/2021 12:48:38 PM [facility] Clonazepam 0.5 MG Oral Tablet [facility] Prazosin 2 MG Oral Capsule [facility] Bupropion Hydrochloride 100 MG Oral Tablet [facility] Risperidone 0.5 MG Oral Tablet [facility] Ibuprofen 400 MG Oral Tablet [facility]
--- NOTE | 2021-04-10 21:33 | REPVR ---
PROCEDURE INFORMATION: Exam: XR Chest Exam date and time: 04/10/2021 9:00 PM Age: 31 years old Clinical indication: Cough TECHNIQUE: Imaging protocol: XR of the chest. Views: 2 views. COMPARISON: CR Chest, 2 view PA, Lat 11/26/2018 3:29 PM FINDINGS: Lungs: Mild pulmonary hyperinflation, not unusual for age. An azygos lobe is noted. No focal infiltrates. Pleural spaces: Unremarkable. No pleural effusion. No pneumothorax. Heart/Mediastinum: Unremarkable. No cardiomegaly. Bones/joints: Unremarkable. IMPRESSION: Negative chest without change from 11/26/2018. Electronically signed by: Tonny Sanchez On 04/10/2021 21:33:22 PM
--- OUTSIDE RECORDS SUMMARY | 2021-04-11 02:28 | CCD ---
Author Author [facility] Organization [facility] Address Unknown Phone Unavailable Support Name Relationship Address Phone UE Next Of Kin Unknown Unavailable [place] [address] S Next Of Kin Unknown Unavailable LUPE LAWRENEC Next Of Kin [address] [place] [address] LOCUST RESTAURANT Next Of Kin [address] [place] [address] CON RESTAURANT Next Of Kin [address] [place] [address] Christine Ng Next Of Kin Unknown Unavailable Beckie BIRCH Next Of Kin [address] [place] [address] Shara Vigil Next Of Kin [address] [place] [address] NRNINA Next Of Kin [address] [place] [address] Christine Schafer Next Of Kin [address] [place] [address] DISABLED Next Of Kin Unknown Unavailable Darleen Mcginnis Next Of Kin [address] [place] [id number] Ada Sánchez Next Of Kin [address] [place] [address] 315 VALDO NG Next Of Kin [address] [place] [address] [employer] Next Of Kin [address] [place] [address] Unavailable VIPIN Next Of Kin [address] [place] [address] ST Next Of Kin Unknown Unavailable CHRISTINE NG Next Of Kin [address] [place] [address] [facility] Next Of Kin [place] [address] JP LAWRENCE Next Of Kin [address] [place] [address] HERNANDEZ NIEVES Next Of Kin [address] [place], [place] [id number] [place] [address] Unavailable Care Team Providers Care Business Writer Name Role Phone NO, PCP Unavailable Unavailable [...] Unavailable Unavailable Cecilia TAFOYA MD Unavailable Unavailable Ceciila TAFOYA MD Unavailable Unavailable Cecilia TAFOYA MD [...] LeontievaLing MD Unavailable Unavailable Chudasama-Bon, A Patricia CAKE CUTTER MACHINE Unavailable Unavailab le Chudasama-Bon, A Patricia CAKE CUTTER MACHINE Unavailable Unavailab le Chudasama-Bon, A Patricia CAKE CUTTER MACHINE Unavailable Unavailab le Chudasama-Bon, A Patricia CAKE CUTTER MACHINE Unavailable Unavailab le Chudasama-Bon, A Patricia CAKE CUTTER MACHINE Unavailable Unavailab le Chudasama-Bon, A Patricia CAKE CUTTER MACHINE Unavailable Unavailab le Chudasama-Bon, A Patricia CAKE CUTTER MACHINE Unavailable Unavailab le Chudasama-Bon, A Patricia CAKE CUTTER MACHINE Unavailable Unavailab le Chudasama-Bon, A Patricia CAKE CUTTER MACHINE Unavailable Unavailab le Chudasama-Bon, A Patricia CAKE CUTTER MACHINE Unavailable Unavailab le Chudasama-Bon, A Patricia CAKE CUTTER MACHINE Unavailable Unavailab le Chudasama-Bon, A Patricia CAKE CUTTER MACHINE Unavailable Unavailab le Chudasama-Bon, A Patricia CAKE CUTTER MACHINE Unavailable Unavailab le Chudasama-Bon, A Patricia CAKE CUTTER MACHINE Unavailable Unavailab le Chudasama-Bon, A Patricia CAKE CUTTER MACHINE Unavailable Unavailab le Chudasama-Bon, A Patricia CAKE CUTTER MACHINE Unavailable Unavailab le Chudasama-Bon, A Patricia CAKE CUTTER MACHINE Unavailable Unavailab le Chudasama-Bon, A Patricia CAKE CUTTER MACHINE Unavailable Unavailab le Chudasama-Bon, A Patricia CAKE CUTTER MACHINE Unavailable Unavailab le Chudasama-Bon, A Patricia CAKE CUTTER MACHINE Unavailable Unavailab le Chudasama-Bon, A Patricia CAKE CUTTER MACHINE Unavailable Unavailab le Chudasama-Bon, A Patricia CAKE CUTTER MACHINE Unavailable Unavailab le Chudasama-Bon, A Patricia CAKE CUTTER MACHINE Unavailable Unavailab le Chudasama-Bon, A Patricia CAKE CUTTER MACHINE Unavailable Unavailab le Chudasama-Bon, A Patricia CAKE CUTTER MACHINE Unavailable Unavailab le Chudasama-Bon, A Patricia CAKE CUTTER MACHINE Unavailable Unavailab le Chudasama-Bon, A Patricia CAKE CUTTER MACHINE Unavailable Unavailab le Chudasama-Bon, A Patricia CAKE CUTTER MACHINE Unavailable Unavailab le Chudasama-Bon, A Patricia CAKE CUTTER MACHINE Unavailable Unavailab le TURRIN, ADALBERTO Unavailable Unavailable [...] PA-C Unavailable Unavailable Radha Barfield MD Unavailable [email or web address] Radha Barfield MD Unavailable [email or web address] Radha Barfield MD Unavailable [email or web address] MIKEBE O TOLREED CARLSON Unavailable Unavailable [...] Article 27-F of the [facility] Public Health law. If you continue you may have access to information: Regarding HIV / AIDS; Provided by facilities licensed or operated by the [facility] Office of Mental Health; or Provided by the [facility] Office for People With Developmental Disabilities. If such information is present, then the following [facility] mandated warning applies: This information [...] law may result in a fine or shelter sentence or both. A general authorization for [...] AM EDT - 01/14/2021 10:58:00 AM EDT [facility] Patient discharged. Outpatient Attender: Jt Grant PA-C 11/18/2020 08:19:23 AM EDT - 11/18/2020 09:09:02 AM EDT [facility]) Outpatient Attender: Patricia GONZALES 02:40:00 PM EDT [facility] Emergency Attender: ADALBERTO Kingsultant: PCP NOConsultant: SPECIFIED NOT 10/18/2020 08:22:00 PM EDT - 10/18/2020 10:05:[address] [facility] Patient discharged. Immunizations Vaccine Date Status Description Data Source(s) COVID-19 VACCINE Moderna 09/28/2020 12:00:00 AM EDT completed YaKlassSIIS Vaccine Series Complete: YESThis Data wa s Submitted to [facility]. COVID-19 VACCINE Moderna 09/03/2020 12:00:00 AM EDT completed AKSIIS Vaccine Series Complete: NOThis Data was Submitted to [facility]. Medications Medication Brand Name Start Date Product [...]
Give with 350 calories Administer with food
[facility] Medication administered onsite Acetaminophen 325 MG Oral [...] mg from all sources in 24 hours.
[facility] Medication administered onsite Lurasidone Hydrochloride 40 MG Oral Tabl et Lurasidone HCl 40 MG Oral Tablet (LATUDA) Lurasidone HCl 40 MG Oral Tablet (LATUDA) 01/14/2021 12:00:00 AM EDT 40 mg Oral aborted Take 1 tablet by mouth d aily with breakfast [facility] Lurasidone Hydrochloride 40 MG Oral Tabl et Lurasidone HCl 40 MG Oral Tablet (LATUDA) Lurasidone HCl 40 MG Oral Tablet (LATUDA) 01/14/2021 12:00:00 AM EDT 40 mg Oral active Take 1 tablet by mouth d aily with breakfast [facility] gadobutrol (GADAVIST) contrast injection 7.5 mL [id number] 01/13/2021 05:00:00 PM EDT 0.1 mL/kg Intravenous completed 7.5 mL (rounded from 7.6 mL = 0.1 mL/kg 76 kg), Intravenous, 1 TIME IMAGING, On Mal 01/13/21 at 1700, For 1 dose
Do not mix or administer in the same IV line with other medications.
[facility] Medication administered onsite Lurasidone Hydrochloride 20 MG Oral Tablet lurasidone HCl (LATUDA) tablet 20 mg lurasidone HCl (LATUDA) tablet 20 mg 01/13/2021 01:00:00 PM EDT 20 mg Oral completed 20 mg, Oral, Silvia ly with Lunch, First dose (after last modification) on [facility] 01/13/21 at 1300, For 1 dose
Administer with food
[facility] Medication administered onsite Lurasidone Hydrochloride 20 MG Oral Tablet lurasidone HCl (LATUDA) tablet 20 mg lurasidone HCl (LATUDA) tablet 20 mg 01/12/2021 04:45:00 PM EDT 20 mg Oral aborted 20 mg, Oral, Silvia ly with Breakfast, First dose on Sun01/12/21 at 1645, For 30 days
Give with 350 calories Administer with food
[facility] Medication administered onsite Magnesium Hydroxide 80 MG/ML [...] creatinine > 2 notify provider before administering.
[facility] Medication administered onsite perflutren lipid microspheres (DEFINITY) injectable suspensi on 9.78 mg [id number] 01/12/2021 04:12:56 AM EDT 1.5 mL Intravenous active 9.78 mg (1.5 mL), Intravenous, Once PRN, Other, Echo imaging enhancement, Starting on Sun01/12/21 at 0412, For 72 hours [facility] Medication administered onsite Zolpidem tartrate 5 MG Oral Tablet zolpidem (AMBIEN) t ablet 10 mg zolpidem (AMBIEN) tablet 10 mg 01/11/2021 10:00:00 PM EDT 10 mg Oral active 10 mg, Oral, Nightly, First dose on Sun01/11/21 at 2200, For 5 doses [facility] Medication administered onsite benzocaine (ORAJEL) 20 % [...] area of broken tooth
[Order 2 End] [facility] Medication administered onsite Diazepam 5 MG Oral [...] once patient awakens. CIWA greater than 13.
[facility] Medication administered onsite Clonazepam 0.5 MG Oral Tablet clonazePAM (KLONOPIN) ta blet 0.5 mg clonazePAM (KLONOPIN) tablet 0.5 mg 01/11/2021 01:14:34 PM EDT 0.5 mg Oral aborted 0.5 mg, Oral, 2 Times Daily PRN, severe anxiety, Starting on Sun01/11/21 at 1314, For 71 hours [facility] Medication administered onsite Hydroxyzine Hydrochloride 50 MG Oral Tablet hydrOXYzin e (ATARAX) tablet 50 mg hydrOXYzine (ATARAX) tablet 50 mg 01/11/2021 01:14:20 PM EDT 50 mg Oral active 50 mg, Oral, Four T imes Daily-PRN, Itching, Anxiety, mild anxiety, Starting on Sun01/11/21 at 1314, For 719 hours [facility] Medication administered onsite Chlorpromazine hydrochloride 25 MG Oral Tablet chlorproMAZINE (THORAZINE) tablet 25 mg chlorproMAZINE (THORAZINE) tablet 25 mg 01/11/2021 01:12:43 PM E DT 25 mg Oral active 25 mg, Ora l, Three Times Daily-PRN, Nausea, agitation and off label moderate anxiety, Starting on Sun01/11/21 at 1312, For 719 hours [facility] Medication administered onsite Lurasidone Hydrochloride 20 MG Oral Tablet lurasidone HCl (LATUDA) tablet 20 mg lurasidone HCl (LATUDA) tablet 20 mg 01/11/2021 01:00:00 PM EDT 20 mg Oral aborted 20 mg, Oral, Silvia ly with Breakfast, First dose on Sun01/11/21 at 1300, For 30 days
Take with 350 calories Administer with food
[facility] Medication administered onsite Nicotine 2 MG Oral Lozenge nicotine (NICORETTE) lozeng e 2 mg nicotine (NICORETTE) lozenge 2 mg 01/11/2021 12:48:42 PM EDT 2 mg Mouth/Th roat active 2 mg, Mouth/Throat, Every 2 hours PRN, Smoking cessation, Starting on Sun01/11/21 at 1248, For 30 days
Should not be chewed or swallowed; allow to dissolve slowly (~20-30 minutes)
[facility] Medication administered onsite benztropine mesylate 0.5 MG Oral Tablet benztropine (C OGENTIN) tablet 0.5 mg benztropine (COGENTIN) tablet 0.5 mg 01/11/2021 12:48:38 PM EDT 0.5 m g Oral active 0.5 mg, Oral, Ev genia 1 hour PRN, Tremor, Extrapyramidal symptoms, Starting on Sun01/11/21 at 1248, For 30 days
MDD 3
[facility] Medication administered onsite 100 mg 06/10/2020 12:00:00 AM EST tablet 10 TAKE ONE TABLET BY MOUTH AT BEDTIME TAKE ONE TABLET BY MOUTH AT BEDTIME SOLD: 06/11/2020 [facility] Ibuprofen 400 MG Oral Tablet ibuprofen (ADVIL,MOTRIN) 400 MG tablet ibuprofen (ADVIL,MOTRIN) 400 MG tablet 400 mg Oral aborted Take 400 mg by mouth every 6 (six) hours as needed. [facility] Clonazepam 0.5 MG Oral Tablet clonazePAM 0.5 MG Oral T ablet (KLONOPIN) clonazePAM 0.5 MG Oral Tablet (KLONOPIN) 0.5 mg Oral aborted Take 0.5 mg by mouth Three times daily as needed for Anxiety [facility] Prazosin 2 MG Oral Capsule Prazosin HCl 2 MG Oral Caps ule (MINIPRESS) Prazosin HCl 2 MG Oral Capsule (MINIPRESS) 2 mg Oral abor juan Take [address] [facility] Risperidone 0.5 MG Oral Tablet risperiDONE 0.5 MG Oral Tablet (RisperDAL) risperiDONE 0.5 MG Oral Tablet (RisperDAL) 2 mg Oral aborted Take [address] [facility] Bupropion Hydrochloride 100 MG Oral Tabl et buPROPion HCl 100 MG Oral Tablet (WELLBUTRIN) buPROPion HCl 100 MG Oral Tablet (WELLBUTRIN) 100 m g Oral aborted Take 100 mg by mouth daily [facility] Insurance Providers Payer name Policy type / Coverage type Policy ID Covered constitution party ID Covered constitution party's relationship to gomes Policy Gomes Plan Information MEDICAID M [id number] Self [id number] [facility] COMMUNITY PLAN [facility] [id number] SP [id number] Medicaid S [id number] S [id number] [facility] P [id number] S [id number] MEDICARE A [id number] Self [id number] Medicare P [id number] S [id number] Medicaid S [id number] S [id number] Medicaid S [id number] [facility] Medicare Medicare Part B [id number] Self [id number] Medicaid Medicaid [id number] Self [id number] Medicare P [id number] S [id number] MEDICAID [id number] NORIDIAN JE PART B C [id number] S [id number] MEDICARE C [id number] S [id number] MEDICAID M [id number] S [id number] NOVJOCYS JL PART B C [id number] S [id number] Medicaid S [id number] S [id number] [facility] COMMUNITY PLAN [facility] [id number] SP [id number] SELF PAY ONLY [id number] SP [id number] SELF PAY UNAVAILABLE SP UNAVAILA BLE MEDICARE [id number] SP [id number] [facility] Health Maintenance Organization ([facility]) [id number] Self [id number] MEDICARE C [id number] S [id number] [facility] O [id number] S [id number] [facility] Health Maintenance Organization ([facility]) [id number] Self [facility] Health Maintenance Organization ([facility]) [id number] Self MEDICAID [id number] [place] 3 [id number] SELF PAY 2 UNAVAILABLE 1 [place] BLE [place] [id number] SP [id number] MEDICARE [id number] SP [id number] MCRB [id number] S [id number] MEDICARE [id number] S [id number] MEDICAID [id number] MEDICAID -O/P EMERGENCY ROOM [id number] MEDICARE PART A -O/P [id number] 18 [id number] EMEDNY [id number] SP [id number] Problems, Conditions, and Diagnoses Code Display Name Description Problem Type Effective Dates Data Source(s) K21.9 Gastro-esophageal reflux disease without esophagitis GASTRO-ESOPHAGEAL REFLUX DISEASE WITHOUT ESOPHAGIT Diagnosis 10/20/2020 02:40:00 PM [facility] R63.4 Abnormal weight loss ABNORMAL WEIGHT LOSS Diagnosis 10/20/2020 02:40:00 PM [facility] R19.7 Diarrhea, unspecified DIARRHEA, UNSPECIFIED Diagnosis 10/20/2020 02:40:00 PM [facility] R10.31 Right lower quadrant pain RIGHT LOWER QUADRANT PAIN Di agnosis 10/20/2020 02:40:00 PM [facility] Z8719 Personal history of other diseases of th e digestive system Personal history of other diseases of the digestive system Diagnosis 09/26 08:22:00 PM [facility] [id number] Nicotine dependence, cigarettes, uncompl icated Nicotine dependence, cigarettes, uncomplicated Diagnosis 10/18/2020 08:22:00 PM [facility] R634 Abnormal weight loss Abnormal weight loss Diagnosis 10/18/2020 08:22:00 PM [facility] R197 Diarrhea, unspecified Diarrhea, unspecified Diagnosis 10/18/2020 08:22:00 PM [facility] R1031 Right lower quadrant pain Right lower quadrant pain Di agnosis 10/18/2020 08:22:00 PM [facility] Surgeries/Procedures Procedure Description Date Indications Data Source(s) MRA NECK W/O CONTRST MATERIAL <td>MR ANGIOGRAPHY NECK WITHOUT CONTRAST [id number]</td><td>Routine</td><td>01/13/2021 4:55 PM EDT</td><td></td><td> </td> 01/13/2021 04:55:23 PM [facility] MRA HEAD W/O CONTRST MATERIAL <td>MR ANGIOGRAPHY HEAD WITHOUT CONTRAST [id number]</td><td>Routine</td><td>01/13/2021 4:55 PM EDT</td><td></td><td> </td> 01/13/2021 04:55:09 PM [facility] MRI BRAIN BRAIN STEM W/O &W/CONTRAST MATERIAL <td>MR B RAIN WITH AND WITHOUT CONTRAST [id number]</td><td>Routine</td><td>01/13/2021 4:53 PM EDT</td><td></td><td> </td> 01/13/2021 04:53:36 PM [facility] EEG ROUTINE STUDY <td>EEG ROUTINE STUDY</td><t d>Routine</td><td>01/12/2021 9:51 PM EDT</td><td></td><td> </td> 01/12/2021 09:51:07 PM [facility] ECHO TTHRC R-T 2D W/WOM-MODE COMPL SPEC&COLR DOP <td>E CHOCARDIOGRAM 2D COMPLETE</td><td>Routine</td><td>01/12/2021 2:33 PM EDT</td><td></td><td> </td> 01/12/2021 02:33:34 PM [facility] DRUGS OF ABUSE, URINE <td>DRUGS OF ABUSE, URINE</td><td>Routine</td><td>01/11/2021 8:07 PM EDT</td><td></td><td> </td> 01/11/2021 08:07:00 PM [facility] BLOOD COUNT COMPLETE AUTO&AUTO DIFRNTL WBC COUNT <td>C BC AND DIFFERENTIAL</td><td>Routine</td><td>01/11/2021 8:07 PM EDT</td><td></td><td> </td> 01/11/2021 08:07:00 PM [facility] HEMOGLOBIN GLYCOSYLATED A1C <td>HEMOGLOBIN A1C</td><td>Routine</td><td>01/11/2021 8:07 PM EDT</td><td></td><td> </td> 01/11/2021 08:07:00 PM [facility] LIPID PANEL <td>LIPID PANEL</td><td>Rout ine</td><td>01/11/2021 8:07 PM EDT</td><td></td><td> </td> 01/11/2021 08:07:00 PM [facility] COMPREHENSIVE METABOLIC PANEL <td>COMPREHENSIVE METABO LIC PANEL</td><td>Routine</td><td>01/11/2021 8:07 PM EDT</td><td></td><td> </td> 01/11/2021 08:07:[address] [facility] [address] CERVICAL SPINE W/O CONTRAST MATERIAL <td>CT CERVICA L SPINE WITHOUT CONTRAST [id number]</td><td>CODE</td><td>01/11/2021 8:02 PM EDT</td><td></td><td> </td> 01/11/2021 08:02:[address] [facility] [address] HEAD/BRAIN W/O CONTRAST MATERIAL <td>CT HEAD WITHOU T CONTRAST [id number]</td><td>CODE</td><td>01/11/2021 8:02 PM EDT</td><td></td><td> </td> 01/11/2021 08:02:[address] [facility] [address] MAXILLOFACIAL W/O CONTRAST MATERIAL <td>CT MAXILLOF ACIAL WITHOUT CONTRAST [id number]</td><td>Routine</td><td>01/11/2021 8:02 PM EDT</td><td></td><td> </td> 01/11/2021 08:02:15 PM [facility] EKG 12-LEAD - CMAXX REPORT <td>EKG 12-LEAD - CMAXX REPORT</td><td></td><td>01/11/2021 7:17 PM EDT</td><td></td><td></td> 01/11/2021 07:17:58 PM EDT [facility] EKG 12-LEAD - CMAXX REPORT <td>EKG 12-LEAD - CMAXX REPORT</td><td></td><td>01/11/2021 7:17 PM EDT</td><td></td><td></td> 01/11/2021 07:17:58 PM EDT [facility] EKG 12-LEAD <td>EKG 12-LEAD</td><td>Rout ine</td><td>01/11/2021 7:17 PM EDT</td><td></td><td></td> 01/11/2021 07:17:58 PM EDT [facility] EKG 12-LEAD <td>EKG 12-LEAD</td><td>Rout ine</td><td>01/11/2021 7:17 PM EDT</td><td></td><td> </td> 01/11/2021 07:17:58 PM EDT [facility] Results ID Date Data Source [id number] 02/04/2021 06:15:00 PM [facility] Value Range Interpretation Code Description Data Elissa rce(s) Supporting Document(s) SARS-CoV-2 RNA Resp Ql CHRISTA+probe NOT DETECTED [facility] This lab was ordered by PAULINA knox and reported by PAULINA Pritchett. ID Date Data Source [id number] 01/14/2021 05:33:44 PM EDT [facility] Name Value Range Interpretation Code Description Data Elissa rce(s) Supporting Document(s) Discharge Summary [facility] UHOHYx8zHuEUJgRw34/LKQvvKDBfb7FeUWgiOVe0YPbvSCRrY9JfTIK5kC4jQKR8EJmNQcIkZvZaUIGf lbm [file] mKTKci/2YT/qdlrvxmgU73PnQVS0AtbDN+A/4EGq7O+pvr4cDMU58X92ZNRz/TiID+CD+BA+Meredith+IR6nq fgS/TpXpY/gN/CY+drxqQE3Yk3Uw5bis3/iJVa0L2PI4Di/sebastián/C7+Bw+ebeLzLA9Wf+gOvZF/L8N4MW7 [file] ICAgICAgICAgICAgICAgICAgICAgICAgICAgICAgIC AgICAgICAgICAgICAgICAgICAgICAgICAgICAgICAgICAgICAgICAgICAgICAgICAgICAgICAgICAgDQ ogICAgICAgICAgICAgICAgICAgICAgICAgICAgICAgICAgICAgICAgICAgICAgICAgICAgICAgICAgIC AgICAgICAgICAgICAgICAgICAgICAgICAgICAgICAg ICAgICAgICAgDQogICAgICAgICAgICAgICAgICAgICAgICAgICAgICAgICAgICAgICAgICAgICAgICAg ICAgICAgICAgICAgICAgICAgICAgICAgICAgICAgICAgICAgICAgICAgICAgICAgICAgDQogICAgICAg ICAgICAgICAgICAgICAgICAgICAgICAgICAgICAgIC AgICAgICAgICAgICAgICAgICAgICAgICAgICAgICAgICAgICAgICAgICAgICAgICAgICAgICAgICAgIC AgDQogICAgICAgICAgICAgICAgICAgICAgICAgICAgICAgICAgICAgICAgICAgICAgICAgICAgICAgIC AgICAgICAgICAgICAgICAgICAgICAgICAgICAgICAg ICAgICAgICAgICAgDQogICAgICAgICAgICAgICAgICAgICAgICAgICAgICAgICAgICAgICAgICAgICAg ICAgICAgICAgICAgICAgICAgICAgICAgICAgICAgICAgICAgICAgICAgICAgICAgICAgICAgDQogICAg ICAgICAgICAgICAgICAgICAgICAgICAgICAgICAgIC AgICAgICAgICAgICAgICAgICAgICAgICAgICAgICAgICAgICAgICAgICAgICAgICAgICAgICAgICAgIC AgICAgDQogICAgICAgICAgICAgICAgICAgICAgICAgICAgICAgICAgICAgICAgICAgICAgICAgICAgIC AgICAgICAgICAgICAgICAgICAgICAgICAgICAgICAg ICAgICAgICAgICAgICAgDQogICAgICAgICAgICAgICAgICAgICAgICAgICAgICAgICAgICAgICAgICAg ICAgICAgICAgICAgICAgICAgICAgICAgICAgICAgICAgICAgICAgICAgICAgICAgICAgICAgICAgDQog ICAgICAgICAgICAgICAgICAgICAgICAgICAgICAgIC AgICAgICAgICAgICAgICAgICAgICAgICAgICAgICAgICAgICAgICAgICAgICAgICAgICAgICAgICAgIC QsGULpCNYzAGl8K8mnOPGoJBVtZN5lYPa6Ib7+KYyCDhUoECX0nlTwsC7OMA2xe1XsZCuiZILlv0FsBR a7NM1BARDcKYmrYK6PCDbrws6CUNItGBXowJKMp9ms WyTdXWQ0ZZApThafLE0PZLJfE6sktjQnABAxJCOKODbbQBXZGBxkOCYZDEFtZCApIpRfGvLnPEAuZUQv QEKBRRA6UUViGiXmUVNnYRDmDyPcEHZDWS4LPhJlD5PklY98XDfJBj2+RDtafwXzIgdXNsS2VCLdp1Vg RNe2YH9CTZUvYeeva2VbQBwyFCFZGYoqSC9VXXN0MK D4OKPcGz3GHTWxI021vgPwQT4VPv5TBgLjLO3pzl8UCDqgAPNyGdvVOjn7EAjvFU5OfUBtQYuXlKBhfO KlQ3NtH2UjlSOdhQDkeTMLvXi3m68tGHrfR0HlaKuwXsRtDRRwIH6kXY6lXKZgKZBnKeT3EEQNNM6VZU LuLFHjvFFiVYDiVMMRIN5ILMwcULP6HVVzbdOcmHTt YVgeJW6JJDZzjlSdWDabTUPTTWb+Vs5WXX1iv1QhEOd3OAYmYW9nnz6HRPwEVoVeN8I5pAAnF8R0SNsr Af3REGThMRLgTCUmWCFBYQusRS5EFU3kpwJ5FW3LvTPxXMCtJNQnjXDaWBe6W25huTJkZHalSZ7PRSO+ Dequan+Ij7OJXSrYXZpUMWyBaItETQDDiOtD6VvG4SBz3 FeH7YpOB45gTgqppLsGRbdMO0KFS0jFWLeCLJHHP0EhAKzmE4ehkM3OqIvUNYFPkOkJ20knURoHGJkLT D9BIJmXz7QFPJkR1MiboVasDopmgRlYEBxUCREMF9IKSdfvxKbvHVqzLwrBV21yItwVI8NLs1FHiKiIO 6lvf0JnSQxMy5MXLT8ZY9APKErNGFjLSJnJQC1NDJr ZoKrQQqkVDVdISLyCOL4WWCiYMTsLJ4KVuOyHZCrEiS1ZeIvILOkWWMzbi3KSCYdQIN1HrM3LiBxOLSl DTWrOIapBPTfKHAcCOQ0XZTaCVOzQY2REeQpPLAuUDMyBKMlJTOrEETlyt3PEKIdHNWtHJO8VMXdIJVj QMKaPBcmONCdWRT9JnF5JVFeHJLtAH7WUfZiJNGkJB i0FoPrLSChBMBaev4GVQHdRLZcRiJ5DDWvDHMhGVUqVMfvJUYwUWRbSuy1RMFpFTEgRG3RIsKwMMLaFY B1SDCcJSKeCRBrvx8LXKGjBGMxZoP1XNFmOSZgJKKdGOfdAXAsUUSmBMXvSOBtXTZjJU9THbRvJSCdIf OhLCyqPFHtRDOiwa6PKZGpTEVyIsM0LPYnIFEmBNPx MXolSRFsEQMlXzh5LOClUTYoJJ2SZyBnVYBwVno0XJKzFPKpMMNcso7QWDWsQRScCIOmWhYuLCRqVEZb VWkmHFRjDIDxNjE9SDRyLISmLY4URxMhZRGoPfH9EbEvOWOwTBOqiv7PZSBaLHJyXkCjCsNmRLXiNASh PBqnUOFqWBHfLXX0POZvMLQvIJ8IIaVxQBFjKkU9JD jyGLEqEOIuuc7VHHMtHNIxHEh3YRLuWZPmANKbTAfhCDHvQQK9IMO3PDPwJPTwQJ3KMxXxNFUhOeTwAt jwVPHaFDThto9YJOSoQYMsCvYpHKDkSTCaYHWyEFooGBUbFFF4LBU0MKJxPDOdAG3ORkEpBKTpDze5Li raTLDwYNLefz0MEYRuAWZeBkT2ECGfIPUyEWSeURkj VVZjLCL6JRK8WDQyCPZuOB9WYqNmYUQfCEzaDcRlZCEeHCYexv0BPLOcBXK9SWEmEWZbTNFwUVKqYFma ECOhUEN2TsJ2SXCbYTXtYJ3MSmYsZOSaDBp2QPIgLNRhUVQmzu4FBCTgRLN2TQSfOaIsWVAfXXFjYMdw TZCqKIErYOR9UZZhRBEuZX0KRxLjZGQwYnZ8GhTfYG ZcRUHvso3TCSVcHNU8NtQ3EABdMJJnBBAeCEisXXNpPVHrOaygJUOkXPTsZB6TKkWyVNXbVlN1UjzdVC NaSXRvda9FPKNjZBO7GuD7LcIcEIVrYATkAFgqPJLrRIHgXRArSSZpVSQpCF8WJyAvXFJkHwZ6FtvaUJ RfSKSzup4ZTAFePUH5ACR3TBVdAKPeMDHvCWdxKYSn OMW5GSO9TTVzXKZqPC8VJvZkISDfMbjgRmUqFKIdKQVkui3WFQSuGIC3AUR1CNOfWKQbVDEaIYihFNNs WZV5YGPdLPYmYBFsEQ4HBcJwSPMtPck9WLYrFQNiQCCqma1RDJRdPVR0GEj8AsIiOSCbSLUjICpcCZBo HCmxVDQzEHNeVTEdXP0WZiFlWBSdLoBcUlAuZCEpBY Dkoy8KETRwGXI7CBS8BwZbKQEfAWMgPOylOKBxLAijMGI8QKIlWQFsWP9IStBaSLCkJxZ8BPDqFHLjLR Jeyl2QFHYrFTQ6KkWmZAOiZRYkYVFeUFxiJFSqCVmxQLO3ZZLxTSXyHG0BKvSxTWJoJnX3LyDkLXIsDJ Vuby7CpVAbqTmxaq7FNBoQKc0MjGreHVMtYBigRg0m oHB4USMgDAILXp4XkoKqBQNcWLVBJAzfUEOpFBjeQ0EmUlKjGtG7ZfnuQDN3TDWjDFAyYSV5RJH7YnKo XtY7JOH2VpL9VSE1TlmyN6Y6JuOuYXXhWvGhVMf9WOU9TPO+MU0gBLz+Qp4Rp6OixoL8qeVaCJd9Opgu EC9OGWRYT7VNSs== ID Date Data Source [id number] 01/14/2021 09:28:48 AM EDT [facility] MR ANGIOGRAPHY HEAD WITHOUT CONTRAST 705 [...] flow stenosis is shown. origin of left [employer]INKLING [employer] seen. There is loss of the normal [...] rce(s) Supporting Document(s) ID Date Data Source [id number] 01/14/2021 09:28:43 AM [facility] MR ANGIOGRAPHY NECK WITHOUT CONTRAST 705 47FINAL [...] flow stenosis is shown. origin of left [employer]INKLING [employer] seen. 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+Le5BAPJlJGq9K0B0SBCeTKu4F1KJQ4YOVMIzAY lcTCmsPPCkRQm5R6N7WCFdD7UIE1Fceeuvtt5+JD0JB74EFSTcALx5D1E2dKRbU8E4fOkDrNN6TK4POU 3ApQx9nJOltY5+EX6JF7NRWbQqJWe5E3X6xXFtN2F3pFzYjEQ3AG4TKT1BnKAmKFUxskXuRc8rV0XGYT hVIrEWBVA9GZ8HsSXoRF8NaJSKR4ViyFBnRd1wABxm hZIfwO3eNi0qXHgdDR3KAvTVBIdUTZS4QE5ZfLMhXY0PdNQET3StnXZqLv3kQGdvaUMcos8+MC4OXFHg Ua6ADl0+SWlvfuQdSppAQgP0NZOjs2VrPWq1UF2QBS8aaBqhWBD5Oh7OjIQ8hSWnO0kQSW9LbWFvF56w sBMkTBKvKk7JJjA8pwUbfH0JID10eHAly9T8FFIyC6 pdCXahh07yRZiaEUhPAJ4vKYESFDwxEPuzFMI6FcOmxauiRTIfPc7SCfHoYQj9uN1khFT0AQP5OxjgkO EdVFeuTlJxXpQuCiS3tGigzfi3HLmrAR7gYMqubxyyCSPqDgx+BZlkCFFpKNKtQwaSLUZxbL7nhqD4gk ChEJsgsTYiYn1kw3v4HclpSq2mNw9tKNa7TuSsCoDt ALRdSx1jyC08RJziyvVoDd2VBdNoVUB4F8RlYvgUKSV+MWbbBTfobZw6xYMzKVUdOi0YPUGzKADwNQKh ICAgICAgICAgICAgICAgICAgICAgICAgICAgICAgICAgICAgICAgICAgICAgICAgICAgICAgICAgICAg ICAgICAgICAgICAgICAgICAgICAgICAgICAgICAgIA 0KICAgICAgICAgICAgICAgICAgICAgICAgICAgICAgICAgICAgICAgICAgICAgICAgICAgICAgICAgIC YfSJMyESFeYMOzVAGcEUWkQDZgEPKjONCnQSRkZUXvVGGtSAVsPUPnAL8VVGBjQUSiNWHdBMMaGIJlDU AgICAgICAgICAgICAgICAgICAgICAgICAgICAgICAg FOHcTUTyTFEwKAMeSKTbQPUaGZMxRGRyOAQoSIWxTRHlCPKeUXMvTATeIWApUZGzUZSoIZ1VSGHkVQQn ICAgICAgICAgICAgICAgICAgICAgICAgICAgICAgICAgICAgICAgICAgICAgICAgICAgICAgICAgICAg ICAgICAgICAgICAgICAgICAgICAgICAgICAgICAgIC XpJB2TJELiRYAnZANqMWFzNOJbYPIoOOEnOTTlSHRiEDKaKCAiXILsIQAaTJOjDECyDLSeYKQgKTXnJL MhXGLpVZGqECFyHDWoOGSpETQeRRKaCSZdKHLqPUEpMZZbMBUqGSFjIKQgQJ1EWXMmNUNqTWBmODDkHG AgICAgICAgICAgICAgICAgICAgICAgICAgICAgICAg AVJvMOUySIKxHRWkNPUfEDNvTRZjYYLsSHFyDDDkDHMpUKNwLSYySPZhIJCyDQPnTVSgFLQcTE4YHJZk ICAgICAgICAgICAgICAgICAgICAgICAgICAgICAgICAgICAgICAgICAgICAgICAgICAgICAgICAgICAg ICAgICAgICAgICAgICAgICAgICAgICAgICAgICAgIC IsMXNnKL3JNSYsUFReCFTqKSQnXSFcNONiEUDyWKPqIMPtSDMhNUSxJBLoESXzIHHiSXFrOWRcFHJmME WxMOLcEAQdIQEvOXVfXDDzVYMsVSSzUZMcNILaYFAxRGQkKLMgBBOdVEFdURYlOZ6OWMAdQDReMEEaNP AgICAgICAgICAgICAgICAgICAgICAgICAgICAgICAg UKLjHIQhJICuRHYvEJEgSXJnTFUxGJBrZDOaSGMjDRUeYZDjBDFzLSCgVUVjGERwYXMyDSEiHMXlYO5M ICAgICAgICAgICAgICAgICAgICAgICAgICAgICAgICAgICAgICAgICAgICAgICAgICAgICAgICAgICAg ICAgICAgICAgICAgICAgICAgICAgICAgICAgICAgIC NnDLYzYFRzND4HNJ53rXYmy5B6BQFmPH8mgez/Zj8RJVvwpvCenUYwXN1CQtSjZO8spz2CSuQdRN6dgw 4UOIbXQtRcN4Z3oTRdPRQzAXYVWnSkQ29gARnhJj06KArcPPFiBhBeWYc0Go1GSdOtN5eeXWNqErQ3RT OtFoE2ABBdBuV1TMReCkJxKQVtFVObLWDdQEAWGUS1 NIHpWvOfBcNkBLOyHC8KAQVzY442zrPdUt2PNr0UKrZkEN4piq5FBbvgTTPzKgcBCve0WLjdYM5GoUEw gHSgPWXwSZKEEnBqR7rfm7SzZfrlKVNGYPbtVN0Ze1ViuQZpKEs+Wd3FEQ5bu8RaFHivWDHnIV2qjo5P MTfJIyBdR5HidQjqNBTnwoJ2iBQvUND3MNBowkcuaN vcSWQKcFPzJK4LTZJ1CAdqAHcqXlOmGVTgCBt6XaUAGIwXYsKhA8Mmm1QnOhE8JRPfLlNmRUpoZGKsLi N2AO36tSblUH9VOMMvWZBkDL07POG1SIRsWy6CCx4TLdLxMW5imy8YNgkaFIFwNjgRVfr8ZTwjYT0MyD LcA9PitTZij4dIWhSaI2NKXHK1MSSxDj5EUCQdLyEb ZHLtHGxzVT9yYVDkLYNQrLchexH0JQ3RQI9jutQvTZ0HJkWeNc5eOs0GYyVcO2FlD8JzTQOhZKLISIze DJ1ZDMjoCP7hYZ7Zm2XBnPEtoJ7qhk6KTTZqLYKgHkqyoy9WLzkwD1N8oAvcCBQbTjcwDDANTPfzVY3E POMlQUP8YISiVeFfQISBCfFqO36yHK4AZ7Mtd79eZu V6XEEpYtBnKWuaXI53rOsbsgMhePKtxAkmHI9TDw6+DQplbmRvYmoNCnhyZWYNCjAgNDANCjAwMDAwMD EfXSAoXwH0JcYsNv9WNLPjGFGoDIFiSiBwJAGvUDKqVYkfBHKbSHA1GYJ1MCEtXCCtJM8KKpFaDWUoPV N0KeXtRJUuWPVfdf9HXHKmEWBaBAZ9IfZnJWByLNDy JUxwMRBbBGL6OWNvVQNbEVYbQO7XEuIjQPKsMHOzGCliECKjURAfnx1BZXVnBPOxKzf9HfOzFPGlWJIs EJidMDWhXCD7UMcmDURvLIUbTB9NYsYaGDMfYGx7MCQrGVPmUMZhfd8WYXMrXVPaJLf6ZgImEITkLZRl YIgrWMIzCFAoCBJ3AKQqDEKrVC9TElUeMDCfDEXfZn ZcQKPrRLNkux3UYUAuTBDoNWI3BeBuTMOsZGThYMdbKKTiZAD4DqBqICSgFJPeFV0KYgQdJGCrHaK2TR udZCQlRUNoky0BSGSeRMOcUSw8TKJhBMLrJMCiXSdiZJWuPPGaSIG0EPUhBSAlVO4IWsVbBLSySlA4Ic CwQEUbGVQpgi3JNBBnAKOpOBRzHOVgTHFgDMLkTMui ZIXhMND7LOPrMKJnOVTfUL7EHzZpGCIrZeJrZOLaEJJxODEcbw6JEFSnCMGhMBi8TdZoFDJcXFOiSZie XMFgMUJ8YRC5OMXwVALqER8CBuTfAKKgEnIfZUBdGRDdMGSkrn6PUGWcECQjOfUlAuVlYPOdVIVsSQwl OOBwHIH3RFFzICQeYZKlPV0LUeAeXPNsBeu7TJGtIT ShJRScvk3GZNOwCZF5YsEcAOTaCHWsWRIaFDagNEJyQRIfFHI8DTLvJKVbPF3MVjPgCACcWPTkUNHhCX ZbOYZztq4MBUIlVNI3PtZcCjSnNJMaYAVqOXldCRTbBONxWqzoLIDtHKPaTM7QIgLjOFWbLIJ3YyKjRI OdODCwcc1QMUMmBSY6CMczVPLyXENfTXLfIKnhYNHg FLK4VBjaHXRcPXWyOI5NXaKwNPQpELP2VkYtWAWoPXUwpr6EBHIpFSM8FtQhQpBpMKLpAFDjKHvnSUFj KTX4WRh5HUYgMAIfOS2PSoPsXDDzCDlvRJAcRSElUAJznn9QpIHvzBsoij1HJBnMWo1NkGsjCWNvUTub Nx1hcCJiHJBwZPBBJf4YzmHjNVIsZIYNXOodOLErJJ j2PqAlLDL0EjQsVVSjLIIfZ3G7SQF3SXQiXNT9YZakCqR9JHC1DgEdYrdzAIX8LREsEaHbWzzwQMI1Dz RuVmr5UPI+SX6cFUw+Ue3Tv8LigvI3ftHqUAk4HbV8LY0DUWPOE2VWLp== ID Date Data Source [id number] 01/12/2021 04:20:12 PM EDT [facility] Name Value Range Interpretation Code Description Data Elissa rce(s) Supporting Document(s) Consultation [facility] GIGGLa8cKqFLTdIv69/RFCdoNRSry7RrPEwhHSc7JTbgNKTxN8EpSKO9gY9tJKR9WGlYUfLqMuJlUTD0 lbm [file] 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/a97yTy4GnNbwG6wCMx+wZRCNtI7TtXUnJLKNfz9DL+XtkeAWux6no4KCsJS/BluZeKRg0Metqw+I [file] ICAgICAgICAgICAgICAgICAgICAgICAgICAgICAgICAgICAgICAgICAgICAgICAgICAgICAgICAgICAg IRVgHEVbLX4FXXUgDMZfFMGlYEQfRCVoAUFwSQTwQW AgICAgICAgICAgICAgICAgICAgICAgICAgICAgICAgICAgICAgICAgICAgICAgICAgICAgICAgICAgIC OtFHMjNTRbBWSjJVAaPBVkQK2ECPPbRAYnAHNtLZSzSWKqUWHhKBXiRNIfQMLoURDoXSKhZNQhTEFkAB AgICAgICAgICAgICAgICAgICAgICAgICAgICAgICAg LKTcRBWtLPLuTIJaNDMnEPRqRIHfABAhOHDpYG2UUALxZNYhRSTmOIVlSOMeBBBiVOVhDTBvPUHnKCHl ICAgICAgICAgICAgICAgICAgICAgICAgICAgICAgICAgICAgICAgICAgICAgICAgICAgICAgICAgICAg ZGPnAZQbONTxAR1OOTEfRQNpOVGoHXPoGGGdLTUpHM AgICAgICAgICAgICAgICAgICAgICAgICAgICAgICAgICAgICAgICAgICAgICAgICAgICAgICAgICAgIC GnIOFnVHHgLBHnWMBsCARtBGUtUX8FFSWlBJJcECEkOTGsYNNnBZFvVDJwIYBwDPPyJLKzILPcLJBgRG AgICAgICAgICAgICAgICAgICAgICAgICAgICAgICAg XTTxZVLzFBQwWDSxQTBlXZDqDJWePHYgAFAyXSYfDK9VYLCfNOCbBIHvFHNlFYDdPSHtWKFhLCGpEHTj ICAgICAgICAgICAgICAgICAgICAgICAgICAgICAgICAgICAgICAgICAgICAgICAgICAgICAgICAgICAg CYReGHQtDDNrJINxIE7OKOGxPQGnURDlJMVmGIHqHC AgICAgICAgICAgICAgICAgICAgICAgICAgICAgICAgICAgICAgICAgICAgICAgICAgICAgICAgICAgIC BlLCScIJQqCKAeNAVmYIFwLUAoSUOpZL1KIQGtCCCzIYBdOEIvYOQrDWVxTGYuFMJnEPIoDRCsWIUiQS AgICAgICAgICAgICAgICAgICAgICAgICAgICAgICAg BCIcWIDcSVPmNLZcPMJtNIPcGXSyEGGtTHAlRHBcQMGuTK1TPYPmQDXyITVdJRLoYYDzUKYgTEQoOTPe ICAgICAgICAgICAgICAgICAgICAgICAgICAgICAgICAgICAgICAgICAgICAgICAgICAgICAgICAgICAg PEVxLMOeDKXcZLIpFXBpYT6NZJ37dZIiu1L8TXCwBK 0ndyc/Oy3WNNqfptBqsBEsDQ0SIjGpHD7nhn0NDrJtJZ1vci0SZTeIFkOcK7U5lVGgRDNnIHCQBhKpS9 7aQJhnFp63XHhdIMShQtOdNTb2Sb8QPlIyS0loXBKyJkZ3ZNPnYgV0FZTfMvA3AVMiPcUmIXYuYFFeMQ HhNLYEYV7UYhOoC4BuwX25HRVTOv6+DQplbmRvYmoN NaM2WXKsz4JsCPc3MC6QFFKkGsnsc1HkTeipEELBBUuuDE9ACIV3KJI3NTMsRy1QQOZqB023rjQzTX2Y Pw8JClYfBE5gof4HBkgoZPDcOrkEAed6NLpnMC1MaRDzFYcKl79ckYb4juIocBPUHAUruLZONIC4GVSg oTFkWXpAJ6diUJQpVA5bKD9iAJPkTND4XpCmBCDJHN 8NLFQiNFDkiHEdYBYvKASFGS3MKKqgDMD7SMIjclIlsUFtFCgpNU6FDIWmxgYcUnweDHYDKAh+Pg0KZW 7tw4WcYLqaREVzLD2qre6IYCxUOnFzZ4M8aHAlL5Q7DGznXy8QLKWqAFAnTzNdDFGIFCtqZS1ELG5rcv J4BB4XgOMiPIPaIWTtoEIyBSl4N95rcBDeOTsdKD5I ICA+Dequan+Pu5KLWChLJYfYFLlEhBrEFGWYsBhW4EoV6YVo5WcQ5KfOM78aDbcaqFcORlpCS2VPJ7kXFVa AWITFW5AiJVdsF3vakJmWcBvFCQKYuVuC70tbBTlVWLkKNC4ZHOpIv6MQRIbL6MhuxOmpFpwnaLfKNNl RTZHHI5KBJnvmfUjsJWcnSgoKH85uAbqIM6SVg3AYg FvCU4qbu2UbAErMt1GQJUzSH0HSFQaQTPvPHPnOED5NOIqXqOwBWpuXLEfARYmSOP4ZUMrRZVgXO6STj GyJLJlJxBsWdLpPZJrQPLgjq5USUUxUPBnPQl7QYThCKZiEJWyKDfbUZIpWCMmFBB3NWPrAZVdAR6KZl FeDUVcHME3BRNqIEVuXSEjtk6OSJRlOCAdXvc1FJKu BFTwRVXqWEmdCBXmYPZ1NIK2BWLfNTHfBC7DSoMkWJYaAFnhFLMwXJYqBQSbyo5DOSEkZITgCDL9EAIs LBYjAKOaKPrtXQYvFZTdBQS6UYTwEWVpVX1POcRqNMEtZJW6VZHrKCNpDRKtrw1OFHMiYWUcCRMiWbQw NICoJPFnJRbtJODpBZR5FUQpQVLgEAOdGA5DVtNpPG SvLAAcZpnwKQYfPWYvvn1LZICdHIDeSvMcPXHyUCFpFTNkIXvmXPSqCDO9EKS3MAIuASOgOU0NEnHrHV TlPOE7BVdjIVGiIZJldr5YLARhWUQoSvS5AoZaVJWxRLCsDDheYFNqHPM3XeE3JXGkZNZyUR1XPvMlVA XzGRo6THgkFZAwCQRknm5EVEKsGHOnUZI0QxHlZCDb OYPbTNzwJLCuIZH7PqYdOJNrUXEuUA6UDpYwSVMnDhb0UqvvNQPcGTWiyx9LLLFwMKOqWKBdDSWaKTJy NCOdKLhlBDLzAUBbNtB0RSItECNiGO4FEyUvITGnLoM6DFApTDIbUSXanw8UNOEqQCFuTgYtCCLtBYBx PWUiOAvfOANxNTAlBOiwSHXtBFLyOY9SZzUiRQDuSd JvKtUiBGPcNZKnwr9YkFFhdEsvex0VWVbZEr0EsHdwTQHrYHqdMv2exDPvVUHrKGNYLf6VcaPvVRXkMF BBRNteXKUaNNAmHFUnSTOlOXm3LFH7DRR9RRfcTuz5Nbi4HGZyTHKxTkN6ZcMkCIP2XxSbTGIaMJp2QJ g3SVPvBNvhDGW4NwR6FTW+XF8qDJu+Oe4Yt7XtmhI5xuBaIJkuHcB0BB3GLQUGH3GPLe== ID Date Data Source [id number] 01/12/2021 10:38:50 AM EDT [facility] Name Value Range Interpretation Code Description Data Elissa rce(s) Supporting Document(s) History and Physical [facility] FZHNTi2dVlKAMjCl08/JHDmkCWPel6XoUEcaIWf5AZfyDTDvG5WbWIV2pR8dOQQ3XTlDYoRtHfQwGJF8 lbm [file] 9iE8jBFqT0qdXBqujBCJ4VA474XrM5diCD20dzZBr0sh+executive vp+cYpf22zWXyxO3lBi/czaUGIWvy5PzLiK [file] A/4EGq7O+bki6qVTS59D19RAZp/TiID+CD+BA+Meredith+I J1gsdbN/TpXpY/gN/CY+keewQM0Ox9Bh7ogb5/xTYn1Y8EG9Xg/sebastián/C7+Bw+vqoNfKR3Nf+gOvZF/B7V [file] AuRaKoHQlzNGZyRYteCCGjYkPzON2CCl3ZYpO2NOT8hOZsUw8HWwpvYCPWOqPkOR4FWUb= ID Date Data Source [id number] 01/12/2021 09:28:11 AM EDT [facility] CT MAXILLOFACIAL WITHOUT CONTRAST 22506S INAL RESULTInterpreted by:Erika Espinoza MD01/11/2021 7:[address] MAXILLOFACIAL WITHOUT CONTRAST [id number] CLINICAL INFORMATION: 30-year-old male presenting for initial [...] rce(s) Supporting Document(s) ID Date Data Source [id number] 01/12/2021 08:03:00 AM [facility] Name Value Range Interpretation Code Description Data Elissa rce(s) Supporting Document(s) [facility] MVEDQc0eNkBQWmMxb2KwDtQaFXTyQE9lkva5P2J4mJYfI9FtbKCqe3foX1TaD9XmKQIkBTCPVH2RaHGw jb2 [file] VPRg== ID Date Data Source [id number] 01/11/2021 08:36:39 PM EDT [facility] CT CERVICAL SPINE WITHOUT CONTRAST [id number] FINAL RESULTInterpreted by:Vielka Ma MDEXAMINATION: CT CERVICAL SPINE WITHOUT CONTRAST [id number] INDICATION: Evaluation of fall and neck painTECHNIQUE: [...] rce(s) Supporting Document(s) ID Date Data Source [id number] 01/11/2021 08:33:19 PM EDT [facility] CT HEAD WITHOUT CONTRAST [id number] RESU LTInterpreted by:Vielka Ma MDCLINICAL INDICATION: Evaluation [...] rce(s) Supporting Document(s) ID Date Data Source [id number] 01/12/2021 12:59:42 AM [facility] Name Value Range Interpretation Code Description Data [facility] rce(s) Supporting Document(s) Amphetamine [Presence] in Urine by Screen method Negative [facility] Benzodiazepines [Presence] in Urine by Screen method Negat [facility] Cannabinoids [Presence] in Urine by Screen method Negative [facility] (NOTE)Positive results are presumptive a nd unconfirmed;confirmatorytesting can be ordered at the [facility] at [phone] [facility] at [phone] within 5 days of collection. Benzoylecgonine [Presence] in Urine by Screen method Negat [facility] Methadone [Presence] in Urine by Screen method Negative [facility] Opiates [Presence] in Urine by Screen method Negative [facility] Oxycodone [Presence] in Urine by Screen method Negative [facility] Fentanyl+Norfentanyl [Presence] in Urine by Screen method Negative [facility] Service comment [facility] Results below the indicated cutoff (ng/m L), are reported as"Negative." Note: for medical purposes only; not valid for legalor employment testing. ID Date Data Source [id number] 01/11/2021 09:04:29 PM EDT [facility] Name Value Range Interpretation Code Description Data Elissa rce(s) Supporting Document(s) Leukocytes [#/volume] in Blood by Automated count 6.2 10*3/uL 4-10 [facility] Erythrocytes [#/volume] in Blood by Automated count 5.51 10*6/uL 4.6- 6.1 [facility] Hemoglobin [Mass/volume] in Blood 16.9 g/dL 13.5-18 [facility] Hematocrit [Volume Fraction] of Blood by Automated count 48.9 % 4 1-53 [facility] Erythrocyte mean corpuscular volume [Entitic volume] by Auto mated count 88.9 fL 80-96 [facility] Erythrocyte mean corpuscular hemoglobin [Entitic mass] by Automated count 30.7 pg 27-33 [facility] Erythrocyte mean corpuscular hemoglobin concentration [Mass/volume] by Automated count 34.5 g/dL 32.0-36.0 [facility] distribution width [Ratio] by Automated count 14.9 % 11.5-14.5 H [facility] Platelets [#/volume] in Blood by Automated count 189 10*3/uL 150-400 [facility] Differential cell count method - Blood [facility] Neutrophils/100 leukocytes in Blood by Automated count 67 % [facility] Lymphocytes/100 leukocytes in Blood by Automated count 23 % [facility] Monocytes/100 leukocytes in Blood by Automated count 7 % [facility] Eosinophils/100 leukocytes in Blood by Automated count 2 % [facility] Basophils/100 leukocytes in Blood by Automated count 1 % [facility] Neutrophils [#/volume] in Blood by Automated count 4.18 10*3/uL 1.8-7 .0 [facility] Lymphocytes [#/volume] in Blood by Automated count 1.41 10*3/uL 1.2-4 .0 [facility] Monocytes [#/volume] in Blood by Automated count 0.45 10*3/uL 0-0.8 [facility] Eosinophils [#/volume] in Blood by Automated count 0.13 10*3/uL 0-0.5 [facility] Basophils [#/volume] in Blood by Automated count 0.05 10*3/uL 0-0.2 [facility] Nucleated erythrocytes/100 leukocytes [Ratio] in Blood by Automated count 0 /100{WBCs} 0-0 [facility] ID Date Data Source [id number] 01/11/2021 09:29:11 PM EDT [facility] Name Value Range Interpretation Code Description Data Elissa rce(s) Supporting Document(s) Albumin [Mass/volume] in Serum or Plasma by Bromocresol green (BCG) dye binding method 4.5 g/dL 3.5-5.2 [facility] Bilirubin.total [Mass/volume] in Serum or Plasma 1.1 mg/dL <1.2 [facility] Calcium [Mass/volume] in Serum or Plasma 9.7 mg/dL 8.6-10.0 [facility] Chloride [Moles/volume] in Serum or Plasma 97 mmol/L 98-107 L [facility] Creatinine [Mass/volume] in Serum or Plasma 0.91 mg/dL 0.70-1.20 [facility] Glucose [Mass/volume] in Serum or Plasma 114 mg/dL 70-140 [facility] Alkaline phosphatase [Enzymatic activity/volume] in Serum or Plasma 54 U/L 40-129 [facility] Potassium [Moles/volume] in Serum or Plasma 3.6 mmol/L 3.4-5.1 [facility] Protein [Mass/volume] in Serum or Plasma 6.8 g/dL 6.4-8.3 [facility] Sodium [Moles/volume] in Serum or Plasma 134 mmol/L 136-145 L [facility] Aspartate aminotransferase [Enzymatic activity/volume] in Serum or Plasma 15 U/L <40 [facility] Urea nitrogen [Mass/volume] in Serum or Plasma 10 mg/dL 6-20 [facility] Osmolality of Serum or Plasma by calculation 277 mosm/kg 275-300 [facility] Creatinine/Urea nitrogen [Mass Ratio] in Serum or Plasma 11 [facility] Bicarbonate [Moles/volume] in Serum 23 mmol/L 22-29 [facility] Alanine aminotransferase [Enzymatic activity/volume] in Seru m or Plasma 9 U/L <41 [facility] Anion gap 3 in Serum or Plasma 14 mmol/L 8-15 [facility] Glomerular filtration rate/1.73 sq M pre dicted among non-blacks [Volume Rate/Area] in Serum or Plasma by Creatinine-based formula (MDRD) >6 0 [facility] Glomerular filtration rate/1.73 sq M pre dicted among blacks [Volume Rate/Area] in Serum or Plasma by Creatinine-based formula (MDRD) >60 [facility] ID Date Data Source [id number] 01/11/2021 10:00:35 PM EDT [facility] Name Value Range Interpretation Code Description Data Elissa rce(s) Supporting Document(s) Cholesterol [Mass/volume] in Serum or Plasma 156 mg/dL <200 [facility] Triglyceride [Mass/volume] in Serum or Plasma 70 mg/dL <150 [facility] Cholesterol in HDL [Mass/volume] in Serum or Plasma 59 mg/dL >40 [facility] Cholesterol in LDL [Mass/volume] in Serum or Plasma by calcu lation 83 mg/dL <100 [facility] Cholesterol in VLDL [Mass/volume] in Serum or Plasma by calc ulation 14 mg/dl 16-42 L [facility] Cholesterol non HDL [Mass/volume] in Serum or Plasma 97 mg/dL <130 [facility] ID Date Data Source [id number] 01/11/2021 09:27:56 PM EDT [facility] Name Value Range Interpretation Code Description Data Elissa rce(s) Supporting Document(s) Hemoglobin A1c/Hemoglobin.total in Blood by HPLC 5.1 % 4.0-6.0 [facility] (NOTE)<5.7% Average risk of diabetes (ADA)5.7-6.4% Increased risk of diabetes(ADA)>/= 6.5% Diagnostic for diabetes(ADA) Glucose mean value [Mass/volume] in Blood Estimated fr om glycated hemoglobin 101 mg/dL <126 [facility] ID Date Data Source [id number] 01/11/2021 03:24:00 AM EDT [facility] Name Value Range Interpretation Code Description Data Elissa rce(s) Supporting Document(s) SARS coronavirus 2 RNA [Presence] in Res piratory specimen by CHRISTA with probe detection NEGATIVE [facility] This lab was ordered by [facility] a nd reported by [facility]. ID Date Data Source [id number] 11/18/2020 07:29:00 AM EDT [facility] Name Value Range Interpretation Code Description Data Elissa rce(s) Supporting Document(s) SARS-CoV-2 RNA Resp Ql CHRISTA+probe NOT DETECTED [facility] This lab was ordered by PAULINA knox and reported by PAUL[facility] Pritchett. ID Date Data Source [id number] 10/19/2020 10:26:00 AM EDT [facility] [address] [place] [address] PHONE: [phone] FAX: [phone] Name .................. : HOWARD TORRES Acct Number.................. : [id number] ROOM. ................. : VT- Number ................... : [id number] Stay type ............. : E/R Discharge Date......... ... : 10/18/20 Admit Date ......... : 10/18/20 Admit Phys .................... : SURENDRA MARTINES Date of ....... : 1990 Family Phys ................... : NO PCP Phone .................. : [phone] Age ................................ : 30 Film# .................. .:[id number] Sex ................................. : M Unsigned transcriptions are preliminary reports and do not represent a medical or legal document CT ABD & PELVIS W/ IV ONLY [id number] COMPLETE:10/18/20 22:18 RLB 10590 Reason(s): 7-8 R sided abd pain with [...] of administration: Intravenous [address] [place] [address] PHONE: [phone] FAX: [phone] Name .................. : HOWARD TORRES Acct Number.................. : [id number] ROOM. ................. : VT-[id number] MR Number ................... : [id number] Stay type ............. : E/R Discharge Date......... ... : 10/18/20 Admit Date ......... : 10/18/20 Admit Phys .................... : SURENDRA MARTINES Date of ....... : 1990 Family Phys ................... : NO PCP Phone .................. : [phone] Age ................................ : 30 Film# .................. .:[id number] Sex ................................. : M Unsigned transcriptions are preliminary reports and do not represent a medical or legal document CT ABD & PELVIS W/ IV ONLY 67918 COMPLETE:10/18/20 22:18 RLB [id number] Reason(s): 7-8 R sided abd pain with [...] rce(s) Supporting Document(s) ID Date Data Source [id number] 10/18/2020 08:22:[address] [facility] [address] [facility] [address] [place] [address] Phone #: ext- [phone] 10/18/2020 20:17 Patient: [...] STAT 21:00 10/18/2020 21:15 Yuval,Contrast Only Nilo UGZMAN; Pauline Aponte(Oxygen?(No))(IV?(Yes)) Reason for Study: 7-8 R sided abd pain with nausea/diarrhea, 30 lb wt loss [address] [facility] [address] [place] [address] Phone #: ext- [phone] 10/18/2020 20:17 Patient: BRIAN LAWRENCE Sex: M [...] rce(s) Supporting Document(s) ID Date Data Source [id number] 10/18/2020 08:22:[address] [facility] [address] [facility] [address] [place] [address] Phone #: ext- [phone] 10/18/2020 20:17 Patient: [...] rce(s) Supporting Document(s) ID Date Data Source [id number] 10/18/2020 08:22:[address] [facility] [address] [facility] [address] [place] [address] Phone #: ext- [phone] 10/18/2020 20:17 Patient: BRIAN LAWRENCE Sex: M : 1990 Age: 30yWeight: 79.3 kgHeight/Length: 73 inBMI: 23.1ALLERGIES: Codeine Sulfate, Penicillins Date/Time Medication Administered Medication OrderedStart NS [IV] NS IV : Bolus 1000 mL, then 29524:29 10/18/2020 Dose: IV Fluids mL/hr (NOW x1)Pauline Barakat R.N. Bolus: 1000 mL over 1 hour(s)---- Dispensed: 1000 mL bagStop Site: #1 right AC22:04 10/18/2020Pauline Barakat R.N. Name Value Range Interpretation Code Description Data Elissa rce(s) Supporting Document(s) ID Date Data Source [id number] 10/18/2020 08:22:[address] [facility] [address] [facility] [address] [place] [address] Phone #: ext- [phone] 10/18/2020 20:17 Patient: [...] of Abdominal Pain (Male) [address] [facility] [address] [place] [address] Phone #: ext- [phone] 10/18/2020 20:17 Patient: [...] to seek medical advice [address] [facility] [address] [place] [address] Phone #: ext- [phone] 10/18/2020 20:17 Patient: [...] chest, arm, back, neck or jaw pain [phone] [employer] [place] [address]. All rights reserved. This information is not intended as asubstitute for professional medical care. Always follow your healthcare professional's instructions.[place] DietYour healthcare provider may recommend a bland diet if you have an upset stomach. It consists offoods that are mild and easy to digest. It is better to eat small frequent meals rather than 3 largemeals a day.BeveragesOK: Fruit juices, non-caffeinated teas and coffee, non-carbonated carrillo [address] [facility] [address] [place] [address] Phone #: ext- [phone] 10/18/2020 20:17 Patient: BRIAN LAWRENCE Sex: M : 1990 Age: 30yAvoid: Carbonated beverage, caffeinated tea and coffee, all alcoholic beveragesBreadOK: Refined white, wheat or rye bread, lavon or soda crackers, [place] toast, plain rolls, bagelsAvoid: Whole-grain breadCerealOK: Refined [...] soups without heavy seasoning [address] [facility] [address] [place] [address] Phone #: ext- [phone] 10/18/2020 20:17 Patient: [...] extracts, moe, cinnamon, thyme, mace, allspice, paprikaAvoid: [place]ell powder, cloves, pepper, seed spices, garlic, gravy pickles, highly seasoned saladdressings [employer]. [address] [place] [address]. All rights reserved. This information is not [...] juice; clear fruit drinks. [address] [facility] [address] [place] [address] Phone #: ext- [phone] 10/18/2020 20:17 Patient: [...] grocery stores. You don't need aprescription. [employer]. [address] [place] [address]. All rights reserved. This information is not intended as asubstitute for professional medical care. Always follow your healthcare professional's instructions. You have been given the following additional information: Unknown Causes of Abdominal Pain (Male) Diet, [place] (Adult) Clear Liquid Diet No strenuous activity until better.(Electronically signed by MEGAN Barboza 10/18/2020 22:02) Name Value Range Interpretation Code Description Data Elissa rce(s) Supporting Document(s) ID Date Data Source [id number] 10/18/2020 08:22:[address] [facility] 1 Clinical Report - Nurses [facility] [address] [place] [address] Phone #: ext- [phone] 10/18/2020 20:17 Patient: [...] feelslike he is bruising easier than normal.).Treatment [employer]ER:Took Tylenol and ibuprofen. (Pepto, Ibuprofen last at [...] Mackay R.N. 2 Clinical Report - Nurses [facility] Emergency Department [address] [place] [address] Phone #: ext- [phone] 10/18/2020 20:17 Patient: [...] normal limits. 3 Clinical Report - Nurses [facility] [address] [place] [address] Phone #: ext- [phone] 10/18/2020 20:17 Patient: BRIAN LAWRENCE Sex: M [...] Patient verbalized understanding. Written instructions provided in Slovak. The patient was discharged by the physician public aid eligibility assistant. He was discharged home and accompanied by family. He left ambulatory and via private vehicle. Family member driving. --22:05 10/18/20 Pauline Barakat R.N. 22:03 10/18/20. BP: 113/67. MAP: 82. HR: 58. RR: 18. O2 saturation: 99%. Temp: 99.5 F. Pain level now: 08/04. --22:05 10/18/20 Pauline Barakat R.N. 4 Clinical Report - Nurses [facility] Emergency Department [address] [place] [address] Phone #: ext- [phone] 10/18/2020 20:17 [id number] Sex: M : 1990 Age: 30yLock ed/Released at 10/18/2020 22:05 by Pauline Barakat R.N. Name Value Range Interpretation Code Description Data Elissa rce(s) Supporting Document(s) ID Date Data Source [id number] 10/18/2020 08:22:[address] [facility] 1 Clinical Report - Physicians/Mid Levels [facility] Department [address] [place] [address] Phone #: ext- [phone] 10/18/2020 20:17 Patient: [...] daily. 2 Clinical Report - Physicians/Mid Levels [facility] [address] [place] [address] Phone #: ext- [phone] 10/18/2020 20:17 Patient: BRIAN LAWRENCE Sex: M [...] NEGAT 3 Clinical Report - Physicians/Mid Levels [facility] [address] [place] [address] Phone #: ext- [phone] 10/18/2020 20:17 Patient: BRIAN LAWRENCE Sex: M : 1990 Age: 30y { HEMOCCULT LOT # [id number] ){ LOT EXP [id number] ){ PROCEDURAL CONTROL POS/NEG VALID)CBC w Diff: [...] 16.0) 4 Clinical Report - Physicians/Mid Levels [facility] Department [address] [place] [address] Phone #: ext- [phone] 10/18/2020 20:17 Patient: [...] loss). 5 Clinical Report - Physicians/Mid Levels [facility] Department [address] [place] [address] Phone #: ext- [phone] 10/18/2020 20:17 Patient: [...] Name Value Range Interpretation Code Description Data [facility] rce(s) Supporting Document(s) ID Date Data Source [id number] 10/21/2020 06:45:[address] [facility] Name Value Range Interpretation Code Description Data [facility] rce(s) Supporting Document(s) Campylobacter coli+jejuni+upsaliensis DN A [Presence] in Stool by Target amplification with non-probe based detection Not Detected Not Detected [facility] Clostridium difficile toxin A+B (tcdA+tc dB) genes [Presence] in Stool by Target amplification with non-probe based detection Not Detected Not Detected [facility] Plesiomonas shigelloides DNA [Presence] in Stool by Target amplification with non-probe based detection Not Detected Not Detected [facility] Salmonella enterica+bongori DNA [Presenc e] in Stool by Target amplification with non-probe based detection Not Detected Not Detected [facility] Vibrio cholerae+parahaemolyticus+vulnifi cus DNA [Presence] in Stool by Target amplification with non-probe based detection Not Detected Not Detected [facility] Vibrio cholerae DNA [Presence] in Stool by Target amplification with non-probe based detection Not Detected Not Detected [facility] Yersinia enterocolitica DNA [Presence] i n Stool by Target amplification with non-probe based detection Not Detected Not Detected [facility] Escherichia coli enteroaggregative Gretchen p lasmid aggR+aatA genes [Presence] in Stool by Target amplification with non-probe based detection Not Detected Not Detected [facility] Escherichia coli enteropathogenic eae ge ne [Presence] in Stool by Target amplification with non-probe based detection Not Detected Not Detected [facility] Escherichia coli enterotoxigenic ltA+st1 a+st1b genes [Presence] in Stool by Target amplification with non-probe based detection Not Detected Not Detected [facility] Escherichia coli shiga-like toxin 1+2 (s tx1+stx2) genes [Presence] in Stool by Target amplification with non-probe based detection Not Detected Not Detected [facility] Escherichia coli O157 DNA [Presence] in Stool by Target amplification with non- probe based detection Not Detected Not Detected [facility] Shigella species+EIEC invasion plasmid a ntigen H (ipaH) gene [Presence] in Stool by Target amplification with non-probe based detection Not Detected Not Detected [facility] Cryptosporidium sp DNA [Presence] in Sto ol by Target amplification with non- probe based detection Not Detected Not Detected [facility] Cyclospora cayetanensis DNA [Presence] i n Stool by Target amplification with non-probe based detection Not Detected Not Detected [facility] Entamoeba histolytica DNA [Presence] in Stool by Target amplification with non- probe based detection Not Detected Not Detected [facility] Giardia lamblia DNA [Presence] in Stool by Target amplification with non-probe based detection Not Detected Not Detected [facility] spital Adenovirus F(40+41) DNA [Presence] in St ool by Target amplification with non- probe based detection Not Detected Not Detected [facility] Astrovirus subtypes 1-8 RNA [Presence] i n Stool by Target amplification with non-probe based detection Not Detected Not Detected [facility] Norovirus genogroup I+II RNA [Presence] in Stool by Target amplification with non-probe based detection Not Detected Not Detected [facility] Rotavirus A RNA [Presence] in Stool by T arget amplification with non-probe based detection Not Detected Not [facility]ed [facility] Sap[facility] genogroups I+II+IV+V RNA [Pres ence] in Stool by Target amplification with non-probe based detection Not Detected Not Detected [facility] ID Date Data Source [id number] 10/21/2020 06:44:00 AM EDT [facility] Value Range Interpretation Code Description Data Elissa rce(s) Supporting Document(s) Herpes simplex virus 1+2 IgM Ab [Units/volume] in Seru m by Immunoassay <0.91 Ratio 0.00-0.90 [facility] Negative <0.91 Equivocal 0.91 - 1.09 Positive >1.09 ID Date Data Source [id number] 10/20/2020 01:34:00 PM EDT [facility] Value Range Interpretation Code Description Data Elissa rce(s) Supporting Document(s) HIV 1+2 Ab+HIV1 p24 Ag [Presence] in Serum or Plasma b y Immunoassay Non Reactive Non Reactive [facility] ID Date Data Source [id number] 10/18/2020 10:45:00 PM EDT [facility] Value Range Interpretation Code Description Data Elissa rce(s) Supporting Document(s) Treponema pallidum Ab [Presence] in Serum NON-REACTIVE NORMAL:NON BECCA CTIVE [facility] ID Date Data Source [id number] 10/18/2020 09:29:00 PM EDT [facility] Value Range Interpretation Code Description Data Elissa rce(s) Supporting Document(s) OCCULT BLOOD NEGATIVE NORMAL: NEGATIVE [facility] OCCULT BLOOD REENTER NEGATIVE NORMAL: NEGATIVE [facility] { HEMOCCULT LOT # [id number] ){ LOT EXP DATE 10-25-20 ){ PROCEDURAL CONTROL POS/NEG VALID ) ID Date Data Source [id number] 10/19/2020 12:18:00 AM EDT [facility] Value Range Interpretation Code Description Data Elissa rce(s) Supporting Document(s) Thyrotropin [Units/volume] in Serum or Plasma by Detec tion limit <= 0.05 mIU/L 0.48 uIU/mL 0.47 - 5.01 [facility] ID Date Data Source [id number] 10/18/2020 09:47:[address] [facility] Name Value Range Interpretation Code Description Data Elissa rce(s) Supporting Document(s) Lipase [Enzymatic activity/volume] in Serum or Plasma 24 U/L 13 - 60 [facility] ID Date Data Source [id number] 10/18/2020 09:47:[address] [facility] Name Value Range Interpretation Code Description Data Elissa rce(s) Supporting Document(s) COMPREHENSIVE METABOLIC PANEL [facility] COMPREHENSIVE METABOLIC PANEL Sodium [Moles/volume] in Serum or Plasma 139 mEq/L 134 - 153 [facility] Potassium [Moles/volume] in Serum or Plasma 3.8 mEq/L 3.6 - 5.0 [facility] Chloride [Moles/volume] in Serum or Plasma 102 mEq/L 98 - 107 [facility] Carbon dioxide, total [Moles/volume] in Serum or Plasma 26 MEQ/L 22 - 30 [facility] Glucose [Mass/volume] in Serum or Plasma 106 MG/DL 70 - [address] [facility] BUN 10 MG/DL 7 - 21 [facility] al Creatinine [Mass/volume] in Serum or Plasma 1.0 MG/DL 0.7 - 1.5 [facility] BUN/CREAT 10 8 - 27 [facility] Protein [Mass/volume] in Serum or Plasma 7.5 G/DL 6.3 - 8.2 [facility] Albumin [Mass/volume] in Serum or Plasma 4.9 G/DL 3.9 - 5.0 [facility] Globulin [Mass/volume] in Serum by calculation 2.6 GM/DL 2.4 - 3.2 [facility] A/G RATIO 1.9 0.8 - 2.0 [facility] Calcium [Mass/volume] in Serum or Plasma 10.1 MG/DL 8.4 - 10.2 [facility] Bilirubin.total [Mass/volume] in Serum or Plasma 1.0 MG/DL 0.2 - 1.3 [facility] Alkaline phosphatase [Enzymatic activity/volume] in Serum or Plasma 53 U/L 38 - 126 [facility] Aspartate aminotransferase [Enzymatic activity/volume] in Serum or Plasma 17 U/L 5 - 40 [facility] Alanine aminotransferase [Enzymatic activity/volume] in Seru m or Plasma 9 U/L 7 - 56 [facility] Anion gap 3 in Serum or Plasma 11.0 mmol/L 8.0 - 16.0 [facility] AGE 30 yrs [facility] NON-AA GFR >60 mL/min [facility] ital AFR AMER GFR >60 mL/min [facility] Male GFR In terprentation [...] >32 mL/min Normal ID Date Data Source [id number] 10/18/2020 09:30:[address] [facility] Name Value Range Interpretation Code Description Data Elissa rce(s) Supporting Document(s) CBC W/AUTOMATED DIFF [facility] COMPLETE BLOOD COUNT Leukocytes [#/volume] in Blood by Automated count 6.6 10^3/uL 4.2 - [address] [facility] Erythrocytes [#/volume] in Blood by Automated count 5.81 10^6/uL 4. 50 - 6.30 [facility] Hemoglobin [Mass/volume] in Blood 18.3 g/dL 14.0 - 16.[address] [facility] Hematocrit [Volume Fraction] of Blood by Automated count 50.6 % 4 1.0 - 51.0 [facility] Erythrocyte mean corpuscular volume [Entitic volume] by Auto mated count 87.1 fL 80.0 - 94.0 [facility] Erythrocyte mean corpuscular hemoglobin [Entitic mass] by Automated count 31.5 pg 27.0 - 34.0 [facility] Erythrocyte mean corpuscular hemoglobin concentration [Mass/volume] by Automated count 36.2 g/dL 31.0 - 36.[address] [facility] Erythrocyte distribution width [Ratio] by Automated count 13.2 % 11.5 - 14.8 [facility] Platelets [#/volume] in Blood by Automated count 240 10^3/uL 150 - [address] [facility] Platelet mean volume [Entitic volume] in Blood by Automated count 9.2 fL 7.4 - 10.4 [facility] Neutrophils/100 leukocytes in Blood by Automated count 55.4 % 37. 0 - 80.0 [facility] Lymphocytes/100 leukocytes in Blood by Manual count 34.8 % 25.0 - 40.0 [facility] Monocytes/100 leukocytes in Blood by Automated count 6.8 % 3.0 - 8.0 [facility] Eosinophils/100 leukocytes in Blood by Automated count 1.8 % 0.0 - 7.0 [facility] Basophils/100 leukocytes in Blood by Automated count 0.9 % 0.0 - 2.0 [facility] %IG 0.3 % 0.0 - 0.0 [facility] %NRBC 0.0 % 0.0 - 0.0 [facility] Neutrophils [#/volume] in Blood by Automated count 3.64 10^3/uL 2.00 - 6.90 [facility] Lymphocytes [#/volume] in Blood by Automated count 2.29 10^3/uL 0.60 - 3.40 [facility] Monocytes [#/volume] in Blood by Automated count 0.45 10^3/uL 0.00 - 0.90 [facility] Eosinophils [#/volume] in Blood by Automated count 0.12 10^3/uL 0.00 - 0.70 [facility] Basophils [#/volume] in Blood by Automated count 0.06 10^3/uL 0.00 - 0.20 [facility] #IG 0.02 10^3/uL 0.00 - 0.10 [facility] #NRBC 0.00 10^3/uL 0.00 - 0.00 [facility] ospital MANUAL DIFF NOT INDICATED [facility] RBC MORPH NOT INDICATED [facility] ID Date Data Source [id number] 10/21/2020 08:29:[address] [facility] Name Value Range Interpretation Code Description Data Elissa rce(s) Supporting Document(s) Chlamydia trachomatis rRNA [Presence] in Unspecified specimen by Probe and target amplification method Negative Negative [facility] Neisseria gonorrhoeae rRNA [Presence] in Unspecified specimen by Probe and target amplification method Negative Negative [facility] ID Date Data Source [id number] 10/18/2020 09:29:[address] [facility] Name Value Range Interpretation Code Description Data Elissa rce(s) Supporting Document(s) URINALYSIS [facility] URINALYSIS SOURCE Clean Catch [facility] ital COLOR yellow NORMAL: Yellow [facility] CLARITY clear NORMAL: Clear [facility] Specific gravity of Urine by Test strip 1.015 1.001 - 1.030 [facility] pH 7 5 - 9 [facility] Glucose [Mass/volume] in Urine by Test strip NORM NORMAL: Negat [facility] Bilirubin.total [Presence] in Urine by Test strip 1 NORMAL: Negative [facility] Ketones [Presence] in Urine by Test strip 15 NORMAL: Negative [facility] Protein [Mass/volume] in Urine by Test strip 30 NORMAL: Negat [facility] Nitrite [Presence] in Urine by Test strip NEG NORMAL: Negative [facility] BLOOD 50 NORMAL: Negative [facility] Leukocyte esterase [Presence] in Urine by Test strip 25 FAY L: Negative [facility] Urobilinogen [Mass/volume] in Urine by Test strip 4 less lillian n 1.0 mg/dL [facility] MICROSCOPIC See Below [facility] ital WBC 1 - 3 NORMAL: NONE SEEN [facility] Erythrocytes [#/volume] in Urine by Test strip 1 - 3 NORMAL: NON E SEEN [facility] EPITHELIAL FEW NORMAL: NONE SEEN [facility] Mucus [Presence] in Urine sediment by Light microscopy Trace NORMAL: NONE SEEN [facility] ID Date Data Source [id number] 07/12/2020 04:25:00 PM EST [facility] Name Value Range Interpretation Code Description Data Elissa rce(s) Supporting Document(s) SARS coronavirus 2 RNA [Presence] in Res piratory specimen by CHRISTA with probe detection NEGATIVE [facility] This lab was ordered by [facility] a nd reported by [facility]. ID Date Data Source [id number] 04/09/2020 02:00:00 PM EST [facility] Name Value Range Interpretation Code Description Data Elissa rce(s) Supporting Document(s) SARS-COV-2 RNA RESP QL CHRISTA+PROBE [facility] This lab was ordered by [facility] and reported by [facility]. Procedure Social History Code Duration Value Status Description Data Source(s ) Alcohol intake 01/11/2021 12:00:00 AM EDT Current drinker of al cohol (finding) completed Current drinker of alcohol (finding) [facility] Tobacco use and exposure 01/11/2021 12:00:00 AM EDT Never used co mpleted Never used [facility] Cigarette pack-years 01/11/2021 12:00:00 AM EDT [facility] Cigarettes smoked current (pack per day) - Reported 01/12/20 12:00:[address] [facility] ospital Smoking 01/11/2021 12:00:00 AM EDT Current every day smoker co mpleted Current every day smoker [facility] Vital Signs ID Date Data Source [id number] 01/14/2021 05:33:44 PM EDT [facility] Name Value Range Interpretation Code Description Data Source(s) TRANSFER FROM [facility] Patient Treatment Plan of Care Planned Activity Planned Date Details Description Data Source (s) Lurasidone Hydrochloride 40 MG Oral Tablet 01/14/2021 12:00:00 AM E [facility] Lurasidone Hydrochloride 40 MG Oral Tablet 01/14/2021 12:00:00 AM E [facility] Magnesium Hydroxide 80 MG/ML Oral Suspension 01/12/2021 02:15:15 PM EDT [facility] perflutren lipid microspheres (DEFINITY) injectable martinez spension 9.78 mg 01/12/2021 04:12:56 AM EDT [facility] benzocaine (ORAJEL) 20 % mucosal gel 01/11/2021 09:30:00 PM [facility] Diazepam 5 MG Oral Tablet 01/11/2021 08:09:07 PM [facility] Hydroxyzine Hydrochloride 50 MG Oral Tablet 01/11/2021 01:14:20 PM [facility] Chlorpromazine hydrochloride 25 MG Oral Tablet 01/11/2021 01:12:43 PM [facility] Nicotine 2 MG Oral Lozenge 01/11/2021 12:48:42 PM [facility] benztropine mesylate 0.5 MG Oral Tablet 01/11/2021 12:48:38 PM [facility] Clonazepam 0.5 MG Oral Tablet [facility] Prazosin 2 MG Oral Capsule U [facility] Bupropion Hydrochloride 100 MG Oral Tablet [facility] Risperidone 0.5 MG Oral Tablet [facility] Ibuprofen 400 MG Oral Tablet [facility]
== END 2021-04-11 02:05 | disposition left against medical advice (07) ==
LOC: M ED 20:31
DX: Z53.21 Procedure and treatment not carried out due to patient leaving prior to being seen by health care provider (principal)

== ENCOUNTER → 2021-05-17 | Outpatient (REF) | payer MEDICARE, MEDICAID ==
[~2021-05-17] MED LIST changes: +AMBI10TA PO; +CLON0.25 PO
[2021-05-17 18:02] LABS: RSV AMPLIFICATION NEGATIVE (NEGATIVE)
== END ==
LOC: M LAB REF 16:29
PROVIDERS: ATTEND Physician Assistant Medical
DX: R50.9 Fever, unspecified (principal); Z20.822 Contact with and (suspected) exposure to COVID-19

== ENCOUNTER 2021-07-05 15:26 | Emergency (ER) | payer MEDICARE, MEDICAID ==
[~2021-07-05] VITALS: Ht 182.9 cm; Wt 82.0 kg
[~2021-07-05 15:26] MED LIST changes: -LATU40TA; +LATU40TA2
[2021-07-05] MEDS ORDERED: CLON0.5T17 (15:35)
[2021-07-05] MEDS ORDERED: LATU40TA2 (15:35)
[2021-07-05] MEDS ORDERED: ZOLP10TA2 (15:35)
[2021-07-05] MEDS ORDERED: LATU40TA2 PO (16:34)
[2021-07-05] MEDS ORDERED: CLON0.5T17 PO (16:34)
[2021-07-05] MEDS ORDERED: RISP-9 PO (16:34)
[2021-07-05] MEDS ORDERED: AMBI10TA PO (16:34)
[2021-07-05 16:41] VITALS: BP 114/69
== END 2021-07-05 16:51 | disposition home or self-care (01) ==
LOC: M ED 15:26
DX: F31.10 Bipolar disorder, current episode manic without psychotic features, unspecified (principal); M32.9 Systemic lupus erythematosus, unspecified; Z79.899 Other long term (current) drug therapy; Z88.0 Allergy status to penicillin; Z88.5 Allergy status to narcotic agent

== ENCOUNTER 2021-07-28 11:58 | Emergency (ER) | payer MEDICARE, MEDICAID ==
[~2021-07-28] VITALS: Ht 182.9 cm; Wt 83.5 kg
[~2021-07-28 11:58] MED LIST changes: +CLON0.5T17; +LATU40TA2 PO; +ZOLP10TA2
[2021-07-28] MEDS ORDERED: clonazePAM 0.5 MG TAB PO ONE (13:30)
[2021-07-28 13:45] LABS: BASO % 0.9 % (0.0-1.0); EOS # 0.1 10^3/uL (0.0-0.5); EOS % 1.1 % (0.0-3.0); HEMATOCRIT 48.2 % (42.0-52.0); HEMOGLOBIN 16.1 g/dl (13.5-17.5); LYMPH # 1.5 10^3/uL (1.5-5.0); LYMPH % 32.8 % (24.0-44.0); MEAN CORPUSCULAR HEMOGLOBIN 29.9 pg (27.0-33.0); MEAN CORPUSCULAR HGB CONC 33.4 g/dl (32.0-36.5); MEAN CORPUSCULAR VOLUME 89.6 fl (80.0-96.0); MONO # 0.3 10^3/uL (0.0-0.8); MONO % 7.3 % (2.0-8.0); NEUTROPHILS # 2.7 10^3/uL (1.5-8.5); NEUTROPHILS % 57.7 % (36.0-66.0); PLATELET COUNT, AUTOMATED 189 10^3/uL (150-450); RED BLOOD COUNT 5.38 10^6/uL (4.30-6.10); WHITE BLOOD COUNT 4.7 10^3/uL (4.0-10.0)
[2021-07-28] MEDS: NS 1,000 ML IV ONE ×2 (13:47→14:00)
[2021-07-28 13:52] VITALS: BP 126/77
[2021-07-28 14:06] LABS: AMPHETAMINES LEVEL URINE NEGATIVE (NEGATIVE); BENZODIAZEPINES URINE NEGATIVE (NEGATIVE); CANNABINOIDS URINE POSITIVE (NEGATIVE); COCAINE METABOLITE URINE NEGATIVE (NEGATIVE); METHADONE URINE NEGATIVE (NEGATIVE); OPIATES URINE NEGATIVE (NEGATIVE); PHENCYCLIDINE URINE NEGATIVE (NEGATIVE)
[2021-07-28 14:09] LABS: ALT/SGPT 28 U/L (12-78); BILIRUBIN,DIRECT 0.1 MG/DL (0.0-0.2); BILIRUBIN,TOTAL 0.3 MG/DL (0.2-1.0); BLOOD UREA NITROGEN 10 MG/DL (7-18); CALCIUM LEVEL 9.6 MG/DL (8.5-10.1); CARBON DIOXIDE LEVEL 33 MEQ/L (21-32); CHLORIDE LEVEL 108 MEQ/L (98-107); GLOMERULAR FILTRATION RATE > 60.0 (>60); GLUCOSE, FASTING 96 MG/DL (70-100); POTASSIUM SERUM 4.4 MEQ/L (3.5-5.1); SODIUM LEVEL 142 MEQ/L (136-145); TOTAL PROTEIN 6.5 GM/DL (6.4-8.2)
[2021-07-28 16:36] LABS: BARBITURATES URINE NEGATIVE (NEGATIVE)
== END 2021-07-28 14:02 | disposition left against medical advice (07) ==
LOC: EDBD 11:58 → M ED 11:58
DX: F31.89 Other bipolar disorder (principal); F12.10 Cannabis abuse, uncomplicated; Z53.9 Procedure and treatment not carried out, unspecified reason; Z79.899 Other long term (current) drug therapy; Z88.0 Allergy status to penicillin; Z88.5 Allergy status to narcotic agent

== ENCOUNTER 2022-06-14 09:01 | Emergency (ER) | payer MEDICARE, MEDICAID ==
[~2022-06-14] VITALS: Ht 185.4 cm; Wt 81.8 kg
[~2022-06-14 09:01] MED LIST changes: +DIPH-435 PO; -DIPH25CA32 PO; -PAXI10TA12 PO; +PAXI10TA13 PO; -PAXI20TA29 PO; +PAXI20TA30 PO; -PAXI40TA10 PO; +PAXI40TA12 PO
[2022-06-14 09:03] VITALS: BP 140/96
[2022-06-14] MEDS ORDERED: NS 1,000 ML IV ONE (12:55)
[2022-06-14] MEDS ORDERED: methylPREDNISolone 125MG 2ML VIAL IV ONE (12:55)
[2022-06-14 14:03] LABS: BASO % 0.7 % (0.0-1.0); EOS # 0.1 10^3/uL (0.0-0.5); EOS % 1.8 % (0.0-3.0); HEMATOCRIT 48.7 % (42.0-52.0); HEMOGLOBIN 16.5 g/dl (13.5-17.5); LYMPH # 0.6 10^3/uL (1.5-5.0); LYMPH % 13.1 % (24.0-44.0); MEAN CORPUSCULAR VOLUME 88.5 fl (80.0-96.0); MONO # 0.4 10^3/uL (0.0-0.8); MONO % 8.4 % (2.0-8.0); NEUTROPHILS # 3.4 10^3/uL (1.5-8.5); NEUTROPHILS % 75.8 % (36.0-66.0); PLATELET COUNT, AUTOMATED 173 10^3/uL (150-450); WHITE BLOOD COUNT 4.5 10^3/uL (4.0-10.0)
[2022-06-14 14:04] LABS: MEAN CORPUSCULAR HGB CONC 33.9 g/dl (32.0-36.5)
[2022-06-14 14:08] LABS: ALBUMIN 4.2 G/DL (3.2-5.2); ALKALINE PHOSPHATASE 58 U/L (46-116); ALT/SGPT 20 U/L (7.0-40); AST/SGOT 20 U/L (<34); BILIRUBIN,TOTAL 0.8 MG/DL (0.3-1.2); BLOOD UREA NITROGEN 10 MG/DL (9-23); CALCIUM LEVEL 9.2 MG/DL (8.5-10.1); CARBON DIOXIDE LEVEL 29 MMOL/L (20-31); CHLORIDE LEVEL 105 MMOL/L (98-107); CREATININE FOR GFR 0.91 MG/DL (0.70-1.30); GLOMERULAR FILTRATION RATE > 60.0 (>60); GLUCOSE, FASTING 95 MG/DL (60-100); INR 0.91; POTASSIUM SERUM 4.2 MMOL/L (3.5-5.1); PROTHROMBIN TIME 12.4 SECONDS (12.5-14.5); SODIUM LEVEL 140 MMOL/L (136-145); TOTAL PROTEIN 6.2 G/DL (5.7-8.2)
[2022-06-14] MEDS ORDERED: LORazepam 2 MG/ML VIAL IV STA (14:08)
[2022-06-14 14:09] LABS: PARTIAL THROMBOPLASTIN TIME 26.6 SECONDS (24.8-34.2)
[2022-06-14 14:10] LABS: FREE THYROXINE INDEX 4.1 % (1.4-3.8); T UPTAKE 36.4 % (22.5-37.0); THYROXINE (T4) 11.3 UG/DL (4.5-10.9)
[2022-06-14 14:57] LABS: ERYTHROCYTE SEDIMENTATION RATE 1 mm/hr (0-15)
[2022-06-14] MEDS ORDERED: NAPR500T6 PO (15:23)
[2022-06-14] MEDS ORDERED: PRED20TA PO (15:23)
== END 2022-06-14 15:35 | disposition home or self-care (01) ==
LOC: M ED 09:01
DX: R22.0 Localized swelling, mass and lump, head (principal); R20.0 Anesthesia of skin; H53.143 Visual discomfort, bilateral; M32.9 Systemic lupus erythematosus, unspecified; G43.909 Migraine, unspecified, not intractable, without status migrainosus; F31.9 Bipolar disorder, unspecified; F17.200 Nicotine dependence, unspecified, uncomplicated; Z88.0 Allergy status to penicillin; Z88.5 Allergy status to narcotic agent

== ENCOUNTER → 2022-09-18 | Outpatient (REF) | payer MEDICARE, MEDICAID ==
[~2022-09-18] MED LIST changes: -AKWASOL OU; +ARTIDRO2 OU; +NAPR500T6 PO; +PRED20TA PO
[2022-09-18 17:44] LABS: APPEARANCE, URINE CLEAR (CLEAR); BACTERIA, URINE AUTO NEGATIVE (NEGATIVE); BILIRUBIN, URINE AUTO NEGATIVE (NEGATIVE); BLOOD, URINE BLOOD 1+ (NEGATIVE); COLOR, URINE YELLOW (YELLOW); GLUCOSE, URINE (UA) AUTO NEGATIVE (NEGATIVE); KETONE, URINE AUTO TRACE mg/dL (NEGATIVE); LEUKOCYTE ESTERASE, URINE AUTO NEGATIVE (NEGATIVE); MUCUS, URINE SMALL (NEGATIVE); NITRITE, URINE AUTO NEGATIVE (NEGATIVE); PROTEIN, URINE AUTO NEGATIVE (NEGATIVE); RBC, URINE AUTO 8 /HPF (0-3); SPECIFIC GRAVITY URINE AUTO 1.017 (1.002-1.035); SQUAMOUS EPITHELIAL CELL UR AU 0 /HPF (0-6); WBC, URINE AUTO 1 /HPF (0-3)
== END ==
LOC: M LAB REF 16:30
PROVIDERS: ATTEND Nurse Practitioner Family
DX: N50.89 Other specified disorders of the male genital organs (principal)

== ENCOUNTER → 2022-09-28 | Outpatient (REF) | payer MEDICARE, MEDICAID ==
[2022-09-28 13:32] LABS: BASO # 0.1 10^3/uL (0.0-0.2); BASO % 1.1 % (0.0-1.0); EOS # 0.2 10^3/uL (0.0-0.5); EOS % 3.2 % (0.0-3.0); HEMATOCRIT 48.4 % (42.0-52.0); HEMOGLOBIN 16.8 g/dl (13.5-17.5); LYMPH # 1.8 10^3/uL (1.5-5.0); LYMPH % 38.1 % (24.0-44.0); MEAN CORPUSCULAR HEMOGLOBIN 31.2 pg (27.0-33.0); MEAN CORPUSCULAR HGB CONC 34.7 g/dl (32.0-36.5); MEAN CORPUSCULAR VOLUME 89.8 fl (80.0-96.0); MONO # 0.5 10^3/uL (0.0-0.8); MONO % 10.8 % (2.0-8.0); NEUTROPHILS # 2.2 10^3/uL (1.5-8.5); NEUTROPHILS % 46.6 % (36.0-66.0); PLATELET COUNT, AUTOMATED 218 10^3/uL (150-450); RED BLOOD COUNT 5.39 10^6/uL (4.30-6.10); WHITE BLOOD COUNT 4.6 10^3/uL (4.0-10.0)
[2022-09-28 14:04] LABS: HEMOGLOBIN A1c 4.9 % (4.0-6.0); TOTAL 25(OH) VITAMIN D 21.3 NG/ML (20.0-100.0)
[2022-09-28 14:05] LABS: THYROID STIMULATING HORMONE 1.271 uIU/ML (0.55-4.78)
[2022-09-28 14:07] LABS: ALBUMIN 4.2 G/DL (3.2-5.2); ALKALINE PHOSPHATASE 47 U/L (46-116); ALT/SGPT 24 U/L (7.0-40); AST/SGOT 18 U/L (<34); BILIRUBIN,TOTAL 0.6 MG/DL (0.3-1.2); BLOOD UREA NITROGEN 9 MG/DL (9-23); CALCIUM LEVEL 8.9 MG/DL (8.5-10.1); CARBON DIOXIDE LEVEL 27 MMOL/L (20-31); CHLORIDE LEVEL 106 MMOL/L (98-107); CHOLESTEROL LEVEL 154 MG/DL (<200); CHOLESTEROL RISK RATIO 2.95 (<5); CREATININE FOR GFR 0.89 MG/DL (0.70-1.30); GLOMERULAR FILTRATION RATE > 60.0 (>60); GLUCOSE, FASTING 69 MG/DL (60-100); HDL CHOLESTEROL 52.1 MG/DL (>40); LDL CHOLESTEROL 85.3 MG/DL (<100); NON-HDL-C 101.9 MG/DL; POTASSIUM SERUM 4.2 MMOL/L (3.5-5.1); SODIUM LEVEL 140 MMOL/L (136-145); TOTAL PROTEIN 6.2 G/DL (5.7-8.2); TRIGLYCERIDES LEVEL 83 MG/DL (<150)
== END ==
LOC: M LAB REF 12:27
PROVIDERS: ATTEND Nurse Practitioner Family
DX: L20.9 Atopic dermatitis, unspecified (principal); N50.89 Other specified disorders of the male genital organs; E66.3 Overweight; E55.9 Vitamin D deficiency, unspecified; R53.83 Other fatigue; R31.29 Other microscopic hematuria; Z79.899 Other long term (current) drug therapy
CPT/HCPCS: 80053; 80061; 81001; 82306; 83036; 84443; 85025; G0103

== ENCOUNTER → 2022-09-28 | Outpatient (REF) | payer MEDICARE, MEDICAID ==
[2022-09-28 13:14] LABS: APPEARANCE, URINE CLEAR (CLEAR); BACTERIA, URINE AUTO 1+ (NEGATIVE); BILIRUBIN, URINE AUTO NEGATIVE (NEGATIVE); BLOOD, URINE BLOOD 1+ (NEGATIVE); COLOR, URINE YELLOW (YELLOW); GLUCOSE, URINE (UA) AUTO NEGATIVE (NEGATIVE); KETONE, URINE AUTO TRACE mg/dL (NEGATIVE); LEUKOCYTE ESTERASE, URINE AUTO TRACE (NEGATIVE); MUCUS, URINE SMALL (NEGATIVE); NITRITE, URINE AUTO NEGATIVE (NEGATIVE); PROTEIN, URINE AUTO NEGATIVE (NEGATIVE); RBC, URINE AUTO 11 /HPF (0-3); SPECIFIC GRAVITY URINE AUTO 1.021 (1.002-1.035); SQUAMOUS EPITHELIAL CELL UR AU 0 /HPF (0-6); WBC, URINE AUTO 1 /HPF (0-3)
== END ==
LOC: M LAB REF 12:14
PROVIDERS: ATTEND Nurse Practitioner Family
DX: R31.29 Other microscopic hematuria (principal); N50.89 Other specified disorders of the male genital organs

== ENCOUNTER → 2022-10-04 | Outpatient (REF) | payer MEDICARE, MEDICAID ==
[~2022-10-04] MED LIST changes: +DOXY-443 PO
== END ==
LOC: M LAB REF 12:18
PROVIDERS: ATTEND Nurse Practitioner Family
DX: Z11.9 Encounter for screening for infectious and parasitic diseases, unspecified (principal)

== ENCOUNTER → 2022-10-04 | Outpatient (REF) | payer MEDICAID, MEDICARE ==
[~2022-10-04] MED LIST changes: -DOXY-443 PO
[2022-10-06 15:07] LABS: GC DNA AMPLIFICATION NEGATIVE (NEGATIVE)
== END ==
LOC: M LAB REF 12:17
PROVIDERS: ATTEND Nurse Practitioner Family
DX: Z11.9 Encounter for screening for infectious and parasitic diseases, unspecified (principal)

== ENCOUNTER → 2022-10-10 | Outpatient (REF) | payer MEDICAID, MEDICARE ==
[2022-10-10 17:59] LABS: APPEARANCE, URINE HAZY (CLEAR); BACTERIA, URINE AUTO NEGATIVE (NEGATIVE); BILIRUBIN, URINE AUTO NEGATIVE (NEGATIVE); BLOOD, URINE BLOOD NEGATIVE (NEGATIVE); COLOR, URINE YELLOW (YELLOW); GLUCOSE, URINE (UA) AUTO NEGATIVE (NEGATIVE); KETONE, URINE AUTO NEGATIVE (NEGATIVE); LEUKOCYTE ESTERASE, URINE AUTO NEGATIVE (NEGATIVE); NITRITE, URINE AUTO NEGATIVE (NEGATIVE); PROTEIN, URINE AUTO NEGATIVE (NEGATIVE); RBC, URINE AUTO 0 /HPF (0-3); SPECIFIC GRAVITY URINE AUTO 1.018 (1.002-1.035); SQUAMOUS EPITHELIAL CELL UR AU 0 /HPF (0-6); WBC, URINE AUTO 0 /HPF (0-3)
== END ==
LOC: M SMT 17:18
PROVIDERS: ATTEND Urology
DX: N41.9 Inflammatory disease of prostate, unspecified (principal)

== ENCOUNTER → 2022-10-17 | Outpatient (CLI) | payer MEDICARE, MEDICAID | LOC: M RAD 11:53 | PROVIDERS: ATTEND Nurse Practitioner Family | DX: N50.89 Other specified disorders of the male genital organs (principal) ==

== ENCOUNTER 2022-12-27 16:29 | Emergency (ER) | payer MEDICARE, MEDICAID ==
[~2022-12-27] VITALS: Ht 185.4 cm; Wt 81.8 kg
[2022-12-27 16:29] VITALS: TEMP 98.2
[~2022-12-27 16:29] MED LIST changes: +DOXY-443 PO; +LORA2TAB14 PO; +MIRT-84 PO; -REME15TA2 PO; +TEMA15CA2 PO; +VENL150C43 PO
[2022-12-27] MEDS ORDERED: FAMOTIDINE 20MG/2ML VIAL IVP ONE (17:55)
[2022-12-27] MEDS ORDERED: dexAMETHasone 20MG/5ML VIAL IV ONE (17:55)
[2022-12-27] MEDS ORDERED: diphenhydrAMINE 50MG/ML VIAL IV ONE (17:55)
[2022-12-27] MEDS ORDERED: NS 1,000 ML IV ONE (17:55)
[2022-12-27] MEDS ORDERED: PRED20TA PO (19:43)
[2022-12-27 19:50] VITALS: BP 135/71; O2SAT 99
== END 2022-12-27 19:53 | disposition home or self-care (01) ==
LOC: M ED 16:29
DX: L50.9 Urticaria, unspecified (principal); G43.909 Migraine, unspecified, not intractable, without status migrainosus; F31.9 Bipolar disorder, unspecified; M32.9 Systemic lupus erythematosus, unspecified; N40.0 Benign prostatic hyperplasia without lower urinary tract symptoms; Z79.899 Other long term (current) drug therapy; Z88.0 Allergy status to penicillin; Z88.5 Allergy status to narcotic agent
CPT/HCPCS: 96361; 96374; 96375; 99284; J1100; J1200

== ENCOUNTER 2023-04-29 16:50 | Emergency (ER) | payer MEDICARE, MEDICAID ==
[~2023-04-29] VITALS: Ht 182.9 cm; Wt 78.0 kg
[2023-04-29] MEDS ORDERED: METH27TA5 PO (17:03)
[2023-04-29] MEDS ORDERED: ARIP1TAB6 PO (17:03)
[2023-04-29 17:46] LABS: HEMATOCRIT 45.2 % (42.0-52.0); HEMOGLOBIN 16.2 g/dl (13.5-17.5); MEAN CORPUSCULAR HEMOGLOBIN 30.8 pg (27.0-33.0); MEAN CORPUSCULAR HGB CONC 35.8 g/dl (32.0-36.5); MEAN CORPUSCULAR VOLUME 85.9 fl (80.0-96.0); PLATELET COUNT, AUTOMATED 218 10^3/uL (150-450); RED BLOOD COUNT 5.26 10^6/uL (4.30-6.10); WHITE BLOOD COUNT 5.1 10^3/uL (4.0-10.0)
[2023-04-29 18:01] LABS: AMPHETAMINES LEVEL URINE NEGATIVE (NEGATIVE); BARBITURATES URINE NEGATIVE (NEGATIVE); BENZODIAZEPINES URINE NEGATIVE (NEGATIVE); COCAINE METABOLITE URINE NEGATIVE (NEGATIVE); METHADONE URINE NEGATIVE (NEGATIVE); OPIATES URINE NEGATIVE (NEGATIVE); PHENCYCLIDINE URINE NEGATIVE (NEGATIVE)
[2023-04-29 18:03] LABS: ETHYL ALCOHOL (ETHANOL) < 0.003 % (0.000-0.010)
[2023-04-29 18:05] LABS: ALBUMIN 4.3 G/DL (3.2-5.2); ALKALINE PHOSPHATASE 51 U/L (46-116); ALT/SGPT 18 U/L (7.0-40); AST/SGOT 16 U/L (<34); BILIRUBIN,DIRECT 0.3 MG/DL (<0.4); BILIRUBIN,TOTAL 0.9 MG/DL (0.3-1.2); BLOOD UREA NITROGEN 11 MG/DL (9-23); CALCIUM LEVEL 9.2 MG/DL (8.5-10.1); CANNABINOIDS URINE POSITIVE (NEGATIVE); CARBON DIOXIDE LEVEL 27 MMOL/L (20-31); CHLORIDE LEVEL 104 MMOL/L (98-107); CREATININE FOR GFR 0.83 MG/DL (0.70-1.30); GLOMERULAR FILTRATION RATE > 60.0 (>60); GLUCOSE, FASTING 98 MG/DL (60-100); POTASSIUM SERUM 3.8 MMOL/L (3.5-5.1); SALICYLATE LEVEL < 3.0 MG/DL (<30); SODIUM LEVEL 137 MMOL/L (136-145); TOTAL PROTEIN 6.8 G/DL (5.7-8.2)
[2023-04-29] MEDS: LORazepam 2 MG TAB PO PRN (18:53)
[2023-04-29] MEDS ORDERED: LORA1TAB23 PO (22:23)
[2023-04-29] MEDS ORDERED: HOME MED LIST COMPLETE! XX SCH (22:25)
[2023-04-30] MEDS ORDERED: PILL CUTTER 1 EACH XX PRN (08:40)
[2023-04-30] MEDS ORDERED: METHYLPHENIDATE ER 18MG TABLET (CONCERTA) PO SCH (09:00)
[2023-04-30] MEDS: VENLAFAXINE **XR** 75MG CAPSULE PO SCH (09:06)
[2023-04-30] MEDS: LORazepam 2 MG TAB PO PRN ×2 (11:37→19:11)
[2023-04-30] MEDS ORDERED: PRAZOSIN 1 MG CAP PO SCH (21:00)
[2023-04-30] MEDS ORDERED: TEMAZEPAM 15 MG CAP PO SCH (21:00)
[2023-05-01] MEDS ORDERED: LURASIDONE HCL 40MG TAB (LATUDA) PO SCH (08:00)
[2023-05-01] MEDS: VENLAFAXINE **XR** 75MG CAPSULE PO SCH (08:25)
[2023-05-01 12:57] VITALS: BP 102/62; TEMP 97.3; O2SAT 99
== END 2023-05-01 13:00 ==
LOC: M ED 16:50
DX: R45.851 Suicidal ideations (principal); F32.A Depression, unspecified; F17.200 Nicotine dependence, unspecified, uncomplicated; F12.10 Cannabis abuse, uncomplicated; F10.10 Alcohol abuse, uncomplicated; Z88.0 Allergy status to penicillin; Z88.5 Allergy status to narcotic agent; Z88.8 Allergy status to other drugs, medicaments and biological substances; Z79.811 Long term (current) use of aromatase inhibitors; Z79.899 Other long term (current) drug therapy

== ENCOUNTER → 2023-05-29 | Outpatient (REF) | payer MEDICARE, MEDICAID ==
[~2023-05-29] MED LIST changes: +ARIP1TAB6 PO; +LORA1TAB23 PO; +METH27TA5 PO
== END ==
LOC: M LAB REF 16:44
PROVIDERS: ATTEND Nurse Practitioner Family
DX: M79.10 Myalgia, unspecified site (principal)

== ENCOUNTER 2023-07-16 21:23 | Inpatient (IN) | payer MEDICARE, MEDICAID ==
[~2023-07-16] VITALS: Ht 182.9 cm; Wt 72.0 kg
[2023-07-16 22:05] LABS: HEMATOCRIT 48.9 % (42.0-52.0); MEAN CORPUSCULAR HEMOGLOBIN 30.1 pg (27.0-33.0); MEAN CORPUSCULAR HGB CONC 34.8 g/dl (32.0-36.5); MEAN CORPUSCULAR VOLUME 86.5 fl (80.0-96.0); PLATELET COUNT, AUTOMATED 244 10^3/uL (150-450); RED BLOOD COUNT 5.65 10^6/uL (4.30-6.10); WHITE BLOOD COUNT 7.7 10^3/uL (4.0-10.0)
[2023-07-16 22:22] LABS: AMPHETAMINES LEVEL URINE NEGATIVE (NEGATIVE)
[2023-07-16 22:23] LABS: BARBITURATES URINE NEGATIVE (NEGATIVE); BENZODIAZEPINES URINE NEGATIVE (NEGATIVE); CANNABINOIDS URINE NEGATIVE (NEGATIVE); COCAINE METABOLITE URINE NEGATIVE (NEGATIVE); METHADONE URINE NEGATIVE (NEGATIVE); OPIATES URINE NEGATIVE (NEGATIVE); PHENCYCLIDINE URINE NEGATIVE (NEGATIVE)
[2023-07-16 22:25] LABS: ETHYL ALCOHOL (ETHANOL) 0.005 % (0.000-0.010)
[2023-07-16 22:26] LABS: SALICYLATE LEVEL < 3.0 MG/DL (<30)
[2023-07-16 22:27] LABS: ALBUMIN 4.5 G/DL (3.2-5.2); ALKALINE PHOSPHATASE 58 U/L (46-116); ALT/SGPT 24 U/L (7.0-40); AST/SGOT 18 U/L (<34); BILIRUBIN,DIRECT 0.2 MG/DL (<0.4); BILIRUBIN,TOTAL 0.7 MG/DL (0.3-1.2); BLOOD UREA NITROGEN 11 MG/DL (9-23); CARBON DIOXIDE LEVEL 28 MMOL/L (20-31); CHLORIDE LEVEL 107 MMOL/L (98-107); CREATININE FOR GFR 0.94 MG/DL (0.70-1.30); GLOMERULAR FILTRATION RATE > 60.0 (>60); GLUCOSE, FASTING 93 MG/DL (60-100); SODIUM LEVEL 140 MMOL/L (136-145); TOTAL PROTEIN 6.8 G/DL (5.7-8.2)
[2023-07-16 22:29] LABS: THYROID STIMULATING HORMONE 0.672 uIU/ML (0.55-4.78)
[2023-07-16] MEDS ORDERED: HOME MED LIST COMPLETE! XX SCH (22:30)
[2023-07-16] MEDS ORDERED: ACETAMINOPHEN TAB 650MG DOSE (2X325MG) PO PRN (22:50)
[2023-07-16] MEDS ORDERED: IBUPROFEN 400MG TAB PO PRN (22:50)
[2023-07-16] MEDS ORDERED: traZODone 50 MG TAB PO PRN (22:50)
[2023-07-16] MEDS ORDERED: MAALOX 30 ML SUSP *UDC PO PRN (22:50)
[2023-07-16] MEDS ORDERED: MOM 30ML SUSPENSION UDC PO PRN (22:50)
[2023-07-16] MEDS ORDERED: diphenhydrAMINE 25MG CAP PO PRN (22:50)
[2023-07-16] MEDS: LORazepam 1 MG TAB PO ONE (23:03)
[2023-07-17 00:29] VITALS: BP 97/56; TEMP 98.2; O2SAT 98
[2023-07-17 06:13] VITALS: BP 120/55; TEMP 97.1; O2SAT 98
== END 2023-07-17 10:51 | disposition home or self-care (01) | DRG 885 ==
LOC: M ED 21:23 → M ED INP 22:46 → M PSY 07-17 00:29
PROVIDERS: ADMIT Student in an Organized Health Care Education/Training Program; ATTEND Student in an Organized Health Care Education/Training Program
DX: F31.30 Bipolar disorder, current episode depressed, mild or moderate severity, unspecified (principal); R45.851 Suicidal ideations; F41.9 Anxiety disorder, unspecified; F90.9 Attention-deficit hyperactivity disorder, unspecified type; F43.10 Post-traumatic stress disorder, unspecified; Z91.148 Patient's other noncompliance with medication regimen for other reason; F12.90 Cannabis use, unspecified, uncomplicated; F17.200 Nicotine dependence, unspecified, uncomplicated; Z88.0 Allergy status to penicillin; Z88.5 Allergy status to narcotic agent; Z88.8 Allergy status to other drugs, medicaments and biological substances

== ENCOUNTER 2023-11-23 02:33 | Emergency (ER) | payer MEDICAID, MEDICARE ==
[~2023-11-23] VITALS: Ht 182.9 cm; Wt 83.7 kg
[2023-11-23 02:33] VITALS: BP 134/85; TEMP 97.1; O2SAT 100
[~2023-11-23 02:33] MED LIST changes: +DOXY-323 PO; -DOXY-443 PO; +RISP-106 PO; -RISP-9 PO
== END 2023-11-23 04:01 | disposition left against medical advice (07) ==
LOC: M ED 02:33
DX: Z53.21 Procedure and treatment not carried out due to patient leaving prior to being seen by health care provider (principal)

== ENCOUNTER 2025-01-10 21:45 | Inpatient (IN) | payer MEDICARE, SELFPAY ==
[~2025-01-10] VITALS: Ht 182.9 cm; Wt 83.6 kg
[~2025-01-10 21:45] MED LIST changes: -AMBI10TA PO; -DEPA250T32 PO; +DIVA-65 PO; -DOXY-323 PO; +DOXY-441 PO; +LAMO-18 PO; -LAMO25TA4 PO; +METH27TA16 PO; -METH27TA5 PO; +NAPR-1405 PO; -NAPR500T6 PO; -PROZ20CA11 PO; +PROZ20CA12 PO; +ZOLP-533 PO
[2025-01-10 22:33] LABS: PLATELET COUNT, AUTOMATED 231 10^3/uL (150-450)
[2025-01-10 23:10] LABS: AMPHETAMINES LEVEL URINE NEGATIVE (NEGATIVE); BARBITURATES URINE NEGATIVE (NEGATIVE); BENZODIAZEPINES URINE NEGATIVE (NEGATIVE); COCAINE METABOLITE URINE NEGATIVE (NEGATIVE); METHADONE URINE NEGATIVE (NEGATIVE); OPIATES URINE NEGATIVE (NEGATIVE); PHENCYCLIDINE URINE NEGATIVE (NEGATIVE)
[2025-01-10 23:12] LABS: ETHYL ALCOHOL (ETHANOL) < 0.003 % (0.000-0.010)
[2025-01-10 23:14] LABS: ALT/SGPT 57 U/L (7.0-40); AST/SGOT 42 U/L (<34); CALCIUM LEVEL 9.5 MG/DL (8.5-10.1); CARBON DIOXIDE LEVEL 24 MMOL/L (20-31); CHLORIDE LEVEL 107 MMOL/L (98-107); CREATININE FOR GFR 0.84 MG/DL (0.70-1.30); GLOMERULAR FILTRATION RATE > 90.0 (>60); POTASSIUM SERUM 4.1 MMOL/L (3.5-5.1); SALICYLATE LEVEL < 3.0 MG/DL (<30); SODIUM LEVEL 142 MMOL/L (136-145)
[2025-01-10 23:16] LABS: CANNABINOIDS URINE POSITIVE (NEGATIVE)
[2025-01-11] MEDS ORDERED: MAALOX 30 ML SUSP *UDC PO PRN (02:25)
[2025-01-11] MEDS ORDERED: IBUPROFEN 400 MG TAB PO PRN (02:25)
[2025-01-11] MEDS ORDERED: MOM 30 ML SUSPENSION UDC PO PRN (02:25)
[2025-01-11] MEDS ORDERED: OLANZapine ORAL DISINTEGRATING TAB 5MG PO PRN (02:25)
[2025-01-11] MEDS ORDERED: ACETAMINOPHEN 325 MG TAB PO PRN (02:25)
[2025-01-11 05:10] VITALS: BP 114/70; TEMP 97.8; O2SAT 99
[2025-01-11] MEDS ORDERED: HOME MED LIST COMPLETE! XX SCH (06:55)
[2025-01-11 15:13] VITALS: BP 110/67; TEMP 97.9; O2SAT 98
[2025-01-11] MEDS: NICOTINE 21 MG/24 HR 1 EA TRANSDERMAL TD SCH (15:39)
[2025-01-11] MEDS: NAPROXEN 250 MG TAB PO ONE (17:19)
[2025-01-11] MEDS: RAMELTEON 8 MG TAB PO SCH (20:34)
[2025-01-12 06:40] VITALS: BP 111/64; TEMP 97.9; O2SAT 98
[2025-01-12 16:34] VITALS: BP 122/69; TEMP 97; O2SAT 100
[2025-01-12] MEDS ORDERED: traZODone 50 MG TAB PO PRN (22:20)
[2025-01-13 06:24] VITALS: BP 106/59; TEMP 97; O2SAT 100
[2025-01-13] MEDS ORDERED: ABIL1TAB11 PO (11:52)
[2025-01-13] MEDS ORDERED: HYDR-3363 PO (11:52)
== END 2025-01-13 12:30 | disposition home or self-care (01) | DRG 885 ==
LOC: M ED 21:45 → M ED INP 01-11 02:21 → M PSY 01-11 04:45
PROVIDERS: ADMIT Psychiatry & Neurology Neurology; ATTEND Psychiatry & Neurology Neurology
DX: F31.81 Bipolar II disorder (principal); R45.851 Suicidal ideations; F41.1 Generalized anxiety disorder; F41.0 Panic disorder [episodic paroxysmal anxiety]; F60.3 Borderline personality disorder; F90.9 Attention-deficit hyperactivity disorder, unspecified type; G47.00 Insomnia, unspecified; N40.1 Benign prostatic hyperplasia with lower urinary tract symptoms; M25.511 Pain in right shoulder; M25.512 Pain in left shoulder; Z81.8 Family history of other mental and behavioral disorders; Z88.0 Allergy status to penicillin; Z88.8 Allergy status to other drugs, medicaments and biological substances; Z88.5 Allergy status to narcotic agent

== ENCOUNTER 2025-01-17 20:40 | Emergency (ER) | payer MEDICARE, SELFPAY ==
[~2025-01-17] VITALS: Ht 182.9 cm; Wt 83.7 kg
[~2025-01-17 20:40] MED LIST changes: +ABIL1TAB11 PO
[2025-01-18] MEDS ORDERED: ISOVUE-370 76% 100 ML VIAL As Ordered ONE (00:19)
[2025-01-18] MEDS: KETOROLAC 30 MG/ML 1 ML VIAL IV ONE (00:21)
[2025-01-18 02:04] VITALS: BP 118/77; TEMP 97.9; O2SAT 100
== END 2025-01-18 02:05 | disposition home or self-care (01) ==
LOC: M ED 20:40
DX: M25.511 Pain in right shoulder (principal); X50.0XXA Overexertion from strenuous movement or load, initial encounter; Y92.89 Other specified places as the place of occurrence of the external cause; Y99.0 Civilian activity done for income or pay; Y93.89 Activity, other specified; Z88.0 Allergy status to penicillin; Z88.8 Allergy status to other drugs, medicaments and biological substances; Z79.899 Other long term (current) drug therapy; F17.200 Nicotine dependence, unspecified, uncomplicated
CPT/HCPCS: 71260; 73000; 80047; 96374; 99284; J1885; Q9967

== ENCOUNTER 2025-04-05 23:36 | Inpatient (IN) | payer SELFPAY ==
[~2025-04-05] VITALS: Ht 182.9 cm; Wt 84.1 kg
[~2025-04-05 23:36] MED LIST changes: +ISOVUE-370 76% 100 ML VIAL As Ordered ONE; +ZOLP10TA11; +ZOLP10TA11 PO; -ZOLP10TA2; -ZOLP10TA2 PO
[2025-04-05] MEDS ORDERED: ADDE20CA3 PO (23:54)
[2025-04-05] MEDS ORDERED: MIRT-88 PO (23:56)
[2025-04-05] MEDS ORDERED: LATU20TA PO (23:56)
[2025-04-05] MEDS ORDERED: ATIV1TAB7 PO (23:56)
[2025-04-06 00:25] LABS: VENOUS BASE EXCESS -0.6 (-2.0-2.0); VENOUS HCO3 23.5 MMOL/L (23.0-27.0); VENOUS O2 SATURATION 97.7 % (60.0-80.0); VENOUS PARTIAL PRESSURE CO2 37.1 mmHg (38.0-50.0); VENOUS PARTIAL PRESSURE O2 96.6 mmHg (30.0-50.0); VENOUS PH 7.419 UNITS (7.330-7.430); VENOUS STANDARD HCO3 24.0 MMOL/L; VENOUS TOTAL CO2 24.6 MMOL/L (24.0-28.0)
[2025-04-06 00:44] LABS: BASO # 0.1 10^3/uL (0.0-0.2); BASO % 1.1 % (0.0-1.0); EOS # 0.1 10^3/uL (0.0-0.5); EOS % 2.4 % (0.0-3.0); LYMPH # 1.8 10^3/uL (1.5-5.0); LYMPH % 33.8 % (24.0-44.0); MONO # 0.4 10^3/uL (0.0-0.8); MONO % 7.6 % (2.0-8.0); NEUTROPHILS # 3.0 10^3/uL (1.5-8.5); NEUTROPHILS % 54.7 % (36.0-66.0); PLATELET COUNT, AUTOMATED 243 10^3/uL (150-450)
[2025-04-06 01:09] LABS: ETHYL ALCOHOL (ETHANOL) < 0.003 % (0.000-0.010); SALICYLATE LEVEL < 3.0 MG/DL (<30)
[2025-04-06 01:10] LABS: ALT/SGPT 18 U/L (7.0-40); AST/SGOT 19 U/L (<34); CALCIUM LEVEL 8.5 MG/DL (8.5-10.1); CARBON DIOXIDE LEVEL 26 MMOL/L (20-31); CHLORIDE LEVEL 109 MMOL/L (98-107); CREATININE FOR GFR 0.95 MG/DL (0.70-1.30); GLOMERULAR FILTRATION RATE > 90.0 (>60); POTASSIUM SERUM 4.0 MMOL/L (3.5-5.1); SODIUM LEVEL 142 MMOL/L (136-145)
[2025-04-06 01:24] LABS: CPK CREATINE PHOSPHOKINASE 44 U/L (46-171)
[2025-04-06 03:28] LABS: AMPHETAMINES LEVEL URINE NEGATIVE (NEGATIVE); BARBITURATES URINE NEGATIVE (NEGATIVE); BENZODIAZEPINES URINE NEGATIVE (NEGATIVE); COCAINE METABOLITE URINE NEGATIVE (NEGATIVE); METHADONE URINE NEGATIVE (NEGATIVE); OPIATES URINE NEGATIVE (NEGATIVE)
[2025-04-06 03:29] LABS: PHENCYCLIDINE URINE NEGATIVE (NEGATIVE)
[2025-04-06 03:32] LABS: CANNABINOIDS URINE POSITIVE (NEGATIVE)
[2025-04-06] MEDS ORDERED: MOM 30 ML SUSPENSION UDC PO PRN (07:15)
[2025-04-06] MEDS ORDERED: MAALOX 30 ML SUSP *UDC PO PRN (07:15)
[2025-04-06] MEDS ORDERED: IBUPROFEN 400 MG TAB PO PRN (07:15)
[2025-04-06] MEDS ORDERED: ACETAMINOPHEN 325 MG TAB PO PRN (07:15)
[2025-04-06] MEDS ORDERED: HOME MED LIST COMPLETE! XX SCH (08:45)
[2025-04-06 09:32] VITALS: BP 118/70; TEMP 97; O2SAT 100
[2025-04-06] MEDS: NICOTINE 21 MG/24 HR 1 EA TRANSDERMAL TD SCH (12:20)
[2025-04-06] MEDS: DEXTROAMPHETAMINE/AMPHETAMINE 5 MG *ER* CAPSULE PO SCH (14:46)
[2025-04-06] MEDS: LORazepam 1 MG TAB PO PRN (15:26)
[2025-04-06 16:26] VITALS: BP 116/73; TEMP 97.5; O2SAT 98
[2025-04-06] MEDS: LURASIDONE HCL 20 MG TAB PO SCH (18:08)
[2025-04-06] MEDS: MIRTAZAPINE 15 MG TAB PO SCH (20:46)
[2025-04-07 06:45] VITALS: BP 102/59; TEMP 97.1; O2SAT 96
[2025-04-07] MEDS: HALOPERIDOL 5 MG TAB PO PRN (12:57)
[2025-04-07 17:08] VITALS: BP 133/89; TEMP 98.2; O2SAT 98
[2025-04-08] VITALS (7 sets, daily range): BP systolic 119–208; BP diastolic 65–90; TEMP 97.2–98.7; O2SAT 97–100
[2025-04-08] MEDS: ACETAMINOPHEN 500 MG TAB PO PRN (13:12)
== END 2025-04-08 18:33 | disposition still patient (30) | DRG 753 ==
LOC: M ED 23:36 → M ED INP 04-06 07:11 → M PSY 04-06 08:26
PROVIDERS: ADMIT Psychiatry & Neurology Neurology; ATTEND Psychiatry & Neurology Neurology
DX: F31.32 Bipolar disorder, current episode depressed, moderate (principal); F41.1 Generalized anxiety disorder; F90.9 Attention-deficit hyperactivity disorder, unspecified type; F60.3 Borderline personality disorder; R56.9 Unspecified convulsions; Z88.0 Allergy status to penicillin; Z88.5 Allergy status to narcotic agent; Z88.8 Allergy status to other drugs, medicaments and biological substances; Z79.899 Other long term (current) drug therapy; J06.9 Acute upper respiratory infection, unspecified; M25.511 Pain in right shoulder; M25.512 Pain in left shoulder; R45.851 Suicidal ideations; Z62.810 Personal history of physical and sexual abuse in childhood; F41.0 Panic disorder [episodic paroxysmal anxiety]

== ENCOUNTER 2025-04-08 18:32 | Observation (INO) | payer MEDICARE, MEDICAID ==
[~2025-04-08] VITALS: Ht 182.9 cm; Wt 90.8 kg
[~2025-04-08 18:32] MED LIST changes: +ADDE20CA3 PO; +ATIV1TAB7 PO; -ISOVUE-370 76% 100 ML VIAL As Ordered ONE; +MIRT-88 PO; -PROZ20CA12 PO; +PROZ20CA25 PO
[2025-04-08 18:46] VITALS: BP 119/79; TEMP 97.9; O2SAT 98
[2025-04-08] MEDS ORDERED: MOM 30 ML SUSPENSION UDC PO PRN (18:50)
[2025-04-08] MEDS ORDERED: ACETAMINOPHEN 325 MG TAB PO PRN (18:50)
[2025-04-08] MEDS ORDERED: HOME MED LIST COMPLETE! XX SCH (19:10)
[2025-04-08 19:42] LABS: PLATELET COUNT, AUTOMATED 236 10^3/uL (150-450)
[2025-04-08 19:50] VITALS: BP 112/68; TEMP 98.9; O2SAT 96
[2025-04-08 19:54] VITALS: BP 136/60; TEMP 98; O2SAT 99
[2025-04-08 20:19] LABS: ALT/SGPT 17.0 U/L (7.0-40); AST/SGOT 17.0 U/L (<34); CALCIUM LEVEL 9.2 MG/DL (8.5-10.1); CARBON DIOXIDE LEVEL 28.0 MMOL/L (20-31); CHLORIDE LEVEL 107.0 MMOL/L (98-107); CREATININE FOR GFR 1.13 MG/DL (0.70-1.30); GLOMERULAR FILTRATION RATE 87.5 (>60); MAGNESIUM LEVEL 1.8 MG/DL (1.8-2.4); POTASSIUM SERUM 3.8 MMOL/L (3.5-5.1); SODIUM LEVEL 141.0 MMOL/L (136-145)
[2025-04-08 20:22] LABS: PROLACTIN 8.37 NG/ML (2.1-17.7)
[2025-04-09 00:06] VITALS: BP 107/58; TEMP 97.8; O2SAT 96
[2025-04-09 03:48] VITALS: BP 94/56; TEMP 98.1; O2SAT 96
[2025-04-09 06:02] LABS: PLATELET COUNT, AUTOMATED 232 10^3/uL (150-450)
[2025-04-09 06:33] LABS: ALT/SGPT 17 U/L (7.0-40); AST/SGOT 16 U/L (<34); CALCIUM LEVEL 8.8 MG/DL (8.5-10.1); CARBON DIOXIDE LEVEL 28 MMOL/L (20-31); CHLORIDE LEVEL 106 MMOL/L (98-107); CREATININE FOR GFR 1.01 MG/DL (0.70-1.30); GLOMERULAR FILTRATION RATE > 90.0 (>60); MAGNESIUM LEVEL 1.9 MG/DL (1.8-2.4); POTASSIUM SERUM 4.1 MMOL/L (3.5-5.1); SODIUM LEVEL 141 MMOL/L (136-145)
[2025-04-09 07:40] VITALS: BP 101/68; TEMP 97.4; O2SAT 97
[2025-04-09] MEDS: DICLOFENAC EPOLAMINE 1.3% PATCH TOP SCH (09:01)
[2025-04-09] MEDS: ENOXAPARIN 40 MG/0.4 ML SYRINGE (J1650 PER 10MG) SC SCH (09:01)
[2025-04-09] MEDS: NICOTINE 14 MG/24 HR TRANSDERMAL TD SCH (11:19)
[2025-04-09 11:34] VITALS: BP 105/59; TEMP 98.6; O2SAT 95
== END 2025-04-09 17:30 | disposition home or self-care (01) ==
LOC: INTOOBSV 18:45 → M PCU 18:45
PROVIDERS: ADMIT Internal Medicine; ATTEND Internal Medicine
DX: F44.5 Conversion disorder with seizures or convulsions (principal); F31.9 Bipolar disorder, unspecified; M25.512 Pain in left shoulder; Z79.899 Other long term (current) drug therapy; R45.851 Suicidal ideations
CPT/HCPCS: 36415; 80053; 83735; 85027; 95819; 96372; 99222; G0378; J1650